=== PATIENT | female | born 1935 | race African-American/Black ===

== ENCOUNTER 2017-06-25 11:17 | Emergency (ER) | payer MEDICARE, MEDICAID ==
[2017-06-25 11:56] LABS: ABSOLUTE EOSINOPHILS # (AUTO) 0.1 10^3/uL (0.0-0.6); ABSOLUTE LYMPHOCYTES (AUTO) 2.1 10^3/uL (0.5-4.7); ABSOLUTE MONOCYTES (AUTO) 0.5 10^3/uL (0.1-1.4); ABSOLUTE NEUT (AUTO) 2.5 10^3/uL (1.7-8.2); BASOPHILS % (AUTO) 0.6 % (0-2); EOSINOPHILS % (AUTO) 2.4 % (0-6); HEMATOCRIT 39.8 % (36.0-47.0); HEMOGLOBIN 13.3 g/dL (12.0-15.5); HGB HCT DIFFERENCE 0.1; LYMPHOCYTES % (AUTO) 39.5 % (13-45); MEAN CORPUSCULAR HEMOGLOBIN 28.4 pg (27.0-33.4); MEAN CORPUSCULAR HGB CONC 33.4 g/dL (32.0-36.0); MEAN CORPUSCULAR VOLUME 85 fl (80-97); MONOCYTES % (AUTO) 10.3 % (3-13); RED BLOOD COUNT 4.68 10^6/uL (3.72-5.28); RED CELL DISTRIBUTION WIDTH 14.5 % (11.5-14.0); SEGMENTED NEUTROPHILS % (AUTO) 47.2 % (42-78); WHITE BLOOD COUNT 5.3 10^3/uL (4.0-10.5)
[2017-06-25 12:03] LABS: ADD ON TESTING BLD IN LAB ACKNOWLEDGE
[2017-06-25] MEDS ORDERED: ONDANSETRON HCL INJ/PF 4 MG/2 ML SDV IV ONE (12:12)
--- NOTE | 2017-06-25 12:17 | ER Document Report ---
ED GI/ - General Mode of Arrival: Ambulatory Information source: Patient TRAVEL OUTSIDE OF THE [place] IN LAST 30 DAYS: No <GANGA STACK - Last Filed: 06/25/17 12:57> <JENNY FITZPATRICK - Last Filed: 06/25/17 15:35> - General Chief Complaint: Nausea/Vomiting/Diarrhea Stated Complaint: WEAKNESS Time Seen by Provider: 06/25/17 11:52 Notes: Patient is an 82 year old female that presents to the emergency department today with complaints of vomiting. Patient has had associated diarrhea and diffuse abdominal pain as well. Patient states she has not seen her PCP in "quite a while" which she further explains as x4-5 months. Patient states she has been out of her insulin for quite some time. Patient mentions that she has been taking a family members insulin intermittently but she is unsure of type of insulin she has been taking. Patient is a poor historian so history is limited. (GANGA STACK) Patient is extremely poor historian. States she has had nausea vomiting for 3 days with a little bit of diarrhea. She states she has been out of her insulin for 3 days, does not know what kind of insulin she is taking. She has been taking "a little bit" of a family members insulin. When asked what insulin she takes she partially names off several different types which suggests she has been on different insulins over the years and has no idea what she supposed to be taking now. She was last admitted here in March 2016 and was discharged on Lantus at that time. (JENNY FITZPATRICK) - Related Data Allergies/Adverse Reactions: No Known Allergies Allergy (Verified 06/25/17 11:30) Past Medical History - General Information source: Patient - Social History Smoking Status: Unknown if Ever Smoked Cigarette use (# per day): No Frequency of alcohol use: None Drug Abuse: None Lives with: Family Family History: Reviewed & Not Pertinent Patient has suicidal ideation: No Patient has homicidal ideation: No - Past Medical History Cardiac Medical History: Reports: Hx Hypercholesterolemia, Hx Hypertension Endocrine Medical History: Reports: Hx Diabetes Mellitus Type 2 Surgical Hx: Negative <GANGA STACK - Last Filed: 06/25/17 12:57> Review of Systems - Review of Systems Constitutional: No symptoms reported EENT: No symptoms reported Cardiovascular: No symptoms reported Respiratory: No symptoms reported Gastrointestinal: See HPI, Abdominal pain, Diarrhea, Nausea, Vomiting Genitourinary: No symptoms reported Female Genitourinary: No symptoms reported Musculoskeletal: No symptoms reported Skin: No symptoms reported Hematologic/Lymphatic: No symptoms reported Neurological/Psychological: No symptoms reported -: Yes All other systems reviewed and negative <GANGA STACK - Last Filed: 06/25/17 12:57> Physical Exam <GANGA STACK - Last Filed: 06/25/17 12:57> <JENNY FITZPATRICK - Last Filed: 06/25/17 15:35> - Vital signs Vitals: Pulse Ox 95 06/25/17 11:22 - Notes Notes: Physical Exam: General: Alert, appears uncomfortable. HEENT: Normocephalic. Atraumatic. PERRL. Extraocular movements intact. Oropharynx clear. Neck: Supple. Non-tender. Respiratory: No respiratory distress. Clear and equal breath sounds bilaterally. Cardiovascular: Regular rate and rhythm. Abdominal: Obese. Diffuse abdominal tenderness with palpation. No distension. Normal Bowel Sounds. Back: Non-tender. No deformity or step off. Extremities: Moves all four extremities. Upper extremities: Normal inspection. Normal ROM. Lower extremities: Normal inspection. No edema. Normal ROM. Neurological: Normal cognition. AAOx4. Normal speech. Psychological: Normal affect. Normal Mood. Skin: Warm. Dry. Normal color. (GANGA STACK) Course - Laboratory Result Diagrams: 06/25/17 11:37 06/25/17 11:37 <GANGA STACK - Last Filed: 06/25/17 12:57> - Laboratory Result Diagrams: 06/25/17 11:37 06/25/17 11:37 <JENNY FITZPATRICK - Last Filed: 06/25/17 15:35> - Re-evaluation Re-evalutation: 06/25/17 15:29 The patient's hemoglobin A1c is greater than 14, her blood sugar today is 271 which suggested is lower than she normally runs based on that A1c. It is possibly lower because she had been throwing up some for the last few days. Her vomiting is very suspicious for diabetic gastroparesis which would not be unusual given her poorly controlled diabetes. She also does report numbness to the feet but does not complain of burning sensation. Her urine had only trace ketones. The serum CO2 was 25, this would suggest that the patient does not have type 1 diabetes and should be okay to take an oral sulfonylurea drug until she can follow-up with her doctor next week. (JENNY FITZPATRICK) - Vital Signs Vital signs: Temp Pulse Resp BP Pulse Ox 97.4 F 16 183/73 H 96 06/25/17 11:25 06/25/17 14:01 06/25/17 14:01 06/25/17 14:01 - Laboratory Laboratory results interpreted by me: 06/25/17 06/25/17 06/25/17 11:37 11:37 11:37 RDW 14.5 H Plt Count 149 L BUN 24 H Creatinine 1.49 H Est GFR ( Amer) 41 L Est GFR (Non-Af Amer) 34 L Glucose 271 H POC Glucose Hemoglobin A1c % > 14.0 H AST 13 L Urine Protein Urine Glucose (UA) Urine Ketones Ur Leukocyte Esterase 06/25/17 06/25/17 11:39 14:32 RDW Plt Count BUN Creatinine Est GFR ( Amer) Est GFR (Non-Af Amer) Glucose POC Glucose 253 H Hemoglobin A1c % AST Urine Protein 30 H Urine Glucose (UA) >=500 H Urine Ketones TRACE H Ur Leukocyte Esterase TRACE H Discharge <GANGA STACK - Last Filed: 06/25/17 12:57> <JENNY FITZPATRICK - Last Filed: 06/25/17 15:35> - Discharge Clinical Impression: Nausea, vomiting and diarrhea, Poorly controlled diabetes mellitus, Noncompliance w/medication treatment due to intermit use of medication High blood pressure Qualifiers: Hypertension type: essential hypertension Qualified Code(s): I10 - Essential ( primary) hypertension Condition: Stable Disposition: HOME, SELF-CARE Additional Instructions: Diabetes You have an abnormally high blood sugar. Uncontrolled high blood sugar leads to early heart disease, strokes, nerve damage, eye damage, and kidney damage. All diabetics should follow a diet designed to control the blood sugar. Overweight diabetics should exercise regularly and lose weight. If this is not sufficient to control the blood sugar, pills or insulin shots are necessary. Home testing of blood sugars or urine sugar is required. Diabetic teaching is available to help you figure insulin doses and monitor the blood sugar. Call the physician if there is faintness, excess sleepiness, or very rapid breathing. If hypoglycemia (LOW blood sugar) develops, symptoms are shakiness, weakness, sweating, and confusion. In this case, you should eat or drink something with sugar at once. //////////////////////////////////////////////////////////////////////////////// //////////////////////////////////////////////////////////////////////////////// ////////////// Take the medications as prescribed to help control your nausea and your blood sugar levels. Drink plenty of fluids over the next few days. Follow-up with your doctor next week to review your medications and get prescriptions for what ever diabetes medication he would like you to be taking. RETURN TO THE EMERGENCY ROOM IF ANY NEW OR WORSENING SYMPTOMS. Prescriptions: Glimepiride [Amaryl] 2 mg PO ASDIR #10 tablet Metoclopramide HCl [Reglan 10 mg Tablet] 10 mg PO Q4 PRN #15 tablet PRN Reason: For Nausea/Vomiting Referrals: LANA BARR MD [Primary Care Provider] - Follow up as needed Scribe Attestation: 06/25/17 15:34 I personally performed the services described in the documentation, reviewed and edited the documentation which was dictated to the scribe in my presence, and it accurately records my words and actions. (JENNY FITZPATRICK) Scribe Documentation - Scribe Written by Scribe:: Mallorie Mack, 06/25/2017 1310 acting as scribe for :: Loreta <GANGA STACK - Last Filed: 06/25/17 12:57>
[2017-06-25 12:27] LABS: ALANINE AMINOTRANSFERASE 25 U/L (9-52); ALBUMIN 3.7 g/dL (3.5-5.0); ALKALINE PHOSPHATASE 89 U/L (38-126); ANION GAP 14 (5-19); ASPARTATE AMINO TRANSFERASE 13 U/L (14-36); BILIRUBIN,DIRECT 0.3 mg/dL (0.0-0.4); BILIRUBIN,TOTAL 0.5 mg/dL (0.2-1.3); BLOOD UREA NITROGEN 24 mg/dL (7-20); CALCIUM 9.4 mg/dL (8.4-10.2); CARBON DIOXIDE 25 mmol/L (22-30); CHLORIDE 100 mmol/L (98-107); CREATININE RESULT 1.49 mg/dL (0.52-1.25); GLUCOSE 271 mg/dL (75-110); POTASSIUM 4.6 mmol/L (3.6-5.0); SODIUM 138.9 mmol/L (137-145); TOTAL PROTEIN 6.9 g/dL (6.3-8.2)
[2017-06-25 12:29] LABS: MAGNESIUM 2.1 mg/dL (1.6-2.3)
[2017-06-25] MEDS ORDERED: NORMAL SALINE 1000 ML 1,000 ML IV ONE (13:05)
[2017-06-25 13:35] LABS: ADD ON TESTING BLD IN LAB ACKNOWLEDGE
[2017-06-25 13:55] LABS: CREATINE KINASE 49 U/L (30-135)
--- NOTE | 2017-06-25 14:12 | RADIOLOGY REPORT (SQ) ---
EXAM DESCRIPTION: ACUTE ABDOMEN SERIES COMPLETED DATE/TIME: 06/25/2017 2:04 pm REASON FOR STUDY: N V w/ some diarrhea COMPARISON: None. NUMBER OF VIEWS: Three views. TECHNIQUE: Frontal chest, supine abdomen and upright abdomen radiographic images acquired. LIMITATIONS: None. FINDINGS: CHEST: Lungs clear of infiltrates. FREE AIR: None. No abnormal gas collections. BOWEL GAS PATTERN: Nonobstructive pattern. No dilated loops or air fluid levels. CALCIFICATIONS: No suspicious calcifications. HARDWARE: None in the abdomen. SOFT TISSUES: No gross mass or suggestion of organomegaly. BONES: No acute fracture. No worrisome bone lesions. OTHER: No other significant finding. IMPRESSION: NO RADIOGRAPHIC EVIDENCE FOR ACUTE ABDOMINAL DISEASE. TECHNICAL DOCUMENTATION: JOB ID: [id number] [employer]- All Rights Reserved
[2017-06-25 14:47] LABS: APPEARANCE,URINE SLIGHTLY-CLOUDY; BILIRUBIN,URINE NEGATIVE (NEGATIVE); GLUCOSE, URINE >=500 mg/dL (NEGATIVE); KETONES,URINE TRACE mg/dL (NEGATIVE); LEUKOCYTE ESTERASE,URINE TRACE (NEGATIVE); NITRITE,URINE NEGATIVE (NEGATIVE); PROTEIN,URINE 30 mg/dL (NEGATIVE); UROBILINOGEN,URINE NEGATIVE mg/dL (<2.0)
[2017-06-25] MEDS ORDERED: GLIMEPIRIDE 1 MG TABLET PO ONE (15:35)
[2017-06-25] MEDS ORDERED: AMLODIPINE BESYLATE 10 MG TABLET PO ONE (15:35)
[2017-06-25 15:55] VITALS: BP 171/64
--- NOTE | 2017-06-25 19:31 | EKG REPORT ---
SEVERITY:- ABNORMAL ECG - SINUS OR ECTOPIC ATRIAL RHYTHM FIRST DEGREE AV BLOCK NSI IVCD : Confirmed by: Mya Garibay MD 25-Jun-2017 19:30:35
== END 2017-06-25 16:12 | disposition home or self-care (01) ==
LOC: ER 11:17
DX: R11.2 Nausea with vomiting, unspecified (principal); R19.7 Diarrhea, unspecified; E11.9 Type 2 diabetes mellitus without complications; I10 Essential (primary) hypertension; E78.00 Pure hypercholesterolemia, unspecified; Z91.14 Patient's other noncompliance with medication regimen; Z79.4 Long term (current) use of insulin
CPT/HCPCS: 93005; 99284; 96361; 96374; 36415; 87086; 82962; 82550; 83735; 85025; 87088; 80053; 81001; 84484; 83036; 74022; 93010; J2405; A9270 ×2; J7030

== ENCOUNTER 2017-07-01 08:40 | Emergency (ER) | payer MEDICARE, MEDICAID ==
[2017-07-01 08:46] VITALS: BP 164/72
[2017-07-01] MEDS ORDERED: TRAMADOL HCL 50 MG TABLET PO ONE (09:47)
[2017-07-01] MEDS ORDERED: LOSARTAN POTASSIUM 50 MG TABLET PO ONE (09:47)
--- NOTE | 2017-07-01 09:52 | ER Document Report ---
HPI - HPI Patient complains to provider of: Left knee pain Onset: Other - 3 years Onset/Duration: Worse Quality of pain: Achy Pain Level: 5 Context: Patient complains of chronic left knee pain for the past 3 years that worsened over the past few days. Patient also reports that she is currently out of her insulin as well as her high blood pressure medication. Patient had an appointment with her primary doctor and whenever she arrived at the office, the nurse advised her that she was too sick and that she needed to come to the emergency department for further evaluation. Patient denies any injury to her knee. Associated Symptoms: Other - Left knee pain Exacerbated by: Standing, Movement, Walking Relieved by: Denies Similar symptoms previously: Yes Recently seen / treated by doctor: No - ROS ROS below otherwise negative: Yes Systems Reviewed and Negative: Yes All other systems reviewed and negative - EENT EENT: DENIES: Sore Throat, Ear Pain, Eye problems - NEURO Neurology: DENIES: Headache, Weakness, Vision blurred, Dizzinesss / Vertigo - CARDIOVASCULAR Cardiovascular: DENIES: Chest pain - RESPIRATORY Respiratory: DENIES: Trouble Breathing, Coughing - GASTROINTESTINAL Gastrointestinal: DENIES: Abdominal Pain, Black / Bloody Stools - URINARY Urinary: DENIES: Dysuria, Urgency, Frequency - REPRODUCTIVE Reproductive: DENIES: :, Postmenopausal, Abnormal bleeding / discharge - MUSCULOSKELETAL Musculoskeletal: REPORTS: Extremity pain - Left Knee pain chronic Past Medical History - General Information source: Patient, Relative - Social History Smoking Status: Never Smoker Chew tobacco use (# tins/day): No Frequency of alcohol use: None Drug Abuse: None Lives with: Family Family History: Reviewed & Not Pertinent Patient has suicidal ideation: No Patient has homicidal ideation: No - Past Medical History Cardiac Medical History: Reports: Hx Hypercholesterolemia, Hx Hypertension Endocrine Medical History: Reports: Hx Diabetes Mellitus Type 2 Renal/ Medical History: Denies: Hx Peritoneal Dialysis Musculoskeltal Medical History: Reports Hx Arthritis Psychiatric Medical History: Denies: Hx Depression Past Surgical History: Reports: Hx Cholecystectomy Vertical Provider Document - CONSTITUTIONAL Agree With Documented VS: Yes Exam Limitations: No Limitations General Appearance: WD/WN, No Apparent Distress - INFECTION CONTROL TRAVEL OUTSIDE OF THE [place] IN LAST 30 DAYS: No - HEENT HEENT: Atraumatic, Normocephalic - NECK Neck: Normal Inspection - RESPIRATORY Respiratory: Breath Sounds Normal, No Respiratory Distress O2 Sat by Pulse Oximetry: 99 - CARDIOVASCULAR Cardiovascular: Regular Rate, Regular Rhythm Pulses: Normal: Dorsalis pedis - BACK Back: Normal Inspection - MUSCULOSKELETAL/EXTREMETIES Musculoskeletal/Extremeties: MAEW, Tender - Generalized left knee joint tenderness, no joint effusion, no laxity with varus or valgus maneuvers. Normal skin color and temperature overlying joint, No Edema. negative: Eccymosis - NEURO Level of Consciousness: Awake, Alert, Appropriate Motor/Sensory: No Motor Deficit - DERM Integumentary: Warm, Dry, No Rash Course - Re-evaluation Re-evalutation: 07/01/17 09:47 Spoke with patient's reported primary doctor JALEN Shafer regarding patient being unable to keep her scheduled appointment this morning at their office. JALEN Shafer states that patient currently owes a bill at their office and that they are not able to see her, until she pays the bill. Patient was not able to be seen at their office today because she had a balance that was due. JALEN Shafer also states that patient has [facility] listed on her Medicaid card as her PCP and that is who she is assigned to see as a primary provider. JALEN Shafer reviewed patient's current medications and dosages including Lantus SoloSTAR 50 units daily as well as losartan 100 mg daily. 07/01/17 21:14 - Vital Signs Vital signs: Temp Pulse Resp BP Pulse Ox 97.9 F 74 16 164/72 H 99 07/01/17 08:44 07/01/17 08:44 07/01/17 08:44 07/01/17 08:44 07/01/17 08:44 Discharge - Discharge Clinical Impression: Arthritis of left knee, Hx of diabetes mellitus, Hx of essential hypertension Condition: Stable Disposition: HOME, SELF-CARE Instructions: Arthritis ([facility]), Ultram ([facility]) Additional Instructions: Return immediately for any new or worsening symptoms Followup with your primary care provider, call tomorrow to make a followup appointment You need to follow-up with the [facility] office as this is who is listed on her Medicaid card as her primary provider. JALEN Shafer states that he can see you if you pay the balance owed to the office first. Prescriptions: Insulin Glargine,Hum.rec.anlog [Lantus Solostar] 50 unit SQ DAILY #5 insuln.pen Losartan Potassium [Cozaar] 100 mg PO DAILY #30 tablet Tramadol HCl [Ultram 50 mg Tablet] 50 mg PO ASDIR PRN #15 tablet PRN Reason: Forms: Elevated Blood Pressure Referrals: LANA BARR MD [Primary Care Provider] - Follow up as needed
== END 2017-07-01 10:10 | disposition home or self-care (01) ==
LOC: ER 08:40
DX: M17.12 Unilateral primary osteoarthritis, left knee (principal); G89.29 Other chronic pain; M25.562 Pain in left knee; E11.9 Type 2 diabetes mellitus without complications; I10 Essential (primary) hypertension
CPT/HCPCS: 99283; A9270 ×2

== ENCOUNTER 2017-11-27 23:31 | Emergency (ER) | payer MEDICARE, MEDICAID ==
--- NOTE | 2017-11-28 00:01 | ER Document Report ---
ED General - General Chief Complaint: General Weakness Stated Complaint: WEAKNESS Time Seen by Provider: 11/27/17 23:44 Notes: Patient is an 82-year-old female that comes emergency department for chief complaint of a rash on her groin area and generalized weakness. She denies vomiting, dizziness, chest pain or abdominal pain, fever or chills. She lives at home, she comes by EMS tonight. She states that she ran out of her insulin, she ran out several days ago, she states that she still has insurance but she cannot afford to go see her provider and she didn't have a way to get there. Past medical history of insulin-dependent type 2 diabetes and hypertension. TRAVEL OUTSIDE OF THE [place] IN LAST 30 DAYS: No - Related Data Allergies/Adverse Reactions: No Known Allergies Allergy (Verified 06/25/17 11:30) Past Medical History - General Information source: Patient - Social History Smoking Status: Never Smoker Frequency of alcohol use: None Drug Abuse: None Lives with: Family Family History: Reviewed & Not Pertinent - Past Medical History Cardiac Medical History: Reports: Hx Hypercholesterolemia, Hx Hypertension Endocrine Medical History: Reports: Hx Diabetes Mellitus Type 2 Renal/ Medical History: Denies: Hx Peritoneal Dialysis Musculoskeltal Medical History: Reports Hx Arthritis Psychiatric Medical History: Denies: Hx Depression Past Surgical History: Reports: Hx Cholecystectomy Review of Systems - Review of Systems Constitutional: See HPI EENT: No symptoms reported Cardiovascular: No symptoms reported Respiratory: No symptoms reported Gastrointestinal: No symptoms reported Genitourinary: No symptoms reported Female Genitourinary: No symptoms reported Musculoskeletal: No symptoms reported Skin: See HPI Hematologic/Lymphatic: No symptoms reported Neurological/Psychological: No symptoms reported Physical Exam - Vital signs Vitals: Resp 16 11/27/17 23:39 Interpretation: Normal - General General appearance: Appears well - Patient alert, cooperative, well-appearing, does not appear to be in any distress, Alert In distress: None - HEENT Head: Normocephalic, Atraumatic Eyes: Normal Conjunctiva: Other - Right conjunctive are mildly irritated and erythematous, small amount of dried discharge near the medial canthus, unremarkable eyelids with no swelling, normal pupil, unremarkable eye exam otherwise Eyelashes: Normal Pupils: PERRL - Respiratory Respiratory status: No respiratory distress Chest status: Nontender Breath sounds: Normal Chest palpation: Normal - Cardiovascular Rhythm: Regular Heart sounds: Normal auscultation Murmur: No - Abdominal Inspection: Normal Distension: No distension Bowel sounds: Normal Tenderness: Nontender Organomegaly: No organomegaly - Back Back: Normal, Nontender - Extremities General upper extremity: Normal inspection, Nontender, Normal color, Normal ROM , Normal temperature General lower extremity: Normal inspection, Nontender, Normal color, Normal ROM , Normal temperature, Normal weight bearing. No: Gil's sign - Neurological Neuro grossly intact: Yes Cognition: Normal Orientation: AAOx4 Jbphh Coma Scale Eye Opening: Spontaneous [place] Coma Scale Verbal: Oriented [place] Coma Scale Motor: Obeys Commands Jbphh Coma Scale Total: 15 Speech: Normal Motor strength normal: LUE, RUE, LLE, RLE Sensory: Normal - Psychological Associated symptoms: Normal affect, Normal mood - Skin Skin Temperature: Warm Skin Moisture: Dry Skin Color: Normal Skin irregularity: other - Erythematous scattered inguinal rash, no vesicles, induration, fluctuance noted, otherwise unremarkable skin exam. Tiffanie NOYOLA present during exam Course - Re-evaluation Re-evalutation: Examination showing mild conjunctivitis, patient denies any visual changes or pain but does have some irritation and discharge, given Polytrim to go home with from this department. EKG shows old bundle branch block. No chest pain, shortness of breath, or dizziness. Patient with inguinal rash consistent with Nikkie, hyperglycemia, out of her blood pressure and diabetes medications. States she needs a new primary care provider as well. States that she can have her children help her in the meantime. Patient was given IV fluids, insulin, chemistry was rechecked and borderline abnormal anion gap resolved, venous blood gas was checked initially and showed no acidosis. Because of borderline labs and resolution after discussion with Dr. Dasilva decision was made along with patient that she will be discharged with prescriptions for her medications, close follow-up, gearcase assembler consult will be placed for additional assistant strength coach, and return precautions were discussed in detail. Patient states satisfaction and agreement with plan. - Vital Signs Vital signs: Temp Pulse Resp BP Pulse Ox 98.5 F 17 176/79 H 94 11/27/17 23:54 11/28/17 04:01 11/28/17 04:01 11/28/17 04:01 - Laboratory Result Diagrams: 11/27/17 23:00 11/28/17 03:05 Laboratory results interpreted by me: 11/27/17 11/27/17 11/28/17 23:00 23:00 01:24 RBC 5.47 H Hct 48.0 H MCHC 31.5 L RDW 14.8 H Sodium 132.4 L Potassium 5.3 H Chloride 90 L Carbon Dioxide 21 L Anion Gap 21 H BUN 22 H Creatinine 1.50 H Est GFR ( Amer) 40 L Est GFR (Non-Af Amer) 33 L Glucose 594 H* POC Glucose Direct Bilirubin 0.5 H Urine Glucose (UA) >=500 H Urine Ketones 20 H 11/28/17 11/28/17 11/28/17 03:05 04:05 05:00 RBC Hct MCHC RDW Sodium 136.3 L Potassium Chloride Carbon Dioxide 21 L Anion Gap BUN 22 H Creatinine 1.31 H Est GFR ( Amer) 47 L Est GFR (Non-Af Amer) 39 L Glucose 441 H* POC Glucose 369 H 386 H Direct Bilirubin Urine Glucose (UA) Urine Ketones 11/28/17 06:02 RBC Hct MCHC RDW Sodium Potassium Chloride Carbon Dioxide Anion Gap BUN Creatinine Est GFR ( Amer) Est GFR (Non-Af Amer) Glucose POC Glucose 373 H Direct Bilirubin Urine Glucose (UA) Urine Ketones Discharge - Discharge Clinical Impression: Hyperglycemia, Nikkie rash of groin HTN (hypertension) Qualifiers: Hypertension type: essential hypertension Qualified Code(s): I10 - Essential ( primary) hypertension Conjunctivitis Qualifiers: Conjunctivitis type: acute Acute conjunctivitis type: unspecified Laterality: right Qualified Code(s): H10.31 - Unspecified acute conjunctivitis, right eye Condition: Stable Disposition: HOME, SELF-CARE Additional Instructions: Your diabetes needs to be back under control. Please fill and take your insulin as prescribed, you have been referred to Dr. Collins for primary care follow-up, please call today to confirm and set up your appointment today, please be seen within the next several days. Also fill and take your Losartan. Use the cream prescribed in addition to the medication you were given by mouth tonight for the fungal rash on your groin. This should improve when your blood sugars get under control. Keep area clean and dry. Use the eye drops as prescribed (1 drop, 4 x daily, for 5 days). A gearcase assembler consult has been placed, they will be contacting you for additional assistance and evaluation. Return if you worsen - vomiting, fever, spreading rash, or any other concerning or worsening symptoms. Prescriptions: Clotrimazole 15 gm TP ASDIR PRN #2 cream.gm. PRN Reason: Insulin Detemir [Levemir Insulin 300 Units/3 ml Insuln.pen] 40 unit SUBCUT ASDIR PRN #20 ml PRN Reason: Losartan Potassium 100 mg PO DAILY #30 tablet Referrals: CLAUDIO COLLINS MD [ACTIVE STAFF] - 11/28/17
[2017-11-28 00:02] LABS: ABSOLUTE EOSINOPHILS # (AUTO) 0.1 10^3/uL (0.0-0.6); ABSOLUTE LYMPHOCYTES (AUTO) 2.4 10^3/uL (0.5-4.7); ABSOLUTE MONOCYTES (AUTO) 0.6 10^3/uL (0.1-1.4); ABSOLUTE NEUT (AUTO) 3.8 10^3/uL (1.7-8.2); BASOPHILS % (AUTO) 0.5 % (0-2); EOSINOPHILS % (AUTO) 1.7 % (0-6); HEMOGLOBIN 15.1 g/dL (12.0-15.5); LYMPHOCYTES % (AUTO) 34.6 % (13-45); MEAN CORPUSCULAR HEMOGLOBIN 27.7 pg (27.0-33.4); MEAN CORPUSCULAR HGB CONC 31.5 g/dL (32.0-36.0); MEAN CORPUSCULAR VOLUME 88 fl (80-97); MONOCYTES % (AUTO) 9.1 % (3-13); PLATELET COUNT 204 10^3/uL (150-450); RED BLOOD COUNT 5.47 10^6/uL (3.72-5.28); RED CELL DISTRIBUTION WIDTH 14.8 % (11.5-14.0); SEGMENTED NEUTROPHILS % (AUTO) 54.1 % (42-78); TOTAL CELLS COUNTED % (AUTO) 100 %
[2017-11-28 00:13] LABS: ALANINE AMINOTRANSFERASE 20 U/L (9-52); ALKALINE PHOSPHATASE 124 U/L (38-126); ASPARTATE AMINO TRANSFERASE 14 U/L (14-36); BILIRUBIN,DIRECT 0.5 mg/dL (0.0-0.4); BILIRUBIN,TOTAL 0.6 mg/dL (0.2-1.3); BLOOD UREA NITROGEN 22 mg/dL (7-20); CALCIUM 10.1 mg/dL (8.4-10.2); CHLORIDE 90 mmol/L (98-107); POTASSIUM 5.3 mmol/L (3.6-5.0); TOTAL PROTEIN 7.8 g/dL (6.3-8.2)
[2017-11-28 00:18] LABS: CARBON DIOXIDE 21 mmol/L (22-30); SODIUM 132.4 mmol/L (137-145)
[2017-11-28 00:21] LABS: ANION GAP 21 (5-19); GLUCOSE 594 mg/dL (75-110)
[2017-11-28] MEDS ORDERED: NORMAL SALINE 1000 ML 1,000 ML IV ONE ×2 (00:24→02:56)
[2017-11-28] MEDS ORDERED: INSULIN REG, HUMAN 100 UNIT/ML 3 ML VIAL (PYX) IV ONE (01:07)
[2017-11-28] MEDS ORDERED: INSULIN DETEMIR 100 UNIT/ML 3 ML PEN SUBCUT ONE ×2 (01:07→01:42)
[2017-11-28 01:56] LABS: VENOUS BLOOD BASE EXCESS -5.3 mmol/L; VENOUS BLOOD HCO3 20.5 mmol/L (20-32); VENOUS BLOOD PCO2 40.8 mmHg (35-63); VENOUS BLOOD PH 7.32 (7.30-7.42)
[2017-11-28] MEDS ORDERED: FLUCONAZOLE 100 MG TABLET PO ONE (02:01)
[2017-11-28 02:51] LABS: APPEARANCE,URINE CLEAR; BILIRUBIN,URINE NEGATIVE (NEGATIVE); COLOR,URINE YELLOW; GLUCOSE, URINE >=500 mg/dL (NEGATIVE); KETONES,URINE 20 mg/dL (NEGATIVE); LEUKOCYTE ESTERASE,URINE NEGATIVE (NEGATIVE); NITRITE,URINE NEGATIVE (NEGATIVE); PROTEIN,URINE NEGATIVE (NEGATIVE); URINE SPECIFIC GRAVITY 1.022; UROBILINOGEN,URINE NEGATIVE mg/dL (<2.0)
[2017-11-28 03:36] LABS: ANION GAP 16 (5-19); BLOOD UREA NITROGEN 22 mg/dL (7-20); CALCIUM 9.1 mg/dL (8.4-10.2); CARBON DIOXIDE 21 mmol/L (22-30); CHLORIDE 99 mmol/L (98-107); POTASSIUM 4.6 mmol/L (3.6-5.0); SODIUM 136.3 mmol/L (137-145)
[2017-11-28 03:45] LABS: GLUCOSE 441 mg/dL (75-110)
[2017-11-28] MEDS ORDERED: POLYMYXIN B SULFATE/TMP OPH SOLN 10 ML OD ONE (05:23)
[2017-11-28] MEDS ORDERED: LOSARTAN POTASSIUM 50 MG TABLET PO ONE (05:49)
[2017-11-28] MEDS ORDERED: POLYMYXIN B SULFATE/TMP OPH SOLN 10 ML ONE (06:04)
[2017-11-28 07:11] VITALS: BP 149/69
--- NOTE | 2017-11-28 18:20 | EKG REPORT ---
SEVERITY:- ABNORMAL ECG - SINUS RHYTHM FIRST DEGREE AV BLOCK PROBABLE LEFT ATRIAL ABNORMALITY LEFT VENTRICULAR HYPERTROPHY LAFB : Confirmed by: Dave Rivera MD 28-Nov-2017 18:20:19
== END 2017-11-28 07:11 | disposition home or self-care (01) ==
LOC: ER 23:31
DX: E11.65 Type 2 diabetes mellitus with hyperglycemia (principal); B37.49 Other urogenital candidiasis; H10.31 Unspecified acute conjunctivitis, right eye; I10 Essential (primary) hypertension; R53.1 Weakness; R21 Rash and other nonspecific skin eruption; Z79.4 Long term (current) use of insulin
CPT/HCPCS: 93005; 99285; 96360; 36415; 82962; 85025; 80048; 80053; 81001; 82803; 93010; A9270 ×4; J7030; J1815; J3490

== ENCOUNTER 2018-01-22 12:48 | Emergency (ER) | payer MEDICARE, MEDICAID ==
[2018-01-22] MEDS ORDERED: NORMAL SALINE 1000 ML 1,000 ML IV ONE (13:13)
--- NOTE | 2018-01-22 13:13 | ER Document Report ---
ED Medical Screen (RME) - General Stated Complaint: BLODD SUGAR PROBLEM Time Seen by Provider: 01/22/18 13:13 Mode of Arrival: Medic Notes: pt presents to the ED from [facility] for c/o high blood sugar, also c/o heart burn. denies f/n/v/d. reports she feels better since arrival. pt is a diabetic but has missed her insulin recently. TRAVEL OUTSIDE OF THE [place] IN LAST 30 DAYS: No - Related Data Allergies/Adverse Reactions: No Known Allergies Allergy (Verified 06/25/17 11:30) Past Medical History - Past Medical History Cardiac Medical History: Reports: Hx Hypercholesterolemia, Hx Hypertension Endocrine Medical History: Reports: Hx Diabetes Mellitus Type 2 Renal/ Medical History: Denies: Hx Peritoneal Dialysis Musculoskeltal Medical History: Reports Hx Arthritis Psychiatric Medical History: Denies: Hx Depression Past Surgical History: Reports: Hx Cholecystectomy Doctor's Discharge - Discharge Referrals: LANA BARR MD [Primary Care Provider] - Follow up as needed
[2018-01-22 13:56] LABS: VENOUS BLOOD BASE EXCESS 1.6 mmol/L; VENOUS BLOOD HCO3 28.2 mmol/L (20-32); VENOUS BLOOD PCO2 52.5 mmHg (35-63); VENOUS BLOOD PH 7.35 (7.30-7.42)
[2018-01-22 13:57] LABS: ABSOLUTE BASOPHILS # (AUTO) 0.1 10^3/uL (0.0-0.2); ABSOLUTE EOSINOPHILS # (AUTO) 0.1 10^3/uL (0.0-0.6); ABSOLUTE MONOCYTES (AUTO) 0.3 10^3/uL (0.1-1.4); ABSOLUTE NEUT (AUTO) 2.6 10^3/uL (1.7-8.2); BASOPHILS % (AUTO) 1.3 % (0-2); EOSINOPHILS % (AUTO) 2.6 % (0-6); HEMATOCRIT 38.7 % (36.0-47.0); HEMOGLOBIN 12.5 g/dL (12.0-15.5); LYMPHOCYTES % (AUTO) 39.1 % (13-45); MEAN CORPUSCULAR HEMOGLOBIN 27.7 pg (27.0-33.4); MEAN CORPUSCULAR HGB CONC 32.2 g/dL (32.0-36.0); MEAN CORPUSCULAR VOLUME 86 fl (80-97); MONOCYTES % (AUTO) 6.1 % (3-13); PLATELET COUNT 190 10^3/uL (150-450); RED CELL DISTRIBUTION WIDTH 15.4 % (11.5-14.0); SEGMENTED NEUTROPHILS % (AUTO) 50.9 % (42-78); TOTAL CELLS COUNTED % (AUTO) 100 %
--- NOTE | 2018-01-22 13:57 | ER Document Report ---
ED Blood Sugar Problem - General Chief Complaint: High Blood Sugar Stated Complaint: BLODD SUGAR PROBLEM Time Seen by Provider: 01/22/18 13:13 Mode of Arrival: Medic Information source: Patient, Emergency Med Personnel TRAVEL OUTSIDE OF THE [place] IN LAST 30 DAYS: No - HPI Patient complains to provider of: HIGH BLOOD SUGAR Onset: Other - SEVERAL DAYS Onset/Duration: Gradual Quality of pain: No pain Severity: Mild Insulin taken: Yes Associated symptoms: Increased thirst Similar symptoms previously: Yes - NOT RECENT Recently seen / treated by doctor: Yes - [facility], THIS A.M. - Related Data Allergies/Adverse Reactions: No Known Allergies Allergy (Verified 06/25/17 11:30) Past Medical History - General Information source: Patient - Social History Smoking Status: Unknown if Ever Smoked Cigarette use (# per day): No Chew tobacco use (# tins/day): No Frequency of alcohol use: None Drug Abuse: None Lives with: Family Family History: Reviewed & Not Pertinent - Past Medical History Cardiac Medical History: Reports: Hx Hypercholesterolemia, Hx Hypertension Pulmonary Medical History: Reports: None EENT Medical History: Reports: None Endocrine Medical History: Reports: Hx Diabetes Mellitus Type 2 Renal/ Medical History: Reports: None. Denies: Hx Peritoneal Dialysis Malignancy Medical History: Reports: None GI Medical History: Reports: None Musculoskeltal Medical History: Reports Hx Arthritis Psychiatric Medical History: Denies: Hx Depression Past Surgical History: Reports: Hx Cholecystectomy Review of Systems - Review of Systems Constitutional: See HPI EENT: No symptoms reported Cardiovascular: No symptoms reported Respiratory: No symptoms reported Gastrointestinal: No symptoms reported Genitourinary: No symptoms reported Female Genitourinary: Post menopausal Musculoskeletal: No symptoms reported Skin: No symptoms reported Neurological/Psychological: No symptoms reported Physical Exam - Vital signs Interpretation: Normal. No: Tachycardic, Tachypneic - General General appearance: Appears well, Alert In distress: None - HEENT Head: Normocephalic Eyes: Normal Conjunctiva: Normal Ears: Normal Nasal: Normal Mouth/Lips: Normal Mucous membranes: Dry - MILDLY Pharynx: Normal Neck: Normal - Respiratory Respiratory status: No respiratory distress Breath sounds: Normal - Cardiovascular Rhythm: Regular Heart sounds: Normal auscultation Murmur: No - Abdominal Inspection: Normal, Obese Bowel sounds: Normal - Back Back: Normal - Extremities General upper extremity: Normal inspection General lower extremity: Normal inspection - Neurological Neuro grossly intact: Yes Cognition: Normal Orientation: AAOx4 - Psychological Associated symptoms: Normal affect, Normal mood - Skin Skin Temperature: Warm Skin Moisture: Dry Skin Color: Normal Skin Turgor: Elastic Course - Laboratory Result Diagrams: 01/22/18 13:41 01/22/18 13:41 Laboratory results interpreted by me: 01/22/18 01/22/18 01/22/18 13:08 13:41 13:41 RDW 15.4 H BUN 21 H Est GFR ( Amer) 55 L Est GFR (Non-Af Amer) 45 L Glucose 267 H POC Glucose 341 H AST 13 L Urine Protein Urine Glucose (UA) Urine Blood Ur Leukocyte Esterase 01/22/18 01/22/18 15:32 15:45 RDW BUN Est GFR ( Amer) Est GFR (Non-Af Amer) Glucose POC Glucose 232 H AST Urine Protein 30 H Urine Glucose (UA) >=500 H Urine Blood SMALL H Ur Leukocyte Esterase MODERATE H - EKG Interpretation by Me EKG shows normal: Sinus rhythm, ST-T Waves. abnormal: Intervals, QRS Complexes Rate: Normal Rhythm: NSR [place]/QRS: Left axis deviation, LBBB Heart block present: 1st Degree Discharge - Discharge Clinical Impression: Hyperglycemia, Dehydration Diabetes mellitus type 1, uncontrolled Qualifiers: Diabetes mellitus complication status: with kidney complications Diabetes mellitus complication detail: with nephropathy Qualified Code(s): E10.29 - Type 1 diabetes mellitus with other diabetic kidney complication; E10.65 - Type 1 diabetes mellitus with hyperglycemia; E10.65 - Type 1 diabetes mellitus with hyperglycemia; E10.65 - Type 1 diabetes mellitus with hyperglycemia; E10.65 - Type 1 diabetes mellitus with hyperglycemia Condition: Stable Disposition: HOME, SELF-CARE Instructions: Diabetes ([facility]) Additional Instructions: CONTINUE YOUR USUAL MEDICATIONS. FOLLOW YOUR RECOMMENDED DIABETIC DIET CLOSELY. FOLLOW UP WITH YOUR PRIMARY CARE PROVIDER IN 3-5 DAYS, CALL OFFICE TOMORROW FOR APPT. RETURN TO E.R. IF PROBLEMS. Referrals: LANA BARR MD [PEDIATRICS] - Follow up in 3-5 days
[2018-01-22 14:08] LABS: ALANINE AMINOTRANSFERASE 18 U/L (9-52); ALBUMIN 3.6 g/dL (3.5-5.0); ALKALINE PHOSPHATASE 65 U/L (38-126); ANION GAP 10 (5-19); ASPARTATE AMINO TRANSFERASE 13 U/L (14-36); BILIRUBIN,DIRECT 0.3 mg/dL (0.0-0.4); BILIRUBIN,TOTAL 0.6 mg/dL (0.2-1.3); BLOOD UREA NITROGEN 21 mg/dL (7-20); CALCIUM 9.3 mg/dL (8.4-10.2); CARBON DIOXIDE 28 mmol/L (22-30); CHLORIDE 102 mmol/L (98-107); CREATINE KINASE 35 U/L (30-135); GLUCOSE 267 mg/dL (75-110); POTASSIUM 3.6 mmol/L (3.6-5.0); SODIUM 140.1 mmol/L (137-145); TOTAL PROTEIN 6.9 g/dL (6.3-8.2)
[2018-01-22 14:20] LABS: CREATINE KINASE MB 0.42 ng/mL (<4.55); TROPONIN I 0.028 ng/mL
[2018-01-22] MEDS ORDERED: NORMAL SALINE 1000 ML 1,000 ML IV PRN (15:13)
[2018-01-22 15:56] LABS: APPEARANCE,URINE CLOUDY; BILIRUBIN,URINE NEGATIVE (NEGATIVE); COLOR,URINE YELLOW; GLUCOSE, URINE >=500 mg/dL (NEGATIVE); KETONES,URINE NEGATIVE (NEGATIVE); LEUKOCYTE ESTERASE,URINE MODERATE (NEGATIVE); NITRITE,URINE NEGATIVE (NEGATIVE); PROTEIN,URINE 30 mg/dL (NEGATIVE); UROBILINOGEN,URINE NEGATIVE mg/dL (<2.0)
[2018-01-22 18:28] VITALS: BP 155/86
--- NOTE | 2018-01-22 22:48 | EKG REPORT ---
SEVERITY:- ABNORMAL ECG - SINUS RHYTHM FIRST DEGREE AV BLOCK LEFT BUNDLE BRANCH BLOCK : Confirmed by: Mayte Cuba 22-Jan-2018 22:48:23
== END 2018-01-22 18:50 | disposition home or self-care (01) ==
LOC: ER 12:48
DX: E10.29 Type 1 diabetes mellitus with other diabetic kidney complication (principal); E10.65 Type 1 diabetes mellitus with hyperglycemia; E86.0 Dehydration; R63.1 Polydipsia; I10 Essential (primary) hypertension
CPT/HCPCS: 93005; 99285; 96360; 96361; 36415; 82553; 82962; 82550; 85025; 80053; 81001; 84484; 82803; 93010; J7030

== ENCOUNTER 2018-02-24 10:08 | Inpatient (IN) | payer MEDICARE, MEDICAID ==
--- NOTE | 2018-02-24 10:25 | ER Document Report ---
ED General - General Stated Complaint: ABDOMINAL PAIN Time Seen by Provider: 02/24/18 10:24 Mode of Arrival: Medic Information source: Patient, Emergency Med Personnel, [facility] Records TRAVEL OUTSIDE OF THE [place] IN LAST 30 DAYS: No - HPI Notes: 10-year-old female with a medical history of diverticulitis, diabetes type 2 is insulin-dependent, CHF and hypertension who presents to the ED via EMS for complaints of a syncopal event with abdominal pain. Family witnessed patient sitting, states that it is her eyes rolled in the back of her head and she appeared to be unconscious for a minute. EMS statse that patient was awake alert and oriented, breathing without issues. Denies any falling, hitting head. Denies any new medications. Blood sugar was 132 per EMS. - Related Data Allergies/Adverse Reactions: No Known Allergies Allergy (Verified 06/25/17 11:30) Past Medical History - General Information source: Patient, Emergency Med Personnel - Social History Smoking Status: Unknown if Ever Smoked Family History: Reviewed & Not Pertinent - Past Medical History Cardiac Medical History: Reports: Hx Hypercholesterolemia, Hx Hypertension Endocrine Medical History: Reports: Hx Diabetes Mellitus Type 2 Renal/ Medical History: Denies: Hx Peritoneal Dialysis Musculoskeletal Medical History: Reports Hx Arthritis Psychiatric Medical History: Denies: Hx Depression Past Surgical History: Reports: Hx Cholecystectomy Review of Systems - Review of Systems Constitutional: See HPI EENT: No symptoms reported Cardiovascular: No symptoms reported Respiratory: No symptoms reported Gastrointestinal: See HPI Genitourinary: No symptoms reported Female Genitourinary: No symptoms reported Musculoskeletal: No symptoms reported Skin: No symptoms reported Hematologic/Lymphatic: No symptoms reported Neurological/Psychological: See HPI Physical Exam - Vital signs Vitals: Temp Pulse BP Pulse Ox 97.4 F 65 130/53 H 98 02/24/18 10:14 02/24/18 10:14 02/24/18 10:14 02/24/18 10:14 - Notes Notes: PHYSICAL EXAMINATION: GENERAL: chronically ill well-nourished and in mild distress HEAD: Atraumatic, normocephalic. EYES: Pupils equal round and reactive to light, extraocular movements intact, conjunctiva are normal. ENT: Nares patent, oropharynx clear without exudates. Moist mucous membranes. NECK: Normal range of motion, supple without lymphadenopathy LUNGS: Breath sounds clear to auscultation bilaterally and equal. No wheezes rales or rhonchi. HEART: Regular rate and rhythm without murmurs ABDOMEN: Soft, diabetes right lower quadrant tenderness on palpation, no rebound tenderness noted no CVA tenderness appreciated bilaterally, nondistended abdomen. No guarding, no rebound. No masses appreciated. Female : deferred Musculoskeletal: Normal range of motion, no pitting or edema. No cyanosis. NEUROLOGICAL: Normal speech, normal gait. Normal sensory, motor exams PSYCH: Normal mood, normal affect. SKIN: Warm, Dry, normal turgor, no rashes or lesions noted. Bilateral pedal edema Course - Re-evaluation Re-evalutation: 82-year-old female hydralazine who is in no distress, vitals stable and afebrile presents via EMS for evaluation of syncopal events. CBC negative for leukocytosis, CMP shows presents creatinine is 1.5 which is elevated from her previous creatinine that has not tried it for the last 2 years. Patient's potassium is 3.34, she is not on any diuretic, BNP slightly elevated. Low suspicion for acute coronary syndrome, dissecting aortic aneurysm, PE, chest x- ray negative for any acute findings per radiology. Set of cardiac enzyme resulted at 0.016, the next 1-[address] head unremarkable, no stroke. CT abdomen and pelvis was negative due to patient complaining of left lower and right lower quadrant tenderness with a history of diverticulitis. Patient's urinalysis does show a UTI. Patient's blood sugars have been fluctuating from high 500's-to 28 is concerned because patient has had 3 syncopal episodes in the last 3 weeks, and she has been discharged home. Consulted with Dr. Soto Morrison, hospitalist for admission for syncope for evaluation with echocardiogram and carotid ultrasounds as well as further evaluation of care. Patient and are agreeable with plan of care for evaluation of syncope. Patient agreeable with this plan of care. Patient will be admitted to hospitalist service for observation. - Vital Signs Vital signs: Temp Pulse Resp BP Pulse Ox 97.4 F 65 18 173/63 H 100 02/24/18 10:14 02/24/18 10:14 02/24/18 15:00 02/24/18 13:01 02/24/18 15:00 - Laboratory Result Diagrams: 02/24/18 09:37 02/24/18 09:37 Laboratory results interpreted by me: 02/24/18 02/24/18 02/24/18 09:37 09:37 09:37 RDW 15.2 H Seg Neuts % (Manual) 26 L Lymphocytes % (Manual) 67 H Potassium 3.4 L Chloride 109 H BUN 33 H Creatinine 1.55 H Est GFR ( Amer) 39 L Est GFR (Non-Af Amer) 32 L Glucose 123 H NT-Pro-B Natriuret Pep 493 H Urine Glucose (UA) Urine Blood Ur Leukocyte Esterase Salicylates Acetaminophen 02/24/18 02/24/18 09:37 14:40 RDW Seg Neuts % (Manual) Lymphocytes % (Manual) Potassium Chloride BUN Creatinine Est GFR ( Amer) Est GFR (Non-Af Amer) Glucose NT-Pro-B Natriuret Pep Urine Glucose (UA) 150 H Urine Blood SMALL H Ur Leukocyte Esterase LARGE H Salicylates < 1.0 L Acetaminophen < 10 L - EKG Interpretation by Me EKG shows normal: Sinus rhythm Rate: Normal Rhythm: NSR [place]/QRS: LBBB When compared to previous EKG there are: Previous EKG unavailable - non stemi. old left bundle branch on ekg Discharge - Discharge Clinical Impression: UTI (urinary tract infection), Hypokalemia, Type 2 diabetes mellitus Renal failure Qualifiers: Renal failure chronicity: acute on chronic Acute renal failure type: unspecified Chronic kidney disease stage: unspecified stage Qualified Code(s): N17.9 - Acute kidney failure, unspecified Syncope Qualifiers: Syncope type: unspecified Qualified Code(s): R55 - Syncope and collapse Condition: Stable Disposition: ADMITTED INPATIENT Admitting Provider: Hospitalist - Dr. Soto Zabala Unit Admitted: Telemetry
[2018-02-24 10:26] LABS: HEMATOCRIT 38.3 % (36.0-47.0); HEMOGLOBIN 12.3 g/dL (12.0-15.5); MEAN CORPUSCULAR HGB CONC 32.2 g/dL (32.0-36.0); MEAN CORPUSCULAR VOLUME 87 fl (80-97); PLATELET COUNT 232 10^3/uL (150-450); RED BLOOD COUNT 4.41 10^6/uL (3.72-5.28); RED CELL DISTRIBUTION WIDTH 15.2 % (11.5-14.0); WHITE BLOOD COUNT 6.8 10^3/uL (4.0-10.5)
[2018-02-24 10:57] LABS: ALANINE AMINOTRANSFERASE 14 U/L (9-52); ALBUMIN 3.9 g/dL (3.5-5.0); ALKALINE PHOSPHATASE 66 U/L (38-126); ANION GAP 11 (5-19); ASPARTATE AMINO TRANSFERASE 26 U/L (14-36); BILIRUBIN,DIRECT 0.3 mg/dL (0.0-0.4); BILIRUBIN,TOTAL 0.5 mg/dL (0.2-1.3); BLOOD UREA NITROGEN 33 mg/dL (7-20); CALCIUM 9.3 mg/dL (8.4-10.2); CARBON DIOXIDE 24 mmol/L (22-30); CHLORIDE 109 mmol/L (98-107); CREATINE KINASE 52 U/L (30-135); GLUCOSE 123 mg/dL (75-110); POTASSIUM 3.4 mmol/L (3.6-5.0); SODIUM 143.9 mmol/L (137-145); TOTAL PROTEIN 7.7 g/dL (6.3-8.2)
[2018-02-24 10:59] LABS: ACETAMINOPHEN < 10 ug/mL (10-30); C-REACTIVE PROTEIN < 5.0 mg/L (<10.0); SALICYLATE < 1.0 mg/dL (2.0-20.0)
[2018-02-24 11:00] LABS: ABSOLUTE LYMPHOCYTES# (MANUAL) 4.6 10^3/uL (0.5-4.7); ABSOLUTE MONOCYTES # (MANUAL) 0.2 10^3/uL (0.1-1.4); ABSOLUTE NEUTROPHILS# (MANUAL) 1.8 10^3/uL (1.7-8.2); BASOPHILS % (MANUAL) 0 % (0-2); EOSINOPHILS % (MANUAL) 4 % (0-6); LYMPHOCYTES % (MANUAL) 67 % (13-45); MONOCYTES % (MANUAL) 3 % (3-13); SEGMENTED NEUTROPHILS % (MAN) 26 % (42-78); TOTAL CELLS COUNTED 100
[2018-02-24 11:04] LABS: ANISOCYTOSIS SLIGHT; ROULEAUX SLIGHT
[2018-02-24 11:05] LABS: CREATINE KINASE MB 0.72 ng/mL (<4.55); PLATELET COMMENT ADEQUATE; TROPONIN I 0.016 ng/mL
--- NOTE | 2018-02-24 11:38 | RADIOLOGY REPORT (SQ) ---
EXAM DESCRIPTION: CHEST SINGLE VIEW COMPLETED DATE/TIME: 02/24/2018 11:12 am REASON FOR STUDY: ams COMPARISON: None. EXAM PARAMETERS: NUMBER OF VIEWS: One view. TECHNIQUE: Single frontal radiographic view of the chest acquired. RADIATION DOSE: NA LIMITATIONS: None. FINDINGS: LUNGS AND PLEURA: No opacities, masses or pneumothorax. No pleural effusion. MEDIASTINUM AND HILAR STRUCTURES: No masses. Contour normal. HEART AND VASCULAR STRUCTURES: Cardiac silhouette is mildly enlarged. BONES: No acute findings. HARDWARE: None in the chest. OTHER: No other significant finding. IMPRESSION: Mild cardiomegaly. No acute consolidations or pleural effusions are identified TECHNICAL DOCUMENTATION: JOB ID: [id number] [employer]- All Rights Reserved Reading location - IP/workstation name: [email or web address]
--- NOTE | 2018-02-24 14:28 | RADIOLOGY REPORT (SQ) ---
EXAM DESCRIPTION: CT HEAD WITHOUT COMPLETED DATE/TIME: 02/24/2018 2:16 pm REASON FOR STUDY: AMS COMPARISON: None. TECHNIQUE: Axial images acquired through the brain without intravenous contrast. Images reviewed wi th bone, brain and subdural windows. Additional sagittal and coronal reconstructions were generated. Images stored on PACS. All CT scanners at this facility use dose modulation, iterative reconstruction, and/or weight based d osing when appropriate to reduce radiation dose to as low as reasonably achievable (ALARA). [facility]: Dose Right [facility]: CareDose [facility]: Dose Right [facility]: Teradose 4D [facility]: Altruja RADIATION DOSE: CT Rad equipment meets quality standard of care and radiation dose reduction techniq ues were employed. CTDIvol: 53.2 mGy. DLP: 964 mGy-cm. mGy. LIMITATIONS: None. FINDINGS: VENTRICLES: Prominent. CEREBRUM: No masses. No hemorrhage. No midline shift. Areas of low density in the white matter mos t likely due to chronic micro-vascular ischemic change. No evidence for acute infarction. CEREBELLUM: No masses. No hemorrhage. No alteration of density. No evidence for acute infarction. EXTRAAXIAL SPACES: Mild age-related involutional change. No fluid collections. No masses. ORBITS AND GLOBE: No intra- or extraconal masses. Normal contour of globe without masses. CALVARIUM: No fracture. PARANASAL SINUSES: No fluid or mucosal thickening. SOFT TISSUES: No mass or hematoma. OTHER: No other significant finding. IMPRESSION: MILD CHRONIC CHANGES OF ATROPHY AND MICROVASCULAR ISCHEMIA. NO ACUTE PROCESS. EVIDENCE OF ACUTE STROKE: NO. TECHNICAL DOCUMENTATION: JOB ID: [id number] Quality ID # 436: Final reports with documentation of one or more dose reduction techniques (e.g., Au tomated exposure control, adjustment of the mA and/or kV according to patient size, use of iterative reconstruction technique) 2010 [employer]- All Rights Reserved Reading location - IP/workstation name: [email or web address]
--- NOTE | 2018-02-24 14:31 | RADIOLOGY REPORT (SQ) ---
EXAM DESCRIPTION: CT ABD/PELVIS WITH IV ORAL COMPLETED DATE/TIME: 02/24/2018 2:16 pm REASON FOR STUDY: RLQ and LLQ abd tenderness, hx of divert COMPARISON: None. TECHNIQUE: CT scan of the abdomen and pelvis performed with intravenous and oral contrast using jodi munira scanning technique with dynamic intravenous contrast injection. Images reviewed with lung, soft t issue, and bone windows. Reconstructed coronal and sagittal MPR images reviewed. Delayed images for e valuation of the urinary system also acquired. All images stored on PACS. All CT scanners at this facility use dose modulation, iterative reconstruction, and/or weight based d osing when appropriate to reduce radiation dose to as low as reasonably achievable (ALARA). [facility]: Dose Right [facility]: CareDose [facility]: Dose Right [facility]: Teradose 4D [facility]: BA Insight CONTRAST TYPE AND DOSE: contrast/concentration: Isovue 300.00 mg/ml; Total Contrast Delivered: 96.0 ml; Total Saline Delivered: 65.6 ml RENAL FUNCTION: BUN 33 creatinine 1.6 RADIATION DOSE: CT Rad equipment meets quality standard of care and radiation dose reduction techniq ues were employed. CTDIvol: 15.9 - 18.6 mGy. DLP: 2032 mGy-cm. . LIMITATIONS: Motion. FINDINGS: LOWER CHEST: No significant findings. No nodules or infiltrates. LIVER: Normal size. No masses. No dilated ducts. SPLEEN: Normal size. No focal lesions. PANCREAS: No masses. No significant calcifications. No adjacent inflammation or peripancreatic fluid collections. Pancreatic duct not dilated. GALLBLADDER: Surgically absent. ADRENAL GLANDS: No significant masses or asymmetry. RIGHT KIDNEY AND URETER: No solid masses. No significant calcifications. No hydronephrosis or hyd roureter. LEFT KIDNEY AND URETER: No solid masses. No significant calcifications. No hydronephrosis or hydr oureter. AORTA AND VESSELS: No aneurysm. RETROPERITONEUM: No retroperitoneal adenopathy, hemorrhage or masses. BOWEL AND PERITONEAL CAVITY: No obstruction. No visualized masses. No free fluid. No inflammatory ch anges or thickening of bowel wall. APPENDIX: Not visualized. PELVIS: No significant masses. Normal bladder. No free fluid. ABDOMINAL WALL: No masses. No hernias. BONES: No acute findings. OTHER: No other significant finding. IMPRESSION: No acute findings. TECHNICAL DOCUMENTATION: JOB ID: [id number] Quality ID # [id number]: Final reports with documentation of one or more dose reduction techniques (e.g., Au tomated exposure control, adjustment of the mA and/or kV according to patient size, use of iterative reconstruction technique) 2010 [employer]- All Rights Reserved Reading location - IP/workstation name: [email or web address]
[2018-02-24 14:52] LABS: CREATINE KINASE MB 0.65 ng/mL (<4.55); TROPONIN I 0.017 ng/mL
[2018-02-24] MEDS ORDERED: POTASSIUM CHLORIDE 10 MEQ CAPSULE.ER PO ONE (15:04)
[2018-02-24] MEDS ORDERED: FUROSEMIDE INJ/PF 40 MG/4 ML SDV IV ONE (15:04)
[2018-02-24 15:05] LABS: APPEARANCE,URINE CLOUDY; BILIRUBIN,URINE NEGATIVE (NEGATIVE); COLOR,URINE YELLOW; GLUCOSE, URINE 150 mg/dL (NEGATIVE); KETONES,URINE NEGATIVE (NEGATIVE); LEUKOCYTE ESTERASE,URINE LARGE (NEGATIVE); NITRITE,URINE NEGATIVE (NEGATIVE); PROTEIN,URINE NEGATIVE (NEGATIVE); URINE SPECIFIC GRAVITY 1.018; UROBILINOGEN,URINE NEGATIVE mg/dL (<2.0)
[2018-02-24] MEDS ORDERED: ONDANSETRON 4 MG TAB.RAPDIS PO PRN (15:49)
[2018-02-24] MEDS ORDERED: ACETAMINOPHEN 325 MG TABLET PO PRN (15:49)
[2018-02-24] MEDS ORDERED: DEXTROSE 40% GEL 15 GM TUBE PO PRN ×2 (15:55)
[2018-02-24] MEDS ORDERED: DEXTROSE 50%-WATER 25 GM/50 ML DISP.SYRIN IV PRN ×2 (15:55)
[2018-02-24] MEDS ORDERED: GLUCAGON,HUMAN RECOMB 1 MG INJ IM PRN (15:55)
--- NOTE | 2018-02-24 16:25 | PDOC H&P ---
History of Present Illness History of Present Illness: GLENIS CERVANTES is a 82 year old black female patient with past medical history of obesity, diabetes mellitus, hypertension, obesity and stage III CKD presents with chief complaint of unresponsiveness. Family witnessed patient sitting states that it is her eyes rolled in the back of her head and she appears to be unconscious for a minute. And they reported this is a 30 time happens in the matter of a month no history of falling or hitting her head. There is no problems of nausea, vomiting, palpitation, diaphoresis, chest pain or diarrhea. No history of dizziness, blurring of vision or any seizure activity. No tongue bite, bowel or bladder incontinence. Her CT scan is negative. ER attending also ordered CT scan of the abdomen and pelvis since patient complains of abdominal pain and also she has prior history of diverticulitis but this is negative. Her blood work shows creatinine of 1.55 baseline creatinine about 2 years ago was 1.39. She has mild hypokalemia with potassium of 3.4. Past Medical History Cardiac Medical History: Reports: Hyperlipidema, Hypertension Endocrine Medical History: Reports: Diabetes Mellitus Type 2 Musculoskeltal Medical History: Reports: Arthritis Psychiatric Medical History: Denies: Depression Past Surgical History Past Surgical History: Reports: Cholecystectomy Social History Smoking Status: Former Smoker Frequency of Alcohol Use: None Hx Recreational Drug Use: No Drugs: None Hx Prescription Drug Abuse: No - Advance Directive Resuscitation Status: Full Code Family History Family History: Reviewed & Not Pertinent, CVA Parental Family History Reviewed: Yes Children Family History Reviewed: Yes Sibling(s) Family History Reviewed.: Yes Medication/Allergy Home Medications: Furosemide [Lasix] 40 mg PO QAM 04/01/16 Acetaminophen [Tylenol 325 mg Tablet] 650 mg PO Q4HP PRN tablet 04/05/16 Amlodipine Besylate [Norvasc 10 mg Tablet] 10 mg PO DAILY #30 tablet 04/05/16 Doxycycline Hyclate [Vibramycin 100 mg Tablet] 100 mg PO Q12 #14 tablet Insulin Glargine,Hum.rec.anlog [Lantus Insulin 100 Unit/1 ml 10 ml] 60 unit SUBCUT QHS #10 ml 04/05/16 Insulin Glargine,Hum.rec.anlog [Lantus Insulin 100 Unit/1 ml 10 ml] 60 unit SUBCUT QHS #10 ml 04/05/16 Losartan Potassium [Cozaar 25 mg Tablet] 25 mg PO Q12 #60 tablet 04/05/16 Nystatin [Mycostatin Topical Powder 15 gm] 1 applic TP BID #1 bottle 04/05/16 Glimepiride [Amaryl] 2 mg PO ASDIR #10 tablet 06/25/17 Metoclopramide HCl [Reglan 10 mg Tablet] 10 mg PO Q4 PRN #15 tablet 06/25/17 Insulin Glargine,Hum.rec.anlog [Lantus Solostar] 50 unit SQ DAILY #5 insuln.pen 07/01/17 Losartan Potassium [Cozaar] 100 mg PO DAILY #30 tablet 07/01/17 Tramadol HCl [Ultram 50 mg Tablet] 50 mg PO ASDIR PRN #15 tablet 07/01/17 Clotrimazole 15 gm TP ASDIR PRN #2 cream.gm. 11/28/17 Insulin Detemir [Levemir Insulin 300 Units/3 ml Insuln.pen] 40 unit SUBCUT ASDIR PRN #20 ml 11/28/17 Losartan Potassium 100 mg PO DAILY #30 tablet 11/28/17 Allergies/Adverse Reactions: No Known Allergies Allergy (Verified 06/25/17 11:30) Review of Systems Constitutional: ABSENT: chills, fever(s), headache(s), weight gain, weight loss Cardiovascular: ABSENT: chest pain, dyspnea on exertion, edema, orthropnea, palpitations Respiratory: ABSENT: cough, hemoptysis Gastrointestinal: PRESENT: other - Abdominal pain Neurological: PRESENT: as per HPI Psychiatric: PRESENT: as per HPI Physical Exam Vital Signs: Temp Pulse Resp BP Pulse Ox 97.4 F 65 18 173/63 H 100 02/24/18 10:14 02/24/18 10:14 02/24/18 15:00 02/24/18 13:01 02/24/18 15:00 Intake & Output 02/23/18 02/24/18 02/25/18 06:59 06:59 06:59 Weight 102.3 kg General appearance: PRESENT: no acute distress Head exam: PRESENT: atraumatic, normocephalic Eye exam: PRESENT: conjunctiva pink Mouth exam: PRESENT: moist Teeth exam: PRESENT: dental caries Neck exam: ABSENT: carotid bruit, JVD, lymphadenopathy, thyromegaly Respiratory exam: PRESENT: clear to auscultation maribel. ABSENT: rales, rhonchi, wheezes Cardiovascular exam: PRESENT: RRR. ABSENT: diastolic murmur, rubs, systolic murmur GI/Abdominal exam: PRESENT: normal bowel sounds, soft. ABSENT: distended, guarding, mass, organolmegaly, rebound, tenderness Extremities exam: PRESENT: full ROM. ABSENT: calf tenderness, clubbing, pedal edema Psychiatric exam: PRESENT: normal mood Results Laboratory Results: 02/24/18 09:37 02/24/18 09:37 02/24/18 02/24/18 02/24/18 09:37 09:37 09:37 WBC 6.8 RBC 4.41 Hgb 12.3 Hct 38.3 MCV 87 MCH 28.0 MCHC 32.2 RDW 15.2 H Plt Count 232 Seg Neutrophils % Not Reportable Lymphocytes % Not Reportable Monocytes % Not Reportable Eosinophils % Not Reportable Basophils % Not Reportable Absolute Neutrophils Not Reportable Absolute Lymphocytes Not Reportable Absolute Monocytes Not Reportable Absolute Eosinophils Not Reportable Absolute Basophils Not Reportable Sodium 143.9 Potassium 3.4 L Chloride 109 H Carbon Dioxide 24 Anion Gap 11 BUN 33 H Creatinine 1.55 H Est GFR ( Amer) 39 L Est GFR (Non-Af Amer) 32 L Glucose 123 H Lactic Acid Calcium 9.3 Total Bilirubin 0.5 AST 26 ALT 14 Alkaline Phosphatase 66 C-Reactive Protein < 5.0 Total Protein 7.7 Albumin 3.9 Lipase 134.0 Urine Color Urine Appearance Urine pH Ur Specific [place] Urine Protein Urine Glucose (UA) Urine Ketones Urine Blood Urine Nitrite Ur Leukocyte Esterase Urine WBC (Auto) Urine RBC (Auto) 02/24/18 02/24/18 11:03 14:40 WBC RBC Hgb Hct MCV MCH MCHC RDW Plt Count Seg Neutrophils % Lymphocytes % Monocytes % Eosinophils % Basophils % Absolute Neutrophils Absolute Lymphocytes Absolute Monocytes Absolute Eosinophils Absolute Basophils Sodium Potassium Chloride Carbon Dioxide Anion Gap BUN Creatinine Est GFR ( Amer) Est GFR (Non-Af Amer) Glucose Lactic Acid 1.7 Calcium Total Bilirubin AST ALT Alkaline Phosphatase C-Reactive Protein Total Protein Albumin Lipase Urine Color YELLOW Urine Appearance CLOUDY Urine pH 5.0 Ur Specific [place] 1.018 Urine Protein NEGATIVE Urine Glucose (UA) 150 H Urine Ketones NEGATIVE Urine Blood SMALL H Urine Nitrite NEGATIVE Ur Leukocyte Esterase LARGE H Urine WBC (Auto) >182 Urine RBC (Auto) 27 02/24/18 02/24/18 02/24/18 09:37 09:37 09:37 Creatine Kinase 52 CK-MB (CK-2) 0.72 Troponin I 0.016 NT-Pro-B Natriuret Pep 493 H 02/24/18 02/24/18 11:03 11:03 Creatine Kinase 54 CK-MB (CK-2) 0.65 Troponin I 0.017 NT-Pro-B Natriuret Pep Impressions: Abdomen/Pelvis CT 02/24/18 00:00 IMPRESSION: No acute findings. Head CT 02/24/18 10:35 IMPRESSION: MILD CHRONIC CHANGES OF ATROPHY AND MICROVASCULAR ISCHEMIA. NO ACUTE PROCESS. EVIDENCE OF ACUTE STROKE: NO. Chest X-Ray 02/24/18 10:39 IMPRESSION: Mild cardiomegaly. No acute consolidations or pleural effusions are identified Assessment & Plan - Diagnosis (1) Syncope Qualifiers: Syncope type: unspecified Qualified Code(s): R55 - Syncope and collapse Is this a current diagnosis for this admission?: Yes Plan: Echo, carotid Doppler orthostatic blood pressure measurement (2) Hypokalemia Is this a current diagnosis for this admission?: Yes Plan: We will replete and check her potassium in the a.m. (3) UTI (urinary tract infection) Is this a current diagnosis for this admission?: Yes Plan: I will start her on IV ceftriaxone (4) Hypertension Qualifiers: Hypertension type: essential hypertension Qualified Code(s): I10 - Essential (primary) hypertension Is this a current diagnosis for this admission?: Yes Plan: Continue home medication (5) Type 2 diabetes mellitus Is this a current diagnosis for this admission?: Yes Plan: Patient has been started on sliding scale and will continue her home medications.
[2018-02-24] MEDS: NORMAL SALINE 1000 ML 1,000 ML IV PRN (16:53)
[2018-02-24 18:29] LABS: CREATINE KINASE MB 0.72 ng/mL (<4.55); TROPONIN I 0.017 ng/mL
--- NOTE | 2018-02-25 00:14 | EKG REPORT ---
SEVERITY:- ABNORMAL ECG - SINUS RHYTHM FIRST DEGREE AV BLOCK LEFT BUNDLE BRANCH BLOCK : Confirmed by: Mya Garibay MD 25-Feb-2018 00:13:01
--- NOTE | 2018-02-25 00:15 | EKG REPORT ---
SEVERITY:- ABNORMAL ECG - LEFT BUNDLE BRANCH BLOCK POSSIBLE SECOND DEGREE MOBITZ 1 (ROHAN) : Confirmed by: Mya Garibay MD 25-Feb-2018 00:14:41
[2018-02-25] MEDS: LANSOPRAZOLE 30 MG TAB.RAP.DR PO SCH (05:08)
[2018-02-25 05:57] LABS: HEMATOCRIT 37.2 % (36.0-47.0); HEMOGLOBIN 12.1 g/dL (12.0-15.5); MEAN CORPUSCULAR HEMOGLOBIN 28.1 pg (27.0-33.4); MEAN CORPUSCULAR HGB CONC 32.6 g/dL (32.0-36.0); MEAN CORPUSCULAR VOLUME 86 fl (80-97); PLATELET COUNT 199 10^3/uL (150-450); RED BLOOD COUNT 4.32 10^6/uL (3.72-5.28); RED CELL DISTRIBUTION WIDTH 15.5 % (11.5-14.0); WHITE BLOOD COUNT 6.4 10^3/uL (4.0-10.5)
[2018-02-25 06:16] LABS: ANION GAP 10 (5-19); BLOOD UREA NITROGEN 33 mg/dL (7-20); CALCIUM 8.8 mg/dL (8.4-10.2); CARBON DIOXIDE 23 mmol/L (22-30); CHLORIDE 106 mmol/L (98-107); CHOLESTEROL 157.38 mg/dL (0-200); GLUCOSE 285 mg/dL (75-110); SODIUM 138.6 mmol/L (137-145); TRIGLYCERIDES 147 mg/dL (<150)
[2018-02-25 06:27] LABS: DIRECT LDL 57 mg/dL (<100)
[2018-02-25 06:46] LABS: POTASSIUM 5.4 mmol/L (3.6-5.0)
[2018-02-25] MEDS: NORMAL SALINE 1000 ML 1,000 ML IV PRN (09:21)
[2018-02-25] MEDS: ENOXAPARIN SODIUM INJ 40 MG/0.4 ML DISP.SYRIN SUBCUT SCH (09:22)
[2018-02-25] MEDS: INSULIN LISPRO 100 UNIT/ML 3 ML VIAL SUBCUT PRN ×3 (11:48→22:20)
--- NOTE | 2018-02-25 16:32 | RADIOLOGY REPORT (SQ) ---
EXAM DESCRIPTION: CAROTID DOPPLER COMPLETED DATE/TIME: 02/25/2018 4:24 pm REASON FOR STUDY: Syncope COMPARISON: None. TECHNIQUE: Grayscale ultrasound, Doppler velocity and spectra, and color Doppler images acquired of the extra-cranial carotid and vertebral arteries. Images stored on PACS. LIMITATIONS: None. FINDINGS: RIGHT CAROTID CCA Velocities: Within normal limits. ICA Velocities Peak systolic 0.65 m/s. End diastolic 0.16 m/s. Proximal ICA/CCA peak systolic ratio 1.5. Spectra normal. No significant plaque. LEFT CAROTID CCA Velocities: Within normal limits. ICA Velocities Peak systolic 1.04 m/s. End diastolic 0.15 m/s. Proximal ICA/CCA peak systolic ratio 1.4. Spectra normal. No significant plaque. VERTEBRAL ARTERIES: Antegrade flow. Normal waveforms. SUBCLAVIAN ARTERIES: No finding. OTHER: No other significant finding. IMPRESSION: NO HEMODYNAMICALLY SIGNIFICANT STENOSIS. COMMENT: Quality ID #[id number]: Velocity criteria are extrapolated from the diameter data as defined by t he Society of Radiologists in Ultrasound Consensus Conference. Radiology 2003: 229; 340-346. TECHNICAL DOCUMENTATION: JOB ID: [id number] [employer]- All Rights Reserved Reading location - IP/workstation name: [email or web address] THE [facility]
[2018-02-25 16:44] LABS: PATH REVIEW PATHOLOGIST REVIEWED
--- NOTE | 2018-02-25 18:37 | XCELERA REPORT ---
[address] [address] Transthoracic Echocardiogram Report Name: GLENIS CERVANTES Age: 82 yrs Gender: Female : 1935 Patient Status: Inpatient Patient Location: [address] [place] [address] Study Date: 02/25/2018 02:20 PM Height: 67 in Weight: 225 lb BSA: 2.1 m2 Procedure: A complete two-dimensional transthoracic echocardiogram was performed (2D, M-mode, spectral and color flow Doppler). The study was technically adequate with some images being suboptimal in quality. Reason For Study: Syncope Ordering Physician: ANEUDY SANCHEZ Performed By: Deepti Barlow Interpretation Summary The left ventricular ejection fraction is normal. There is mild concentric left ventricular hypertrophy. The left ventricle is grossly normal size. Doppler measurements suggest pseudonormalized left ventricular relaxation, which is associated with grade II/IV or mild to moderate diastolic dysfunction Wall motion cannot be accurately commented on, but no definite regional wall motion abnormalities noted. The right ventricle is grossly normal size. The right ventricular systolic function is normal. The right atrium is normal. Borderline left atrial enlargement. There is a trace amount of mitral regurgitation There is no mitral valve stenosis. No aortic regurgitation is present. There is no aortic valve stenosis No tricuspid regurgitation. There is no tricuspid stenosis. The pulmonic valve is not well visualized. The aortic root is not well visualized but is probably normal size. The inferior vena cava appeared normal and decreased > 50% with respiration (RAP 5-10 mmHg) There is no pericardial effusion. May consider mobile cardiac telemetry monitoring (MCT) for ruling out transient arrhythmia.. MMode/2D Measurements & Calculations RVDd: 3.5 cm LVIDd: 4.2 cm FS: 31.5 % Ao root diam: 3.0 cm IVSd: 1.1 cm LVIDs: 2.9 cm EDV(Teich): 79.1 ml LVPWd: 1.1 cm ESV(Teich): 31.7 ml Ao root area: 7.2 cm2 EF(Teich): 59.8 % Doppler Measurements & Calculations MV E max sangeeta: MV dec slope: Ao V2 max: LV V1 max P.2 cm/sec 109.9 cm/sec 4.2 mmHg MV A max sangeeta: 184.0 cm/sec2 Ao max PG: LV V1 max: 95.3 cm/sec MV dec time: 4.8 mmHg 102.5 cm/sec MV E/A: 0.62 0.32 sec PA V2 max: 100.4 cm/sec PA max P.0 mmHg Left Ventricle The left ventricle is grossly normal size. There is mild concentric left ventricular hypertrophy. The left ventricular ejection fraction is normal. Doppler measurements suggest pseudonormalized left ventricular relaxation, which is associated with grade II/IV or mild to moderate diastolic dysfunction. Wall motion cannot be accurately commented on, but no definite regional wall motion abnormalities noted. Right Ventricle The right ventricle is grossly normal size. There is normal right ventricular wall thickness. The right ventricular systolic function is normal. Atria The right atrium is normal. Borderline left atrial enlargement. Interarterial septum not well visualized and not well dopplered. Cannot comment on ASD/PFO presence. Mitral Valve The mitral valve is grossly normal. There is no mitral valve stenosis. There is a trace amount of mitral regurgitation. Aortic Valve The aortic valve is grossly normal. There is no aortic valve stenosis. No aortic regurgitation is present. Tricuspid Valve The tricuspid valve is not well visualized, but is grossly normal. There is no tricuspid stenosis. No tricuspid regurgitation. Pulmonic Valve The pulmonic valve is not well visualized. Great Vessels The aortic root is not well visualized but is probably normal size. The inferior vena cava appeared normal and decreased > 50% with respiration (RAP 5-10 mmHg). Effusions There is no pericardial effusion. Incidental Findings May consider mobile cardiac telemetry monitoring (MCT) for ruling out transient AFIB. : ANEUDY SANCHEZ > Mayte [place]
--- NOTE | 2018-02-25 18:57 | PDOC PROGRESS REPORT ---
Subjective Progress Note for:: 02/25/18 Subjective:: She is 82 years old black female patient with family by family members for questionable unresponsiveness. Vital signs and blood works are stable. Her carotid Doppler is reported as no hemodynamically significant carotid stenosis and her echocardiogram is normal. Patient is being treated for UTI and acute on chronic kidney injury. Reason For Visit: SYNCOPE ACUTE ON CHRONIC KIDNEY INJURY Physical Exam Vital Signs: Temp Pulse Resp BP Pulse Ox 98.1 F 64 18 174/63 H 99 02/25/18 15:16 02/25/18 15:16 02/25/18 15:16 02/25/18 15:16 02/25/18 15:16 Intake & Output 02/24/18 02/25/18 02/26/18 06:59 06:59 06:59 Intake Total 3005 Balance 3005 Weight 94 kg General appearance: PRESENT: no acute distress Head exam: PRESENT: atraumatic Mouth exam: PRESENT: moist Neck exam: ABSENT: carotid bruit, JVD, lymphadenopathy, thyromegaly Respiratory exam: PRESENT: clear to auscultation maribel. ABSENT: rales, rhonchi, wheezes Cardiovascular exam: PRESENT: RRR. ABSENT: diastolic murmur, rubs, systolic murmur GI/Abdominal exam: PRESENT: normal bowel sounds, soft. ABSENT: distended, guarding, mass, organolmegaly, rebound, tenderness Extremities exam: PRESENT: full ROM. ABSENT: calf tenderness, clubbing, pedal edema Neurological exam: PRESENT: alert, awake, oriented to time, oriented to situation Results Laboratory Results: 02/25/18 05:10 02/25/18 05:10 02/25/18 02/25/18 02/25/18 05:10 05:10 05:10 WBC 6.4 RBC 4.32 Hgb 12.1 Hct 37.2 MCV 86 MCH 28.1 MCHC 32.6 RDW 15.5 H Plt Count 199 Sodium 138.6 Potassium 5.4 H D Chloride 106 Carbon Dioxide 23 Anion Gap 10 BUN 33 H Creatinine 1.24 Est GFR ( Amer) 50 L Est GFR (Non-Af Amer) 42 L Glucose 285 H Calcium 8.8 Triglycerides 147 Cholesterol 157.38 LDL Cholesterol Direct 57 VLDL Cholesterol 29.0 HDL Cholesterol 64 TSH 1.32 02/24/18 02/24/18 02/24/18 16:50 16:50 17:44 Creatine Kinase Cancelled 43 CK-MB (CK-2) Cancelled Troponin I Cancelled 02/24/18 17:44 Creatine Kinase CK-MB (CK-2) 0.72 Troponin I 0.017 Impressions: Abdomen/Pelvis CT 02/24/18 00:00 IMPRESSION: No acute findings. Head CT 02/24/18 10:35 IMPRESSION: MILD CHRONIC CHANGES OF ATROPHY AND MICROVASCULAR ISCHEMIA. NO ACUTE PROCESS. EVIDENCE OF ACUTE STROKE: NO. Chest X-Ray 02/24/18 10:39 IMPRESSION: Mild cardiomegaly. No acute consolidations or pleural effusions are identified Carotid Doppler Study 02/25/18 00:00 IMPRESSION: NO HEMODYNAMICALLY SIGNIFICANT STENOSIS. Assessment & Plan - Diagnosis (1) Syncope Qualifiers: Syncope type: unspecified Qualified Code(s): R55 - Syncope and collapse Is this a current diagnosis for this admission?: Yes Plan: Unclear etiology. Possible vasovagal. (2) Hypokalemia Is this a current diagnosis for this admission?: Yes Plan: Now she has mild hyperkalemia. (3) UTI (urinary tract infection) Is this a current diagnosis for this admission?: Yes Plan: Continue ceftriaxone (4) Hypertension Qualifiers: Hypertension type: essential hypertension Qualified Code(s): I10 - Essential (primary) hypertension Is this a current diagnosis for this admission?: Yes Plan: Continue home medication (5) Type 2 diabetes mellitus Is this a current diagnosis for this admission?: Yes Plan: Patient has been started on sliding scale and will continue her home medications.
[2018-02-25] MEDS ORDERED: CEFTRIAXONE 1 GM/D5W RTU 1 GM/50 ML RTUPB IV SCH (20:00)
[2018-02-25] MEDS: CEFTRIAXONE SODIUM 1,000 MG in DEXTROSE 5%-WATER 50 ML IV SCH (20:34)
[2018-02-26] MEDS: NORMAL SALINE 1000 ML 1,000 ML IV PRN ×2 (03:30→21:32)
[2018-02-26] MEDS: LANSOPRAZOLE 30 MG TAB.RAP.DR PO SCH (06:34)
[2018-02-26] MEDS: ENOXAPARIN SODIUM INJ 40 MG/0.4 ML DISP.SYRIN SUBCUT SCH (09:05)
[2018-02-26] MEDS: INSULIN LISPRO 100 UNIT/ML 3 ML VIAL SUBCUT PRN (09:09)
[2018-02-26 10:29] LABS: ANION GAP 10 (5-19); BLOOD UREA NITROGEN 22 mg/dL (7-20); CALCIUM 8.8 mg/dL (8.4-10.2); CARBON DIOXIDE 20 mmol/L (22-30); CHLORIDE 111 mmol/L (98-107); GLUCOSE 239 mg/dL (75-110); POTASSIUM 4.5 mmol/L (3.6-5.0)
--- NOTE | 2018-02-26 14:49 | PDOC PROGRESS REPORT ---
Subjective Subjective:: I seen patient resting in bed. She is awake alert and oriented. She complains of nausea and generalized body ache. Her clinic her kidney function has been improving. Patient is potential discharge for tomorrow Reason For Visit: SYNCOPE, LAWRENCE, UTI Physical Exam Vital Signs: Temp Pulse Resp BP Pulse Ox 98.4 F 67 15 152/58 H 95 02/26/18 11:42 02/26/18 11:42 02/26/18 11:42 02/26/18 11:42 02/26/18 11:42 General appearance: PRESENT: no acute distress Head exam: PRESENT: atraumatic Eye exam: PRESENT: conjunctiva pink Mouth exam: PRESENT: moist Neck exam: ABSENT: carotid bruit, JVD, lymphadenopathy, thyromegaly Respiratory exam: PRESENT: clear to auscultation maribel. ABSENT: rales, rhonchi, wheezes Cardiovascular exam: PRESENT: RRR. ABSENT: diastolic murmur, rubs, systolic murmur Neurological exam: PRESENT: alert, awake Results Impressions: Abdomen/Pelvis CT 02/24/18 00:00 IMPRESSION: No acute findings. Head CT 02/24/18 10:35 IMPRESSION: MILD CHRONIC CHANGES OF ATROPHY AND MICROVASCULAR ISCHEMIA. NO ACUTE PROCESS. EVIDENCE OF ACUTE STROKE: NO. Chest X-Ray 02/24/18 10:39 IMPRESSION: Mild cardiomegaly. No acute consolidations or pleural effusions are identified Carotid Doppler Study 02/25/18 00:00 IMPRESSION: NO HEMODYNAMICALLY SIGNIFICANT STENOSIS. Assessment & Plan - Diagnosis (1) Syncope Qualifiers: Syncope type: unspecified Qualified Code(s): R55 - Syncope and collapse Is this a current diagnosis for this admission?: Yes Plan: No hemodynamically significant carotid stenosis. Echocardiogram reported normal ejection fraction. (2) Hypokalemia Is this a current diagnosis for this admission?: Yes Plan: Corrected (3) UTI (urinary tract infection) Is this a current diagnosis for this admission?: Yes Plan: Continue ceftriaxone (4) Hypertension Qualifiers: Hypertension type: essential hypertension Qualified Code(s): I10 - Essential (primary) hypertension Is this a current diagnosis for this admission?: Yes Plan: Continue home medication (5) Type 2 diabetes mellitus Is this a current diagnosis for this admission?: Yes Plan: Patient is running hyperglycemia. I started her on home dose Lantus
[2018-02-26] MEDS: LOSARTAN POTASSIUM 50 MG TABLET PO SCH (18:29)
[2018-02-26] MEDS: INSULIN DETEMIR 100 UNIT/ML 3 ML PEN SUBCUT SCH (18:29)
[2018-02-26] MEDS: CEFTRIAXONE SODIUM 1,000 MG in DEXTROSE 5%-WATER 50 ML IV SCH (21:31)
[2018-02-27] MEDS: INSULIN LISPRO 100 UNIT/ML 3 ML VIAL SUBCUT PRN (01:41)
[2018-02-27] MEDS: NORMAL SALINE 1000 ML 1,000 ML IV PRN (05:51)
[2018-02-27] MEDS: LANSOPRAZOLE 30 MG TAB.RAP.DR PO SCH (05:57)
[2018-02-27] MEDS: INSULIN DETEMIR 100 UNIT/ML 3 ML PEN SUBCUT SCH (09:16)
[2018-02-27] MEDS: LOSARTAN POTASSIUM 50 MG TABLET PO SCH (09:17)
[2018-02-27] MEDS: ENOXAPARIN SODIUM INJ 40 MG/0.4 ML DISP.SYRIN SUBCUT SCH (09:18)
[2018-02-27] MEDS ORDERED: ASPIRIN 81 MG TABLET, ENT COATED PO SCH (10:00)
--- NOTE | 2018-02-27 11:07 | PDOC DISCHARGE SUMMARY ---
General - Admit/Disc Date/PCP Admission Date/Primary Care Provider: 02/26/18 12:11 Discharge Date: 02/27/18 - Discharge Diagnosis (1) Syncope Is this a current diagnosis for this admission?: Yes (2) Hypokalemia Is this a current diagnosis for this admission?: Yes (3) UTI (urinary tract infection) Is this a current diagnosis for this admission?: Yes (4) Hypertension Is this a current diagnosis for this admission?: Yes (5) Type 2 diabetes mellitus Is this a current diagnosis for this admission?: Yes - Additional Information Resuscitation Status: Full Code Home Medications: Aspirin [Aspirin EC] 81 mg PO DAILY 02/24/18 Insulin Aspart [Novolog Insulin 100 Unit/1 ml 10 ml] 30 unit SUBCUT AC 02/24/18 Insulin Detemir [Levemir Insulin 300 Units/3 ml Insuln.pen] 40 unit SUBCUT DAILY 02/24/18 Losartan Potassium [Cozaar 100 mg Tablet] 100 mg PO DAILY 02/24/18 History of Present Illness History of Present Illness: GLENIS CERVANTES is a 82 year old black female patient with past medical history of obesity, diabetes mellitus, hypertension, obesity and stage III CKD presents with chief complaint of unresponsiveness. Family witnessed patient sitting states that it is her eyes rolled in the back of her head and she appears to be unconscious for a minute. And they reported this is a 30 time happens in the matter of a month no history of falling or hitting her head. There is no problems of nausea, vomiting, palpitation, diaphoresis, chest pain or diarrhea. No history of dizziness, blurring of vision or any seizure activity. No tongue bite, bowel or bladder incontinence. Her CT scan is negative. ER attending also ordered CT scan of the abdomen and pelvis since patient complains of abdominal pain and also she has prior history of diverticulitis but this is negative. Her blood work shows creatinine of 1.55 baseline creatinine about 2 years ago was 1.39. She has mild hypokalemia with potassium of 3.4. Hospital Course Hospital Course: She is 82 years old black female patient with family by family members for questionable unresponsiveness. Vital signs and blood works are stable. Her carotid Doppler is reported as no hemodynamically significant carotid stenosis and her echocardiogram is normal. Patient is being treated for UTI and acute on chronic kidney injury. Her acute kidney injury has resolved. Her unresponsiveness might be related to hypoglycemia. Patient has been on ceftriaxone for UTI. This morning I seen patient resting in bed comfortably she is not in pain or any form of distress. She is awake alert and oriented. Patient is ready for discharge. I will continue all her home medications and I will send her with Cipro 500 mg twice daily for 5 days. Physical Exam Vital Signs: Temp Pulse Resp BP Pulse Ox 98.1 F 61 18 185/61 H 99 02/27/18 07:39 02/27/18 07:39 02/27/18 07:39 02/27/18 07:39 02/27/18 07:39 Intake & Output 02/26/18 02/27/18 02/28/18 06:59 06:59 06:59 Intake Total 2123 Balance 2123 Weight 95.1 kg General appearance: PRESENT: no acute distress Head exam: PRESENT: atraumatic Eye exam: PRESENT: conjunctiva pink Mouth exam: PRESENT: moist Neck exam: ABSENT: carotid bruit, JVD, lymphadenopathy, thyromegaly Respiratory exam: PRESENT: clear to auscultation maribel. ABSENT: rales, rhonchi, wheezes Cardiovascular exam: PRESENT: RRR. ABSENT: diastolic murmur, rubs, systolic murmur Neurological exam: PRESENT: alert, awake, oriented to time, oriented to situation Results Impressions: Abdomen/Pelvis CT 02/24/18 00:00 IMPRESSION: No acute findings. Head CT 02/24/18 10:35 IMPRESSION: MILD CHRONIC CHANGES OF ATROPHY AND MICROVASCULAR ISCHEMIA. NO ACUTE PROCESS. EVIDENCE OF ACUTE STROKE: NO. Chest X-Ray 02/24/18 10:39 IMPRESSION: Mild cardiomegaly. No acute consolidations or pleural effusions are identified Carotid Doppler Study 02/25/18 00:00 IMPRESSION: NO HEMODYNAMICALLY SIGNIFICANT STENOSIS. Qualifiers - * PATIENT BEING DISCHARGED WITH ANY OF THE FOLLOWING DIAGNOSIS: No
[2018-02-27 12:12] VITALS: BP 185/96
== END 2018-02-27 13:18 | disposition home health service (06) | DRG 683 ==
LOC: ER 10:08 → EH 15:49 → 4N 02-25 01:45 → OBSVTOIN 02-26 12:11
PROVIDERS: ADMIT Internal Medicine; ATTEND Internal Medicine
DX: N17.9 Acute kidney failure, unspecified (principal); N39.0 Urinary tract infection, site not specified; E87.6 Hypokalemia; I10 Essential (primary) hypertension; E11.9 Type 2 diabetes mellitus without complications; E11.22 Type 2 diabetes mellitus with diabetic chronic kidney disease; Z79.4 Long term (current) use of insulin; E66.9 Obesity, unspecified; Z68.32 Body mass index [BMI] 32.0-32.9, adult; I12.9 Hypertensive chronic kidney disease with stage 1 through stage 4 chronic kidney disease, or unspecified chronic kidney disease; N18.3 Chronic kidney disease, stage 3 (moderate); Z90.49 Acquired absence of other specified parts of digestive tract; M19.90 Unspecified osteoarthritis, unspecified site; Z87.891 Personal history of nicotine dependence; Z82.3 Family history of stroke; Z79.899 Other long term (current) drug therapy
CPT/HCPCS: 36415; 70450; 71045; 74177; 80048; 80053; 80061; 80307; 81001; 82550; 82553; 82962; 83036; 83605; 83690; 83880; 84443; 84484; 85025; 85027; 86140; 87086; 93005; 93010; 93306; 93880; 96374; 99285; G0378; J0696; J1650; J1815; J1940; J3490; J7030

== ENCOUNTER 2018-08-25 08:15 | Inpatient (IN) | payer MEDICARE, MEDICAID ==
[2018-08-25 08:30] LABS: ABSOLUTE EOSINOPHILS # (AUTO) 0.1 10^3/uL (0.0-0.6); ABSOLUTE MONOCYTES (AUTO) 0.8 10^3/uL (0.1-1.4); ABSOLUTE NEUT (AUTO) 5.1 10^3/uL (1.7-8.2); BASOPHILS % (AUTO) 0.5 % (0-2); EOSINOPHILS % (AUTO) 1.2 % (0-6); HEMATOCRIT 39.3 % (36.0-47.0); HEMOGLOBIN 12.8 g/dL (12.0-15.5); LYMPHOCYTES % (AUTO) 24.8 % (13-45); MEAN CORPUSCULAR HEMOGLOBIN 28.2 pg (27.0-33.4); MEAN CORPUSCULAR HGB CONC 32.6 g/dL (32.0-36.0); MEAN CORPUSCULAR VOLUME 87 fl (80-97); MONOCYTES % (AUTO) 9.5 % (3-13); PLATELET COUNT 346 10^3/uL (150-450); RED BLOOD COUNT 4.54 10^6/uL (3.72-5.28); RED CELL DISTRIBUTION WIDTH 14.1 % (11.5-14.0); TOTAL CELLS COUNTED % (AUTO) 100 %
--- NOTE | 2018-08-25 08:34 | ER Document Report ---
ED General - General Stated Complaint: ABDOMINAL PAIN Time Seen by Provider: 08/25/18 08:28 TRAVEL OUTSIDE OF THE [place] IN LAST 30 DAYS: No - HPI Notes: Patient is a 83-year-old female that presents to the emergency department for chief complaint of nausea vomiting and diarrhea. Patient reports not feeling well for the last 3 days. She states she generally has body aches. She reports nausea with a few episodes of emesis. She reports 1-2 episodes of diarrhea. She also reports dysuria and urinary frequency. Patient denies any fevers or chills, cough, chest pain and abdominal pain. She has not taken [id number] medication for symptomatic management. She does report poor appetite since onset of symptoms. Past Medical History: Diabetes, hypertension, hyperlipidemia Past Surgical History: Reviewed in chart Social History: Denies drugs alcohol and tobacco Family History: Reviewed and noncontributory for presenting illness Allergies: Reviewed, see documented allergy list. REVIEW OF SYSTEMS: CONSTITUTIONAL : No fever No chills No diaphoresis No recent illness EENT: No vision changes No congestion No sore throat CARDIOVASCULAR: No chest pain No palpitations RESPIRATORY: No shortness of breath No cough No difficulty breathing GASTROINTESTINAL: No abdominal pain nausea vomiting diarrhea GENITOURINARY: dysuria No hematuria No difficulty urinating MUSCULOSKELETAL: No back pain No leg pain No arm pain SKIN: No rashes No lesions LYMPHATIC: No swollen, enlarged glands. NEUROLOGICAL: No lightheadedness No headache No weakness No paresthesias PSYCHIATRIC: No anxiety No depression PHYSICAL EXAMINATION: Vital signs reviewed, nursing noted reviewed. GENERAL: Well-appearing, well-nourished and in no acute distress. HEAD: Atraumatic, normocephalic. EYES: Eyes appear normal, extraocular movements intact, sclera anicteric, conjunctiva are normal. ENT: nares patent, oropharynx clear without exudates. Mildly dry mucous membranes. NECK: Normal range of motion, supple without lymphadenopathy LUNGS: Breath sounds clear to auscultation bilaterally and equal. No wheezes rales or rhonchi. HEART: Regular rate and rhythm without murmurs ABDOMEN: Soft, nontender, normoactive bowel sounds. No rebound, guarding, or rigidity. No masses appreciated. EXTREMITIES: Nontender, good range of motion, trace pretibial edema NEUROLOGICAL: No focal neurological deficits. Moves all extremities spontaneously Motor and sensory grossly intact on exam. PSYCH: Normal mood, normal affect. SKIN: Warm, Dry, normal turgor, no rashes or lesions noted on exposed skin - Related Data Allergies/Adverse Reactions: No Known Allergies Allergy (Verified 02/24/18 18:35) Past Medical History - Social History Smoking Status: Never Smoker Family History: Reviewed & Not Pertinent - Past Medical History Cardiac Medical History: Reports: Hx Congestive Heart Failure, Hx Hypercholesterolemia, Hx Hypertension Endocrine Medical History: Reports: Hx Diabetes Mellitus Type 2 Renal/ Medical History: Denies: Hx Peritoneal Dialysis Musculoskeletal Medical History: Reports Hx Arthritis Psychiatric Medical History: Denies: Hx Depression Past Surgical History: Reports: Hx Cholecystectomy Physical Exam - Vital signs Vitals: Temp Pulse Resp BP Pulse Ox 98.7 F 76 18 108/57 L 96 08/25/18 08:48 08/25/18 08:48 08/25/18 08:48 08/25/18 08:48 08/25/18 08:48 Course - Re-evaluation Re-evalutation: 08/25/18 08:33 Vitals reviewed. Nursing notes reviewed. Patient is hemodynamically stable and nontoxic in appearance. She currently denies any nausea or needing medication for nausea. Her abdominal exam is soft with no peritoneal signs or tenderness. 08/25/18 09:43 Patient reevaluated and has become nauseated and is vomiting. She was given Zofran. Patient has a positive urinary tract infection and was given a dose of Rocephin. She is not septic. Lab work also shows acute kidney injury likely related to poor oral intake and dehydration patient will be admitted to the hospital for IV fluids and antibiotics.. She is in agreement with this plan. Laboratory 08/25/18 08/25/18 08/25/18 08:00 08:00 08:38 WBC 8.0 RBC 4.54 Hgb 12.8 Hct 39.3 MCV 87 MCH 28.2 MCHC 32.6 RDW 14.1 H Plt Count 346 Seg Neutrophils % 64.0 Lymphocytes % 24.8 Monocytes % 9.5 Eosinophils % 1.2 Basophils % 0.5 Absolute Neutrophils 5.1 Absolute Lymphocytes 2.0 Absolute Monocytes 0.8 Absolute Eosinophils 0.1 Absolute Basophils 0.0 Sodium 139.1 Potassium 4.6 Chloride 99 Carbon Dioxide 23 Anion Gap 17 BUN 30 H Creatinine 1.96 H Est GFR ( Amer) 30 L Est GFR (Non-Af Amer) 24 L Glucose 350 H Calcium 9.7 Total Bilirubin 0.6 Direct Bilirubin 0.4 Neonat Total Bilirubin Not Reportable Neonat Direct Bilirubin Not Reportable Neonat Indirect Bili Not Reportable AST 25 ALT 16 Alkaline Phosphatase 116 Total Protein 8.2 Albumin 4.1 Lipase 118.1 Urine Color YELLOW Urine Appearance TURBID Urine pH 5.0 Ur Specific Spring 1.012 Urine Protein 100 H Urine Glucose (UA) >=500 H Urine Ketones NEGATIVE Urine Blood MODERATE H Urine Nitrite NEGATIVE Urine Bilirubin NEGATIVE Urine Urobilinogen NEGATIVE Ur Leukocyte Esterase MODERATE H Urine WBC (Auto) 109 Urine RBC (Auto) 50 Urine Bacteria (Auto) 3+ Urine WBC Clumps MANY Urine Yeast (Budding) PRESENT Urine Ascorbic Acid NEGATIVE - Vital Signs Vital signs: Temp Pulse Resp BP Pulse Ox 98.7 F 76 18 108/57 L 96 08/25/18 08:48 08/25/18 08:48 08/25/18 08:48 08/25/18 08:48 08/25/18 08:48 - Laboratory Result Diagrams: 08/25/18 08:00 08/25/18 08:00 Laboratory results interpreted by me: 08/25/18 08/25/18 08/25/18 08:00 08:00 08:38 RDW 14.1 H BUN 30 H Creatinine 1.96 H Est GFR ( Amer) 30 L Est GFR (Non-Af Amer) 24 L Glucose 350 H Urine Protein 100 H Urine Glucose (UA) >=500 H Urine Blood MODERATE H Ur Leukocyte Esterase MODERATE H 08/25/18 10:[address] Shreya braswell who accepted admission. - EKG Interpretation by Me Additional EKG results interpreted by me: 08/25/18 10:01 Interpreted by myself [id number]: Normal sinus rhythm, rate 66, first-degree AV block, nonspecific idioventricular conduction delay, no significant change from 02/24/18 Discharge - Discharge Clinical Impression: LAWRENCE (acute kidney injury), Dehydration UTI (urinary tract infection) Qualifiers: Urinary tract infection type: site unspecified Hematuria presence: without hematuria Qualified Code(s): N39.0 - Urinary tract infection, site not specified Condition: Stable Disposition: ADMITTED OBSERVATION Admitting Provider: Hospitalist Unit Admitted: Medical Floor
[2018-08-25 08:46] LABS: ALANINE AMINOTRANSFERASE 16 U/L (9-52); ALBUMIN 4.1 g/dL (3.5-5.0); ALKALINE PHOSPHATASE 116 U/L (38-126); ANION GAP 17 (5-19); ASPARTATE AMINO TRANSFERASE 25 U/L (14-36); BILIRUBIN,DIRECT 0.4 mg/dL (0.0-0.4); BILIRUBIN,TOTAL 0.6 mg/dL (0.2-1.3); BLOOD UREA NITROGEN 30 mg/dL (7-20); CALCIUM 9.7 mg/dL (8.4-10.2); CARBON DIOXIDE 23 mmol/L (22-30); CHLORIDE 99 mmol/L (98-107); GLUCOSE 350 mg/dL (75-110); LIPASE 118.1 U/L (23-300); POTASSIUM 4.6 mmol/L (3.6-5.0); SODIUM 139.1 mmol/L (137-145); TOTAL PROTEIN 8.2 g/dL (6.3-8.2)
[2018-08-25 09:05] LABS: APPEARANCE,URINE TURBID; BILIRUBIN,URINE NEGATIVE (NEGATIVE); COLOR,URINE YELLOW; GLUCOSE, URINE >=500 mg/dL (NEGATIVE); KETONES,URINE NEGATIVE (NEGATIVE); LEUKOCYTE ESTERASE,URINE MODERATE (NEGATIVE); NITRITE,URINE NEGATIVE (NEGATIVE); PROTEIN,URINE 100 mg/dL (NEGATIVE); URINE SPECIFIC GRAVITY 1.012; UROBILINOGEN,URINE NEGATIVE mg/dL (<2.0)
[2018-08-25] MEDS ORDERED: CEFTRIAXONE INJ 1000 MG VIAL IV ONE (09:14)
[2018-08-25] MEDS ORDERED: NORMAL SALINE 1000 ML 1,000 ML IV ONE (09:14)
[2018-08-25] MEDS ORDERED: ONDANSETRON HCL INJ/PF 4 MG/2 ML SDV IV ONE (09:43)
[2018-08-25] MEDS ORDERED: PROMETHAZINE HCL 25 MG TABLET PO PRN (12:49)
[2018-08-25] MEDS ORDERED: ONDANSETRON 4 MG TAB.RAPDIS PO PRN (12:49)
[2018-08-25] MEDS ORDERED: GLUCAGON,HUMAN RECOMB 1 MG INJ IM PRN (12:55)
[2018-08-25] MEDS ORDERED: DEXTROSE 50%-WATER 25 GM/50 ML DISP.SYRIN IV PRN ×2 (12:55)
[2018-08-25] MEDS ORDERED: DEXTROSE 40% GEL 15 GM TUBE PO PRN ×2 (12:55)
[2018-08-25] MEDS ORDERED: ONDANSETRON 4 MG TAB.RAPDIS ONE (13:23)
--- NOTE | 2018-08-25 13:30 | PDOC H&P ---
History of Present Illness Admission Date/PCP: 08/25/18 10:47 Patient complains of: Nausea and vomiting, abdominal pain with malaise and weakness. History of Present Illness: GLENIS CERVANTES is a 83 year old female with a history of diabetes mellitus, hypertension and insomnia. Yesterday she began to feel poorly. She felt warm like she had a fever. She was very tired and weak. She exhibited nausea and vomiting and was unable to keep anything down. She also reported discomfort in the lower abdomen that radiated to both sides. It also sounds like she is e xperiencing urinary incontinence. Past Medical History Cardiac Medical History: Reports: Congestive Heart Failure, Hyperlipidema, Hypertension Pulmonary Medical History: Denies: Asthma, Chronic Obstructive Pulmonary Disease (COPD), Respiratory Failure EENT Medical History: Denies: Cataracts, Ears, Nose Neurological Medical History: Denies: Hemorrhagic CVA, Ischemic CVA, Migraine Endocrine Medical History: Reports: Diabetes Mellitus Type 2 Renal/ Medical History: Denies: End Stage Renal Disease, Nephrolithiasis Malignancy Medical History: Reports: None GI Medical History: Denies: Cirrhosis, Diverticulitis, Gastroesophageal Reflux Disease, Hepatitis Musculoskeltal Medical History: Reports: Arthritis Psychiatric Medical History: Denies: Bipolar Disorder, Depression Traumatic Medical History: Reports: None Hematology: Denies: Hemophilia, Sickle Cell Disease Infectious Medical History: Reports: None Past Surgical History Past Surgical History: Reports: Cholecystectomy, Hysterectomy Social History Information Source: Patient Lives with: Alone - Smoking Status: Former Smoker Frequency of Alcohol Use: Rare Hx Recreational Drug Use: No Drugs: None Hx Prescription Drug Abuse: No - Advance Directive Resuscitation Status: Full Code Surrogate healthcare decision maker:: No formal advance care proxy documentation. Family History Family History: Hypertension Parental Family History Reviewed: Yes Children Family History Reviewed: Yes Sibling(s) Family History Reviewed.: Yes Medication/Allergy Home Medications: Amlodipine Besylate [Norvasc 10 mg Tablet] 10 mg PO DAILY 08/25/18 Cyclobenzaprine HCl [Flexeril 10 mg Tablet] 10 mg PO QHS 08/25/18 Insulin Aspart [Novolog Insulin (Aspart) 100 unit/mL] 30 units SQ MEALS 08/25/18 Losartan Potassium [Cozaar 100 mg Tablet] 100 mg PO DAILY 08/25/18 Allergies/Adverse Reactions: No Known Allergies Allergy (Verified 02/24/18 18:35) Review of Systems Constitutional: PRESENT: as per HPI Eyes: ABSENT: visual disturbances Ears: ABSENT: hearing changes Nose, Mouth, and Throat: PRESENT: headache(s) - Occasional. ABSENT: mouth pain, sore throat Cardiovascular: PRESENT: edema. ABSENT: chest pain, palpitations Respiratory: ABSENT: cough, dyspnea, sputum Gastrointestinal: PRESENT: abdominal pain, nausea, vomiting. ABSENT: constipation, diarrhea, heartburn Genitourinary: PRESENT: dysuria. ABSENT: difficulty urinating Musculoskeletal: PRESENT: muscle weakness - Systemic nonfocal Integumentary: ABSENT: diaphoresis, rash Neurological: ABSENT: abnormal speech, memory loss, tremor(s) Psychiatric: ABSENT: anxiety, depression Endocrine: ABSENT: cold intolerance, heat intolerance Hematologic/Lymphatic: ABSENT: easy bleeding, easy bruising Allergic/Immunologic: ABSENT: seasonal rhinorrhea Physical Exam Vital Signs: Temp Pulse Resp BP Pulse Ox 98.7 F 76 13 117/97 H 96 08/25/18 08:48 08/25/18 08:48 08/25/18 10:03 08/25/18 11:01 08/25/18 11:01 Intake & Output 08/24/18 08/25/18 08/26/18 06:59 06:59 06:59 Intake Total 1000 Balance 1000 Weight 95.254 kg General appearance: PRESENT: mild distress, well-developed Head exam: PRESENT: normocephalic, other - Wears a wig Eye exam: PRESENT: conjunctiva pink - Dirty sclera, EOMI Ear exam: PRESENT: normal external ear exam Mouth exam: PRESENT: dry mucosa, tongue midline Neck exam: ABSENT: carotid bruit, JVD, lymphadenopathy, tracheostomy Respiratory exam: PRESENT: clear to auscultation maribel, symmetrical, unlabored. ABSENT: accessory muscle use, rales, rhonchi, wheezes Cardiovascular exam: PRESENT: RRR, +S1, +S2, systolic murmur - 2/6 Pulses: PRESENT: normal radial pulses GI/Abdominal exam: PRESENT: hypoactive bowel sounds, soft, tenderness. ABSENT: distended, rebound Rectal exam: PRESENT: deferred Gentrourinary exam: ABSENT: indwelling catheter Extremities exam: PRESENT: pedal edema. ABSENT: calf tenderness Musculoskeletal exam: PRESENT: normal inspection Neurological exam: PRESENT: awake, oriented to person, oriented to place, oriented to situation. ABSENT: alert - Fatigued Psychiatric exam: PRESENT: appropriate affect. ABSENT: agitated, anxious Focused psych exam: ABSENT: restlessness Skin exam: PRESENT: dry, warm. ABSENT: rash Results Laboratory Results: 08/25/18 08:00 08/25/18 08:00 08/25/18 08/25/18 08/25/18 08:00 08:00 08:38 WBC 8.0 RBC 4.54 Hgb 12.8 Hct 39.3 MCV 87 MCH 28.2 MCHC 32.6 RDW 14.1 H Plt Count 346 Seg Neutrophils % 64.0 Lymphocytes % 24.8 Monocytes % 9.5 Eosinophils % 1.2 Basophils % 0.5 Absolute Neutrophils 5.1 Absolute Lymphocytes 2.0 Absolute Monocytes 0.8 Absolute Eosinophils 0.1 Absolute Basophils 0.0 Sodium 139.1 Potassium 4.6 Chloride 99 Carbon Dioxide 23 Anion Gap 17 BUN 30 H Creatinine 1.96 H Est GFR ( Amer) 30 L Est GFR (Non-Af Amer) 24 L Glucose 350 H Calcium 9.7 Total Bilirubin 0.6 AST 25 ALT 16 Alkaline Phosphatase 116 Total Protein 8.2 Albumin 4.1 Lipase 118.1 Urine Color YELLOW Urine Appearance TURBID Urine pH 5.0 Ur Specific [place] 1.012 Urine Protein 100 H Urine Glucose (UA) >=500 H Urine Ketones NEGATIVE Urine Blood MODERATE H Urine Nitrite NEGATIVE Ur Leukocyte Esterase MODERATE H Urine WBC (Auto) 109 Urine RBC (Auto) 50 Assessment & Plan - Diagnosis (1) Acute cystitis Qualifiers: Hematuria presence: without hematuria Qualified Code(s): N30.00 - Acute cystitis without hematuria Is this a current diagnosis for this admission?: Yes Plan: Urinalysis revealed white blood cells with nitrite negative and leukocyte esterase positive. I will continue the Rocephin at this time. No urine culture was obtained prior to the patient receiving her first dose of antibiotic therapy. (2) LAWRENCE (acute kidney injury) Is this a current diagnosis for this admission?: Yes Plan: Continue IV fluids but monitor for any signs of respiratory failure. Follow serum creatinine/kidney function. (3) Dehydration Is this a current diagnosis for this admission?: Yes Plan: IV hydration as noted above. (4) Hyperglycemia Is this a current diagnosis for this admission?: Yes Plan: The patient normally takes 30 units of NovoLog with meals. Because her appetite is down I have decreased this dose. She is also on a sliding scale. I will need to follow-up and see if she is on long acting insulin. I believe she was on Levemir in the past. (5) Hypertension Qualifiers: Hypertension type: essential hypertension Qualified Code(s): I10 - Essential (primary) hypertension Is this a current diagnosis for this admission?: Yes Plan: She normally takes losartan 100 mg daily. She is also on amlodipine. I have split the losartan dose to 50 mg twice daily and put parameters on the losartan and amlodipine. (6) Type 2 diabetes mellitus Qualifiers: Diabetes mellitus detention insulin use: with terminal superintendent use Diabetes mellitus complication status: with hyperglycemia Qualified Code(s): E11.65 - Type 2 diabetes mellitus with hyperglycemia; Z79.4 - shelter (current) use of insulin Is this a current diagnosis for this admission?: Yes Plan: Reduced dose of NovoLog with meals and sliding scale. We will also research for long-acting insulin therapy. - Time Time Spent: 50 to 70 Minutes Medications reviewed and adjusted accordingly: Yes Anticipated discharge: Home Within: within 48 hours
[2018-08-25] MEDS: INSULIN LISPRO 100 UNIT/ML 3 ML VIAL SUBCUT SCH (17:42)
[2018-08-25] MEDS: INSULIN LISPRO 100 UNIT/ML 3 ML VIAL SUBCUT PRN ×2 (17:42→23:05)
--- NOTE | 2018-08-25 19:34 | EKG REPORT ---
SEVERITY:- ABNORMAL ECG - SINUS RHYTHM FIRST DEGREE AV BLOCK NONSPECIFIC INTRAVENTRICULAR CONDUCTION DELAY LEFT VENTRICULAR HYPERTROPHY : Confirmed by: Mya Garibay MD 25-Aug-2018 19:34:21
[2018-08-25] MEDS: CYCLOBENZAPRINE HCL 10 MG TABLET PO SCH (21:49)
[2018-08-25] MEDS: LOSARTAN POTASSIUM 50 MG TABLET PO SCH (21:49)
[2018-08-25] MEDS: FAMOTIDINE 20 MG TABLET PO SCH (21:49)
[2018-08-26] MEDS: NORMAL SALINE 1000 ML 1,000 ML IV PRN ×2 (05:52→16:00)
[2018-08-26 07:25] LABS: BLOOD UREA NITROGEN 34 mg/dL (7-20); CALCIUM 8.2 mg/dL (8.4-10.2); CARBON DIOXIDE 22 mmol/L (22-30); GLUCOSE 194 mg/dL (75-110)
[2018-08-26 07:27] LABS: ANION GAP 9 (5-19); CHLORIDE 107 mmol/L (98-107)
[2018-08-26 07:28] LABS: POTASSIUM 5.6 mmol/L (3.6-5.0)
[2018-08-26] MEDS: INSULIN LISPRO 100 UNIT/ML 3 ML VIAL SUBCUT SCH ×3 (09:50→18:29)
[2018-08-26] MEDS: ENOXAPARIN SODIUM INJ 30 MG/0.3 ML DISP.SYRIN SUBCUT SCH (09:51)
[2018-08-26] MEDS: INSULIN LISPRO 100 UNIT/ML 3 ML VIAL SUBCUT PRN ×4 (09:51→21:47)
[2018-08-26] MEDS: FAMOTIDINE 20 MG TABLET PO SCH ×2 (09:52→21:39)
[2018-08-26] MEDS: AMLODIPINE BESYLATE 10 MG TABLET PO SCH (09:52)
[2018-08-26] MEDS: LOSARTAN POTASSIUM 50 MG TABLET PO SCH ×2 (09:52→21:39)
[2018-08-26] MEDS ORDERED: CEFTRIAXONE 1 GM/D5W RTU 1 GM/50 ML RTUPB IV SCH (10:00)
[2018-08-26] MEDS ORDERED: SODIUM POLYSTYRENE SULFONATE 15 GM/60 ML PO ONE (13:30)
[2018-08-26 18:34] LABS: ANION GAP 7 (5-19); BLOOD UREA NITROGEN 34 mg/dL (7-20); CALCIUM 8.3 mg/dL (8.4-10.2); CARBON DIOXIDE 23 mmol/L (22-30); CHLORIDE 107 mmol/L (98-107); GLUCOSE 192 mg/dL (75-110); SODIUM 136.8 mmol/L (137-145)
--- NOTE | 2018-08-26 19:28 | PDOC PROGRESS REPORT ---
Subjective Progress Note for:: 08/26/18 Subjective:: 08/26/2018. No acute events overnight. Reason For Visit: ACUTE CYSTITIS Physical Exam Vital Signs: Temp Pulse Resp BP Pulse Ox 98.1 F 75 18 130/45 H 96 08/26/18 11:35 08/26/18 11:35 08/26/18 11:35 08/26/18 11:35 08/26/18 11:35 Intake & Output 08/25/18 08/26/18 08/27/18 06:59 06:59 06:59 Intake Total 1000 1700 Balance 1000 1700 Weight 94.4 kg 94.4 kg General appearance: PRESENT: no acute distress, well-developed, well-nourished Head exam: PRESENT: atraumatic, normocephalic Respiratory exam: PRESENT: clear to auscultation maribel. ABSENT: rales, rhonchi, wheezes Cardiovascular exam: PRESENT: RRR. ABSENT: diastolic murmur, rubs, systolic murmur GI/Abdominal exam: PRESENT: normal bowel sounds, soft. ABSENT: distended, guarding, mass, organolmegaly, rebound, tenderness Extremities exam: PRESENT: full ROM. ABSENT: calf tenderness, clubbing, pedal edema Neurological exam: PRESENT: alert, awake, oriented to person, oriented to place, oriented to time, oriented to situation, CN II-XII grossly intact. ABSENT: motor sensory deficit Results Laboratory Results: 08/25/18 08:00 08/26/18 18:00 08/26/18 08/26/18 08/26/18 06:51 16:15 18:00 Sodium 138.0 136.8 L Potassium 5.6 H D 4.8 5.0 Chloride 107 107 Carbon Dioxide 22 23 Anion Gap 9 7 BUN 34 H 34 H Creatinine 2.04 H 1.73 H Est GFR ( Amer) 28 L 34 L Est GFR (Non-Af Amer) 23 L 28 L Glucose 194 H 192 H Calcium 8.2 L 8.3 L Assessment & Plan - Diagnosis (1) Acute cystitis Qualifiers: Hematuria presence: without hematuria Qualified Code(s): N30.00 - Acute cystitis without hematuria Is this a current diagnosis for this admission?: Yes Plan: Urinalysis revealed white blood cells with nitrite negative and leukocyte esterase positive. Continue IV antibiotics. Will switch to p.o. antibiotic tomorrow. (2) LAWRENCE (acute kidney injury) Is this a current diagnosis for this admission?: Yes Plan: Improving. Electrolytes within normal limits. Continue IV fluids. Monitor volume status and electrolytes. (3) Dehydration Is this a current diagnosis for this admission?: Yes Plan: Continue IV fluids. Monitor volume status. (4) Hypertension Qualifiers: Hypertension type: essential hypertension Qualified Code(s): I10 - Es sential (primary) hypertension Is this a current diagnosis for this admission?: Yes Plan: Continue losartan and amlodipine. Monitor electrolytes vitals. Adjust dosage as needed. (5) Type 2 diabetes mellitus Qualifiers: Diabetes mellitus usp insulin use: with intermediate school teacher use Diabetes mellitus complication status: with hyperglycemia Qualified Code(s): E11.65 - Type 2 diabetes mellitus with hyperglycemia; Z79.4 - rat exterminator (current) use of insulin Is this a current diagnosis for this admission?: Yes Plan: Reduced dose of NovoLog with meals and sliding scale. Diabetic diet. Adjust meds as needed.
[2018-08-26] MEDS: CYCLOBENZAPRINE HCL 10 MG TABLET PO SCH (21:39)
[2018-08-26] MEDS: ACETAMINOPHEN 325 MG TABLET PO PRN (21:49)
[2018-08-27] MEDS ORDERED: GLUCAGON,HUMAN RECOMB 1 MG INJ IM PRN (06:13)
[2018-08-27] MEDS ORDERED: DEXTROSE 40% GEL 15 GM TUBE PO PRN ×2 (06:13)
[2018-08-27] MEDS ORDERED: DEXTROSE 50%-WATER 25 GM/50 ML DISP.SYRIN IV PRN ×2 (06:13)
[2018-08-27 06:44] LABS: ABSOLUTE EOSINOPHILS # (AUTO) 0.2 10^3/uL (0.0-0.6); ABSOLUTE MONOCYTES (AUTO) 0.7 10^3/uL (0.1-1.4); BASOPHILS % (AUTO) 0.7 % (0-2); EOSINOPHILS % (AUTO) 3.7 % (0-6); HEMATOCRIT 30.9 % (36.0-47.0); LYMPHOCYTES % (AUTO) 50.5 % (13-45); MEAN CORPUSCULAR HEMOGLOBIN 27.9 pg (27.0-33.4); MEAN CORPUSCULAR HGB CONC 32.5 g/dL (32.0-36.0); MEAN CORPUSCULAR VOLUME 86 fl (80-97); MONOCYTES % (AUTO) 11.6 % (3-13); PLATELET COUNT 236 10^3/uL (150-450); RED CELL DISTRIBUTION WIDTH 14.1 % (11.5-14.0); SEGMENTED NEUTROPHILS % (AUTO) 33.5 % (42-78); TOTAL CELLS COUNTED % (AUTO) 100 %; WHITE BLOOD COUNT 5.9 10^3/uL (4.0-10.5)
[2018-08-27 07:02] LABS: ALANINE AMINOTRANSFERASE 18 U/L (9-52); ALBUMIN 2.6 g/dL (3.5-5.0); ALKALINE PHOSPHATASE 77 U/L (38-126); ANION GAP 8 (5-19); ASPARTATE AMINO TRANSFERASE 15 U/L (14-36); BILIRUBIN,DIRECT 0.3 mg/dL (0.0-0.4); BILIRUBIN,TOTAL 0.3 mg/dL (0.2-1.3); BLOOD UREA NITROGEN 30 mg/dL (7-20); CALCIUM 8.1 mg/dL (8.4-10.2); CARBON DIOXIDE 21 mmol/L (22-30); CHLORIDE 109 mmol/L (98-107); GLUCOSE 138 mg/dL (75-110); POTASSIUM 5.2 mmol/L (3.6-5.0); SODIUM 137.7 mmol/L (137-145); TOTAL PROTEIN 5.9 g/dL (6.3-8.2)
--- NOTE | 2018-08-27 09:02 | PDOC PROGRESS REPORT ---
Subjective Progress Note for:: 08/27/18 Subjective:: GLENIS CERVANTES is a 83 year old female past medical history of diabetes on insulin as part 30 units q. every meal, hypertension on amlodipine and losartan, CKD stage III baseline creatinine 1.5, last admission 02/24/2018 for syncope, 02/25/2018 carotid Doppler negative for any hemodynamically significant stenosis, head CT negative for stroke. 02/25/2018 2D echo normal ejection fraction with mild to moderate diastolic dysfunction. 08/25/2017 patient presented to ED complaining of generalized body aches, nausea vomiting diarrhea, dysuria and urinary frequency. Workup on admission: CBC within normal limits, CMP within normal limits except for creatinine of 1.95, urinalysis positive for leukocyte esterase. Patient was admitted for management of UTI, diabetes, hypertension. Patient was on ceftriaxone switch to levofloxacin today. Urine culture blood culture has been negative. 08/27/2018. Patient is resting comfortably in bed, stating that she is feeling much better today, she is p.o. tolerant and had physical therapy yesterday which recommended inpatient rehab however patient does not want to go to rehab on this admission because she needs to take care of her bills. She stating that she is living with her sons and daughters and they are taking good care of herself. She denies any fever, chest pain, nausea, vomiting, diarrhea, constipation or any urinary symptoms. Reason For Visit: ACUTE CYSTITIS Physical Exam Vital Signs: Temp Pulse Resp BP Pulse Ox 97.9 F 69 15 120/51 L 97 08/27/18 07:51 08/27/18 07:51 08/27/18 07:51 08/27/18 07:51 08/27/18 07:51 Intake & Output 08/26/18 08/27/18 08/28/18 06:59 06:59 06:59 Intake Total 1000 1700 Balance 1000 1700 Weight 94.4 kg 97.9 kg Results Laboratory Results: 08/27/18 05:49 08/27/18 05:49 08/26/18 08/26/18 08/27/18 16:15 18:00 05:49 WBC 5.9 RBC 3.60 L Hgb 10.0 L D Hct 30.9 L MCV 86 MCH 27.9 MCHC 32.5 RDW 14.1 H Plt Count 236 Seg Neutrophils % 33.5 L Lymphocytes % 50.5 H Monocytes % 11.6 Eosinophils % 3.7 Basophils % 0.7 Absolute Neutrophils 2.0 Absolute Lymphocytes 3.0 Absolute Monocytes 0.7 Absolute Eosinophils 0.2 Absolute Basophils 0.0 Sodium 136.8 L Potassium 4.8 5.0 Chloride 107 Carbon Dioxide 23 Anion Gap 7 BUN 34 H Creatinine 1.73 H Est GFR ( Amer) 34 L Est GFR (Non-Af Amer) 28 L Glucose 192 H Calcium 8.3 L Magnesium Total Bilirubin AST ALT Alkaline Phosphatase Total Protein Albumin 08/27/18 05:49 WBC RBC Hgb Hct MCV MCH MCHC RDW Plt Count Seg Neutrophils % Lymphocytes % Monocytes % Eosinophils % Basophils % Absolute Neutrophils Absolute Lymphocytes Absolute Monocytes Absolute Eosinophils Absolute Basophils Sodium 137.7 Potassium 5.2 H Chloride 109 H Carbon Dioxide 21 L Anion Gap 8 BUN 30 H Creatinine 1.50 H Est GFR ( Amer) 40 L Est GFR (Non-Af Amer) 33 L Glucose 138 H Calcium 8.1 L Magnesium 2.3 Total Bilirubin 0.3 AST 15 ALT 18 Alkaline Phosphatase 77 Total Protein 5.9 L Albumin 2.6 L Assessment & Plan - Diagnosis (1) UTI (urinary tract infection) Qualifiers: Urinary tract infection type: acute cystitis Hematuria presence: without hematuria Qualified Code(s): N30.00 - Acute cystitis without hematuria Is this a current diagnosis for this admission?: Yes Plan: Last UTI 06/23/2017 urine culture positive for group B strep and mixed urogenital juvenal. UA positive for leukocyte esterase unfortunately urine culture was not done prior to antibiotic therapy. Day 3 of antibiotics. Day 1 of levofloxacin p.o. (2) LAWRENCE (acute kidney injury) Is this a current diagnosis for this admission?: Yes Plan: History of CKD. Possibly due to diabetes and hypertension complication. Does not have outpatient nephrology follow-up. Baseline creatinine 1.5. Creatinine on admission 1.95 Today creatinine is 1.5. Continue IV fluids. Monitor electrolytes. Will DC losartan and switch to carvedilol. (3) Dehydration Is this a current diagnosis for this admission?: Yes Plan: Continue IV fluids. Monitor volume status. (4) Hypertension Qualifiers: Hypertension type: essential hypertension Qualified Code(s): I10 - Essential (primary) hypertension Is this a current diagnosis for this admission?: Yes Plan: Normotensive. Continue amlodipine. Switch losartan to carvedilol due to persistent hyperkalemia and history of CKD. Follow-up with PCP for resumption of losartan in the future. (5) Type 2 diabetes mellitus Qualifiers: Diabetes mellitus senior care insulin use: with intermediate school teacher use Diabetes mellitus complication status: with hyperglycemia Qualified Code(s): E11.65 - Type 2 diabetes mellitus with hyperglycemia; Z79.4 - senior living (current) use of insulin Is this a current diagnosis for this admission?: Yes Plan: 02/25/2018 hemoglobin A1c 10.9% does not take oral hypoglycemics. Home insulin regimen as NovoLog 30 units q. every meal. Fasting blood glucose 138, POC glucose 153 09/05/1981. Lantus 10 units daily, lispro 15 units q. before meals, continue sliding scale and Accu-Chek. Continue diabetic diet. Outpatient PCP follow-up for adjustment of insulin dosage. (6) Hyperkalemia Is this a current diagnosis for this admission?: Yes Plan: Likely due to LAWRENCE and ARB. Started on hyperkalemia protocol. Unfortunately low supplies of Kayexalate will use lactulose instead. Switch ARB with carvedilol. Potassium within normal limits tomorrow will DC home. EKG negative for peaked T waves.
[2018-08-27] MEDS ORDERED: CALCIUM GLUCONATE 1000 MG/10 ML INJ IV ONE (09:30)
[2018-08-27] MEDS ORDERED: LACTULOSE SYRUP 20 GM/30 ML UDCUP PO ONE (09:30)
[2018-08-27] MEDS ORDERED: LEVOFLOXACIN 500 MG TABLET PO ONE (10:00)
[2018-08-27] MEDS ORDERED: ASPIRIN 81 MG TABLET, CHEWABLE PO SCH ×2 (10:30→11:30)
[2018-08-27] MEDS: INSULIN LISPRO 100 UNIT/ML 3 ML VIAL SUBCUT SCH ×3 (10:56→18:18)
[2018-08-27] MEDS: INSULIN LISPRO 100 UNIT/ML 3 ML VIAL SUBCUT PRN ×2 (10:57→12:12)
[2018-08-27] MEDS: FAMOTIDINE 20 MG TABLET PO SCH ×2 (10:58→21:44)
[2018-08-27] MEDS: AMLODIPINE BESYLATE 10 MG TABLET PO SCH (10:59)
[2018-08-27] MEDS: INSULIN GLARGINE,HUM.REC.ANLOG 300 UNIT/3 ML INSULN.PEN SUBCUT SCH (10:59)
[2018-08-27] MEDS: ENOXAPARIN SODIUM INJ 30 MG/0.3 ML DISP.SYRIN SUBCUT SCH (11:00)
[2018-08-27] MEDS: CARVEDILOL 12.5 MG TABLET PO SCH (11:05)
[2018-08-27] MEDS: ACETAMINOPHEN 325 MG TABLET PO PRN (11:28)
[2018-08-27] MEDS ORDERED: ASPIRIN 81 MG TABLET, CHEWABLE PO ONE (11:40)
[2018-08-27 17:12] LABS: ANION GAP 6 (5-19); BLOOD UREA NITROGEN 28 mg/dL (7-20); CALCIUM 8.6 mg/dL (8.4-10.2); CARBON DIOXIDE 23 mmol/L (22-30); CHLORIDE 109 mmol/L (98-107); GLUCOSE 119 mg/dL (75-110); POTASSIUM 4.8 mmol/L (3.6-5.0); SODIUM 137.8 mmol/L (137-145)
--- NOTE | 2018-08-27 21:05 | EKG REPORT ---
SEVERITY:- ABNORMAL ECG - SINUS RHYTHM LEFT BUNDLE BRANCH BLOCK TYPE OF IVCD : Confirmed by: Mya Garibay MD 27-Aug-2018 21:05:01
[2018-08-27] MEDS: CYCLOBENZAPRINE HCL 10 MG TABLET PO SCH (21:44)
[2018-08-28 07:30] LABS: ABSOLUTE BASOPHILS # (AUTO) 0.1 10^3/uL (0.0-0.2); ABSOLUTE EOSINOPHILS # (AUTO) 0.2 10^3/uL (0.0-0.6); ABSOLUTE LYMPHOCYTES (AUTO) 2.5 10^3/uL (0.5-4.7); ABSOLUTE MONOCYTES (AUTO) 0.5 10^3/uL (0.1-1.4); ABSOLUTE NEUT (AUTO) 2.4 10^3/uL (1.7-8.2); BASOPHILS % (AUTO) 1.1 % (0-2); EOSINOPHILS % (AUTO) 3.5 % (0-6); HEMATOCRIT 32.3 % (36.0-47.0); HEMOGLOBIN 10.6 g/dL (12.0-15.5); LYMPHOCYTES % (AUTO) 43.6 % (13-45); MEAN CORPUSCULAR HGB CONC 32.7 g/dL (32.0-36.0); MEAN CORPUSCULAR VOLUME 86 fl (80-97); MONOCYTES % (AUTO) 9.4 % (3-13); PLATELET COUNT 254 10^3/uL (150-450); RED BLOOD COUNT 3.78 10^6/uL (3.72-5.28); RED CELL DISTRIBUTION WIDTH 14.3 % (11.5-14.0); SEGMENTED NEUTROPHILS % (AUTO) 42.4 % (42-78); TOTAL CELLS COUNTED % (AUTO) 100 %; WHITE BLOOD COUNT 5.7 10^3/uL (4.0-10.5)
[2018-08-28 07:31] LABS: ALANINE AMINOTRANSFERASE 16 U/L (9-52); ALKALINE PHOSPHATASE 73 U/L (38-126); ANION GAP 6 (5-19); ASPARTATE AMINO TRANSFERASE 19 U/L (14-36); BILIRUBIN,DIRECT 0.3 mg/dL (0.0-0.4); BILIRUBIN,TOTAL 0.3 mg/dL (0.2-1.3); BLOOD UREA NITROGEN 22 mg/dL (7-20); CALCIUM 8.8 mg/dL (8.4-10.2); CARBON DIOXIDE 21 mmol/L (22-30); CHLORIDE 111 mmol/L (98-107); GLUCOSE 136 mg/dL (75-110); POTASSIUM 5.3 mmol/L (3.6-5.0); SODIUM 137.8 mmol/L (137-145); TOTAL PROTEIN 6.5 g/dL (6.3-8.2)
[2018-08-28] MEDS: INSULIN LISPRO 100 UNIT/ML 3 ML VIAL SUBCUT SCH ×3 (09:29→18:42)
[2018-08-28] MEDS: CARVEDILOL 12.5 MG TABLET PO SCH (09:36)
[2018-08-28] MEDS: INSULIN GLARGINE,HUM.REC.ANLOG 300 UNIT/3 ML INSULN.PEN SUBCUT SCH (09:38)
[2018-08-28] MEDS: ENOXAPARIN SODIUM INJ 30 MG/0.3 ML DISP.SYRIN SUBCUT SCH (09:40)
[2018-08-28] MEDS: LEVOFLOXACIN 250 MG TABLET PO SCH (09:42)
[2018-08-28] MEDS: AMLODIPINE BESYLATE 10 MG TABLET PO SCH (09:43)
[2018-08-28] MEDS: FAMOTIDINE 20 MG TABLET PO SCH ×2 (09:43→22:52)
[2018-08-28] MEDS ORDERED: PATIROMER 8.4 GM SUSP PACKET PO ONE (10:30)
--- NOTE | 2018-08-28 12:21 | PDOC PROGRESS REPORT ---
Subjective Progress Note for:: 08/28/18 Subjective:: GLENIS CERVANTES is a 83 year old female past medical history of diabetes on insulin as part 30 units q. every meal, hypertension on amlodipine and losartan, CKD stage III baseline creatinine 1.5, last admission 02/24/2018 for syncope, 02/25/2018 carotid Doppler negative for any hemodynamically significant stenosis, head CT negative for stroke. 02/25/2018 2D echo normal ejection fraction with mild to moderate diastolic dysfunction. 08/25/2017 patient presented to ED complaining of generalized body aches, nausea vomiting diarrhea, dysuria and urinary frequency. Workup on admission: CBC within normal limits, CMP within normal limits except for creatinine of 1.95, urinalysis positive for leukocyte esterase. Patient was admitted for management of UTI, diabetes, hypertension. Patient was on ceftriaxone switch to levofloxacin today. Urine culture blood culture has been negative. 08/27/2018. Patient is resting comfortably in bed, stating that she is feeling much better today, she is p.o. tolerant and had physical therapy yesterday which recommended inpatient rehab however patient does not want to go to rehab on this admission because she needs to take care of her bills. She stating that she is living with her sons and daughters and they are taking good care of herself. She denies any fever, chest pain, nausea, vomiting, diarrhea, constipation or any urinary symptoms. 08/28/2018. No acute events overnight. Patient stating that she had a good night sleep and she is feeling much better since admission. She is p.o. tolerant and having normal bowel and bladder function. Denies any fever, chills, nausea, vomiting, diarrhea, constipation or any urinary symptoms. She has been normotensive in the last 24 hours and her vitals have been stable, labs are unchanged except for her potassium is 5.3 today. Plan was to discharge her home today as she is refusing to be sent to rehab however because of her high potassium we will keep her today if her potassium normalized in the evening we will send her home otherwise will check potassium tomorrow and possibly send her home tomorrow. Reason For Visit: ACUTE CYSTITIS Physical Exam Vital Signs: Temp Pulse Resp BP Pulse Ox 98.0 F 63 16 129/50 H 97 08/28/18 11:27 08/28/18 11:27 08/28/18 11:27 08/28/18 11:27 08/28/18 11:27 Intake & Output 08/27/18 08/28/18 08/29/18 06:59 06:59 06:59 Intake Total 1700 600 Balance 1700 600 Weight 97.9 kg General appearance: PRESENT: no acute distress, well-developed, well-nourished Head exam: PRESENT: atraumatic, normocephalic Neck exam: ABSENT: carotid bruit, JVD, lymphadenopathy, thyromegaly Respiratory exam: PRESENT: clear to auscultation maribel. ABSENT: rales, rhonchi, wheezes Cardiovascular exam: PRESENT: RRR. ABSENT: diastolic murmur, rubs, systolic murmur GI/Abdominal exam: PRESENT: normal bowel sounds, soft. ABSENT: distended, guarding, mass, organolmegaly, rebound, tenderness Extremities exam: PRESENT: full ROM. ABSENT: calf tenderness, clubbing, pedal edema Musculoskeletal exam: PRESENT: full ROM Neurological exam: PRESENT: alert, awake, oriented to person, oriented to place, oriented to time, oriented to situation, CN II-XII grossly intact. ABSENT: motor sensory deficit Skin exam: PRESENT: dry, intact, warm. ABSENT: cyanosis, rash Results Laboratory Results: 08/28/18 06:47 08/28/18 06:25 08/27/18 08/28/18 08/28/18 16:40 06:25 06:47 WBC 5.7 RBC 3.78 Hgb 10.6 L Hct 32.3 L MCV 86 MCH 28.0 MCHC 32.7 RDW 14.3 H Plt Count 254 Seg Neutrophils % 42.4 Lymphocytes % 43.6 Monocytes % 9.4 Eosinophils % 3.5 Basophils % 1.1 Absolute Neutrophils 2.4 Absolute Lymphocytes 2.5 Absolute Monocytes 0.5 Absolute Eosinophils 0.2 Absolute Basophils 0.1 Sodium 137.8 137.8 Potassium 4.8 5.3 H Chloride 109 H 111 H Carbon Dioxide 23 21 L Anion Gap 6 6 BUN 28 H 22 H Creatinine 1.33 H 1.16 Est GFR ( Amer) 46 L 54 L Est GFR (Non-Af Amer) 38 L 45 L Glucose 119 H 136 H Calcium 8.6 8.8 Magnesium 2.3 Total Bilirubin 0.3 AST 19 ALT 16 Alkaline Phosphatase 73 Total Protein 6.5 Albumin 3.0 L 08/27/18 13:58 Troponin I 0.039 Assessment & Plan - Diagnosis (1) UTI (urinary tract infection) Qualifiers: Urinary tract infection type: acute cystitis Hematuria presence: without hematuria Qualified Code(s): N30.00 - Acute cystitis without hematuria Is this a current diagnosis for this admission?: Yes Plan: Last UTI 06/23/2017 urine culture positive for group B strep and mixed urogenital juvenal. UA positive for leukocyte esterase unfortunately urine culture was not done prior to antibiotic therapy. Day 4/5 of antibiotics. Day 2 of levofloxacin p.o. (2) LAWRENCE (acute kidney injury) Is this a current diagnosis for this admission?: Yes Plan: Resolved. History of CKD. Possibly due to diabetes and hypertension complication. Does not have outpatient nephrology follow-up. Baseline creatinine 1.5. Creatinine on admission 1.95 Today creatinine is 1.16 DC IV fluids monitor electrolytes. DC losartan and switch to carvedilol. Follow-up with PCP for possible resumption of ARB in the future. (3) Dehydration Is this a current diagnosis for this admission?: Yes Plan: Euvolemic, normotensive. DC IV fluids. (4) Hypertension Qualifiers: Hypertension type: essential hypertension Qualified Code(s): I10 - Essential (primary) hypertension Is this a current diagnosis for this admission?: Yes Plan: Normotensive. Continue amlodipine. Switch losartan to carvedilol due to persistent hyperkalemia and history of CKD. Follow-up with PCP for resumption of losartan in the future. (5) Type 2 diabetes mellitus Qualifiers: Diabetes mellitus termite exterminator insulin use: with prison use Diabetes mellitus complication status: with hyperglycemia Qualified Code(s): E11.65 - Type 2 diabetes mellitus with hyperglycemia; Z79.4 - long term care phlebotomist (current) use of insulin Is this a current diagnosis for this admission?: Yes Plan: 02/25/2018 hemoglobin A1c 10.9% does not take oral hypoglycemics. Home insulin regimen as NovoLog 30 units q. every meal. Fasting blood glucose 138, POC glucose 153 09/05/1981. Lantus 10 units daily, lispro 15 units q. before meals, continue sliding scale and Accu-Chek. Continue diabetic diet. Outpatient PCP follow-up for adjustment of insulin dosage. (6) Hyperkalemia Is this a current diagnosis for this admission?: Yes Plan: Likely due to LAWRENCE and ARB. Hyperkalemia protocol. Switch ARB with carvedilol. Started on [place] p.o. daily. BMP tomorrow. If potassium within normal limits will DC home.
[2018-08-28] MEDS: INSULIN LISPRO 100 UNIT/ML 3 ML VIAL SUBCUT PRN ×2 (12:26→22:53)
[2018-08-28] MEDS ORDERED: CALCIUM GLUCONATE 1000 MG/10 ML INJ IV ONE (12:30)
[2018-08-28 16:41] LABS: BLOOD UREA NITROGEN 22 mg/dL (7-20); CALCIUM 9.3 mg/dL (8.4-10.2); GLUCOSE 81 mg/dL (75-110); POTASSIUM 4.8 mmol/L (3.6-5.0)
[2018-08-28 16:47] LABS: CARBON DIOXIDE 25 mmol/L (22-30); CHLORIDE 109 mmol/L (98-107); SODIUM 137.8 mmol/L (137-145)
[2018-08-28 16:51] LABS: ANION GAP 4 (5-19)
[2018-08-28] MEDS: PATIROMER 8.4 GM SUSP PACKET PO SCH (18:50)
[2018-08-28] MEDS: CYCLOBENZAPRINE HCL 10 MG TABLET PO SCH (22:53)
[2018-08-29] MEDS: ACETAMINOPHEN 325 MG TABLET PO PRN (05:02)
[2018-08-29 08:04] LABS: ALANINE AMINOTRANSFERASE 26 U/L (9-52); ALKALINE PHOSPHATASE 89 U/L (38-126); ANION GAP 8 (5-19); ASPARTATE AMINO TRANSFERASE 14 U/L (14-36); BILIRUBIN,DIRECT 0.2 mg/dL (0.0-0.4); BILIRUBIN,TOTAL 0.2 mg/dL (0.2-1.3); BLOOD UREA NITROGEN 18 mg/dL (7-20); CALCIUM 9.7 mg/dL (8.4-10.2); CARBON DIOXIDE 22 mmol/L (22-30); CHLORIDE 106 mmol/L (98-107); GLUCOSE 247 mg/dL (75-110); POTASSIUM 5.5 mmol/L (3.6-5.0); SODIUM 135.5 mmol/L (137-145); TOTAL PROTEIN 6.4 g/dL (6.3-8.2)
[2018-08-29] MEDS: INSULIN LISPRO 100 UNIT/ML 3 ML VIAL SUBCUT SCH ×2 (09:38→13:03)
[2018-08-29] MEDS: INSULIN LISPRO 100 UNIT/ML 3 ML VIAL SUBCUT PRN ×3 (09:41→21:53)
[2018-08-29] MEDS: INSULIN GLARGINE,HUM.REC.ANLOG 300 UNIT/3 ML INSULN.PEN SUBCUT SCH (09:47)
[2018-08-29] MEDS: LEVOFLOXACIN 250 MG TABLET PO SCH (09:50)
[2018-08-29] MEDS: AMLODIPINE BESYLATE 10 MG TABLET PO SCH (09:51)
[2018-08-29] MEDS: FAMOTIDINE 20 MG TABLET PO SCH ×2 (09:51→21:32)
[2018-08-29] MEDS: ENOXAPARIN SODIUM INJ 30 MG/0.3 ML DISP.SYRIN SUBCUT SCH (09:52)
[2018-08-29] MEDS: CARVEDILOL 12.5 MG TABLET PO SCH (09:54)
[2018-08-29] MEDS ORDERED: CALCIUM GLUCONATE 1000 MG/10 ML INJ IV ONE (11:30)
[2018-08-29 14:14] LABS: ANION GAP 5 (5-19); BLOOD UREA NITROGEN 18 mg/dL (7-20); CALCIUM 9.3 mg/dL (8.4-10.2); CARBON DIOXIDE 25 mmol/L (22-30); CHLORIDE 106 mmol/L (98-107); GLUCOSE 247 mg/dL (75-110); POTASSIUM 4.7 mmol/L (3.6-5.0); SODIUM 135.9 mmol/L (137-145)
--- NOTE | 2018-08-29 18:20 | PDOC PROGRESS REPORT ---
Subjective Progress Note for:: 08/29/18 Subjective:: GLENIS CERVANTES is a 83 year old female past medical history of diabetes on insulin as part 30 units q. every meal, hypertension on amlodipine and losartan, CKD stage III baseline creatinine 1.5, last admission 02/24/2018 for syncope, 02/25/2018 carotid Doppler negative for any hemodynamically significant stenosis, head CT negative for stroke. 02/25/2018 2D echo normal ejection fraction with mild to moderate diastolic dysfunction. 08/25/2017 patient presented to ED complaining of generalized body aches, nausea vomiting diarrhea, dysuria and urinary frequency. Workup on admission: CBC within normal limits, CMP within normal limits except for creatinine of 1.95, urinalysis positive for leukocyte esterase. Patient was admitted for management of UTI, diabetes, hypertension. Patient was on ceftriaxone switch to levofloxacin today. Urine culture blood culture has been negative. 08/27/2018. Patient is resting comfortably in bed, stating that she is feeling much better today, she is p.o. tolerant and had physical therapy yesterday which recommended inpatient rehab however patient does not want to go to rehab on this admission because she needs to take care of her bills. She stating that she is living with her sons and daughters and they are taking good care of herself. She denies any fever, chest pain, nausea, vomiting, diarrhea, constipation or any urinary symptoms. 08/28/2018. No acute events overnight. Patient stating that she had a good night sleep and she is feeling much better since admission. She is p.o. tolerant and having normal bowel and bladder function. Denies any fever, chills, nausea, vomiting, diarrhea, constipation or any urinary symptoms. She has been normotensive in the last 24 hours and her vitals have been stable, labs are unchanged except for her potassium is 5.3 today. Plan was to discharge her home today as she is refusing to be sent to rehab however because of her high potassium we will keep her today if her potassium normalized in the evening we will send her home otherwise will check potassium tomorrow and possibly send her home tomorrow. 08/29/2018. No acute events overnight. Unfortunately patient has high potassium and blood sugar is not optimized. We will keep another day hopefully by tomorrow if blood sugar is optimized and potassium within normal limits will discharge home. Patient refusing to be placed in rehab. Reason For Visit: ACUTE CYSTITIS Physical Exam Vital Signs: Temp Pulse Resp BP Pulse Ox 98.3 F 61 20 115/55 L 100 08/29/18 15:14 08/29/18 15:14 08/29/18 15:14 08/29/18 15:14 08/29/18 15:14 Intake & Output 08/28/18 08/29/18 08/30/18 06:59 06:59 06:59 Intake Total 600 300 720 Balance 600 300 720 General appearance: PRESENT: no acute distress, well-developed, well-nourished Head exam: PRESENT: atraumatic, normocephalic Respiratory exam: PRESENT: clear to auscultation maribel. ABSENT: rales, rhonchi, wheezes Cardiovascular exam: PRESENT: RRR. ABSENT: diastolic murmur, rubs, systolic murmur GI/Abdominal exam: PRESENT: normal bowel sounds, soft. ABSENT: distended, guarding, mass, organolmegaly, rebound, tenderness Neurological exam: PRESENT: alert, awake, oriented to person, oriented to place, oriented to time, oriented to situation, CN II-XII grossly intact. ABSENT: motor sensory deficit Results Laboratory Results: 08/28/18 06:47 08/29/18 12:31 08/29/18 08/29/18 06:56 12:31 Sodium 135.5 L 135.9 L Potassium 5.5 H 4.7 Chloride 106 106 Carbon Dioxide 22 25 Anion Gap 8 5 BUN 18 18 Creatinine 1.09 1.02 Est GFR ( Amer) 58 L > 60 Est GFR (Non-Af Amer) 48 L 52 L Glucose 247 H 247 H Calcium 9.7 9.3 Magnesium 2.0 Total Bilirubin 0.2 AST 14 ALT 26 Alkaline Phosphatase 89 Total Protein 6.4 Albumin 3.0 L 08/27/18 08/28/18 13:58 16:15 Troponin I 0.039 0.019 Assessment & Plan - Diagnosis (1) UTI (urinary tract infection) Qualifiers: Urinary tract infection type: acute cystitis Hematuria presence: without hematuria Qualified Code(s): N30.00 - Acute cystitis without hematuria Is this a current diagnosis for this admission?: Yes Plan: Last UTI 06/23/2017 urine culture positive for group B strep and mixed urogenital juveanl. UA positive for leukocyte esterase unfortunately urine culture was not done prior to antibiotic therapy. Day 5/5 of antibiotics. Day 3 of levofloxacin p.o. (2) LAWRENCE (acute kidney injury) Is this a current diagnosis for this admission?: Yes Plan: Resolved. History of CKD. Possibly due to diabetes and hypertension complication. Does not have outpatient nephrology follow-up. Baseline creatinine 1.5. Creatinine on admission 1.95 Today creatinine is 1.16 DC IV fluids monitor electrolytes. DC losartan and switch to carvedilol. Follow-up with PCP for possible resumption of ARB in the future. (3) Dehydration Is this a current diagnosis for this admission?: Yes Plan: Euvolemic, normotensive. DC IV fluids. (4) Hypertension Qualifiers: Hypertension type: essential hypertension Qualified Code(s): I10 - Essential (primary) hypertension Is this a current diagnosis for this admission?: Yes Plan: Normotensive. Continue amlodipine. Switch losartan to carvedilol due to persistent hyperkalemia and history of CKD. Follow-up with PCP for resumption of losartan in the future. (5) Type 2 diabetes mellitus Qualifiers: Diabetes mellitus long-term insulin use: with long-term use Diabetes mellitus complication status: with hyperglycemia Qualified Code(s): E11.65 - Type 2 diabetes mellitus with hyperglycemia; Z79.4 - exterminator helper (current) use of insulin Is this a current diagnosis for this admission?: Yes Plan: 02/25/2018 hemoglobin A1c 10.9% does not take oral hypoglycemics. Home insulin regimen as NovoLog 30 units q. every meal. Fasting blood glucose 138, POC glucose 153 09/05/1981. Lantus 10 units daily, lispro 15 units q. before meals, continue sliding scale and Accu-Chek. Continue diabetic diet. Outpatient PCP follow-up for adjustment of insulin dosage. (6) Hyperkalemia Is this a current diagnosis for this admission?: Yes Plan: Likely due to LAWRENCE and ARB. Hyperkalemia protocol. Switch ARB with carvedilol. Started on [place] p.o. daily. [facility] tomorrow. If potassium within normal limits will DC home.
[2018-08-29] MEDS ORDERED: INSULIN LISPRO 100 UNIT/ML 3 ML VIAL ONE ×2 (18:52→19:09)
[2018-08-29] MEDS ORDERED: PATIROMER 8.4 GM SUSP PACKET PO ONE (19:08)
[2018-08-29] MEDS: CYCLOBENZAPRINE HCL 10 MG TABLET PO SCH (21:32)
[2018-08-30] MEDS: PATIROMER 8.4 GM SUSP PACKET PO SCH (05:24)
[2018-08-30] MEDS: INSULIN LISPRO 100 UNIT/ML 3 ML VIAL SUBCUT SCH ×3 (05:24→12:05)
[2018-08-30 06:55] LABS: ABSOLUTE BASOPHILS # (AUTO) 0.1 10^3/uL (0.0-0.2); ABSOLUTE EOSINOPHILS # (AUTO) 0.2 10^3/uL (0.0-0.6); ABSOLUTE LYMPHOCYTES (AUTO) 2.7 10^3/uL (0.5-4.7); ABSOLUTE MONOCYTES (AUTO) 0.4 10^3/uL (0.1-1.4); ABSOLUTE NEUT (AUTO) 1.7 10^3/uL (1.7-8.2); BASOPHILS % (AUTO) 1.2 % (0-2); EOSINOPHILS % (AUTO) 3.5 % (0-6); HEMATOCRIT 32.1 % (36.0-47.0); HEMOGLOBIN 10.5 g/dL (12.0-15.5); LYMPHOCYTES % (AUTO) 53.5 % (13-45); MEAN CORPUSCULAR HEMOGLOBIN 27.7 pg (27.0-33.4); MEAN CORPUSCULAR HGB CONC 32.6 g/dL (32.0-36.0); MEAN CORPUSCULAR VOLUME 85 fl (80-97); MONOCYTES % (AUTO) 8.8 % (3-13); PLATELET COUNT 289 10^3/uL (150-450); RED BLOOD COUNT 3.78 10^6/uL (3.72-5.28); RED CELL DISTRIBUTION WIDTH 14.1 % (11.5-14.0); TOTAL CELLS COUNTED % (AUTO) 100 %
[2018-08-30] MEDS: INSULIN LISPRO 100 UNIT/ML 3 ML VIAL SUBCUT PRN ×2 (07:21→12:05)
[2018-08-30 07:27] LABS: ALANINE AMINOTRANSFERASE 22 U/L (9-52); ALBUMIN 2.8 g/dL (3.5-5.0); ALKALINE PHOSPHATASE 78 U/L (38-126); ANION GAP 7 (5-19); ASPARTATE AMINO TRANSFERASE 13 U/L (14-36); BILIRUBIN,DIRECT 0.2 mg/dL (0.0-0.4); BILIRUBIN,TOTAL 0.2 mg/dL (0.2-1.3); BLOOD UREA NITROGEN 19 mg/dL (7-20); CALCIUM 9.5 mg/dL (8.4-10.2); CARBON DIOXIDE 23 mmol/L (22-30); CHLORIDE 106 mmol/L (98-107); GLUCOSE 194 mg/dL (75-110); POTASSIUM 5.2 mmol/L (3.6-5.0); TOTAL PROTEIN 6.1 g/dL (6.3-8.2)
[2018-08-30] MEDS: AMLODIPINE BESYLATE 10 MG TABLET PO SCH (09:29)
[2018-08-30] MEDS: INSULIN GLARGINE,HUM.REC.ANLOG 300 UNIT/3 ML INSULN.PEN SUBCUT SCH (09:29)
[2018-08-30] MEDS: FAMOTIDINE 20 MG TABLET PO SCH (09:29)
[2018-08-30] MEDS: ENOXAPARIN SODIUM INJ 30 MG/0.3 ML DISP.SYRIN SUBCUT SCH (09:31)
[2018-08-30] MEDS ORDERED: CALCIUM GLUCONATE 1000 MG/10 ML INJ IV ONE (09:36)
[2018-08-30] MEDS ORDERED: CARVEDILOL 12.5 MG TABLET PO SCH (10:00)
[2018-08-30] MEDS ORDERED: ALBUTEROL SULFATE 0.083% NEB 2.5 MG/3 ML AMPUL NEB ONE ×2 (10:15→14:19)
[2018-08-30 14:04] LABS: ANION GAP 6 (5-19); BLOOD UREA NITROGEN 21 mg/dL (7-20); CALCIUM 9.8 mg/dL (8.4-10.2); CARBON DIOXIDE 25 mmol/L (22-30); CHLORIDE 104 mmol/L (98-107); GLUCOSE 203 mg/dL (75-110); POTASSIUM 4.6 mmol/L (3.6-5.0); SODIUM 134.8 mmol/L (137-145)
[2018-08-30 14:27] VITALS: BP 121/58
[2018-08-31] MEDS ORDERED: INSULIN GLARGINE,HUM.REC.ANLOG 300 UNIT/3 ML INSULN.PEN SUBCUT SCH (10:00)
--- NOTE | 2018-08-31 14:55 | PDOC DISCHARGE SUMMARY ---
General - Admit/Disc Date/PCP Admission Date/Primary Care Provider: 08/26/18 13:42 Discharge Date: 08/30/17 - Discharge Diagnosis (1) UTI (urinary tract infection) Is this a current diagnosis for this admission?: Yes (2) LAWRENCE (acute kidney injury) Is this a current diagnosis for this admission?: Yes (3) Dehydration Is this a current diagnosis for this admission?: Yes (4) Hypertension Is this a current diagnosis for this admission?: Yes (5) Type 2 diabetes mellitus Is this a current diagnosis for this admission?: Yes (6) Hyperkalemia Is this a current diagnosis for this admission?: Yes (7) Physical deconditioning Is this a current diagnosis for this admission?: Yes - Additional Information Resuscitation Status: Full Code Discharge Diet: Diabetic Discharge Activity: Activity As Tolerated Prescriptions: Carvedilol [Coreg 12.5 mg Tablet] 25 mg PO DAILY 30 Days #60 tablet Insulin Glargine,Hum.rec.anlog [Lantus Insulin 100 Unit/1 ml 10 ml] 12 unit SUBCUT QHS 30 Days #3 unit Insulin Lispro [Humalog Insulin (Lispro) 100 unit/mL] 15 unit SUBCUT AC 30 Days #3 unit Home Medications: Amlodipine Besylate [Norvasc 10 mg Tablet] 10 mg PO DAILY 08/25/18 Cyclobenzaprine HCl [Flexeril 10 mg Tablet] 10 mg PO QHS 08/25/18 Carvedilol [Coreg 12.5 mg Tablet] 25 mg PO DAILY 30 Days #60 tablet 08/30/18 Insulin Glargine,Hum.rec.anlog [Lantus Insulin 100 Unit/1 ml 10 ml] 12 unit SUBCUT QHS 30 Days #3 unit 08/30/18 Insulin Lispro [Humalog Insulin (Lispro) 100 unit/mL] 15 unit SUBCUT AC 30 Days #3 unit 08/30/18 History of Present Illness History of Present Illness: LUZ ELENA CERVANTES is a 83 year old female past medical history of diabetes on insulin as part 30 units q. every meal, hypertension on amlodipine and losartan, CKD stage III baseline creatinine 1.5, last admission 02/24/2018 for syncope, 02/25/2018 carotid Doppler negative for any hemodynamically significant stenosis, head CT negative for stroke. 02/25/2018 2D echo normal ejection fraction with mild to moderate diastolic dysfunction. 08/25/2017 patient presented to ED complaining of generalized body aches, nausea vomiting diarrhea, dysuria and urinary frequency. Workup on admission: CBC within normal limits, CMP within normal limits except for creatinine of 1.95, urinalysis positive for leukocyte esterase. Patient was admitted for management of UTI, diabetes, hypertension. Patient was on ceftriaxone switch to levofloxacin today. Urine culture blood culture has been negative. 08/27/2018. Patient is resting comfortably in bed, stating that she is feeling much better today, she is p.o. tolerant and had physical therapy yesterday which recommended inpatient rehab however patient does not want to go to rehab on this admission because she needs to take care of her bills. She stating that she is living with her sons and daughters and they are taking good care of herself. She denies any fever, chest pain, nausea, vomiting, diarrhea, constipation or any urinary symptoms. 08/28/2018. No acute events overnight. Patient stating that she had a good night sleep and she is feeling much better since admission. She is p.o. tolerant and having normal bowel and bladder function. Denies any fever, chills, nausea, vomiting, diarrhea, constipation or any urinary symptoms. She has been normotensive in the last 24 hours and her vitals have been stable, labs are unchanged except for her potassium is 5.3 today. Plan was to discharge her home today as she is refusing to be sent to rehab however because of her high potassium we will keep her today if her potassium normalized in the evening we will send her home otherwise will check potassium tomorrow and possibly send her home tomorrow. 08/29/2018. No acute events overnight. Unfortunately patient has high potassium and blood sugar is not optimized. We will keep another day hopefully by tomorrow if blood sugar is optimized and potassium within normal limits will discharge home. Patient refusing to be placed in rehab. Hospital Course Hospital Course: (1) UTI (urinary tract infection) Resolved. Denies any dysuria, frequency, urgency. UA positive for leukocyte esterase unfortunately urine culture was not done prior to antibiotic therapy. Day 5/5 of antibiotics. Day 3 of levofloxacin p.o. Last UTI 06/23/2017 urine culture positive for group B strep and mixed urogenital juvenal. (2) LAWRENCE (acute kidney injury) Resolved. History of CKD. Possibly due to diabetes and hypertension complication. Does not have outpatient nephrology follow-up. Baseline creatinine 1.5. Creatinine on admission 1.95 Today creatinine is 1.01 Losartan was switched to carvedilol could be resumed at a later date by PCP if kidney function remains stable. (3) Dehydration Euvolemic on the day of discharge. Patient received IV resuscitation during admission. (4) Hypertension Normotensive. Continued on amlodipine, losartan was switched to carvedilol due to persistent hyperkalemia has history of CKD. Patient was asked to follow-up with PCP for possible resumption of losartan if kidney function remains stable and hyperkalemia is another concern anymore. (5) Type 2 diabetes mellitus 02/25/2018 hemoglobin A1c 10.9% does not take oral hypoglycemics. Home insulin regimen as NovoLog 30 units q. every meal. Start on Lantus, pre-meal lispro, sliding scale, Accu-Chek, diabetic diet. Insulin dosage was adjusted. Patient was asked to follow-up with PCP for adjustment of insulin dosage. Patient can be started on appropriate hypoglycemic agent by PCP as outpatient. (6) Hyperkalemia Resolved. Likely due to LAWRENCE and ARB. Hyperkalemia protocol initiated. Losartan was switched to carvedilol could be resumed at a later date by PCP if kidney function remains stable. (7) Physical deconditioning Physical therapy was consulted and outpatient rehab was recommended. Unfortunately patient consistently refused to be placed in rehab. She stated that she does not want to be placed at a rehab at this time and she lives with her good care of her she has lots of bills to take care of. Physical Exam Vital Signs: Temp Pulse Resp BP Pulse Ox 98.8 F 62 18 121/58 L 98 08/30/18 14:23 08/30/18 14:23 08/30/18 14:23 08/30/18 14:23 08/30/18 14:23 Intake & Output 08/30/18 08/31/18 09/01/18 06:59 06:59 06:59 Intake Total 720 240 Balance 720 240 Weight 94.6 kg General appearance: PRESENT: no acute distress, well-developed, well-nourished Head exam: PRESENT: atraumatic, normocephalic Respiratory exam: PRESENT: clear to auscultation maribel. ABSENT: rales, rhonchi, wheezes Cardiovascular exam: PRESENT: RRR. ABSENT: diastolic murmur, rubs, systolic murmur GI/Abdominal exam: PRESENT: normal bowel sounds, soft. ABSENT: distended, guarding, mass, organolmegaly, rebound, tenderness Neurological exam: PRESENT: alert, awake, oriented to person, oriented to place, oriented to time, oriented to situation, CN II-XII grossly intact. ABSENT: motor sensory deficit Results Laboratory Results: 08/30/18 06:40 08/30/18 13:13 08/25/18 15:20 Blood Blood Culture - Final NO GROWTH IN 5 DAYS 08/25/18 15:15 Blood Blood Culture - Final NO GROWTH IN 5 DAYS 08/27/18 08/28/18 13:58 16:15 Troponin I 0.039 0.019 Qualifiers - * PATIENT BEING DISCHARGED WITH ANY OF THE FOLLOWING DIAGNOSIS: No VTE patient discharged on overlapping Therapy?: Yes
== END 2018-08-30 14:54 | disposition home or self-care (01) | DRG 690 ==
LOC: ER 08:15 → EH 10:47 → 2S 14:11 → OBSVTOIN 08-26 13:42
PROVIDERS: ADMIT Hospitalist; ATTEND Hospitalist
DX: N30.00 Acute cystitis without hematuria (principal); N17.9 Acute kidney failure, unspecified; E11.65 Type 2 diabetes mellitus with hyperglycemia; E86.0 Dehydration; E87.5 Hyperkalemia; E11.22 Type 2 diabetes mellitus with diabetic chronic kidney disease; I12.9 Hypertensive chronic kidney disease with stage 1 through stage 4 chronic kidney disease, or unspecified chronic kidney disease; N18.3 Chronic kidney disease, stage 3 (moderate); E78.5 Hyperlipidemia, unspecified; R19.7 Diarrhea, unspecified; R10.9 Unspecified abdominal pain; Z60.2 Problems related to living alone; Z79.4 Long term (current) use of insulin; Z79.899 Other long term (current) drug therapy
CPT/HCPCS: 36415; 51701; 80048; 80053; 81001; 82962; 83690; 83735; 84132; 84484; 85025; 87040; 93005; 93010; 96361; 96374; 96375; 99285; G0378; J0610; J0696; J1650; J1815; J2405; J3490; J7030; S0119

== ENCOUNTER 2018-09-02 10:31 | Inpatient (IN) | payer MEDICARE, MEDICAID ==
[2018-09-02] MEDS ORDERED: NORMAL SALINE 1000 ML 1,000 ML IV ONE ×3 (10:39→14:07)
[2018-09-02] MEDS ORDERED: PIPERACILLIN/TAZOBACTAM 3.375 GM VIAL IV ONE (10:39)
--- NOTE | 2018-09-02 10:42 | ER Document Report ---
ED General - General Stated Complaint: URINARY ISSUES Time Seen by Provider: 09/02/18 10:37 Notes: 83-year-old female who was brought to the emergency department for altered mental status. The patient was admitted last week with a UTI. She has been home and has not been really eating or drinking at all not taking her antibiotic. Upon arrival the paramedics have encountered bedbugs and strong smell of urine. Patient was weak unable to get up and ambulate or walk. Patient denies any chest pain or shortness of breath denies abdominal pain to states she feels so weak she cannot walk. She feels very thirsty her mouth is dry. He denies any falls or trauma denies head or neck injury. Denies fever or chills. TRAVEL OUTSIDE OF THE [place] IN LAST 30 DAYS: No - Related Data Allergies/Adverse Reactions: No Known Allergies Allergy (Verified 09/02/18 12:26) Past Medical History - Social History Smoking Status: Unknown if Ever Smoked Family History: Hypertension - Past Medical History Cardiac Medical History: Reports: Hx Congestive Heart Failure, Hx Hyperchole sterolemia, Hx Hypertension Pulmonary Medical History: Denies: Hx Asthma, Hx COPD, Hx Respiratory Failure Neurological Medical History: Denies: Hx Migraine Endocrine Medical History: Reports: Hx Diabetes Mellitus Type 2 Renal/ Medical History: Denies: Hx End Stage Renal Disease, Hx Peritoneal Di alysis GI Medical History: Denies: Hx Cirrhosis, Hx Diverticulitis, Hx Gastroesophageal Reflux Disease, Hx Hepatitis Musculoskeletal Medical History: Reports Hx Arthritis Psychiatric Medical History: Denies: Hx Bipolar Disorder, Hx Depression Infectious Medical History: Denies: Hx Hepatitis Past Surgical History: Reports: Hx Cholecystectomy, Hx Hysterectomy Review of Systems - Review of Systems Constitutional: Chills, Fever, Malaise, Weakness, Recent illness EENT: denies: Nose congestion Cardiovascular: denies: Chest pain, Dyspnea Gastrointestinal: denies: Abdominal pain, Nausea, Vomiting Skin: Dryness Neurological/Psychological: See HPI, Confusion. denies: Lost consciousness, Headaches -: Yes All other systems reviewed and negative Physical Exam - Vital signs Vitals: BP 123/60 09/02/18 10:36 - Notes Notes: GENERAL_APPEARANCE: well_nourished, alert, cooperative, no strongly of urine VITALS: reviewed, see vital signs table. HEAD: no_swelling\tenderness on the head. EYES: PERRL, EOMI, conjunctiva_clear. NOSE: no_nasal_discharge. MOUTH: Strongly dry lips and tongue and mucous membranes THROAT: no_throat_inflammation, no_airway_obstruction. no_lymphadenopathy NECK: supple, no_neck_tenderness, (-)thyromegaly. BACK: no_back_tenderness. CHEST_WALL: no_chest_tenderness. LUNGS: no_wheezing, no_rales, no_rhonchi, (-)accessory muscle use, good air exchange bilateral. HEART: normal_rate, normal_rhythm, normal_S1, normal_S2, (-)S3, (-)S4, no_murmur, no_rub. ABDOMEN: soft, no_abd_tenderness, (-)guarding, (-)rebound, no_organomegaly, no_abd_masses. EXTREMITIES: good pulses in all_extremities, no_swelling\tenderness in the extremities, no_edema. SKIN: warm, dry, good_color, no_rash. MENTAL_STATUS: speech_clear, oriented_person and place not time, normal_affect, responds_appropriately to questions. NEURO: Neg Motor or Sensory Deficits on exam, CN 2-12 intact, DTR 2+ symmetric x 4, No cerbellar signs Course - Re-evaluation Re-evalutation: 09/02/18 10:42 Elderly female presents with generalized weakness clinical dehydration and likely UTI. She was diagnosed with UTI but has not been taking her antibiotics. She is been too weak to get out of bed she is been having some urinary incontinence. Patient arrives with questionable bedbugs and stench of urine. Will workup for sepsis. 09/02/18 14:07 Lactic acid is elevated at 3 patient was given IV fluids and a dose of IV Zosyn. Patient will be admitted to the hospital for UTI with sepsis. Her blood pressure and vitals have been stable at this time. Patient has required IV fluid boluses she clinically does look dehydrated. - Vital Signs Vital signs: Temp Pulse Resp BP Pulse Ox 20 126/61 H 99 09/02/18 12:02 09/02/18 12:02 09/02/18 12:02 - Laboratory Result Diagrams: 09/02/18 11:29 09/02/18 11:29 Laboratory results interpreted by me: 09/02/18 09/02/18 09/02/18 11:29 11:29 11:29 RBC 3.69 L Hgb 10.2 L Hct 31.9 L RDW 14.7 H Chloride 108 H BUN 47 H Creatinine 2.23 H Est GFR ( Amer) 26 L Est GFR (Non-Af Amer) 21 L Glucose 148 H Lactic Acid 3.0 H Albumin 3.1 L Urine Protein Urine Blood Ur Leukocyte Esterase 09/02/18 11:29 RBC Hgb Hct RDW Chloride BUN Creatinine Est GFR ( Amer) Est GFR (Non-Af Amer) Glucose Lactic Acid Albumin Urine Protein 100 H Urine Blood MODERATE H Ur Leukocyte Esterase MODERATE H - Diagnostic Test Radiology reviewed: Reports reviewed Radiology results interpreted by me: 09/02/18 14:08 Chest X-Ray 09/02/18 10:39 IMPRESSION: NO ACUTE RADIOGRAPHIC FINDING IN THE CHEST. Critical Care Note - Critical Care Note Total time excluding time spent on procedures (mins): 31 Discharge - Discharge Clinical Impression: UTI (urinary tract infection) Qualifiers: Urinary tract infection type: acute cystitis Hematuria presence: with hematuria Qualified Code(s): N30.01 - Acute cystitis with hematuria Sepsis Qualifiers: Sepsis type: Streptococcus, other Qualified Code(s): A40.8 - Other streptococcal sepsis Condition: Fair Disposition: ADMITTED INPATIENT Admitting Provider: Hospitalist Unit Admitted: Telemetry
[2018-09-02 11:47] LABS: ABSOLUTE EOSINOPHILS # (AUTO) 0.2 10^3/uL (0.0-0.6); ABSOLUTE MONOCYTES (AUTO) 0.5 10^3/uL (0.1-1.4); ABSOLUTE NEUT (AUTO) 3.4 10^3/uL (1.7-8.2); BASOPHILS % (AUTO) 0.6 % (0-2); EOSINOPHILS % (AUTO) 2.6 % (0-6); HEMATOCRIT 31.9 % (36.0-47.0); HEMOGLOBIN 10.2 g/dL (12.0-15.5); LYMPHOCYTES % (AUTO) 33.1 % (13-45); MEAN CORPUSCULAR HEMOGLOBIN 27.6 pg (27.0-33.4); MEAN CORPUSCULAR VOLUME 86 fl (80-97); MONOCYTES % (AUTO) 7.7 % (3-13); PLATELET COUNT 346 10^3/uL (150-450); RED BLOOD COUNT 3.69 10^6/uL (3.72-5.28); RED CELL DISTRIBUTION WIDTH 14.7 % (11.5-14.0); TOTAL CELLS COUNTED % (AUTO) 100 %
[2018-09-02 11:52] LABS: INTERNATIONAL RATION (INR) 0.99; PROTHROMBIN TIME 13.6 SEC (11.4-15.4)
[2018-09-02 12:08] LABS: ALANINE AMINOTRANSFERASE 16 U/L (9-52); ALBUMIN 3.1 g/dL (3.5-5.0); ALKALINE PHOSPHATASE 70 U/L (38-126); ANION GAP 8 (5-19); ASPARTATE AMINO TRANSFERASE 19 U/L (14-36); BILIRUBIN,DIRECT 0.2 mg/dL (0.0-0.4); BILIRUBIN,TOTAL 0.2 mg/dL (0.2-1.3); BLOOD UREA NITROGEN 47 mg/dL (7-20); CARBON DIOXIDE 25 mmol/L (22-30); CHLORIDE 108 mmol/L (98-107); GLUCOSE 148 mg/dL (75-110); POTASSIUM 4.8 mmol/L (3.6-5.0); SODIUM 141.1 mmol/L (137-145); TOTAL PROTEIN 6.5 g/dL (6.3-8.2)
[2018-09-02] MEDS ORDERED: MORPHINE SULFATE 10 MG/ML INJ IV ONE (12:14)
[2018-09-02] MEDS ORDERED: ONDANSETRON HCL INJ/PF 4 MG/2 ML SDV IV ONE (12:14)
--- NOTE | 2018-09-02 12:22 | RADIOLOGY REPORT (SQ) ---
EXAM DESCRIPTION: CHEST SINGLE VIEW COMPLETED DATE/TIME: 09/02/2018 11:55 am REASON FOR STUDY: septic COMPARISON: None. EXAM PARAMETERS: NUMBER OF VIEWS: One view. TECHNIQUE: Single frontal radiographic view of the chest acquired. RADIATION DOSE: NA LIMITATIONS: None. FINDINGS: LUNGS AND PLEURA: No opacities, masses or pneumothorax. No pleural effusion. MEDIASTINUM AND HILAR STRUCTURES: No masses. Contour normal. HEART AND VASCULAR STRUCTURES: Heart normal in size. Normal vasculature. BONES: No acute findings. HARDWARE: None in the chest. OTHER: No other significant finding. IMPRESSION: NO ACUTE RADIOGRAPHIC FINDING IN THE CHEST. TECHNICAL DOCUMENTATION: JOB ID: [id number] [email or web address] All Rights Reserved Reading location - IP/workstation name: [email or web address]
[2018-09-02 12:25] LABS: APPEARANCE,URINE TURBID; BILIRUBIN,URINE NEGATIVE (NEGATIVE); COLOR,URINE YELLOW; GLUCOSE, URINE NEGATIVE (NEGATIVE); KETONES,URINE NEGATIVE (NEGATIVE); LEUKOCYTE ESTERASE,URINE MODERATE (NEGATIVE); NITRITE,URINE NEGATIVE (NEGATIVE); PROTEIN,URINE 100 mg/dL (NEGATIVE); URINE SPECIFIC GRAVITY 1.014; UROBILINOGEN,URINE NEGATIVE mg/dL (<2.0)
[2018-09-02 13:05] LABS: VENOUS BLOOD BASE EXCESS -4.4 mmol/L; VENOUS BLOOD HCO3 21.3 mmol/L (20-32); VENOUS BLOOD PCO2 41.7 mmHg (35-63); VENOUS BLOOD PH 7.33 (7.30-7.42)
--- NOTE | 2018-09-02 13:54 | EKG REPORT ---
SEVERITY:- ABNORMAL ECG - SINUS RHYTHM FIRST DEGREE AV BLOCK IVCD,LAFB. OLD ANTERIOR MD : Confirmed by: Dave Rivera MD 02-Sep-2018 13:54:03
[2018-09-02] MEDS ORDERED: NORMAL SALINE 1000 ML 1,000 ML IV PRN (14:42)
[2018-09-02] MEDS ORDERED: ACETAMINOPHEN 325 MG TABLET PO PRN (14:42)
[2018-09-02] MEDS ORDERED: ONDANSETRON 4 MG TAB.RAPDIS PO PRN (14:42)
[2018-09-02] MEDS ORDERED: DEXTROSE 50%-WATER 25 GM/50 ML DISP.SYRIN IV PRN ×2 (14:48)
[2018-09-02] MEDS ORDERED: DEXTROSE 40% GEL 15 GM TUBE PO PRN ×2 (14:48)
[2018-09-02] MEDS ORDERED: GLUCAGON,HUMAN RECOMB 1 MG INJ IM PRN (14:48)
--- NOTE | 2018-09-02 14:50 | PDOC H&P ---
History of Present Illness Admission Date/PCP: 09/02/18 14:14 History of Present Illness: LUZ ELENA CERVANTES is a 83 year old female past medical history of diabetes on insulin as part 30 units q. every meal, hypertension on amlodipine and losartan, CKD stage III baseline creatinine 1.5, last admission 02/24/2018 for syncope, 02/25/2018 carotid Doppler negative for any hemodynamically significant stenosis, head CT negative for stroke. 02/25/2018 2D echo normal ejection fraction with mild to moderate diastolic dysfunction. On 08/25/2018 patient had presented to ED with generalized body aches, nausea vomiting, dysuria, she was admitted for dehydration and management of UTI. On 08/30/2018 patient was sent home after refusing to be sent to rehab. Today patient was brought to ED by EMS for altered mental status. As per family she has been has not been really eating or drinking at all not taking her antibiotic. Upon arrival the paramedics have encountered bedbugs and strong smell of urine. Patient was weak unable to get up and ambulate or walk. Patient denies any chest pain or shortness of breath denies abdominal pain to states she feels so weak she cannot walk. She feels very thirsty her mouth is dry. He denies any falls or trauma denies head or neck injury. Denies fever or chills. In ED she was found to have a systolic blood pressure of 98/50 with lactic acid of 3.0 she received 1 L of IV fluids and her blood pressure recovered. UA positive for leukocyte esterase. CXR and EKG negative for any acute abnormalities. She was started on empiric IV antibiotics. Past Medical History Cardiac Medical History: Reports: Congestive Heart Failure, Hyperlipidema, Hypertension Pulmonary Medical History: Denies: Asthma, Chronic Obstructive Pulmonary Disease (COPD), Respiratory Failure Neurological Medical History: Denies: Migraine Endocrine Medical History: Reports: Diabetes Mellitus Type 2 Renal/ Medical History: Denies: End Stage Renal Disease GI Medical History: Denies: Cirrhosis, Diverticulitis, Gastroesophageal Reflux Disease, Hepatitis Musculoskeltal Medical History: Reports: Arthritis Psychiatric Medical History: Denies: Bipolar Disorder, Depression Hematology: Denies: Hemophilia, Sickle Cell Disease Past Surgical History Past Surgical History: Reports: Cholecystectomy, Hysterectomy Social History Smoking Status: Unknown if Ever Smoked Frequency of Alcohol Use: Rare Hx Recreational Drug Use: No Drugs: None Hx Prescription Drug Abuse: No Family History Family History: Hypertension Parental Family History Reviewed: Yes Children Family History Reviewed: Yes Sibling(s) Family History Reviewed.: Yes Medication/Allergy Home Medications: Amlodipine Besylate [Norvasc 10 mg Tablet] 10 mg PO DAILY 09/02/18 Aspirin [Ecotrin 81 mg EC Tablet] 81 mg PO DAILY 09/02/18 Carvedilol [Coreg 12.5 mg Tablet] 12.5 mg PO Q12 09/02/18 Insulin Aspart [Novolog Flexpen] 30 unit SUBCUT AC 09/02/18 Insulin Detemir [Levemir Insulin 300 Units/3 ml Insuln.pen] 40 unit SUBCUT DAILY 09/02/18 Losartan Potassium [Cozaar 100 mg Tablet] 100 mg PO DAILY 09/02/18 Allergies/Adverse Reactions: No Known Allergies Allergy (Verified 09/02/18 12:26) Review of Systems Review of Systems: Per HPI. Physical Exam Vital Signs: Temp Pulse Resp BP Pulse Ox 20 126/61 H 99 09/02/18 12:02 09/02/18 12:02 09/02/18 12:02 Intake & Output 09/01/18 09/02/18 09/03/18 06:59 06:59 06:59 Intake Total 1000 Balance 1000 Weight 94.2 kg General appearance: PRESENT: no acute distress, cooperative, disheveled, obese, well-developed Head exam: PRESENT: atraumatic, normocephalic Respiratory exam: PRESENT: clear to auscultation maribel. ABSENT: rales, rhonchi, wheezes Cardiovascular exam: PRESENT: RRR. ABSENT: diastolic murmur, rubs, systolic murmur Pulses: PRESENT: normal dorsalis pedis pul GI/Abdominal exam: PRESENT: normal bowel sounds, soft, tenderness - Mild suprapubic tenderness. ABSENT: distended, guarding, mass, organolmegaly, rebound Extremities exam: PRESENT: full ROM. ABSENT: calf tenderness, clubbing, pedal edema Neurological exam: PRESENT: alert, awake, oriented to person, oriented to place, oriented to time, oriented to situation, CN II-XII grossly intact. ABSENT: motor sensory deficit Skin exam: PRESENT: dry, intact, warm. ABSENT: cyanosis, rash Results Laboratory Results: 09/02/18 11:29 09/02/18 11:29 09/02/18 09/02/18 09/02/18 11:29 11:29 11:29 WBC 6.0 RBC 3.69 L Hgb 10.2 L Hct 31.9 L MCV 86 MCH 27.6 MCHC 32.0 RDW 14.7 H Plt Count 346 Seg Neutrophils % 56.0 Lymphocytes % 33.1 Monocytes % 7.7 Eosinophils % 2.6 Basophils % 0.6 Absolute Neutrophils 3.4 Absolute Lymphocytes 2.0 Absolute Monocytes 0.5 Absolute Eosinophils 0.2 Absolute Basophils 0.0 VBG pH VBG pCO2 VBG HCO3 VBG Base Excess Sodium 141.1 Potassium 4.8 Chloride 108 H Carbon Dioxide 25 Anion Gap 8 BUN 47 H Creatinine 2.23 H Est GFR ( Amer) 26 L Est GFR (Non-Af Amer) 21 L Glucose 148 H Lactic Acid 3.0 H Calcium 9.0 Total Bilirubin 0.2 AST 19 ALT 16 Alkaline Phosphatase 70 Total Protein 6.5 Albumin 3.1 L Urine Color Urine Appearance Urine pH Ur Specific [place] Urine Protein Urine Glucose (UA) Urine Ketones Urine Blood Urine Nitrite Ur Leukocyte Esterase Urine WBC (Auto) Urine RBC (Auto) 09/02/18 09/02/18 09/02/18 11:29 11:29 12:50 WBC RBC Hgb Hct MCV MCH MCHC RDW Plt Count Seg Neutrophils % Lymphocytes % Monocytes % Eosinophils % Basophils % Absolute Neutrophils Absolute Lymphocytes Absolute Monocytes Absolute Eosinophils Absolute Basophils VBG pH Cancelled 7.33 VBG pCO2 Cancelled 41.7 VBG HCO3 Cancelled 21.3 VBG Base Excess Cancelled -4.4 Sodium Potassium Chloride Carbon Dioxide Anion Gap BUN Creatinine Est GFR ( Amer) Est GFR (Non-Af Amer) Glucose Lactic Acid Calcium Total Bilirubin AST ALT Alkaline Phosphatase Total Protein Albumin Urine Color YELLOW Urine Appearance TURBID Urine pH 5.0 Ur Specific [place] 1.014 Urine Protein 100 H Urine Glucose (UA) NEGATIVE Urine Ketones NEGATIVE Urine Blood MODERATE H Urine Nitrite NEGATIVE Ur Leukocyte Esterase MODERATE H Urine WBC (Auto) >182 Urine RBC (Auto) >182 Impressions: Chest X-Ray 09/02/18 10:39 IMPRESSION: NO ACUTE RADIOGRAPHIC FINDING IN THE CHEST. Assessment & Plan - Diagnosis (1) SIRS (systemic inflammatory response syndrome) Is this a current diagnosis for this admission?: Yes Plan: Likely due to underlying UTI. Empiric IV antibiotics. Blood culture. Volume resuscitation. Admit to telemetry, continue monitoring vitals. Trend lactic acid. (2) UTI (urinary tract infection) Is this a current diagnosis for this admission?: Yes Plan: Empiric IV antibiotics. Urine culture. Follow-up cultures. (3) Acute kidney injury superimposed on chronic kidney disease Is this a current diagnosis for this admission?: Yes Plan: Baseline creatinine 1.5. Likely worsened due to been caused by SIRS coupled with dehydration. Volume resuscitation. Monitor volume status, avoid nephrotoxic agents, renal ultrasound. Check electrolytes. (4) Dehydration Is this a current diagnosis for this admission?: Yes Plan: Volume resuscitation. Monitor vitals. IV fluids body guided by vitals and volume status. (5) Type 2 diabetes mellitus Qualifiers: Diabetes mellitus manager professional development insulin use: with manager professional development use Diabetes mellitus complication status: with hyperglycemia Qualified Code(s): E11.65 - Type 2 diabetes mellitus with hyperglycemia; Z79.4 - senior care (current) use of insulin Is this a current diagnosis for this admission?: Yes Plan: Diabetic diet, Accu-Chek, sliding scale insulin, Lantus. Will adjust meds as needed. (6) Physical deconditioning Is this a current diagnosis for this admission?: Yes Plan: Physical therapy. Will be sent to rehab when ready to be discharged.
[2018-09-02] MEDS: INSULIN LISPRO 100 UNIT/ML 3 ML VIAL SUBCUT SCH ×2 (17:31→23:15)
[2018-09-02] MEDS: DOCUSATE SODIUM 100 MG CAPSULE PO SCH (17:32)
[2018-09-02] MEDS: NORMAL SALINE 1000 ML 1,000 ML IV PRN (17:32)
[2018-09-02] MEDS ORDERED: PIPERACILLIN SODIUM/TAZOBACTAM 3.375 GM in NORMAL SALINE 100 ML IV SCH (18:00)
[2018-09-02] MEDS: PIPERACILLIN SODIUM/TAZOBACTAM 2.25 GM in NORMAL SALINE 50 ML IV SCH (18:16)
[2018-09-02] MEDS: IPRATROPIUM/ALBUTEROL 0.5-2.5 MG/3 ML AMPUL NEB SCH (20:38)
[2018-09-02] MEDS: INSULIN GLARGINE,HUM.REC.ANLOG 300 UNIT/3 ML INSULN.PEN SUBCUT SCH (23:15)
[2018-09-02] MEDS: FAMOTIDINE 20 MG TABLET PO SCH (23:15)
[2018-09-02] MEDS: HEPARIN SOD (PORCINE) 5,000 UNIT/ML 1 ML SYRINGE SUBCUT SCH (23:16)
[2018-09-03] MEDS: PIPERACILLIN SODIUM/TAZOBACTAM 2.25 GM in NORMAL SALINE 50 ML IV SCH ×4 (01:12→18:28)
[2018-09-03 05:00] LABS: ABSOLUTE BASOPHILS # (AUTO) 0.1 10^3/uL (0.0-0.2); ABSOLUTE EOSINOPHILS # (AUTO) 0.2 10^3/uL (0.0-0.6); ABSOLUTE LYMPHOCYTES (AUTO) 3.3 10^3/uL (0.5-4.7); ABSOLUTE MONOCYTES (AUTO) 0.6 10^3/uL (0.1-1.4); BASOPHILS % (AUTO) 0.8 % (0-2); EOSINOPHILS % (AUTO) 3.3 % (0-6); HEMATOCRIT 30.4 % (36.0-47.0); HEMOGLOBIN 9.8 g/dL (12.0-15.5); LYMPHOCYTES % (AUTO) 53.4 % (13-45); MEAN CORPUSCULAR HEMOGLOBIN 27.8 pg (27.0-33.4); MEAN CORPUSCULAR HGB CONC 32.3 g/dL (32.0-36.0); MEAN CORPUSCULAR VOLUME 86 fl (80-97); MONOCYTES % (AUTO) 10.3 % (3-13); PLATELET COUNT 298 10^3/uL (150-450); RED BLOOD COUNT 3.53 10^6/uL (3.72-5.28); RED CELL DISTRIBUTION WIDTH 14.8 % (11.5-14.0); SEGMENTED NEUTROPHILS % (AUTO) 32.2 % (42-78); TOTAL CELLS COUNTED % (AUTO) 100 %; WHITE BLOOD COUNT 6.1 10^3/uL (4.0-10.5)
[2018-09-03] MEDS: HEPARIN SOD (PORCINE) 5,000 UNIT/ML 1 ML SYRINGE SUBCUT SCH ×3 (05:19→21:11)
[2018-09-03 06:03] LABS: ALANINE AMINOTRANSFERASE 26 U/L (9-52); ALBUMIN 2.8 g/dL (3.5-5.0); ALKALINE PHOSPHATASE 70 U/L (38-126); ANION GAP 6 (5-19); ASPARTATE AMINO TRANSFERASE 16 U/L (14-36); BILIRUBIN,DIRECT 0.2 mg/dL (0.0-0.4); BILIRUBIN,TOTAL 0.2 mg/dL (0.2-1.3); BLOOD UREA NITROGEN 38 mg/dL (7-20); CALCIUM 8.2 mg/dL (8.4-10.2); CARBON DIOXIDE 22 mmol/L (22-30); CHLORIDE 113 mmol/L (98-107); GLUCOSE 143 mg/dL (75-110); POTASSIUM 5.3 mmol/L (3.6-5.0); SODIUM 140.5 mmol/L (137-145)
[2018-09-03] MEDS: IPRATROPIUM/ALBUTEROL 0.5-2.5 MG/3 ML AMPUL NEB SCH ×3 (07:31→19:43)
[2018-09-03] MEDS: INSULIN LISPRO 100 UNIT/ML 3 ML VIAL SUBCUT SCH ×4 (08:09→21:11)
[2018-09-03] MEDS: FAMOTIDINE 20 MG TABLET PO SCH (10:09)
[2018-09-03] MEDS: DOCUSATE SODIUM 100 MG CAPSULE PO SCH ×2 (10:09→18:07)
[2018-09-03] MEDS: NORMAL SALINE 1000 ML 1,000 ML IV PRN (10:11)
[2018-09-03] MEDS ORDERED: CALCIUM GLUCONATE 1000 MG/10 ML INJ IV ONE (11:00)
[2018-09-03] MEDS: ACETAMINOPHEN 325 MG TABLET PO PRN (11:51)
[2018-09-03] MEDS ORDERED: PATIROMER 8.4 GM SUSP PACKET PO SCH (17:00)
--- NOTE | 2018-09-03 19:00 | PDOC PROGRESS REPORT ---
Subjective Progress Note for:: 09/03/18 Subjective:: LUZ ELENA CERVANTES is a 83 year old female past medical history of diabetes on insulin as part 30 units q. every meal, hypertension on amlodipine and losartan, CKD stage III baseline creatinine 1.5, last admission 02/24/2018 for syncope, 02/25/2018 carotid Doppler negative for any hemodynamically significant stenosis, head CT negative for stroke. 02/25/2018 2D echo normal ejection fraction with mild to moderate diastolic dysfunction. On 08/25/2018 patient had presented to ED with generalized body aches, nausea vomiting, dysuria, she was admitted for dehydration and management of UTI. On 08/30/2018 patient was sent home after refusing to be sent to rehab. Today patient was brought to ED by EMS for altered mental status. As per family she has been has not been really eating or drinking at all not taking her antibiotic. Upon arrival the paramedics have encountered bedbugs and strong smell of urine. Patient was weak unable to get up and ambulate or walk. Patient denies any chest pain or shortness of breath denies abdominal pain to states she feels so weak she cannot walk. She feels very thirsty her mouth is dry. He denies any falls or trauma denies head or neck injury. Denies fever or chills. In ED she was found to have a systolic blood pressure of 98/50 with lactic acid of 3.0 she received 1 L of IV fluids and her blood pressure recovered. UA p ositive for leukocyte esterase. CXR and EKG negative for any acute abnormalities. She was started on empiric IV antibiotics. No acute events overnight. Patient is stating she is feeling much better. Denies any fever, chills, nausea, vomiting, diarrhea, constipation or any urinary symptoms. SBP 123-151. Afebrile. Saturating 100% on room air. P.o. tolerant. Blood cultures /2 came back positive for gram-positive cocci pending sensitivity. Reason For Visit: SIRS,UTI,LAWRENCE Physical Exam Vital Signs: Temp Pulse Resp BP Pulse Ox 98.6 F 60 14 151/52 H 100 09/03/18 16:00 09/03/18 16:00 09/03/18 16:00 09/03/18 16:00 09/03/18 16:00 Intake & Output 09/02/18 09/03/18 09/04/18 06:59 06:59 06:59 Intake Total 4656 827 Balance 4656 827 Weight 98.6 kg General appearance: PRESENT: obese Head exam: PRESENT: atraumatic, normocephalic Respiratory exam: PRESENT: clear to auscultation maribel. ABSENT: rales, rhonchi, wheezes Cardiovascular exam: PRESENT: RRR. ABSENT: diastolic murmur, rubs, systolic murmur GI/Abdominal exam: PRESENT: normal bowel sounds, soft. ABSENT: distended, guarding, mass, organolmegaly, rebound, tenderness Neurological exam: PRESENT: alert, awake, oriented to person, oriented to place, oriented to time, oriented to situation, CN II-XII grossly intact. ABSENT: motor sensory deficit Results Laboratory Results: 09/03/18 04:15 09/03/18 04:15 09/03/18 09/03/18 09/03/18 00:13 04:15 04:15 WBC 6.1 RBC 3.53 L Hgb 9.8 L Hct 30.4 L MCV 86 MCH 27.8 MCHC 32.3 RDW 14.8 H Plt Count 298 Seg Neutrophils % 32.2 L Lymphocytes % 53.4 H Monocytes % 10.3 Eosinophils % 3.3 Basophils % 0.8 Absolute Neutrophils 2.0 Absolute Lymphocytes 3.3 Absolute Monocytes 0.6 Absolute Eosinophils 0.2 Absolute Basophils 0.1 Sodium 140.5 Potassium 5.3 H Chloride 113 H Carbon Dioxide 22 Anion Gap 6 BUN 38 H Creatinine 1.74 H Est GFR ( Amer) 34 L Est GFR (Non-Af Amer) 28 L Glucose 143 H Lactic Acid 1.3 Calcium 8.2 L Total Bilirubin 0.2 AST 16 ALT 26 Alkaline Phosphatase 70 Total Protein 6.0 L Albumin 2.8 L Impressions: Chest X-Ray 09/02/18 10:39 IMPRESSION: NO ACUTE RADIOGRAPHIC FINDING IN THE CHEST. Assessment & Plan - Diagnosis (1) SIRS (systemic inflammatory response syndrome) Is this a current diagnosis for this admission?: Yes Plan: Improving. SBP 123-151. Afebrile. Saturating 100% on room air. Blood cultures 1/2 came back positive for gram-positive cocci pending sensitivity Likely due to underlying UTI. Empiric IV antibiotics. Continue telemetry, monitoring volume status. (2) UTI (urinary tract infection) Is this a current diagnosis for this admission?: Yes Plan: Likely due to E. coli Urine culture no growth. Continue empiric IV antibiotics. Follow-up cultures. (3) Acute kidney injury superimposed on chronic kidney disease Is this a current diagnosis for this admission?: Yes Plan: Improving. Baseline creatinine 1.5. Likely worsened due to been caused by SIRS coupled with dehydration. Monitor volume status, avoid nephrotoxic agents, renal ultrasound. Monitor electrolytes. (4) Dehydration Is this a current diagnosis for this admission?: Yes Plan: Volume resuscitation. Monitor vitals. IV fluids body guided by vitals and volume status. (5) Type 2 diabetes mellitus Qualifiers: Diabetes mellitus retirement insulin use: with ferry terminal agent use Diabetes mellitus complication status: with hyperglycemia Qualified Code(s): E11.65 - Type 2 diabetes mellitus with hyperglycemia; Z79.4 - ferry terminal agent (current) use of insulin Is this a current diagnosis for this admission?: Yes Plan: Diabetic diet, Accu-Chek, sliding scale insulin, Lantus. Will adjust meds as needed. (6) Physical deconditioning Is this a current diagnosis for this admission?: Yes Plan: Physical therapy. Will be sent to rehab when ready to be discharged. (7) Gram-positive bacteremia Is this a current diagnosis for this admission?: Yes Plan: Blood culture positive for gram-positive cocci 1/2. Pending sensitivity. Likely contamination. Continue current antibiotics. Repeat blood cultures. Follow-up cultures.
[2018-09-03] MEDS: INSULIN GLARGINE,HUM.REC.ANLOG 300 UNIT/3 ML INSULN.PEN SUBCUT SCH (21:11)
[2018-09-03] MEDS: CARVEDILOL 12.5 MG TABLET PO SCH (21:12)
[2018-09-03] MEDS ORDERED: PATIROMER 8.4 GM SUSP PACKET PO ONE (23:07)
[2018-09-04] MEDS: PATIROMER 8.4 GM SUSP PACKET PO SCH (00:47)
[2018-09-04] MEDS: PIPERACILLIN SODIUM/TAZOBACTAM 2.25 GM in NORMAL SALINE 50 ML IV SCH ×4 (00:51→18:51)
[2018-09-04] MEDS: HEPARIN SOD (PORCINE) 5,000 UNIT/ML 1 ML SYRINGE SUBCUT SCH ×3 (06:01→22:33)
[2018-09-04] MEDS: FAMOTIDINE 20 MG TABLET PO SCH (09:09)
[2018-09-04] MEDS: CARVEDILOL 12.5 MG TABLET PO SCH (09:09)
[2018-09-04] MEDS: INSULIN LISPRO 100 UNIT/ML 3 ML VIAL SUBCUT SCH ×4 (09:10→22:32)
[2018-09-04] MEDS: DOCUSATE SODIUM 100 MG CAPSULE PO SCH ×2 (09:10→18:50)
[2018-09-04] MEDS: IPRATROPIUM/ALBUTEROL 0.5-2.5 MG/3 ML AMPUL NEB SCH ×3 (09:52→19:32)
[2018-09-04] MEDS ORDERED: HYDRALAZINE HCL 10 MG TABLET PO PRN (14:53)
[2018-09-04] MEDS ORDERED: ASPIRIN 325 MG TABLET, ENT COATED PO SCH (15:00)
[2018-09-04] MEDS: HYDRALAZINE HCL 25 MG TABLET PO SCH ×2 (15:45→22:32)
[2018-09-04] MEDS: AMLODIPINE BESYLATE 10 MG TABLET PO SCH (15:46)
[2018-09-04] MEDS: ASPIRIN 81 MG TABLET, ENT COATED PO SCH (15:46)
[2018-09-04 15:53] LABS: ANION GAP 5 (5-19); BLOOD UREA NITROGEN 22 mg/dL (7-20); CALCIUM 8.9 mg/dL (8.4-10.2); CARBON DIOXIDE 25 mmol/L (22-30); CHLORIDE 110 mmol/L (98-107); GLUCOSE 221 mg/dL (75-110); POTASSIUM 4.9 mmol/L (3.6-5.0); SODIUM 139.5 mmol/L (137-145)
--- NOTE | 2018-09-04 16:51 | PDOC PROGRESS REPORT ---
Subjective Progress Note for:: 09/04/18 Subjective:: admitted for SIRS and suspected UTI and bacteremia- she's doing well. tells me "i feel better than when i came in". denies chest pain, sob, abdominal, n/v or dizziness. Reason For Visit: SIRS,UTI,LAWRENCE Physical Exam Vital Signs: Temp Pulse Resp BP Pulse Ox 97.4 F 59 L 16 166/62 H 99 09/04/18 10:52 09/04/18 13:27 09/04/18 13:27 09/04/18 10:52 09/04/18 13:27 Intake & Output 09/03/18 09/04/18 09/05/18 06:59 06:59 06:59 Intake Total 4656 2397 Balance 4656 2397 Weight 217 lb 6.012 oz 205 lb 11.06 oz General appearance: PRESENT: no acute distress Head exam: PRESENT: atraumatic, normocephalic Eye exam: PRESENT: EOMI. ABSENT: conjunctival injection, scleral icterus Ear exam: PRESENT: normal external ear exam Mouth exam: PRESENT: tongue midline. ABSENT: moist Neck exam: ABSENT: tracheal deviation Respiratory exam: PRESENT: decreased breath sounds - bilaterally at the bases, symmetrical Cardiovascular exam: PRESENT: +S1, +S2 Pulses: PRESENT: +1 pedal pulses bilateral GI/Abdominal exam: PRESENT: normal bowel sounds, soft. ABSENT: tenderness Extremities exam: PRESENT: pedal edema - 1+ at the ankles Neurological exam: PRESENT: alert, awake, oriented to person, oriented to place, CN II-XII grossly intact Skin exam: PRESENT: dry, warm Results Laboratory Results: 09/03/18 04:15 09/04/18 15:28 09/04/18 15:28 Sodium 139.5 Potassium 4.9 Chloride 110 H Carbon Dioxide 25 Anion Gap 5 BUN 22 H Creatinine 1.30 H Est GFR ( Amer) 48 L Est GFR (Non-Af Amer) 39 L Glucose 221 H Calcium 8.9 09/02/18 11:29 Catheterized Urine Urine Culture - Final Yeast, Not Nikkie Albicans Impressions: Chest X-Ray 09/02/18 10:39 IMPRESSION: NO ACUTE RADIOGRAPHIC FINDING IN THE CHEST. Assessment & Plan - Diagnosis (1) Acute kidney injury superimposed on chronic kidney disease Is this a current diagnosis for this admission?: Yes (2) Gram-positive bacteremia Is this a current diagnosis for this admission?: Yes (3) SIRS (systemic inflammatory response syndrome) Is this a current diagnosis for this admission?: Yes (4) Dehydration Is this a current diagnosis for this admission?: Yes - Plan Summary Plan Summary: bacteremia- growing GPCs- pending finally results- she's on zosyn- will add va nco to cover Gram positive. not sure what her source is at this time. await final cx. LAWRENCE - Cr is improving- c/w with gentle hydration- repeat BMP in AM
[2018-09-04] MEDS ORDERED: VANCOMYCIN HCL 0 MG in DEXTROSE 5%-WATER 250 ML IV NR (17:00)
[2018-09-04] MEDS ORDERED: OSELTAMIVIR PHOSPHATE 75 MG CAPSULE PO SCH (18:00)
[2018-09-04] MEDS ORDERED: OSELTAMIVIR PHOSPHATE 30 MG CAPSULE PO SCH (18:00)
[2018-09-04] MEDS ORDERED: HYDRALAZINE HCL INJ/PF 20 MG/1 ML SDV IV PRN (18:13)
[2018-09-04] MEDS ORDERED: VANCOMYCIN HCL 1,250 MG in DEXTROSE 5%-WATER 250 ML IV SCH (19:00)
[2018-09-04] MEDS ORDERED: INSULIN GLARGINE,HUM.REC.ANLOG 300 UNIT/3 ML INSULN.PEN SUBCUT SCH (22:00)
[2018-09-04] MEDS: ACETAMINOPHEN 325 MG TABLET PO PRN (22:32)
[2018-09-05] MEDS ORDERED: PATIROMER 8.4 GM SUSP PACKET PO ONE ×2 (01:01→22:46)
[2018-09-05] MEDS: PATIROMER 8.4 GM SUSP PACKET PO SCH (01:38)
[2018-09-05] MEDS: PIPERACILLIN SODIUM/TAZOBACTAM 2.25 GM in NORMAL SALINE 50 ML IV SCH ×2 (01:38→06:30)
[2018-09-05] MEDS: HYDRALAZINE HCL 25 MG TABLET PO SCH ×3 (06:30→21:30)
[2018-09-05] MEDS: HEPARIN SOD (PORCINE) 5,000 UNIT/ML 1 ML SYRINGE SUBCUT SCH ×3 (06:33→21:31)
[2018-09-05] MEDS: IPRATROPIUM/ALBUTEROL 0.5-2.5 MG/3 ML AMPUL NEB SCH ×3 (09:23→19:24)
[2018-09-05] MEDS: ASPIRIN 81 MG TABLET, ENT COATED PO SCH (09:51)
[2018-09-05] MEDS: INSULIN LISPRO 100 UNIT/ML 3 ML VIAL SUBCUT SCH ×4 (09:51→21:31)
[2018-09-05] MEDS: AMLODIPINE BESYLATE 10 MG TABLET PO SCH (09:51)
[2018-09-05] MEDS: FAMOTIDINE 20 MG TABLET PO SCH (09:51)
[2018-09-05] MEDS: DOCUSATE SODIUM 100 MG CAPSULE PO SCH ×2 (09:51→18:04)
[2018-09-05] MEDS ORDERED: FLUCONAZOLE 100 MG TABLET PO ONE (11:30)
[2018-09-05 11:46] LABS: ABSOLUTE BASOPHILS # (AUTO) 0.1 10^3/uL (0.0-0.2); ABSOLUTE EOSINOPHILS # (AUTO) 0.2 10^3/uL (0.0-0.6); ABSOLUTE LYMPHOCYTES (AUTO) 2.1 10^3/uL (0.5-4.7); ABSOLUTE MONOCYTES (AUTO) 0.5 10^3/uL (0.1-1.4); ABSOLUTE NEUT (AUTO) 2.8 10^3/uL (1.7-8.2); BASOPHILS % (AUTO) 1.3 % (0-2); EOSINOPHILS % (AUTO) 4.2 % (0-6); HEMATOCRIT 32.8 % (36.0-47.0); HEMOGLOBIN 10.7 g/dL (12.0-15.5); LYMPHOCYTES % (AUTO) 36.8 % (13-45); MEAN CORPUSCULAR HGB CONC 32.6 g/dL (32.0-36.0); MEAN CORPUSCULAR VOLUME 86 fl (80-97); MONOCYTES % (AUTO) 8.2 % (3-13); PLATELET COUNT 300 10^3/uL (150-450); RED BLOOD COUNT 3.82 10^6/uL (3.72-5.28); RED CELL DISTRIBUTION WIDTH 14.7 % (11.5-14.0); SEGMENTED NEUTROPHILS % (AUTO) 49.5 % (42-78); TOTAL CELLS COUNTED % (AUTO) 100 %; WHITE BLOOD COUNT 5.7 10^3/uL (4.0-10.5)
[2018-09-05 12:00] LABS: ANION GAP 7 (5-19); BLOOD UREA NITROGEN 17 mg/dL (7-20); CALCIUM 9.2 mg/dL (8.4-10.2); CARBON DIOXIDE 24 mmol/L (22-30); CHLORIDE 108 mmol/L (98-107); GLUCOSE 216 mg/dL (75-110); POTASSIUM 5.3 mmol/L (3.6-5.0); SODIUM 138.7 mmol/L (137-145)
[2018-09-05] MEDS ORDERED: NORMAL SALINE 1000 ML 250 ML IV ONE (13:15)
--- NOTE | 2018-09-05 13:24 | PDOC PROGRESS REPORT ---
Subjective Progress Note for:: 09/05/18 Subjective:: states she feels fine- has no complaints- denies chest pain, sob, abdominal pain, n/v ro dizziness. Reason For Visit: SIRS,UTI,LAWRENCE Physical Exam Vital Signs: Temp Pulse Resp BP Pulse Ox 97.7 F 64 14 142/55 H 98 09/05/18 12:00 09/05/18 12:00 09/05/18 12:00 09/05/18 12:00 09/05/18 12:00 Intake & Output 09/04/18 09/05/18 09/06/18 06:59 06:59 06:59 Intake Total 2397 1449 50 Output Total 300 Balance 2397 1149 50 Weight 205 lb 11.06 oz 212 lb 11.937 oz General appearance: PRESENT: no acute distress Head exam: PRESENT: atraumatic, normocephalic Eye exam: PRESENT: EOMI. ABSENT: conjunctival injection, scleral icterus Ear exam: PRESENT: normal external ear exam Mouth exam: PRESENT: moist, tongue midline Neck exam: ABSENT: tracheal deviation Respiratory exam: PRESENT: clear to auscultation maribel, symmetrical Cardiovascular exam: PRESENT: +S1, +S2 Pulses: PRESENT: +2 pedal pulses bilateral GI/Abdominal exam: PRESENT: normal bowel sounds, soft. ABSENT: tenderness Extremities exam: PRESENT: pedal edema Neurological exam: PRESENT: alert, awake, oriented to person, oriented to place, oriented to time, CN II-XII grossly intact Skin exam: PRESENT: dry, warm Results Laboratory Results: 09/05/18 11:38 09/05/18 11:38 09/04/18 09/05/18 09/05/18 15:28 11:38 11:38 WBC 5.7 RBC 3.82 Hgb 10.7 L Hct 32.8 L MCV 86 MCH 28.0 MCHC 32.6 RDW 14.7 H Plt Count 300 Seg Neutrophils % 49.5 Lymphocytes % 36.8 Monocytes % 8.2 Eosinophils % 4.2 Basophils % 1.3 Absolute Neutrophils 2.8 Absolute Lymphocytes 2.1 Absolute Monocytes 0.5 Absolute Eosinophils 0.2 Absolute Basophils 0.1 Sodium 139.5 138.7 Potassium 4.9 5.3 H Chloride 110 H 108 H Carbon Dioxide 25 24 Anion Gap 5 7 BUN 22 H 17 Creatinine 1.30 H 1.12 Est GFR ( Amer) 48 L 56 L Est GFR (Non-Af Amer) 39 L 47 L Glucose 221 H 216 H Calcium 8.9 9.2 Magnesium 1.7 09/02/18 12:50 Blood Blood Culture - Final Staphylococcus Epidermidis 09/02/18 11:29 Catheterized Urine Urine Culture - Final Yeast, Not Nikkie Albicans Impressions: Chest X-Ray 09/02/18 10:39 IMPRESSION: NO ACUTE RADIOGRAPHIC FINDING IN THE CHEST. Assessment & Plan - Diagnosis (1) Acute kidney injury superimposed on chronic kidney disease Is this a current diagnosis for this admission?: Yes (2) Gram-positive bacteremia Is this a current diagnosis for this admission?: Yes (3) SIRS (systemic inflammatory response syndrome) Is this a current diagnosis for this admission?: Yes (4) Dehydration Is this a current diagnosis for this admission?: Yes (5) Hyperkalemia Is this a current diagnosis for this admission?: Yes (6) Type 2 diabetes mellitus Qualifiers: Diabetes mellitus custodial insulin use: with middle or intermediate school principal use Diabetes mellitus complication status: with hyperglycemia Qualified Code(s): E11.65 - Type 2 diabetes mellitus with hyperglycemia; Z79.4 - parts counterman (current) use of insulin Is this a current diagnosis for this admission?: Yes - Plan Summary Plan Summary: bacteremia- Bcx came back as staph epididymis - per lab it is likely contamination. will stop IV abx at this time LAWRENCE - resolved- - stop IV fluids hyperkalemia- noted- will give 250cc IV fluid bolus. check BMP in AM Urine- grew yeast- will give x1 diflucan 150mg. DM type 2- at home she's on levemir 40u - i will increase her lantus tonight - c/w SSI would have liked to d/c her today but given her elevated K+ i will hold her tonight and repeat labs in AM for likely d/c.
--- NOTE | 2018-09-05 13:26 | Progress Note ---
Provider Note Provider Note: HTN- currently on norvasc and hydralazine 25mg TID- she tells us that she's NOT on beta blockers- stopped yesterday. BP is better but still slightly elevated. she can f/u with pcp and adjust as needed
[2018-09-05] MEDS ORDERED: NORMAL SALINE 250 ML IV ONE (14:30)
[2018-09-05] MEDS: ACETAMINOPHEN 325 MG TABLET PO PRN (18:04)
[2018-09-05] MEDS ORDERED: INSULIN GLARGINE,HUM.REC.ANLOG 1,000 UNIT/10 ML UNIT SUBCUT ONE (21:26)
[2018-09-05] MEDS: INSULIN GLARGINE,HUM.REC.ANLOG 300 UNIT/3 ML INSULN.PEN SUBCUT SCH (21:32)
[2018-09-06] MEDS: PATIROMER 8.4 GM SUSP PACKET PO SCH (00:35)
[2018-09-06] MEDS: HYDRALAZINE HCL 25 MG TABLET PO SCH ×3 (05:11→21:45)
[2018-09-06] MEDS: ACETAMINOPHEN 325 MG TABLET PO PRN ×2 (05:11→22:01)
[2018-09-06] MEDS: HEPARIN SOD (PORCINE) 5,000 UNIT/ML 1 ML SYRINGE SUBCUT SCH ×3 (05:12→21:44)
[2018-09-06 06:01] LABS: ANION GAP 7 (5-19); BLOOD UREA NITROGEN 17 mg/dL (7-20); CALCIUM 9.4 mg/dL (8.4-10.2); CARBON DIOXIDE 23 mmol/L (22-30); CHLORIDE 109 mmol/L (98-107); GLUCOSE 179 mg/dL (75-110); POTASSIUM 4.9 mmol/L (3.6-5.0); SODIUM 138.5 mmol/L (137-145)
[2018-09-06] MEDS: IPRATROPIUM/ALBUTEROL 0.5-2.5 MG/3 ML AMPUL NEB SCH ×3 (08:11→19:35)
[2018-09-06] MEDS: INSULIN LISPRO 100 UNIT/ML 3 ML VIAL SUBCUT SCH ×4 (08:21→21:45)
[2018-09-06] MEDS: DOCUSATE SODIUM 100 MG CAPSULE PO SCH ×2 (09:06→17:28)
[2018-09-06] MEDS: FAMOTIDINE 20 MG TABLET PO SCH (09:06)
[2018-09-06] MEDS: ASPIRIN 81 MG TABLET, ENT COATED PO SCH (09:06)
[2018-09-06] MEDS: AMLODIPINE BESYLATE 10 MG TABLET PO SCH (09:06)
--- NOTE | 2018-09-06 18:26 | PDOC PROGRESS REPORT ---
Subjective Progress Note for:: 09/06/18 Subjective:: Saw patient on rounds this afternoon. She states she is doing well. States she has chronic pain of her joints due to arthritis. States she also has pain on the right lower quadrant of the abdomen but tells me this has been going on for years now. She denies any other acute symptoms. She does admit that they try to walk her yesterday and she got very weak and had to sit down. We discussed about short-term rehab and she understands that this will most likely be beneficial to her. Reason For Visit: SIRS,UTI,LAWRENCE Physical Exam Vital Signs: Temp Pulse Resp BP Pulse Ox 97.9 F 68 16 137/57 H 98 09/06/18 11:39 09/06/18 14:01 09/06/18 14:01 09/06/18 11:39 09/06/18 14:01 Intake & Output 09/05/18 09/06/18 09/07/18 06:59 06:59 06:59 Intake Total 1449 1030 Output Total 300 1500 Balance 1149 -470 Weight 212 lb 11.937 oz 214 lb 1.102 oz General appearance: PRESENT: no acute distress Head exam: PRESENT: atraumatic, normocephalic Eye exam: PRESENT: EOMI. ABSENT: conjunctival injection, scleral icterus Ear exam: PRESENT: normal external ear exam Mouth exam: PRESENT: moist, tongue midline Neck exam: ABSENT: tracheal deviation Respiratory exam: PRESENT: clear to auscultation maribel, symmetrical Cardiovascular exam: PRESENT: +S1, +S2 Pulses: PRESENT: +1 pedal pulses bilateral GI/Abdominal exam: PRESENT: normal bowel sounds, soft, other - Unable to elicit any tenderness from right lower quadrant Extremities exam: PRESENT: pedal edema - Mild edema of the lower extremity and mostly of the ankles Neurological exam: PRESENT: alert, awake, oriented to person, oriented to place, oriented to time, CN II-XII grossly intact Skin exam: PRESENT: dry, warm Results Laboratory Results: 09/05/18 11:38 09/06/18 04:20 09/06/18 04:20 Sodium 138.5 Potassium 4.9 Chloride 109 H Carbon Dioxide 23 Anion Gap 7 BUN 17 Creatinine 1.13 Est GFR ( Amer) 56 L Est GFR (Non-Af Amer) 46 L Glucose 179 H Calcium 9.4 09/02/18 12:50 Blood Blood Culture - Final Staphylococcus Epidermidis Impressions: Chest X-Ray 09/02/18 10:39 IMPRESSION: NO ACUTE RADIOGRAPHIC FINDING IN THE CHEST. Assessment & Plan - Diagnosis (1) Acute kidney injury superimposed on chronic kidney disease Is this a current diagnosis for this admission?: Yes (2) Gram-positive bacteremia Is this a current diagnosis for this admission?: Yes (3) SIRS (systemic inflammatory response syndrome) Is this a current diagnosis for this admission?: Yes (4) Dehydration Is this a current diagnosis for this admission?: Yes (5) Hyperkalemia Is this a current diagnosis for this admission?: Yes (6) Type 2 diabetes mellitus Qualifiers: Diabetes mellitus intermodal dispatcher insulin use: with detention use Diabetes mellitus complication status: with hyperglycemia Qualified Code(s): E11.65 - Type 2 diabetes mellitus with hyperglycemia; Z79.4 - terminal makeup operator (current) use of insulin Is this a current diagnosis for this admission?: Yes - Plan Summary Plan Summary: bacteremia- Bcx came back as staph epididymis - per lab it is likely contamination. will stop IV abx at this time LAWRENCE - resolved- - stop IV fluids [id number] received 250cc IV fluid bolus yesterday Urine- grew yeast-gave x1 diflucan 150mg. DM type 2-stable-at home she's on levemir 40u - i will increase her lantus tonight - c/w SSI Disposition-due to her physical deconditioning she most likely will benefit from short-term rehab. She has been offered but unfortunately the place that she c emi from supposedly had bedbugs and hence the short-term rehab facility will not take patient until patient is no longer having any issues with bedbugs. Yesterday patient's room where changed to a different room and now she is no longer interested. Most likely she will be able to go to short-term rehab on Friday. [facility] is aware and is working on this placement
[2018-09-06] MEDS: INSULIN GLARGINE,HUM.REC.ANLOG 300 UNIT/3 ML INSULN.PEN SUBCUT SCH (21:44)
[2018-09-06] MEDS ORDERED: PATIROMER 8.4 GM SUSP PACKET PO ONE (22:13)
[2018-09-07] MEDS: PATIROMER 8.4 GM SUSP PACKET PO SCH (01:03)
[2018-09-07] MEDS: HYDRALAZINE HCL 25 MG TABLET PO SCH (05:14)
[2018-09-07] MEDS: HEPARIN SOD (PORCINE) 5,000 UNIT/ML 1 ML SYRINGE SUBCUT SCH (05:14)
[2018-09-07] MEDS: INSULIN LISPRO 100 UNIT/ML 3 ML VIAL SUBCUT SCH ×2 (08:15→11:43)
[2018-09-07] MEDS: IPRATROPIUM/ALBUTEROL 0.5-2.5 MG/3 ML AMPUL NEB SCH (08:16)
[2018-09-07] MEDS: FAMOTIDINE 20 MG TABLET PO SCH (10:14)
[2018-09-07] MEDS: ASPIRIN 81 MG TABLET, ENT COATED PO SCH (10:14)
[2018-09-07] MEDS: AMLODIPINE BESYLATE 10 MG TABLET PO SCH (10:14)
[2018-09-07] MEDS: DOCUSATE SODIUM 100 MG CAPSULE PO SCH (10:14)
--- NOTE | 2018-09-07 11:02 | PDOC DISCHARGE SUMMARY ---
General - Admit/Disc Date/PCP Admission Date/Primary Care Provider: 09/03/18 12:02 Discharge Date: 09/07/18 - Discharge Diagnosis (1) Acute kidney injury superimposed on chronic kidney disease Is this a current diagnosis for this admission?: Yes (2) Gram-positive bacteremia Is this a current diagnosis for this admission?: Yes (3) SIRS (systemic inflammatory response syndrome) Is this a current diagnosis for this admission?: Yes (4) Dehydration Is this a current diagnosis for this admission?: Yes (5) Hyperkalemia Is this a current diagnosis for this admission?: Yes (6) Type 2 diabetes mellitus Is this a current diagnosis for this admission?: Yes - Additional Information Resuscitation Status: Full Code Prescriptions: Hydralazine HCl [Apresoline 25 mg Tablet] 25 mg PO Q8 #90 tablet Home Medications: Amlodipine Besylate [Norvasc 10 mg Tablet] 10 mg PO DAILY 09/02/18 Aspirin [Ecotrin 81 mg EC Tablet] 81 mg PO DAILY 09/02/18 Insulin Detemir [Levemir Insulin 100 units/mL] 40 unit SUBCUT DAILY 09/02/18 Aspirin [Ecotrin 81 mg EC Tablet] 81 mg PO DAILY tabec 09/07/18 Docusate Sodium [Colace 100 mg Capsule] 100 mg PO BID capsule 09/07/18 Hydralazine HCl [Apresoline 25 mg Tablet] 25 mg PO Q8 #90 tablet 09/07/18 History of Present Illness History of Present Illness: GLENIS CERVANTES is a 83 year old female was admitted for LAWRENCE and suspected bacter emia H&P per admitting physician: "LUZ ELENA CERVANTES is a 83 year old female past medical history of diabetes on insulin as part 30 units q. every meal, hypertension on amlodipine and losartan, CKD stage III baseline creatinine 1.5, last admission 02/24/2018 for syncope, 02/25/2018 carotid Doppler negative for any hemodynamically significant stenosis, head CT negative for stroke. 02/25/2018 2D echo normal ejection fraction with mild to moderate diastolic dysfunction. On 08/25/2018 patient had presented to ED with generalized body aches, nausea vomiting, dysuria, she was admitted for dehydration and management of UTI. On 08/30/2018 patient was sent home after refusing to be sent to rehab. Today patient was brought to ED by EMS for altered mental status. As per family she has been has not been really eating or drinking at all not taking her antibiotic. Upon arrival the paramedics have encountered bedbugs and strong smell of urine. Patient was weak unable to get up and ambulate or walk. Patient denies any chest pain or shortness of breath denies abdominal pain to states she feels so weak she cannot walk. She feels very thirsty her mouth is dry. He denies any falls or trauma denies head or neck injury. Denies fever or chills. In ED she was found to have a systolic blood pressure of 98/50 with lactic acid of 3.0 she received 1 L of IV fluids and her blood pressure recovered. UA positive for leukocyte esterase. CXR and EKG negative for any acute abnormalities. She was started on empiric IV antibiotics." Hospital Course Hospital Course: after admission she was started on IV fluids and IV antibiotics. later her blood culture grew staph epididymis and it was thought to be contaminant- antibiotics was stopped. her LAWRENCE resolved i saw her this morning and she was doing better. states she worked with PT and was doing better than yesterday. she has no acute symptoms this morning- denies chest pain, SOB, abdominal pain, n/v or dizziness. per nursing there was bed bugs at home- but i have not noticed anything since admission. i did not notice any [place] on her skin either. HTN- due to her Lawrence her Losartan 100mg was held. she also said she's NOT on beta blockers. i restarted her norvasc and started her on hydralazine while in hospital- BP running slightly higher at times- recommend adjusting medications at [facility] and with PCP for her Diabetes- she was getting lantus 20u QHS and mealtime sliding scale- i have restarted her home Levemir- she may need sliding scale also- titrate insulin as appropriate PT was consulted due to physical deconditioning and felt that she would benefit from [facility]. she was ready for d/c 2 days ago but awaited till friday to go to [facility]. follow up with PCP 1 week after d/c from [facility] Physical Exam Vital Signs: Temp Pulse Resp BP Pulse Ox 98.2 F 69 16 162/56 H 95 09/07/18 08:00 09/07/18 08:16 09/07/18 08:16 09/07/18 08:00 09/07/18 08:16 Intake & Output 09/06/18 09/07/18 09/08/18 06:59 06:59 06:59 Intake Total 1030 720 Output Total 1500 1200 Balance -470 -480 Weight 214 lb 1.102 oz 211 lb 10.3 oz General appearance: PRESENT: no acute distress Head exam: PRESENT: atraumatic, normocephalic Eye exam: PRESENT: EOMI. ABSENT: conjunctival injection, scleral icterus Ear exam: PRESENT: normal external ear exam Mouth exam: PRESENT: moist, tongue midline Neck exam: ABSENT: tracheal deviation Respiratory exam: PRESENT: clear to auscultation maribel, symmetrical Cardiovascular exam: PRESENT: +S1, +S2 Pulses: PRESENT: +2 pedal pulses bilateral GI/Abdominal exam: PRESENT: normal bowel sounds, soft. ABSENT: tenderness Extremities exam: PRESENT: +1 edema - mininmal ankle edema Neurological exam: PRESENT: alert, awake, oriented to person, oriented to place, oriented to time, CN II-XII grossly intact Skin exam: PRESENT: dry, warm Results Laboratory Results: 09/05/18 11:38 09/06/18 04:20 Impressions: Chest X-Ray 09/02/18 10:39 IMPRESSION: NO ACUTE RADIOGRAPHIC FINDING IN THE CHEST. Qualifiers - * PATIENT BEING DISCHARGED WITH ANY OF THE FOLLOWING DIAGNOSIS: No Plan Time Spent: Less than 30 Minutes
[2018-09-07 12:49] VITALS: BP 162/56
== END 2018-09-07 13:00 | DRG 690 ==
LOC: ER 10:31 → INTOOBSV 14:14 → EH 14:14 → 5 17:15 → OBSVTOIN 09-03 12:02 → 5 09-05 16:11
PROVIDERS: ADMIT Internal Medicine; ATTEND Internal Medicine
PROC: 3E0F73Z Introduction of Anti-inflammatory into Respiratory Tract, Via Natural or Artificial Opening (ICD-10-PCS; principal; 2018-09-02)
DX: N30.01 Acute cystitis with hematuria (principal); N17.9 Acute kidney failure, unspecified; R78.81 Bacteremia; E86.0 Dehydration; E87.5 Hyperkalemia; E11.22 Type 2 diabetes mellitus with diabetic chronic kidney disease; I12.9 Hypertensive chronic kidney disease with stage 1 through stage 4 chronic kidney disease, or unspecified chronic kidney disease; N18.3 Chronic kidney disease, stage 3 (moderate); E78.00 Pure hypercholesterolemia, unspecified; E11.65 Type 2 diabetes mellitus with hyperglycemia; M19.90 Unspecified osteoarthritis, unspecified site; B96.20 Unspecified Escherichia coli [E. coli] as the cause of diseases classified elsewhere; E66.9 Obesity, unspecified; Z79.82 Long term (current) use of aspirin; Z79.4 Long term (current) use of insulin; Z79.899 Other long term (current) drug therapy; Z90.49 Acquired absence of other specified parts of digestive tract; Z91.14 Patient's other noncompliance with medication regimen; Z90.710 Acquired absence of both cervix and uterus; Z82.49 Family history of ischemic heart disease and other diseases of the circulatory system
CPT/HCPCS: 36415; 71045; 80048; 80053; 81001; 82803; 82962; 83605; 83735; 85025; 85610; 87040; 87077; 87086; 87186; 93005; 93010; 94640; 96365; 96366; 96375; 99291; G0378; J0610; J1644; J1815; J2270; J2405; J2543; J3370; J3490; J7030; J7060; J7620

== ENCOUNTER 2018-10-28 13:10 | Inpatient (IN) | payer MEDICARE, MEDICAID ==
[2018-10-28] MEDS ORDERED: NITROGLYCERIN 2% OINTMENT 1 GM PACKET TP ONE (13:35)
--- NOTE | 2018-10-28 13:42 | ER Document Report ---
ED General - General Chief Complaint: Chest Pain Stated Complaint: CHEST PAIN Time Seen by Provider: 10/28/18 13:29 TRAVEL OUTSIDE OF THE [place] IN LAST 30 DAYS: No - HPI Notes: Patient is a 83-year-old female that presents to the emergency department for chief complaint of chest pain. Patient reported left-sided chest pain that began this morning while at rest at nursing facility. She had complete resolution of the pain after 4 baby aspirin and 1 sublingual nitro. She described it as a sharp sensation that went down into her left arm and up into her left neck. She had associated nausea with no vomiting and did feel short of breath. Currently she states her symptoms have completely resolved. She denied any aggravating factors. Past Medical History: Diabetes, CKD Past Surgical History: Reviewed in chart Social History: No tobacco or alcohol use Family History: Reviewed and noncontributory for presenting illness Allergies: Reviewed, see documented allergy list. REVIEW OF SYSTEMS: CONSTITUTIONAL : No fever No chills No diaphoresis No recent illness EENT: No vision changes No congestion No sore throat CARDIOVASCULAR: chest pain No palpitations RESPIRATORY: shortness of breath No cough No difficulty breathing GASTROINTESTINAL: No abdominal pain nausea No vomiting No diarrhea GENITOURINARY: No dysuria No hematuria No difficulty urinating MUSCULOSKELETAL: No back pain No leg pain arm pain SKIN: No rashes No lesions LYMPHATIC: No swollen, enlarged glands. NEUROLOGICAL: No lightheadedness No headache No weakness No paresthesias PSYCHIATRIC: No anxiety No depression PHYSICAL EXAMINATION: Vital signs reviewed, nursing noted reviewed. GENERAL: Well-appearing, obese and in no acute distress. HEAD: Atraumatic, normocephalic. EYES: Eyes appear normal, extraocular movements intact, sclera anicteric, conjunctiva are normal. ENT: nares patent, oropharynx clear without exudates. Moist mucous membranes. NECK: Normal range of motion, supple without lymphadenopathy LUNGS: Breath sounds diminished to auscultation bilaterally and equal. No wheezes rales or rhonchi. HEART: Regular rate and rhythm without murmurs ABDOMEN: Soft, nontender, normoactive bowel sounds. No rebound, guarding, or rigidity. No masses appreciated. EXTREMITIES: Nontender, good range of motion, +2 pitting edema bilateral lower extremity, symmetric NEUROLOGICAL: No focal neurological deficits. Moves all extremities spontaneously Motor and sensory grossly intact on exam. PSYCH: Normal mood, normal affect. SKIN: Warm, Dry, normal turgor, no rashes or lesions noted on exposed skin - Related Data Allergies/Adverse Reactions: No Known Allergies Allergy (Verified 10/28/18 16:31) Past Medical History - Social History Smoking Status: Never Smoker Family History: Hypertension Patient has suicidal ideation: No Patient has homicidal ideation: No - Past Medical History Cardiac Medical History: Reports: Hx Congestive Heart Failure, Hx Hypercholesterolemia, Hx Hypertension Pulmonary Medical History: Denies: Hx Asthma, Hx COPD, Hx Respiratory Failure Neurological Medical History: Denies: Hx Migraine Endocrine Medical History: Reports: Hx Diabetes Mellitus Type 2 Renal/ Medical History: Denies: Hx End Stage Renal Disease, Hx Peritoneal Dialysis GI Medical History: Denies: Hx Cirrhosis, Hx Diverticulitis, Hx Gastroesophageal Reflux Disease, Hx Hepatitis Musculoskeletal Medical History: Reports Hx Arthritis Psychiatric Medical History: Denies: Hx Bipolar Disorder, Hx Depression Infectious Medical History: Denies: Hx Hepatitis Past Surgical History: Reports: Hx Cholecystectomy, Hx Hysterectomy Physical Exam - Vital signs Vitals: Pulse Resp BP Pulse Ox 68 12 155/59 H 98 10/28/18 13:17 10/28/18 13:17 10/28/18 13:17 10/28/18 13:17 Course - Re-evaluation Re-evalutation: 10/28/18 16:39 Vitals reviewed. Nursing notes reviewed. Patient was found to be hypothermic on rectal temperature. She was placed on a bear hugger. She does have acute urinary tract infection however she does not have a leukocytosis or elevated lactate. Patient has a normal cardiac evaluation including a negative troponin and unremarkable chest x-ray and EKG. Her chest pain has been resolved since being in the emergency room. Patient was given a dose of Rocephin for her acute urinary tract infection. She will be admitted to the hospital for further cardiac monitoring as well as antibiotics and warming. Patient's care was discu ssed with Desirae RAO who accepted admission. Laboratory 10/28/18 10/28/18 10/28/18 13:55 13:55 13:55 WBC 4.5 RBC 3.64 L Hgb 10.0 L Hct 29.9 L MCV 82 MCH 27.4 MCHC 33.3 RDW 15.5 H Plt Count 391 Seg Neutrophils % 56.7 Lymphocytes % 27.8 Monocytes % 9.2 Eosinophils % 5.2 Basophils % 1.1 Absolute Neutrophils 2.5 Absolute Lymphocytes 1.2 Absolute Monocytes 0.4 Absolute Eosinophils 0.2 Absolute Basophils 0.0 Sodium 140.9 Potassium 5.0 Chloride 109 H Carbon Dioxide 24 Anion Gap 8 BUN 29 H Creatinine 1.40 H Est GFR ( Amer) 44 L Est GFR (Non-Af Amer) 36 L Glucose 188 H Lactic Acid Calcium 9.2 Total Bilirubin 0.4 Direct Bilirubin 0.3 Neonat Total Bilirubin Not Reportable Neonat Direct Bilirubin Not Reportable Neonat Indirect Bili Not Reportable AST 20 ALT 24 Alkaline Phosphatase 99 Troponin I < 0.012 Total Protein 7.8 Albumin 3.7 Urine Color Urine Appearance Urine pH Ur Specific [place] Urine Protein Urine Glucose (UA) Urine Ketones Urine Blood Urine Nitrite Urine Bilirubin Urine Urobilinogen Ur Leukocyte Esterase Urine WBC (Auto) Urine RBC (Auto) U Hyaline Cast (Auto) Urine WBC Clumps Urine Ascorbic Acid 10/28/18 10/28/18 13:55 15:20 WBC RBC Hgb Hct MCV MCH MCHC RDW Plt Count Seg Neutrophils % Lymphocytes % Monocytes % Eosinophils % Basophils % Absolute Neutrophils Absolute Lymphocytes Absolute Monocytes Absolute Eosinophils Absolute Basophils Sodium Potassium Chloride Carbon Dioxide Anion Gap BUN Creatinine Est GFR ( Amer) Est GFR (Non-Af Amer) Glucose Lactic Acid 0.8 Calcium Total Bilirubin Direct Bilirubin Neonat Total Bilirubin Neonat Direct Bilirubin Neonat Indirect Bili AST ALT Alkaline Phosphatase Troponin I Total Protein Albumin Urine Color YELLOW Urine Appearance CLOUDY Urine pH 5.0 Ur Specific [place] 1.014 Urine Protein 100 H Urine Glucose (UA) 150 H Urine Ketones NEGATIVE Urine Blood SMALL H Urine Nitrite NEGATIVE Urine Bilirubin NEGATIVE Urine Urobilinogen NEGATIVE Ur Leukocyte Esterase LARGE H Urine WBC (Auto) >182 Urine RBC (Auto) 8 U Hyaline Cast (Auto) 5 Urine WBC Clumps MANY Urine Ascorbic Acid NEGATIVE Chest X-Ray 10/28/18 13:23 IMPRESSION: Stable mild cardiomegaly. No acute infiltrates - Vital Signs Vital signs: Temp Pulse Resp BP Pulse Ox 68 15 155/59 H 96 10/28/18 13:17 10/28/18 14:00 10/28/18 13:25 10/28/18 14:00 - Laboratory Result Diagrams: 10/28/18 13:55 10/28/18 13:55 Laboratory results interpreted by me: 10/28/18 10/28/18 10/28/18 13:55 13:55 15:20 RBC 3.64 L Hgb 10.0 L Hct 29.9 L RDW 15.5 H Chloride 109 H BUN 29 H Creatinine 1.40 H Est GFR ( Amer) 44 L Est GFR (Non-Af Amer) 36 L Glucose 188 H Urine Protein 100 H Urine Glucose (UA) 150 H Urine Blood SMALL H Ur Leukocyte Esterase LARGE H - EKG Interpretation by Me Additional EKG results interpreted by me: 10/28/18 14:04 Interpreted by myself 1345: Normal sinus rhythm with first-degree AV block, [place] 276, rate 66, left axis, left bundle branch block, prolonged QT with QTC of 533 Discharge - Discharge Clinical Impression: Acute UTI Hypothermia Qualifiers: Encounter type: initial encounter Qualified Code(s): T68.XXXA - Hypothermia, in itial encounter Chest pain Qualifiers: Chest pain type: unspecified Qualified Code(s): R07.9 - Chest pain, unspecified Condition: Stable Disposition: ADMITTED INPATIENT Admitting Provider: Hospitalist Unit Admitted: Telemetry
[2018-10-28 14:16] LABS: ABSOLUTE EOSINOPHILS # (AUTO) 0.2 10^3/uL (0.0-0.6); ABSOLUTE LYMPHOCYTES (AUTO) 1.2 10^3/uL (0.5-4.7); ABSOLUTE MONOCYTES (AUTO) 0.4 10^3/uL (0.1-1.4); ABSOLUTE NEUT (AUTO) 2.5 10^3/uL (1.7-8.2); BASOPHILS % (AUTO) 1.1 % (0-2); EOSINOPHILS % (AUTO) 5.2 % (0-6); HEMATOCRIT 29.9 % (36.0-47.0); LYMPHOCYTES % (AUTO) 27.8 % (13-45); MEAN CORPUSCULAR HEMOGLOBIN 27.4 pg (27.0-33.4); MEAN CORPUSCULAR HGB CONC 33.3 g/dL (32.0-36.0); MEAN CORPUSCULAR VOLUME 82 fl (80-97); MONOCYTES % (AUTO) 9.2 % (3-13); PLATELET COUNT 391 10^3/uL (150-450); RED BLOOD COUNT 3.64 10^6/uL (3.72-5.28); RED CELL DISTRIBUTION WIDTH 15.5 % (11.5-14.0); SEGMENTED NEUTROPHILS % (AUTO) 56.7 % (42-78); TOTAL CELLS COUNTED % (AUTO) 100 %; WHITE BLOOD COUNT 4.5 10^3/uL (4.0-10.5)
[2018-10-28 14:39] LABS: ALANINE AMINOTRANSFERASE 24 U/L (9-52); ALBUMIN 3.7 g/dL (3.5-5.0); ALKALINE PHOSPHATASE 99 U/L (38-126); ANION GAP 8 (5-19); ASPARTATE AMINO TRANSFERASE 20 U/L (14-36); BILIRUBIN,DIRECT 0.3 mg/dL (0.0-0.4); BILIRUBIN,TOTAL 0.4 mg/dL (0.2-1.3); BLOOD UREA NITROGEN 29 mg/dL (7-20); CALCIUM 9.2 mg/dL (8.4-10.2); CARBON DIOXIDE 24 mmol/L (22-30); CHLORIDE 109 mmol/L (98-107); GLUCOSE 188 mg/dL (75-110); SODIUM 140.9 mmol/L (137-145); TOTAL PROTEIN 7.8 g/dL (6.3-8.2)
--- NOTE | 2018-10-28 14:43 | RADIOLOGY REPORT (SQ) ---
EXAM DESCRIPTION: CHEST SINGLE VIEW COMPLETED DATE/TIME: 10/28/2018 2:27 pm REASON FOR STUDY: chest pain COMPARISON: Three-way abdomen series 06/25/2017 AP chest 09/02/2018 EXAM PARAMETERS: NUMBER OF VIEWS: One view. TECHNIQUE: Single frontal radiographic view of the chest acquired. RADIATION DOSE: NA LIMITATIONS: None. FINDINGS: LUNGS AND PLEURA: No opacities, masses or pneumothorax. No pleural effusion. MEDIASTINUM AND HILAR STRUCTURES: No masses. Contour normal. HEART AND VASCULAR STRUCTURES: Stable mild cardiomegaly BONES: Advanced arthritis right shoulder HARDWARE: None in the chest. OTHER: No other significant finding. IMPRESSION: Stable mild cardiomegaly. No acute infiltrates TECHNICAL DOCUMENTATION: JOB ID: [id number] [employer]- All Rights Reserved Reading location - IP/workstation name: [email or web address]
[2018-10-28] MEDS ORDERED: NORMAL SALINE 1000 ML 1,000 ML IV ONE (15:05)
[2018-10-28 15:49] LABS: APPEARANCE,URINE CLOUDY; BILIRUBIN,URINE NEGATIVE (NEGATIVE); COLOR,URINE YELLOW; GLUCOSE, URINE 150 mg/dL (NEGATIVE); KETONES,URINE NEGATIVE (NEGATIVE); LEUKOCYTE ESTERASE,URINE LARGE (NEGATIVE); NITRITE,URINE NEGATIVE (NEGATIVE); PROTEIN,URINE 100 mg/dL (NEGATIVE); URINE SPECIFIC GRAVITY 1.014; UROBILINOGEN,URINE NEGATIVE mg/dL (<2.0)
[2018-10-28] MEDS ORDERED: CEFTRIAXONE 1 GM/D5W RTU 1 GM/50 ML RTUPB IV ONE (16:13)
[2018-10-28] MEDS ORDERED: ACETAMINOPHEN 325 MG TABLET PO PRN (18:47)
[2018-10-28] MEDS ORDERED: DEXTROSE 40% GEL 15 GM TUBE PO PRN ×2 (18:58)
[2018-10-28] MEDS ORDERED: DEXTROSE 50%-WATER 25 GM/50 ML DISP.SYRIN IV PRN ×2 (18:58)
[2018-10-28] MEDS ORDERED: GLUCAGON,HUMAN RECOMB 1 MG INJ IM PRN (18:58)
--- NOTE | 2018-10-28 19:28 | PDOC H&P ---
History of Present Illness Admission Date/PCP: 10/28/18 16:48 Patient complains of: Chest pain and dysuria History of Present Illness: GLENIS CERVANTES is a 83 year old female with a past medical history significant for uncontrolled diabetes mellitus, chronic kidney disease stage III and hypertension. She was recently admitted to this facility in September where she was treated for urinary tract infection and acute on chronic renal failure. The patient has been at a senior care facility and she was brought to the hospital today due to chest pain and hypothermia. The patient's chest pain resolved after taking nitroglycerin and aspirin. She is chest pain-free at the time of my visit. She is not a very good historian but is able to tell me that she thinks she was recently treated for pneumonia at the senior care facility. She also states that she is been having some burning when she urinates for a few days. Otherwise she tends to ramble in a good review of systems could not be obtained Past Medical History Cardiac Medical History: Reports: Congestive Heart Failure, Hyperlipidema, Hypertension Pulmonary Medical History: Denies: Asthma, Chronic Obstructive Pulmonary Disease (COPD), Respiratory Failure Neurological Medical History: Denies: Migraine Endocrine Medical History: Reports: Diabetes Mellitus Type 2 Renal/ Medical History: Denies: End Stage Renal Disease GI Medical History: Denies: Cirrhosis, Diverticulitis, Gastroesophageal Reflux Disease, Hepatitis Musculoskeltal Medical History: Reports: Arthritis Skin Medical History: Reports: None Psychiatric Medical History: Denies: Bipolar Disorder, Depression Hematology: Denies: Hemophilia, Sickle Cell Disease Infectious Medical History: Reports: None Past Surgical History Past Surgical History: Reports: Cholecystectomy, Hysterectomy Social History Information Source: Patient Lives with: [facility] Smoking Status: Never Smoker Frequency of Alcohol Use: Rare Hx Recreational Drug Use: No Drugs: None Hx Prescription Drug Abuse: No - Advance Directive Resuscitation Status: Full Code Surrogate healthcare decision maker:: Her son John Bhakta is her surrogate decision-maker Family History Family History: None, Reviewed & Not Pertinent, Hypertension Parental Family History Reviewed: Yes Children Family History Reviewed: Yes Sibling(s) Family History Reviewed.: Yes Medication/Allergy Home Medications: Amlodipine Besylate [Norvasc 10 mg Tablet] 10 mg PO DAILY 09/02/18 Aspirin [Ecotrin 81 mg EC Tablet] 81 mg PO DAILY 09/02/18 Insulin Detemir [Levemir Insulin 100 units/mL] 40 unit SUBCUT DAILY 09/02/18 Aspirin [Ecotrin 81 mg EC Tablet] 81 mg PO DAILY tabec 09/07/18 Docusate Sodium [Colace 100 mg Capsule] 100 mg PO BID capsule 09/07/18 Hydralazine HCl [Apresoline 25 mg Tablet] 25 mg PO Q8 #90 tablet 09/07/18 Allergies/Adverse Reactions: No Known Allergies Allergy (Verified 10/28/18 16:31) Review of Systems ROS unobtainable: Due to mental status Cardiovascular: PRESENT: chest pain Genitourinary: PRESENT: dysuria Physical Exam Vital Signs: Temp Pulse Resp BP Pulse Ox 97.4 F 68 15 139/55 H 97 10/28/18 13:17 10/28/18 13:17 10/28/18 19:01 10/28/18 19:01 10/28/18 19:01 Intake & Output 10/27/18 10/28/18 10/29/18 06:59 06:59 06:59 Intake Total 1999 Balance 1999 Weight 98.7 kg General appearance: PRESENT: no acute distress, obese, well-developed, well- nourished Head exam: PRESENT: atraumatic, normocephalic Eye exam: PRESENT: conjunctiva pink, EOMI, PERRLA. ABSENT: scleral icterus Ear exam: PRESENT: normal external ear exam Mouth exam: PRESENT: moist, tongue midline Respiratory exam: PRESENT: clear to auscultation maribel. ABSENT: rales, rhonchi, wheezes Cardiovascular exam: PRESENT: RRR. ABSENT: diastolic murmur, rubs, systolic murmur GI/Abdominal exam: PRESENT: normal bowel sounds, soft. ABSENT: distended, guarding, mass, organolmegaly, rebound, tenderness Rectal exam: PRESENT: deferred Extremities exam: PRESENT: full ROM. ABSENT: calf tenderness, clubbing, pedal edema Neurological exam: PRESENT: alert, awake, oriented to person, oriented to place, oriented to time, oriented to situation, CN II-XII grossly intact. ABSENT: motor sensory deficit Psychiatric exam: ABSENT: homicidal ideation, suicidal ideation Skin exam: PRESENT: dry, intact, warm. ABSENT: cyanosis, rash Results Laboratory Results: 10/28/18 13:55 10/28/18 13:55 10/28/18 10/28/18 10/28/18 13:55 13:55 13:55 WBC 4.5 RBC 3.64 L Hgb 10.0 L Hct 29.9 L MCV 82 MCH 27.4 MCHC 33.3 RDW 15.5 H Plt Count 391 Seg Neutrophils % 56.7 Lymphocytes % 27.8 Monocytes % 9.2 Eosinophils % 5.2 Basophils % 1.1 Absolute Neutrophils 2.5 Absolute Lymphocytes 1.2 Absolute Monocytes 0.4 Absolute Eosinophils 0.2 Absolute Basophils 0.0 Sodium 140.9 Potassium 5.0 Chloride 109 H Carbon Dioxide 24 Anion Gap 8 BUN 29 H Creatinine 1.40 H Est GFR ( Amer) 44 L Est GFR (Non-Af Amer) 36 L Glucose 188 H Lactic Acid 0.8 Calcium 9.2 Total Bilirubin 0.4 AST 20 ALT 24 Alkaline Phosphatase 99 Total Protein 7.8 Albumin 3.7 Urine Color Urine Appearance Urine pH Ur Specific [place] Urine Protein Urine Glucose (UA) Urine Ketones Urine Blood Urine Nitrite Ur Leukocyte Esterase Urine WBC (Auto) Urine RBC (Auto) 10/28/18 15:20 WBC RBC Hgb Hct MCV MCH MCHC RDW Plt Count Seg Neutrophils % Lymphocytes % Monocytes % Eosinophils % Basophils % Absolute Neutrophils Absolute Lymphocytes Absolute Monocytes Absolute Eosinophils Absolute Basophils Sodium Potassium Chloride Carbon Dioxide Anion Gap BUN Creatinine Est GFR ( Amer) Est GFR (Non-Af Amer) Glucose Lactic Acid Calcium Total Bilirubin AST ALT Alkaline Phosphatase Total Protein Albumin Urine Color YELLOW Urine Appearance CLOUDY Urine pH 5.0 Ur Specific [place] 1.014 Urine Protein 100 H Urine Glucose (UA) 150 H Urine Ketones NEGATIVE Urine Blood SMALL H Urine Nitrite NEGATIVE Ur Leukocyte Esterase LARGE H Urine WBC (Auto) >182 Urine RBC (Auto) 8 10/28/18 13:55 Troponin I < 0.012 Impressions: Chest X-Ray 10/28/18 13:23 IMPRESSION: Stable mild cardiomegaly. No acute infiltrates Assessment and Plan - Diagnosis (1) Chest pain Qualifiers: Chest pain type: unspecified Qualified Code(s): R07.9 - Chest pain, unspecified Is this a current diagnosis for this admission?: Yes Plan: This was likely due to underlying stress she states that she was having an argument with the people caring for her at the nursing facility because she kept telling them she needed to come to the hospital. She states she got so upset that she developed chest pain. Her EKG is unremarkable. Initial troponin was negative. Her pain did relieve with nitroglycerin however. We will trend her serial troponins overnight and keep her on a remote monitor. I will get a repeat EKG in the morning to make sure there have been no changes (2) Acute UTI Is this a current diagnosis for this admission?: Yes Plan: She has been started on Rocephin. This is the first day of treatment. Urine culture is pending (3) Hypothermia Qualifiers: Encounter type: initial encounter Qualified Code(s): T68.XXXA - Hypothermia, initial encounter Is this a current diagnosis for this admission?: Yes Plan: Certainly concerning for a severe infection however the patient clinically looks quite well. All of her vital signs are normal as well as her labs. Currently under a warming blanket. (4) Diabetes Is this a current diagnosis for this admission?: Yes Plan: Continue home dose of Lantus. I have added sliding scale Humalog as well. I am going to add a hemoglobin A1c onto her morning blood work. (5) Chronic renal failure Is this a current diagnosis for this admission?: Yes Plan: Her creatinine is at its baseline. (6) Anemia Qualifiers: Other causes of anemia: chronic disease, other Is this a current diagnosis for this admission?: Yes Plan: She has a normocytic anemia consistent with chronic disease. (7) Obesity (BMI 30.0-34.9) Is this a current diagnosis for this admission?: Yes Plan: We will place her on a diabetic diet. (8) Full code status Is this a current diagnosis for this admission?: Yes - Time Time Spent with patient: 35 or more minutes - Inpatient Certification Medical Necessity: Need for IV Antibiotics - The patient will be fully admitted to the hospital. I expect her hospitalization will span less than 2 midnights. She has a urinary tract infection and is hypothermic requiring parenteral antibiotics. She also has chest pain that may need further workup., Other
[2018-10-28] MEDS: ENOXAPARIN SODIUM INJ 40 MG/0.4 ML DISP.SYRIN SUBCUT SCH (20:33)
[2018-10-28 20:56] LABS: CREATINE KINASE MB 2.23 ng/mL (<4.55)
[2018-10-28 20:59] LABS: TROPONIN I < 0.012 ng/mL
[2018-10-28] MEDS: HYDRALAZINE HCL 25 MG TABLET PO SCH (21:20)
[2018-10-28] MEDS: INSULIN LISPRO 100 UNIT/ML 3 ML VIAL SUBCUT SCH (21:20)
--- NOTE | 2018-10-28 21:20 | EKG REPORT ---
SEVERITY:- ABNORMAL ECG - SINUS RHYTHM FIRST DEGREE AV BLOCK LEFT BUNDLE BRANCH BLOCK : Confirmed by: Mya Garibay MD 28-Oct-2018 21:20:06
--- NOTE | 2018-10-28 21:22 | EKG REPORT ---
SEVERITY:- ABNORMAL ECG - LEFT AXIS DEVIATION LEFT VENTRICULAR HYPERTROPHY ANTERIOR Q WAVES, POSSIBLY DUE TO LVH PROLONGED QT INTERVAL SINUS RHYTHM WITH FIRST DEGREE AV BLOCK : Confirmed by: Mya Garibay MD 28-Oct-2018 21:21:31
[2018-10-29 01:47] LABS: CREATINE KINASE MB 1.95 ng/mL (<4.55)
[2018-10-29 01:49] LABS: TROPONIN I < 0.012 ng/mL
[2018-10-29] MEDS: HYDRALAZINE HCL 25 MG TABLET PO SCH ×3 (05:12→21:53)
[2018-10-29] MEDS: PANTOPRAZOLE SODIUM 40 MG TABLET.DR PO SCH (05:12)
[2018-10-29 07:36] LABS: ABSOLUTE BASOPHILS # (AUTO) 0.1 10^3/uL (0.0-0.2); ABSOLUTE EOSINOPHILS # (AUTO) 0.3 10^3/uL (0.0-0.6); ABSOLUTE LYMPHOCYTES (AUTO) 2.5 10^3/uL (0.5-4.7); ABSOLUTE MONOCYTES (AUTO) 0.5 10^3/uL (0.1-1.4); ABSOLUTE NEUT (AUTO) 1.6 10^3/uL (1.7-8.2); BASOPHILS % (AUTO) 1.3 % (0-2); EOSINOPHILS % (AUTO) 6.6 % (0-6); HEMATOCRIT 29.2 % (36.0-47.0); HEMOGLOBIN 9.5 g/dL (12.0-15.5); LYMPHOCYTES % (AUTO) 49.8 % (13-45); MEAN CORPUSCULAR HEMOGLOBIN 26.8 pg (27.0-33.4); MEAN CORPUSCULAR HGB CONC 32.4 g/dL (32.0-36.0); MEAN CORPUSCULAR VOLUME 83 fl (80-97); MONOCYTES % (AUTO) 9.3 % (3-13); PLATELET COUNT 390 10^3/uL (150-450); RED BLOOD COUNT 3.53 10^6/uL (3.72-5.28); RED CELL DISTRIBUTION WIDTH 15.6 % (11.5-14.0); TOTAL CELLS COUNTED % (AUTO) 100 %; WHITE BLOOD COUNT 4.9 10^3/uL (4.0-10.5)
[2018-10-29] MEDS: INSULIN LISPRO 100 UNIT/ML 3 ML VIAL SUBCUT SCH ×4 (07:42→21:51)
[2018-10-29 07:57] LABS: ALANINE AMINOTRANSFERASE 22 U/L (9-52); ALBUMIN 3.1 g/dL (3.5-5.0); ALKALINE PHOSPHATASE 83 U/L (38-126); ANION GAP 8 (5-19); ASPARTATE AMINO TRANSFERASE 16 U/L (14-36); BILIRUBIN,DIRECT 0.2 mg/dL (0.0-0.4); BILIRUBIN,TOTAL 0.2 mg/dL (0.2-1.3); BLOOD UREA NITROGEN 20 mg/dL (7-20); CALCIUM 9.1 mg/dL (8.4-10.2); CARBON DIOXIDE 22 mmol/L (22-30); CHLORIDE 111 mmol/L (98-107); CREATINE KINASE 60 U/L (30-135); GLUCOSE 87 mg/dL (75-110); PHOSPHORUS 4.4 mg/dL (2.5-4.5); POTASSIUM 5.1 mmol/L (3.6-5.0); SODIUM 140.7 mmol/L (137-145); TOTAL PROTEIN 6.9 g/dL (6.3-8.2)
[2018-10-29 08:19] LABS: NT PRO BNP 326 pg/mL (<450)
[2018-10-29 08:24] LABS: TROPONIN I < 0.012 ng/mL
--- NOTE | 2018-10-29 08:38 | PDOC PROGRESS REPORT ---
Subjective Progress Note for:: 10/29/18 Subjective:: Patient seen resting in bed. She is awake, alert, mostly oriented. She knows October and that she is in the hospital. She tells me she has had no chest pain overnight. She denies any shortness of breath or dyspnea at rest. She denies any nausea, vomiting or abdominal pain. She denies dysuria or diarrhea. She denies any fevers or chills overnight. She denies any significant arthralgias or myalgias. Remaining review of systems are negative. Reason For Visit: CHEST PAIN AND UTI Physical Exam Vital Signs: Temp Pulse Resp BP Pulse Ox 97.7 F 66 18 139/56 H 98 10/29/18 04:00 10/29/18 04:00 10/29/18 04:00 10/29/18 04:00 10/29/18 04:00 Intake & Output 10/28/18 10/29/18 10/30/18 06:59 06:59 06:59 Intake Total 2049 Balance 2049 Weight 93.9 kg General appearance: PRESENT: no acute distress, obese, well-developed, well- nourished Head exam: PRESENT: atraumatic, normocephalic Eye exam: PRESENT: conjunctiva pink, EOMI, PERRLA. ABSENT: scleral icterus Ear exam: PRESENT: normal external ear exam Mouth exam: PRESENT: moist, tongue midline Teeth exam: PRESENT: poor dentation Neck exam: ABSENT: carotid bruit, JVD, lymphadenopathy, thyromegaly Respiratory exam: PRESENT: clear to auscultation maribel. ABSENT: rales, rhonchi, wheezes Cardiovascular exam: PRESENT: RRR. ABSENT: diastolic murmur, rubs, systolic murmur Pulses: PRESENT: normal dorsalis pedis pul Vascular exam: PRESENT: normal capillary refill GI/Abdominal exam: PRESENT: normal bowel sounds, soft. ABSENT: distended, guarding, mass, organolmegaly, rebound, tenderness Rectal exam: PRESENT: deferred Extremities exam: PRESENT: full ROM. ABSENT: calf tenderness, clubbing, pedal edema Musculoskeletal exam: PRESENT: full ROM, normal inspection Neurological exam: PRESENT: alert, awake, oriented to person, oriented to place, oriented to time, oriented to situation Psychiatric exam: PRESENT: appropriate affect, normal mood. ABSENT: homicidal ideation, suicidal ideation Skin exam: PRESENT: dry, intact, warm. ABSENT: cyanosis, rash Results Laboratory Results: 10/29/18 06:55 10/29/18 06:55 10/28/18 10/28/18 10/28/18 13:55 13:55 13:55 WBC 4.5 RBC 3.64 L Hgb 10.0 L Hct 29.9 L MCV 82 MCH 27.4 MCHC 33.3 RDW 15.5 H Plt Count 391 Seg Neutrophils % 56.7 Lymphocytes % 27.8 Monocytes % 9.2 Eosinophils % 5.2 Basophils % 1.1 Absolute Neutrophils 2.5 Absolute Lymphocytes 1.2 Absolute Monocytes 0.4 Absolute Eosinophils 0.2 Absolute Basophils 0.0 Sodium 140.9 Potassium 5.0 Chloride 109 H Carbon Dioxide 24 Anion Gap 8 BUN 29 H Creatinine 1.40 H Est GFR ( Amer) 44 L Est GFR (Non-Af Amer) 36 L Glucose 188 H Lactic Acid 0.8 Calcium 9.2 Phosphorus Magnesium Total Bilirubin 0.4 AST 20 ALT 24 Alkaline Phosphatase 99 Total Protein 7.8 Albumin 3.7 Urine Color Urine Appearance Urine pH Ur Specific Elida Urine Protein Urine Glucose (UA) Urine Ketones Urine Blood Urine Nitrite Ur Leukocyte Esterase Urine WBC (Auto) Urine RBC (Auto) 10/28/18 10/29/18 10/29/18 15:20 06:55 06:55 WBC 4.9 RBC 3.53 L Hgb 9.5 L Hct 29.2 L MCV 83 MCH 26.8 L MCHC 32.4 RDW 15.6 H Plt Count 390 Seg Neutrophils % 33.0 L Lymphocytes % 49.8 H Monocytes % 9.3 Eosinophils % 6.6 H Basophils % 1.3 Absolute Neutrophils 1.6 L Absolute Lymphocytes 2.5 Absolute Monocytes 0.5 Absolute Eosinophils 0.3 Absolute Basophils 0.1 Sodium 140.7 Potassium 5.1 H Chloride 111 H Carbon Dioxide 22 Anion Gap 8 BUN 20 Creatinine 1.26 H Est GFR ( Amer) 49 L Est GFR (Non-Af Amer) 41 L Glucose 87 Lactic Acid Calcium 9.1 Phosphorus 4.4 Magnesium 2.6 H Total Bilirubin 0.2 AST 16 ALT 22 Alkaline Phosphatase 83 Total Protein 6.9 Albumin 3.1 L Urine Color YELLOW Urine Appearance CLOUDY Urine pH 5.0 Ur Specific Elida 1.014 Urine Protein 100 H Urine Glucose (UA) 150 H Urine Ketones NEGATIVE Urine Blood SMALL H Urine Nitrite NEGATIVE Ur Leukocyte Esterase LARGE H Urine WBC (Auto) >182 Urine RBC (Auto) 8 10/28/18 10/28/18 10/28/18 13:55 20:10 20:10 Creatine Kinase 67 CK-MB (CK-2) 2.23 Troponin I < 0.012 < 0.012 NT-Pro-B Natriuret Pep 10/29/18 10/29/18 10/29/18 01:00 01:00 06:55 Creatine Kinase 58 60 CK-MB (CK-2) 1.95 Troponin I < 0.012 NT-Pro-B Natriuret Pep 10/29/18 06:55 Creatine Kinase CK-MB (CK-2) 1.80 Troponin I < 0.012 NT-Pro-B Natriuret Pep 326 Impressions: Chest X-Ray 10/28/18 13:23 IMPRESSION: Stable mild cardiomegaly. No acute infiltrates Assessment and Plan - Diagnosis (1) Chest pain Qualifiers: Chest pain type: unspecified Qualified Code(s): R07.9 - Chest pain, unspecified Is this a current diagnosis for this admission?: Yes Plan: Troponins have been negative. ECG unchanged. Not likely cardiac in nature. More likely GI in origin. She states she got upset with some of her care providers at the facility she has been at. She told them she was ill but they ignored her complaints. She is verbalizing that she does not want to go back there. Will co nsult discharge planning to develop discharge plan (2) Acute UTI Is this a current diagnosis for this admission?: Yes Plan: She has been started on Rocephin. Urine culture is pending (3) Anemia Qualifiers: Other causes of anemia: chronic disease, other Is this a current diagnosis for this admission?: Yes Plan: She has a normocytic anemia consistent with chronic disease. (4) Chronic renal failure Qualifiers: Chronic kidney disease stage: stage 3 (moderate) Qualified Code(s): N18.3 - Chronic kidney disease, stage 3 (moderate) Is this a current diagnosis for this admission?: Yes Plan: Her creatinine is at its baseline. (5) Diabetes Is this a current diagnosis for this admission?: Yes Plan: She had blood sugar of 54 this morning. She is 9.6. We will cut back her Lantus to 35 units. Tells me her appetite has not been normal at the present time. (6) Obesity (BMI 30.0-34.9) Is this a current diagnosis for this admission?: Yes (7) HTN (hypertension) Qualifiers: Hypertension type: essential hypertension Qualified Code(s): I10 - Essential (primary) hypertension Is this a current diagnosis for this admission?: Yes Plan: She is presently normotensive on current medications. - Time Time Spent with patient: 25-34 minutes Total Critical Time (Minutes): 20 Medications reviewed and adjusted accordingly: Yes Anticipated discharge: SNF - Inpatient Certification Based on my medical assessment, after consideration of the patient's comorbidities, presenting symptoms, or acuity I expect that the services needed warrant INPATIENT care.: Yes I certify that my determination is in accordance with my understanding of Medicare's requirements for reasonable and necessary INPATIENT services [42 CFR 412.3e].: Yes Medical Necessity: Need Close Monitoring Due to Risk of Patient Decompensation, Need For Continuous Telemetry Monitoring - Plan Summary Plan Summary: Discharge planning to facilitate discharge in the next 24 hrs
[2018-10-29] MEDS ORDERED: INSULIN DETEMIR 40 UNIT SUBCUT SCH (10:00)
[2018-10-29] MEDS ORDERED: INSULIN GLARGINE,HUM.REC.ANLOG 1,000 UNIT/10 ML VIAL SUBCUT SCH (10:00)
[2018-10-29] MEDS: AMLODIPINE BESYLATE 10 MG TABLET PO SCH (10:23)
[2018-10-29] MEDS: ASPIRIN 81 MG TABLET, ENT COATED PO SCH (10:23)
[2018-10-29] MEDS: DOCUSATE SODIUM 100 MG CAPSULE PO SCH ×2 (10:23→17:12)
[2018-10-29] MEDS: ENOXAPARIN SODIUM INJ 40 MG/0.4 ML DISP.SYRIN SUBCUT SCH (10:23)
[2018-10-29] MEDS: INSULIN GLARGINE,HUM.REC.ANLOG 1,000 UNIT/10 ML VIAL SUBCUT SCH (10:24)
--- NOTE | 2018-10-29 14:45 | EKG REPORT ---
SEVERITY:- ABNORMAL ECG - ATRIAL FIBRILLATION LEFT BUNDLE BRANCH BLOCK : Confirmed by: Mya Garibay MD 29-Oct-2018 14:44:37
[2018-10-29] MEDS ORDERED: CEFTRIAXONE 1 GM/D5W RTU 1 GM/50 ML RTUPB IV SCH (18:00)
[2018-10-30] MEDS: PANTOPRAZOLE SODIUM 40 MG TABLET.DR PO SCH (05:55)
[2018-10-30] MEDS: HYDRALAZINE HCL 25 MG TABLET PO SCH ×2 (05:55→13:23)
[2018-10-30 05:56] LABS: ANION GAP 8 (5-19); BLOOD UREA NITROGEN 22 mg/dL (7-20); CALCIUM 8.8 mg/dL (8.4-10.2); CARBON DIOXIDE 22 mmol/L (22-30); CHLORIDE 110 mmol/L (98-107); SODIUM 139.7 mmol/L (137-145)
[2018-10-30 06:10] LABS: POTASSIUM 5.1 mmol/L (3.6-5.0)
[2018-10-30 06:11] LABS: GLUCOSE 60 mg/dL (75-110)
[2018-10-30] MEDS: INSULIN LISPRO 100 UNIT/ML 3 ML VIAL SUBCUT SCH ×2 (07:45→11:36)
[2018-10-30] MEDS: ENOXAPARIN SODIUM INJ 40 MG/0.4 ML DISP.SYRIN SUBCUT SCH (09:40)
[2018-10-30] MEDS: ASPIRIN 81 MG TABLET, ENT COATED PO SCH (09:41)
[2018-10-30] MEDS: INSULIN GLARGINE,HUM.REC.ANLOG 1,000 UNIT/10 ML VIAL SUBCUT SCH (09:41)
[2018-10-30] MEDS: AMLODIPINE BESYLATE 10 MG TABLET PO SCH (09:42)
[2018-10-30] MEDS: DOCUSATE SODIUM 100 MG CAPSULE PO SCH (09:42)
--- NOTE | 2018-10-30 11:22 | PDOC DISCHARGE SUMMARY ---
General - Admit/Disc Date/PCP Admission Date/Primary Care Provider: 10/28/18 16:48 Discharge Date: 10/30/18 - Discharge Diagnosis (1) Chest pain Is this a current diagnosis for this admission?: Yes (2) Acute UTI Is this a current diagnosis for this admission?: Yes (3) Anemia Is this a current diagnosis for this admission?: Yes (4) Chronic renal failure Is this a current diagnosis for this admission?: Yes (5) Diabetes Is this a current diagnosis for this admission?: Yes (6) Obesity (BMI 30.0-34.9) Is this a current diagnosis for this admission?: Yes (7) HTN (hypertension) Is this a current diagnosis for this admission?: Yes - Additional Information Resuscitation Status: Full Code Home Medications: Amlodipine Besylate [Norvasc 10 mg Tablet] 10 mg PO DAILY 09/02/18 Insulin Detemir [Levemir Insulin 100 units/mL] 20 unit SUBCUT Q12 09/02/18 Aspirin [Ecotrin 81 mg EC Tablet] 81 mg PO DAILY tabec 09/07/18 Docusate Sodium [Colace 100 mg Capsule] 100 mg PO BID capsule 09/07/18 Hydralazine HCl [Apresoline 25 mg Tablet] 25 mg PO Q8 #90 tablet 09/07/18 History of Present Illness Patient complains of: Chest pain History of Present Illness: GLENIS CERVANTES is a 83 year old female with a past medical history significant for uncontrolled diabetes mellitus, chronic kidney disease stage III and hypertension. She was recently admitted to this facility in September where she was treated for urinary tract infection and acute on chronic renal failure. The patient has been at a detention facility and she was brought to the hospital today due to chest pain and hypothermia. The patient's chest pain resolved after taking nitroglycerin and aspirin. She is chest pain-free at the time of my visit. She is not a very good historian but is able to tell me that she thinks she was recently treated for pneumonia at the detention facility. She also states that she is been having some burning when she urinates for a few days. Otherwise she tends to ramble in a good review of systems could not be obtained Hospital Course Hospital Course: GLENIS CERVANTES is a 83 year old female with a past medical history significant for uncontrolled diabetes mellitus, chronic kidney disease stage III and hypertension. She was recently admitted to this facility in September where she was treated for urinary tract infection and acute on chronic renal failure. The patient has been at a detention facility and she was brought to the hospital today due to chest pain and hypothermia. The patient's chest pain resolved after taking nitroglycerin and aspirin. Serial troponins were all negative. She had no further chest pain. She complained of dysuria. Urinalysis was obtained which showed leukocytes and blood. She was started on IV trazodone with urine culture pending. Urine culture was negative for any organisms. The IV antibiotics were stopped. She feels well today vitals are stable labs are normal she feels ready for discharge back to [facility]. Physical Exam Vital Signs: Temp Pulse Resp BP Pulse Ox 97.8 F 68 19 149/47 H 98 10/30/18 07:24 10/30/18 07:24 10/30/18 07:24 10/30/18 07:24 10/30/18 07:24 Intake & Output 10/29/18 10/30/18 10/31/18 06:59 06:59 06:59 Intake Total 0 767 Output Total 950 Balance 0 -183 Weight 93.9 kg 94.6 kg General appearance: PRESENT: obese Head exam: PRESENT: atraumatic, normocephalic Eye exam: PRESENT: conjunctiva pink, EOMI, PERRLA. ABSENT: scleral icterus Ear exam: PRESENT: bleeding Mouth exam: PRESENT: moist, tongue midline Neck exam: ABSENT: carotid bruit, JVD, lymphadenopathy, thyromegaly Respiratory exam: PRESENT: clear to auscultation maribel. ABSENT: rales, rhonchi, wheezes Cardiovascular exam: PRESENT: RRR. ABSENT: diastolic murmur, rubs, systolic murmur Pulses: PRESENT: normal dorsalis pedis pul Vascular exam: PRESENT: normal capillary refill GI/Abdominal exam: PRESENT: normal bowel sounds, soft. ABSENT: distended, guarding, mass, organolmegaly, rebound, tenderness Rectal exam: PRESENT: deferred Extremities exam: PRESENT: full ROM. ABSENT: calf tenderness, clubbing, pedal edema Musculoskeletal exam: PRESENT: ambulatory Neurological exam: PRESENT: alert, awake, oriented to person, oriented to place, oriented to time, oriented to situation, CN II-XII grossly intact. ABSENT: motor sensory deficit Psychiatric exam: PRESENT: appropriate affect, normal mood. ABSENT: homicidal ideation, suicidal ideation Skin exam: PRESENT: dry, intact, warm. ABSENT: cyanosis, rash Results Laboratory Results: 10/29/18 06:55 10/30/18 05:00 10/30/18 05:00 Sodium 139.7 Potassium 5.1 H Chloride 110 H Carbon Dioxide 22 Anion Gap 8 BUN 22 H Creatinine 1.33 H Est GFR ( Amer) 46 L Est GFR (Non-Af Amer) 38 L Glucose 60 L Calcium 8.8 10/28/18 10/28/18 10/28/18 13:55 20:10 20:10 Creatine Kinase 67 CK-MB (CK-2) 2.23 Troponin I < 0.012 < 0.012 NT-Pro-B Natriuret Pep 10/29/18 10/29/18 10/29/18 01:00 01:00 06:55 Creatine Kinase 58 60 CK-MB (CK-2) 1.95 Troponin I < 0.012 NT-Pro-B Natriuret Pep 10/29/18 06:55 Creatine Kinase CK-MB (CK-2) 1.80 Troponin I < 0.012 NT-Pro-B Natriuret Pep 326 Impressions: Chest X-Ray 10/28/18 13:23 IMPRESSION: Stable mild cardiomegaly. No acute infiltrates Qualifiers - * PATIENT BEING DISCHARGED WITH ANY OF THE FOLLOWING DIAGNOSIS: No Plan Discharge Plan: Return to [facility]
[2018-10-30 12:27] VITALS: BP 149/51
== END 2018-10-30 14:49 | DRG 690 ==
LOC: ER 13:10 → EH 16:48 → 4W 20:50
PROVIDERS: ADMIT Internal Medicine; ATTEND Internal Medicine
DX: N39.0 Urinary tract infection, site not specified (principal); E11.22 Type 2 diabetes mellitus with diabetic chronic kidney disease; T68.XXXA Hypothermia, initial encounter; E11.65 Type 2 diabetes mellitus with hyperglycemia; Z68.30 Body mass index [BMI] 30.0-30.9, adult; E66.9 Obesity, unspecified; I12.9 Hypertensive chronic kidney disease with stage 1 through stage 4 chronic kidney disease, or unspecified chronic kidney disease; D63.1 Anemia in chronic kidney disease; E78.5 Hyperlipidemia, unspecified; N18.3 Chronic kidney disease, stage 3 (moderate); Z79.82 Long term (current) use of aspirin; Z79.899 Other long term (current) drug therapy; Z90.49 Acquired absence of other specified parts of digestive tract; Z90.710 Acquired absence of both cervix and uterus; Z79.4 Long term (current) use of insulin; Z82.49 Family history of ischemic heart disease and other diseases of the circulatory system
CPT/HCPCS: 36415; 51701; 71045; 80048; 80053; 81001; 82550; 82553; 82962; 83036; 83605; 83735; 83880; 84100; 84484; 85025; 87040; 87086; 93005; 93010; 96361; 96365; 99285; J0696; J1650; J1815; J3490; J7030

== ENCOUNTER → 2019-03-09 | Outpatient (CLI) | payer MEDICARE ==
--- NOTE | 2019-03-09 11:55 | RADIOLOGY REPORT (SQ) ---
EXAM DESCRIPTION: U/S RETROPERITON (RENAL/AORTA) COMPLETED DATE/TIME: 03/09/2019 11:43 am REASON FOR STUDY: N18.2 CHRONIC KIDNEY DISEASE, STAGE 2 (MILD) N18.2 CHRONIC KIDNEY DISEASE, STAGE 2 (MILD) COMPARISON: CT abdomen pelvis 02/24/2018 TECHNIQUE: Dynamic and static grayscale images acquired of the kidneys and bladder and recorded on P ACS. Additional selected color Doppler and spectral images recorded. LIMITATIONS: None. FINDINGS: RIGHT KIDNEY: Normal size, 9.2 cm in length. Normal echogenicity. No solid or suspicious m asses. No hydronephrosis. No calcifications. LEFT KIDNEY: Normal size, 10.1 cm in length. Normal echogenicity. No solid or suspicious masses. No hydronephrosis. No calcifications. BLADDER: No masses. Debris layers dependently in the bladder. Prevoid bladder volume 457 mL. No po stvoid bladder volume was obtained. OTHER FINDINGS: No other significant finding. IMPRESSION: NORMAL RENAL AND BLADDER ULTRASOUND. TECHNICAL DOCUMENTATION: JOB ID: [id number] [employer]- All Rights Reserved Reading location - IP/workstation name: [email or web address]
== END ==
LOC: RAD 10:22
PROVIDERS: ATTEND Internal Medicine Nephrology
DX: I12.9 Hypertensive chronic kidney disease with stage 1 through stage 4 chronic kidney disease, or unspecified chronic kidney disease (principal); N18.2 Chronic kidney disease, stage 2 (mild)
CPT/HCPCS: 76770

== ENCOUNTER 2019-08-05 23:21 | Inpatient (IN) | payer MEDICARE, MEDICAID ==
[2019-08-06 03:58] LABS: ABSOLUTE EOSINOPHILS # (AUTO) 0.3 10^3/uL (0.0-0.6); ABSOLUTE LYMPHOCYTES (AUTO) 2.1 10^3/uL (0.5-4.7); ABSOLUTE MONOCYTES (AUTO) 0.4 10^3/uL (0.1-1.4); ABSOLUTE NEUT (AUTO) 2.7 10^3/uL (1.7-8.2); BASOPHILS % (AUTO) 0.8 % (0-2); EOSINOPHILS % (AUTO) 5.7 % (0-6); HEMATOCRIT 28.6 % (36.0-47.0); HEMOGLOBIN 9.3 g/dL (12.0-15.5); LYMPHOCYTES % (AUTO) 37.3 % (13-45); MEAN CORPUSCULAR HEMOGLOBIN 27.7 pg (27.0-33.4); MEAN CORPUSCULAR HGB CONC 32.5 g/dL (32.0-36.0); MEAN CORPUSCULAR VOLUME 85 fl (80-97); MONOCYTES % (AUTO) 7.2 % (3-13); PLATELET COUNT 263 10^3/uL (150-450); RED BLOOD COUNT 3.36 10^6/uL (3.72-5.28); RED CELL DISTRIBUTION WIDTH 18.1 % (11.5-14.0); TOTAL CELLS COUNTED % (AUTO) 100 %; WHITE BLOOD COUNT 5.6 10^3/uL (4.0-10.5)
[2019-08-06 05:53] LABS: ALBUMIN 3.2 g/dL (3.5-5.0); ALKALINE PHOSPHATASE 73 U/L (38-126); ANION GAP 6 (5-19); ASPARTATE AMINO TRANSFERASE 21 U/L (14-36); BILIRUBIN,DIRECT 0.2 mg/dL (0.0-0.4); BILIRUBIN,TOTAL 0.2 mg/dL (0.2-1.3); BLOOD UREA NITROGEN 37 mg/dL (7-20); CALCIUM 8.8 mg/dL (8.4-10.2); CARBON DIOXIDE 25 mmol/L (22-30); CHLORIDE 109 mmol/L (98-107); GLUCOSE 91 mg/dL (75-110); POTASSIUM 5.6 mmol/L (3.6-5.0); TOTAL PROTEIN 6.9 g/dL (6.3-8.2)
--- NOTE | 2019-08-06 06:28 | ER Document Report ---
ED GI/ - General Mode of Arrival: Medic Information source: Patient TRAVEL OUTSIDE OF THE [place] IN LAST 30 DAYS: No - HPI Patient complains to provider of: Vaginal bleeding Onset: This evening Timing/Duration: Sudden Quality of pain: No pain Pain Level: Denies Vaginal bleeding (Compared to normal period): Bright red, Passing clots Menstrual period history: Post-menopausal Associated symptoms: Other Exacerbated by: Denies Relieved by: Denies Similar symptoms previously: No Recently seen / treated by doctor: No - Related Data Home Medications: milk of mag. multi vitamin. norvasc. trazadone. victoza <MARY VILLANUEVA - Last Filed: 08/06/19 10:29> <JACQUELIN WASHBURN - Last Filed: 08/06/19 14:29> - General Chief Complaint: Vaginal Bleeding Stated Complaint: ABDOMINAL PAIN/VAGINAL BLEEDING Time Seen by Provider: 08/06/19 05:35 Notes: 84-year-old female presented to ED for complaint of vaginal bleeding. She states that at the longterm they went to change her diaper and found blood in the diaper asked her why she was having blood then she states she did not know she had had a hysterectomy long time ago. Patient denies any pain or discomfort (MARY VILLANUEVA) - Related Data Allergies/Adverse Reactions: No Known Allergies Allergy (Verified 10/28/18 16:31) Past Medical History - General Information source: Patient - Social History Smoking Status: Former Smoker Chew tobacco use (# tins/day): No Frequency of alcohol use: None Drug Abuse: None Lives with: Snf Family History: None, Reviewed & Not Pertinent, Hypertension Patient has suicidal ideation: No Patient has homicidal ideation: No - Past Medical History Cardiac Medical History: Reports: Hx Congestive Heart Failure, Hx Hypercholesterolemia, Hx Hypertension Pulmonary Medical History: Reports: None EENT Medical History: Reports: None Neurological Medical History: Reports: None Endocrine Medical History: Reports: Hx Diabetes Mellitus Type 2 Renal/ Medical History: Reports: Other - Kidney disease stage III Malignancy Medical History: Reports: None GI Medical History: Reports: Hx Diverticulitis, Hx Colonoscopy, Hx Endoscopy Musculoskeletal Medical History: Reports Hx Arthritis, Reports Hx Musculoskeletal Deformity Skin Medical History: Reports None Psychiatric Medical History: Reports: None Traumatic Medical History: Reports: None Infectious Medical History: Reports: None Past Surgical History: Reports: Hx Cholecystectomy, Hx Hysterectomy <MARY VILLANUEVA - Last Filed: 08/06/19 10:29> Review of Systems - Review of Systems Constitutional: No symptoms reported EENT: No symptoms reported Cardiovascular: No symptoms reported Respiratory: No symptoms reported Gastrointestinal: No symptoms reported Genitourinary: No symptoms reported Female Genitourinary: Post menopausal, Vaginal bleeding Musculoskeletal: No symptoms reported Skin: No symptoms reported Hematologic/Lymphatic: No symptoms reported Neurological/Psychological: No symptoms reported -: Yes All other systems reviewed and negative <MARY VILLANUEVA - Last Filed: 08/06/19 10:29> Physical Exam - Vital signs Interpretation: Normal - General General appearance: Appears well, Alert - HEENT Head: Normocephalic, Atraumatic Eyes: Normal Pupils: PERRL - Respiratory Respiratory status: No respiratory distress Chest status: Nontender Breath sounds: Normal Chest palpation: Normal - Cardiovascular Rhythm: Regular Heart sounds: Normal auscultation Murmur: No - Abdominal Inspection: Normal Distension: No distension Bowel sounds: Normal Tenderness: Nontender. No: Tender Organomegaly: No organomegaly - Genitourinary External exam: Normal Speculum exam: Other - Post hysterectomy Vaginal bleeding: None Bimanuel exam: Other - Post hysterectomy - Back Back: Normal, Nontender - Extremities General upper extremity: Normal inspection, Nontender, Normal color, Normal ROM, Normal temperature General lower extremity: Normal inspection, Nontender, Normal color, Normal ROM, Normal temperature, Normal weight bearing. No: Gil's sign - Neurological Neuro grossly intact: Yes Cognition: Normal Orientation: AAOx4 [place]lin Coma Scale Eye Opening: Spontaneous [place] Coma Scale Verbal: Oriented [place] Coma Scale Motor: Obeys Commands [place]lin Coma Scale Total: 15 Speech: Normal Motor strength normal: LUE, RUE, LLE, RLE Sensory: Normal - Psychological Associated symptoms: Normal affect, Normal mood - Skin Skin Temperature: Warm Skin Moisture: Dry Skin Color: Normal <MARY VILLANUEVA - Last Filed: 08/06/19 10:29> - Vital signs Vitals: Temp Pulse Resp BP Pulse Ox 98.0 F 71 18 147/51 H 97 08/05/19 23:30 08/05/19 23:30 08/05/19 23:30 08/05/19 23:30 08/05/19 23:30 - Genitourinary Notes: Pelvic was treated due to blood in the diaper. There is no blood in the vaginal vault but when catheter was attempted it was pure blood. (MARY VILLANUEVA) Course - Laboratory Result Diagrams: 08/06/19 03:43 08/06/19 03:43 - Diagnostic Test Radiology reviewed: Image reviewed, Reports reviewed <MARY VILLANUEVA - Last Filed: 08/06/19 10:29> - Laboratory Result Diagrams: 08/06/19 03:43 08/06/19 11:10 <JACQUELIN WASHBURN - Last Filed: 08/06/19 14:29> - Re-evaluation Re-evalutation: 08/06/19 10:30 Pelvic exam was negative. Staff attempted a in and out cath earlier and were not able to get any urine blood came around the catheter. CT did not show any acute changes except for air in and out of the Dugan. Discussed all findings with Dr. Warren. Three-way Dugan was inserted and irrigation started. At first urine would not flow even with the irrigation and rest it was forcefully irrigated and suction with the syringe. After about 600 cc of irrigation with saline the three-way irrigation did start the flow. Patient stated that she did start to have abdominal pain after the irrigation was running. I have turned the patient over to Jacquelin Washburn [facility] (MARY VILLANUEVA) 08/06/19 10:35 I assumed care of the patient at this time. Patient is resting comfortably on stretcher without any tachycardia, hypotension. Patient is currently receiving three-way continuous bladder irrigation. The nurse reports that the patient has received 1500 mL's of sterile saline via the Dugan catheter and has had 16 mL's of output. There does appear to be intermittent clots. I did irrigate the Dugan catheter as the flow was starting to slow down and the patient was complaining of bladder discomfort. I did remove multiple small clots. Bladder irrigation was resumed and a large amount of drainage was noted. We will continue to monitor. Coags and a repeat BMP was added at this time. Will reevaluate the potassium level. Patient does have a history of a kidney disease without history of dialysis. Once lab work is back will consider transferring to another facility as we do not have urology here. 08/06/19 11:40 Upon reevaluation patient is resting comfortably on stretcher. Patient does not have a tachycardia, hypotension. Patient has received continuous bladder irrigation. All clots removed at this time. Dugan is patent. Patient urine is pink in color without noticeable blood clots. Will obtain a urinalysis when appropriate. Will call [facility] for possible transfer as we do not have urology here. Patient normally incontinent. 08/06/19 12:20 I did speak with Esperanza Allen [facility], with the [place] [facility] who does recommend obtaining a UA and consulting with Urology. [facility] did call me back and stated the Urologist is in surgery and will call me back. Patient stable at this time. Will attempt to obtain urinalysis from dugan catheter. Potassium 5.9, this has increased, will order appropriate medications to correct hyperkalemia. 08/06/19 12:39 I did speak with Dr. Da Lake, urology information technology technician for [facility] to discuss patient case including lab work and CT. He does recommend keeping the catheter in place and having strict follow-up with urology. He reports that it sounds like the patient has hemorrhagic cystitis. He does recommend obtaining a urine culture and to potentially keep patient overnight for evaluation and to monitor for continued bleeding but at this time does not believe the patient needs to be transferred for urology services. Urinalysis is pending at this time. Will consult hospitalist Esper[facility] Allen once these results are received. 08/06/19 14:12 Patient's urine sample did show moderate amount of leuks. Urine culture has been added. I did speak with [facility] Allen who will admit to the hospital for hemorrhagic cystitis and urinary tract infection. Will initiate IV antibiotics. Patient continues to have the three-way Dugan catheter in place. This is patent. The urine in the Dugan tube is appearing more red indicative of the hematuria with scant clotting. We will continue to monitor. Patient may req uire more continuous bladder irrigation. Patient is not tachycardic and has a heart rate of 67, blood pressure 164/78 and O2 is 99% on room air. Patient is alert but remains a poor historian. Patient aware of admission. (JACQUELIN WASHBURN) - Vital Signs Vital signs: Temp Pulse Resp BP Pulse Ox 98.7 F 71 14 187/58 H 99 08/06/19 07:00 08/05/19 23:30 08/06/19 12:01 08/06/19 12:01 08/06/19 12:01 - Laboratory Laboratory results interpreted by me: 08/06/19 08/06/19 08/06/19 03:43 03:43 11:10 RBC 3.36 L Hgb 9.3 L Hct 28.6 L RDW 18.1 H Potassium 5.6 H 5.9 H Chloride 109 H 109 H BUN 37 H 36 H Creatinine 1.28 H Est GFR ( Amer) 48 L 50 L Est GFR (MDRD) Non-Af 40 L 41 L Glucose 71 L POC Glucose Albumin 3.2 L Urine Protein Urine Blood Ur Leukocyte Esterase Urine Ascorbic Acid 08/06/19 08/06/19 12:42 13:38 RBC Hgb Hct RDW Potassium Chloride BUN Creatinine Est GFR ( Amer) Est GFR (MDRD) Non-Af Glucose POC Glucose 111 H Albumin Urine Protein 100 H Urine Blood LARGE H Ur Leukocyte Esterase MODERATE H Urine Ascorbic Acid 40 H - EKG Interpretation by Me Additional EKG results interpreted by me: 08/06/19 14:27 Patient's EKG shows a sinus rhythm with a heart rate of 70, MD interval is 214, QT 444. Patient does have a left axis deviation without ST segment changes in consecutive leads. There is no peaking of T waves. (JACQUELIN WASHBURN) Discharge <MARY VILLANUEVA - Last Filed: 08/06/19 10:29> - Discharge Admitting Provider: Litzy (Hospitalist) Unit Admitted: Telemetry <JACQUELIN WASHBURN - Last Filed: 08/06/19 14:29> - Discharge Clinical Impression: Urinary (tract) obstruction Hematuria Qualifiers: Hematuria type: gross Qualified Code(s): R31.0 - Gross hematuria Type 2 diabetes mellitus Qualifiers: Diabetes mellitus senior living insulin use: with termite exterminator use Diabetes mellitus complication status: with other specified complication Qualified Code(s): E11.69 - Type 2 diabetes mellitus with other specified complication Chronic renal failure Qualifiers: Chronic kidney disease stage: stage 3 (moderate) Qualified Code(s): N18.3 - Chronic kidney disease, stage 3 (moderate) Condition: Stable Disposition: ADMITTED OBSERVATION
--- NOTE | 2019-08-06 08:57 | RADIOLOGY REPORT (SQ) ---
EXAM DESCRIPTION: CT ABD/PELVIS NO ORAL OR IV COMPLETED DATE/TIME: 08/06/2019 8:14 am REASON FOR STUDY: Gross hematuria COMPARISON: 02/24/2018 TECHNIQUE: CT scan of the abdomen and pelvis performed without intravenous or oral contrast. Images reviewed with lung, soft tissue, and bone windows. Reconstructed coronal and sagittal MPR images revi ewed. All images stored on PACS. All CT scanners at this facility use dose modulation, iterative reconstruction, and/or weight based d osing when appropriate to reduce radiation dose to as low as reasonably achievable (ALARA). [facility]: Dose Right [facility]: CareDose [facility]: Dose Right [facility]: Teradose 4D [facility]: Smart BioSET RADIATION DOSE: CT Rad equipment meets quality standard of care and radiation dose reduction techniq ues were employed. CTDIvol: 17.5 mGy. DLP: 953 mGy-cm.mGy. LIMITATIONS: Positioning. FINDINGS: LOWER CHEST: No significant findings. No nodules or infiltrates. NON-CONTRASTED LIVER, SPLEEN, ADRENALS: Evaluation limited by lack of IV contrast. No identified sign ificant masses. PANCREAS: No masses. No peripancreatic inflammatory changes. GALLBLADDER: Surgically absent. RIGHT KIDNEY AND URETER: No suspicious masses. Assessment limited by lack of IV contrast. No signif icant calcifications. No hydronephrosis or hydroureter. LEFT KIDNEY AND URETER: No suspicious masses. Assessment limited by lack of IV contrast. No signifi cant calcifications. No hydronephrosis or hydroureter. AORTA AND RETROPERITONEUM: No aneurysm. No retroperitoneal masses or adenopathy. BOWEL AND PERITONEAL CAVITY: Abundant fecal material throughout nondilated colon. Sigmoid diverticul osis. No obvious masses or inflammatory changes. No free fluid. APPENDIX: Not visualized. PELVIS, BLADDER, AND ABDOMINAL WALL:Dependent and nondependent gas in the urinary bladder. BONES: No significant findings. OTHER: No other significant finding. IMPRESSION: Nondependent gas in the urinary bladder, not typically due to catheterization. Possible emphysematous cystitis or fistula. Correlation with urinalysis is needed. COMMENT: Quality ID # [id number]: Final reports with documentation of one or more dose reduction techniques (e.g., Automated exposure control, adjustment of the mA and/or kV according to patient size, use of iterative reconstruction technique) TECHNICAL DOCUMENTATION: JOB ID: [id number]- All Rights Reserved Reading location - IP/workstation name: [email or web address]
[2019-08-06 11:15] LABS: INTERNATIONAL RATION (INR) 1.05; PARTIAL THROMBOPLASTIN TIME 27.7 SEC (23.5-35.8); PROTHROMBIN TIME 13.8 SEC (11.4-15.4)
[2019-08-06 11:53] LABS: BLOOD UREA NITROGEN 36 mg/dL (7-20); CALCIUM 8.7 mg/dL (8.4-10.2); GLUCOSE 71 mg/dL (75-110); POTASSIUM 5.9 mmol/L (3.6-5.0)
[2019-08-06 11:59] LABS: ANION GAP 5 (5-19); CARBON DIOXIDE 24 mmol/L (22-30); CHLORIDE 109 mmol/L (98-107)
[2019-08-06] MEDS ORDERED: SODIUM POLYSTYRENE SULFONATE 15 GM/60 ML PO ONE (12:07)
[2019-08-06] MEDS ORDERED: INSULIN REG, HUMAN 100 UNIT/ML 3 ML VIAL (PYX) IV ONE (12:07)
[2019-08-06] MEDS ORDERED: DEXTROSE 50%-WATER 25 GM/50 ML DISP.SYRIN IV ONE (12:07)
[2019-08-06] MEDS ORDERED: CALCIUM GLUCONATE 1000 MG/10 ML INJ IV ONE (12:07)
[2019-08-06 13:51] LABS: APPEARANCE,URINE TURBID; BILIRUBIN,URINE NEGATIVE (NEGATIVE); COLOR,URINE RED; GLUCOSE, URINE NEGATIVE (NEGATIVE); KETONES,URINE NEGATIVE (NEGATIVE); LEUKOCYTE ESTERASE,URINE MODERATE (NEGATIVE); NITRITE,URINE NEGATIVE (NEGATIVE); PROTEIN,URINE 100 mg/dL (NEGATIVE); URINE SPECIFIC GRAVITY 1.016; UROBILINOGEN,URINE NEGATIVE mg/dL (<2.0)
[2019-08-06] MEDS ORDERED: CEFTRIAXONE 1 GM/D5W RTU 1 GM/50 ML RTUPB IV ONE (14:12)
[2019-08-06] MEDS ORDERED: MAG HYDROX/AL HYDROX/SIMETH SUSP 30 ML UDCUP PO PRN (16:14)
[2019-08-06] MEDS ORDERED: ONDANSETRON HCL INJ/PF 4 MG/2 ML SDV IV PRN (16:14)
[2019-08-06] MEDS ORDERED: ACETAMINOPHEN 325 MG TABLET PO PRN (16:14)
[2019-08-06] MEDS ORDERED: ALBUTEROL SULFATE 0.083% NEB 2.5 MG/3 ML AMPUL NEB PRN (16:14)
[2019-08-06] MEDS ORDERED: GLUCAGON,HUMAN RECOMB 1 MG INJ IM PRN (16:20)
[2019-08-06] MEDS ORDERED: DEXTROSE 50%-WATER 25 GM/50 ML DISP.SYRIN IV PRN ×2 (16:20)
[2019-08-06] MEDS ORDERED: HYDRALAZINE HCL INJ/PF 20 MG/1 ML SDV IV PRN (16:20)
[2019-08-06] MEDS ORDERED: DEXTROSE 40% GEL 15 GM TUBE PO PRN ×2 (16:20)
--- NOTE | 2019-08-06 16:38 | PDOC H&P ---
History of Present Illness Admission Date/PCP: 08/06/19 14:24 Patient complains of: Hematuria, suprapubic abdominal discomfort History of Present Illness: GLENIS CERVANTES is a 84 year old female with a past medical history significant for CKD 3, hypertension, insulin-dependent diabetes mellitus, anemia, obesity, depression, and dementia who is a long-term care resident at [facility] and in the custody of [facility] who presented to the emergency department today with a complaint of gross hematuria and suprapubic abdominal discomfort. Evaluation in the emergency department revealed hypertension but otherwise stable vital signs, hemoglobin of 9.3 (at baseline), normal coagulation study, baseline CKD 3, hyperkalemia (potassium 5.9), and urinalysis positive for protein, blood, and leukoesterase. CT abdomen pelvis demonstrated nondependent gas in the urinary bladder, possible emphysematous cystitis or fistula. Emergency department provider spoke with urology at [facility] who recommended empiric antibiotics and CBI with overnight observation. Appropriate for outpatient follow-up. Therefore she is referred to the hospitalist service for admission and management of the above-stated complaints and findings. Past Medical History Cardiac Medical History: Reports: Congestive Heart Failure, Hyperlipidema, Hype rtension Denies: Myocardial Infarction Pulmonary Medical History: Reports: None EENT Medical History: Reports: None Neurological Medical History: Reports: None Endocrine Medical History: Reports: Diabetes Mellitus Type 2, Obesity Renal/ Medical History: Reports: Chronic Kidney Disease Malignancy Medical History: Reports: None GI Medical History: Reports: Diverticulitis Denies: Hepatitis Musculoskeltal Medical History: Reports: Arthritis Skin Medical History: Reports: None Psychiatric Medical History: Reports: Dementia, Depression Traumatic Medical History: Reports: None Hematology: Denies: Hemophilia, Sickle Cell Disease Infectious Medical History: Reports: None Past Surgical History Past Surgical History: Reports: Cholecystectomy, Hysterectomy Social History Information Source: Patient, [facility] Records, Outside Facility Records Lives with: Skilled Nursing Smoking Status: Former Smoker Electronic Cigarette use?: No Frequency of Alcohol Use: None Hx Recreational Drug Use: No Drugs: None Hx Prescription Drug Abuse: No - Advance Directive Resuscitation Status: Full Code Family History Family History: None, Reviewed & Not Pertinent, Hypertension Parental Family History Reviewed: No - Patient unable to report Children Family History Reviewed: NA Sibling(s) Family History Reviewed.: NA Medication/Allergy Home Medications: Amlodipine Besylate [Norvasc 10 mg Tablet] 10 mg PO DAILY 09/02/18 Insulin Detemir [Levemir Insulin 100 units/mL Insulin Pen] 20 unit SUBCUT Q12 09/02/18 Aspirin [Ecotrin 81 mg EC Tablet] 81 mg PO DAILY tabec 09/07/18 Docusate Sodium [Colace 100 mg Capsule] 100 mg PO BID capsule 09/07/18 Hydralazine HCl [Apresoline 25 mg Tablet] 25 mg PO Q8 #90 tablet 09/07/18 Allergies/Adverse Reactions: No Known Allergies Allergy (Verified 10/28/18 16:31) Review of Systems Constitutional: ABSENT: chills, fever(s), headache(s), weight gain, weight loss Eyes: ABSENT: visual disturbances Ears: ABSENT: hearing changes Cardiovascular: ABSENT: chest pain, dyspnea on exertion, edema, orthropnea, palpitations Respiratory: ABSENT: cough, hemoptysis Gastrointestinal: PRESENT: abdominal pain, nausea. ABSENT: constipation, diarrhea, hematemesis, hematochezia, vomiting Genitourinary: PRESENT: hematuria. ABSENT: dysuria Musculoskeletal: ABSENT: joint swelling Integumentary: ABSENT: rash, wounds Neurological: ABSENT: abnormal gait, abnormal speech, confusion, dizziness, focal weakness, syncope Psychiatric: ABSENT: anxiety, depression, homidical ideation, suicidal ideation Endocrine: ABSENT: cold intolerance, heat intolerance, polydipsia, polyuria Hematologic/Lymphatic: ABSENT: easy bleeding, easy bruising Physical Exam Vital Signs: Temp Pulse Resp BP Pulse Ox 98.7 F 71 14 164/68 H 98 08/06/19 07:00 08/05/19 23:30 08/06/19 15:00 08/06/19 14:01 08/06/19 15:00 Intake & Output 08/05/19 08/06/19 08/07/19 06:59 06:59 06:59 Intake Total 50 Output Total 400 Balance -350 Weight 95.254 kg General appearance: PRESENT: no acute distress, cooperative, obese - I, well-developed, well-nourished Head exam: PRESENT: atraumatic, normocephalic Eye exam: PRESENT: conjunctiva pink, EOMI, PERRLA. ABSENT: scleral icterus Ear exam: PRESENT: normal external ear exam Mouth exam: PRESENT: moist, tongue midline Respiratory exam: PRESENT: clear to auscultation maribel, symmetrical, unlabored. ABSENT: rales, rhonchi, wheezes Cardiovascular exam: PRESENT: RRR, +S1, +S2. ABSENT: diastolic murmur, rubs, systolic murmur Pulses: PRESENT: normal dorsalis pedis pul Vascular exam: PRESENT: normal capillary refill GI/Abdominal exam: PRESENT: normal bowel sounds, soft, tenderness - Suprapubic abdominal discomfort. ABSENT: distended, guarding, mass, organolmegaly, rebound Rectal exam: PRESENT: deferred Gentrourinary exam: PRESENT: indwelling catheter - CBI Extremities exam: PRESENT: full ROM. ABSENT: calf tenderness, clubbing, pedal edema Neurological exam: PRESENT: alert, awake, oriented to person, oriented to place, oriented to situation, CN II-XII grossly intact. ABSENT: oriented to time, motor sensory deficit Psychiatric exam: PRESENT: appropriate affect, normal mood. ABSENT: homicidal ideation, suicidal ideation Skin exam: PRESENT: dry, intact, warm. ABSENT: cyanosis, rash Results Laboratory Results: 08/06/19 03:43 08/06/19 11:10 08/06/19 08/06/19 08/06/19 03:43 03:43 11:10 WBC 5.6 RBC 3.36 L Hgb 9.3 L Hct 28.6 L MCV 85 MCH 27.7 MCHC 32.5 RDW 18.1 H Plt Count 263 Seg Neutrophils % 49.0 Sodium 140.1 137.6 Potassium 5.6 H 5.9 H Chloride 109 H 109 H Carbon Dioxide 25 24 Anion Gap 6 5 BUN 37 H 36 H Creatinine 1.28 H 1.24 Est GFR ( Amer) 48 L 50 L Glucose 91 71 L Calcium 8.8 8.7 Total Bilirubin 0.2 AST 21 Alkaline Phosphatase 73 Total Protein 6.9 Albumin 3.2 L Urine Color Urine Appearance Urine pH Ur Specific Paden Urine Protein Urine Glucose (UA) Urine Ketones Urine Blood Urine Nitrite Ur Leukocyte Esterase Urine WBC (Auto) Urine RBC (Auto) 08/06/19 12:42 WBC RBC Hgb Hct MCV MCH MCHC RDW Plt Count Seg Neutrophils % Sodium Potassium Chloride Carbon Dioxide Anion Gap BUN Creatinine Est GFR ( Amer) Glucose Calcium Total Bilirubin AST Alkaline Phosphatase Total Protein Albumin Urine Color RED Urine Appearance TURBID Urine pH 5.0 Ur Specific Paden 1.016 Urine Protein 100 H Urine Glucose (UA) NEGATIVE Urine Ketones NEGATIVE Urine Blood LARGE H Urine Nitrite NEGATIVE Ur Leukocyte Esterase MODERATE H Urine WBC (Auto) 0 Urine RBC (Auto) 4 Impressions: Abdomen/Pelvis CT 08/06/19 07:41 IMPRESSION: Nondependent gas in the urinary bladder, not typically due to ca theterization. Possible emphysematous cystitis or fistula. Correlation with urinalysis is needed. Assessment and Plan - Diagnosis (1) Hematuria Qualifiers: Hematuria type: gross Qualified Code(s): R31.0 - Gross hematuria Is this a current diagnosis for this admission?: Yes Plan: Emergency department provider spoke with urology at [facility]; recommended CBI, empiric treatment for UTI, and outpatient follow-up. Urinalysis shows protein, blood, and leuk esterase. Urine culture pending. Patient is admitted to the medical floor. She is empirically placed on IV Rocephin. We will continue CBI; titrate flow to clear. Outpatient follow-up with urology. (2) Chronic renal failure Qualifiers: Chronic kidney disease stage: stage 3 (moderate) Qualified Code(s): N18.3 - Chronic kidney disease, stage 3 (moderate) Is this a current diagnosis for this admission?: Yes Plan: Currently at baseline renal function (creatinine 1.24, BUN 36, EGFR 50). Avoid nephrotoxic medications as able. Daily chemistries. (3) Type 2 diabetes mellitus Qualifiers: Diabetes mellitus long chain dyeing machine operator insulin use: with long chain dyeing machine operator use Diabetes mellitus complication status: with other specified complication Qualified Code(s): E11.69 - Type 2 diabetes mellitus with other specified complication; Z79.4 - terminal press operator (current) use of insulin Is this a current diagnosis for this admission?: Yes Plan: Patient is placed on a consistent carb/cardiac diet. Accu-Cheks AC at bedtime with Humalog sliding scale coverage. Hypoglycemia protocol in place. (4) Hyperkalemia Is this a current diagnosis for this admission?: Yes Plan: Potassium 5.9. EKG stable; no peaked T waves. Received IV fluid bolus, calcium gluconate, dextrose, and insulin per ED provider. Received Kayexalate x1 per ED provider. Continue IV fluids. Serial chemistries. - Time Time Spent with patient: 35 or more minutes Medications reviewed and adjusted accordingly: Yes Anticipated discharge: Home Within: within 48 hours
[2019-08-06 17:07] LABS: ANION GAP 5 (5-19); BLOOD UREA NITROGEN 34 mg/dL (7-20); CARBON DIOXIDE 25 mmol/L (22-30); CHLORIDE 107 mmol/L (98-107); GLUCOSE 84 mg/dL (75-110); POTASSIUM 5.5 mmol/L (3.6-5.0)
[2019-08-06] MEDS ORDERED: FUROSEMIDE INJ/PF 20 MG/2 ML SDV IV ONE (19:00)
[2019-08-06] MEDS ORDERED: LACTULOSE SYRUP 20 GM/30 ML UDCUP PO ONE (19:00)
[2019-08-06] MEDS: NORMAL SALINE 1000 ML 1,000 ML IV PRN (19:00)
--- NOTE | 2019-08-06 19:30 | EKG REPORT ---
SEVERITY:- ABNORMAL ECG - SINUS RHYTHM LEFT BUNDLE BRANCH BLOCK FIRST DEGREE AVB : Confirmed by: Dave Rivera MD 06-Aug-2019 19:29:17
[2019-08-06] MEDS: FAMOTIDINE 20 MG TABLET PO SCH (21:14)
[2019-08-06] MEDS: INSULIN LISPRO 100 UNIT/ML 3 ML VIAL SUBCUT SCH (21:14)
[2019-08-06] MEDS ORDERED: FAMOTIDINE 20 MG TABLET PO SCH (22:00)
[2019-08-07 01:19] LABS: ANION GAP 5 (5-19); BLOOD UREA NITROGEN 36 mg/dL (7-20); CALCIUM 8.2 mg/dL (8.4-10.2); CARBON DIOXIDE 24 mmol/L (22-30); CHLORIDE 109 mmol/L (98-107); GLUCOSE 87 mg/dL (75-110); POTASSIUM 4.7 mmol/L (3.6-5.0)
[2019-08-07] MEDS: INSULIN LISPRO 100 UNIT/ML 3 ML VIAL SUBCUT SCH ×4 (07:17→21:20)
[2019-08-07] MEDS: NORMAL SALINE 1000 ML 1,000 ML IV PRN (08:08)
[2019-08-07 08:52] LABS: HEMATOCRIT 25.6 % (36.0-47.0); HEMOGLOBIN 8.5 g/dL (12.0-15.5); MEAN CORPUSCULAR HGB CONC 33.1 g/dL (32.0-36.0); MEAN CORPUSCULAR VOLUME 85 fl (80-97); PLATELET COUNT 206 10^3/uL (150-450); RED BLOOD COUNT 3.03 10^6/uL (3.72-5.28); RED CELL DISTRIBUTION WIDTH 17.3 % (11.5-14.0); WHITE BLOOD COUNT 5.2 10^3/uL (4.0-10.5)
[2019-08-07 09:12] LABS: ANION GAP 8 (5-19); BLOOD UREA NITROGEN 34 mg/dL (7-20); CALCIUM 8.2 mg/dL (8.4-10.2); CARBON DIOXIDE 23 mmol/L (22-30); CHLORIDE 108 mmol/L (98-107); GLUCOSE 86 mg/dL (75-110); POTASSIUM 4.3 mmol/L (3.6-5.0)
[2019-08-07] MEDS: HYDRALAZINE HCL 25 MG TABLET PO SCH ×4 (09:57→21:03)
[2019-08-07] MEDS: AMLODIPINE BESYLATE 10 MG TABLET PO SCH (09:57)
[2019-08-07] MEDS: DOCUSATE SODIUM 100 MG CAPSULE PO SCH (09:57)
[2019-08-07] MEDS: CITALOPRAM HYDROBROMIDE 20 MG TABLET PO SCH (09:58)
[2019-08-07] MEDS: CEFTRIAXONE 1 GM/D5W RTU 1 GM/50 ML RTUPB IV SCH (11:19)
--- NOTE | 2019-08-07 18:32 | PDOC PROGRESS REPORT ---
Subjective Progress Note for:: 08/07/19 Subjective:: GLENIS CERVANTES is a 84 year old female with a past medical history significant for CKD 3, hypertension, insulin-dependent diabetes mellitus, anemia, obesity, depression, and dementia who is a long-term care resident at [facility] and in the custody of [facility] who was admitted with urinary tract infection, acute urinary retention, and hematuria. Patient was seen on morning rounds. She was found resting in bed, comfortably, on room air. She reports continued abdominal discomfort, however, improved from yesterday. She reports good appetite today. She denies fever, chills, chest pain, palpitations, dyspnea, nausea and vomiting. She has no questions or concerns at this time. No concerns per nursing. Reason For Visit: HEMATURIA, HYPERKALEMIA Physical Exam Vital Signs: Temp Pulse Resp BP Pulse Ox 97.7 F 66 16 146/61 H 97 08/07/19 12:00 08/07/19 17:36 08/07/19 17:36 08/07/19 12:00 08/07/19 17:36 Intake & Output 08/06/19 08/07/19 08/08/19 06:59 06:59 06:59 Intake Total 390 1748 Output Total 850 Balance -460 1748 Weight 95.254 kg 95.9 kg General appearance: PRESENT: no acute distress, cooperative, obese, well- developed, well-nourished Head exam: PRESENT: atraumatic, normocephalic Eye exam: PRESENT: conjunctiva pink, EOMI, PERRLA. ABSENT: scleral icterus Ear exam: PRESENT: normal external ear exam Mouth exam: PRESENT: moist, tongue midline Teeth exam: PRESENT: poor dentation Respiratory exam: PRESENT: clear to auscultation maribel, symmetrical, unlabored. ABSENT: rales, rhonchi, wheezes Cardiovascular exam: PRESENT: RRR, +S1, +S2. ABSENT: diastolic murmur, rubs, systolic murmur Pulses: PRESENT: normal dorsalis pedis pul Vascular exam: PRESENT: normal capillary refill GI/Abdominal exam: PRESENT: normal bowel sounds, soft, tenderness - Suprapubic. ABSENT: distended, guarding, mass, organolmegaly, rebound Rectal exam: PRESENT: deferred Gentrourinary exam: PRESENT: indwelling catheter Extremities exam: PRESENT: full ROM. ABSENT: calf tenderness, clubbing, pedal edema Neurological exam: PRESENT: alert, awake, oriented to person, oriented to situation, CN II-XII grossly intact, other - Pleasantly confused, forgetful. ABSENT: motor sensory deficit Psychiatric exam: PRESENT: appropriate affect, normal mood. ABSENT: homicidal ideation, suicidal ideation Skin exam: PRESENT: dry, intact, warm. ABSENT: cyanosis, rash Results Laboratory Results: 08/07/19 07:57 08/07/19 07:57 08/07/19 08/07/19 08/07/19 00:32 07:57 07:57 WBC 5.2 RBC 3.03 L Hgb 8.5 L Hct 25.6 L MCV 85 MCH 28.0 MCHC 33.1 RDW 17.3 H Plt Count 206 Sodium 138.4 138.9 Potassium 4.7 4.3 Chloride 109 H 108 H Carbon Dioxide 24 23 Anion Gap 5 8 BUN 36 H 34 H Creatinine 1.30 H 1.32 H Est GFR ( Amer) 47 L 47 L Glucose 87 86 Calcium 8.2 L 8.2 L Impressions: Abdomen/Pelvis CT 08/06/19 07:41 IMPRESSION: Nondependent gas in the urinary bladder, not typically due to catheterization. Possible emphysematous cystitis or fistula. Correlation with urinalysis is needed. Assessment and Plan - Diagnosis (1) Hematuria Qualifiers: Hematuria type: gross Qualified Code(s): R31.0 - Gross hematuria Is this a current diagnosis for this admission?: Yes Plan: Improved; secondary to UTI. Urinalysis shows protein, blood, and leuk esterase. Urine culture shows gram-negative rods Patient is admitted to the medical floor. She is empirically placed on IV Rocephin. We will continue CBI; titrate flow to clear. Outpatient follow-up with urology. (2) Chronic renal failure Qualifiers: Chronic kidney disease stage: stage 3 (moderate) Qualified Code(s): N18.3 - Chronic kidney disease, stage 3 (moderate) Is this a current diagnosis for this admission?: Yes Plan: Currently at baseline renal function (creatinine 1.24, BUN 36, EGFR 50). Avoid nephrotoxic medications as able. Daily chemistries. (3) Type 2 diabetes mellitus Qualifiers: Diabetes mellitus terminal supervisor insulin use: with terminal supervisor use Diabetes mellitus complication status: with other specified complication Qualified Code(s): E11.69 - Type 2 diabetes mellitus with other specified complication; Z79.4 - penitentiary (current) use of insulin Is this a current diagnosis for this admission?: Yes Plan: Patient is placed on a consistent carb/cardiac diet. Accu-Cheks AC at bedtime with Humalog sliding scale coverage. Hypoglycemia protocol in place. (4) Hyperkalemia Is this a current diagnosis for this admission?: Yes Plan: Potassium 5.9. EKG stable; no peaked T waves. Received IV fluid bolus, calcium gluconate, dextrose, and insulin per ED pro vider. Received Kayexalate x1 per ED provider. Continue IV fluids. Serial chemistries. (5) UTI (urinary tract infection) Qualifiers: Urinary tract infection type: acute cystitis Hematuria presence: with hematuria Qualified Code(s): N30.01 - Acute cystitis with hematuria Is this a current diagnosis for this admission?: Yes Plan: Urinalysis suggest UTI. Urine culture shows gram-negative rods. Continue empiric Rocephin. (6) Acute urinary retention Is this a current diagnosis for this admission?: Yes Plan: Secondary to #1. Evaluation management as above. - Time Time Spent with patient: 25-34 minutes Medications reviewed and adjusted accordingly: Yes Anticipated discharge: Home Within: within 48 hours
[2019-08-07] MEDS: FAMOTIDINE 20 MG TABLET PO SCH (21:03)
[2019-08-08] MEDS: NORMAL SALINE 1000 ML 1,000 ML IV PRN (01:10)
[2019-08-08 06:06] LABS: HEMATOCRIT 24.7 % (36.0-47.0); HEMOGLOBIN 8.3 g/dL (12.0-15.5); MEAN CORPUSCULAR HEMOGLOBIN 28.1 pg (27.0-33.4); MEAN CORPUSCULAR HGB CONC 33.6 g/dL (32.0-36.0); MEAN CORPUSCULAR VOLUME 84 fl (80-97); PLATELET COUNT 199 10^3/uL (150-450); RED BLOOD COUNT 2.95 10^6/uL (3.72-5.28); RED CELL DISTRIBUTION WIDTH 16.9 % (11.5-14.0); WHITE BLOOD COUNT 5.3 10^3/uL (4.0-10.5)
[2019-08-08 06:31] LABS: ANION GAP 5 (5-19); BLOOD UREA NITROGEN 27 mg/dL (7-20); CARBON DIOXIDE 23 mmol/L (22-30); CHLORIDE 109 mmol/L (98-107); GLUCOSE 137 mg/dL (75-110); POTASSIUM 4.2 mmol/L (3.6-5.0)
[2019-08-08] MEDS: INSULIN LISPRO 100 UNIT/ML 3 ML VIAL SUBCUT SCH ×3 (07:40→16:44)
[2019-08-08] MEDS: CITALOPRAM HYDROBROMIDE 20 MG TABLET PO SCH (09:32)
[2019-08-08] MEDS: DOCUSATE SODIUM 100 MG CAPSULE PO SCH (09:32)
[2019-08-08] MEDS: AMLODIPINE BESYLATE 10 MG TABLET PO SCH (09:32)
[2019-08-08] MEDS: HYDRALAZINE HCL 25 MG TABLET PO SCH ×3 (09:32→17:41)
[2019-08-08] MEDS: CEFTRIAXONE 1 GM/D5W RTU 1 GM/50 ML RTUPB IV SCH (11:32)
--- NOTE | 2019-08-08 15:07 | PDOC DISCHARGE SUMMARY ---
Impression - Admit/DC Date/PCP Admission Date/Primary Care Provider: 08/06/19 18:34 Discharge Date: 08/08/19 - Discharge Diagnosis (1) Hematuria Is this a current diagnosis for this admission?: Yes (2) Chronic renal failure Is this a current diagnosis for this admission?: Yes (3) Type 2 diabetes mellitus Is this a current diagnosis for this admission?: Yes (4) Hyperkalemia Is this a current diagnosis for this admission?: Yes (5) UTI (urinary tract infection) Is this a current diagnosis for this admission?: Yes (6) Acute urinary retention Is this a current diagnosis for this admission?: Yes - Additional Information Resuscitation Status: Full Code Discharge Diet: Cardiac, Diabetic Discharge Activity: Activity As Tolerated, Balance Activity w/Rest, Supervised Activity Referrals: Paty Addison [Outside] (Follow up with [facility] within 2-4 weeks for hematuria resulting in acute urinary retention. [phone] [address] [place] [address]) Prescriptions: Ciprofloxacin HCl [Cipro 500 mg Tablet] 500 mg PO BID #10 tablet Phenazopyridine HCl [Pyridium 100 Mg Tablet] 100 mg PO Q8HP PRN #9 tablet PRN Reason: Home Medications: Amlodipine Besylate [Norvasc 10 mg Tablet] 10 mg PO DAILY 09/02/18 Aspirin [Ecotrin 81 mg EC Tablet] 81 mg PO DAILY tabec 09/07/18 Citalopram Hydrobromide [Celexa 20 mg Tablet] 20 mg PO DAILY 08/06/19 Hydralazine HCl [Apresoline 25 mg Tablet] 25 mg PO QID 08/06/19 Acetaminophen [Tylenol 325 mg Tablet] 325 mg PO Q4HP PRN tablet 08/08/19 Ciprofloxacin HCl [Cipro 500 mg Tablet] 500 mg PO BID #10 tablet 08/08/19 Phenazopyridine HCl [Pyridium 100 Mg Tablet] 100 mg PO Q8HP PRN #9 tablet 08/08/19 History of Present Illiness History of Present Illness: GLENIS CERVANTES is a 84 year old female with a past medical history significant for CKD 3, hypertension, insulin-dependent diabetes mellitus, anemia, obesity, depression, and dementia who is a long-term care resident at [facility] and in the custody of [facility] who presented to the emergency department today with a complaint of gross hematuria and suprapubic abdominal discomfort. Evaluation in the emergency department revealed hypertension but otherwise stable vital signs, hemoglobin of 9.3 (at baseline), normal coagulation study, baseline CKD 3, hyperkalemia (potassium 5.9), and urinalysis positive for protein, blood, and leukoesterase. CT abdomen pelvis demonstrated nondependent gas in the urinary bladder, possible emphysematous cystitis or fistula. Emergency department provider spoke with urology at [facility] who recommended empiric antibiotics and CBI with overnight observation. Appropriate for outpatient follow-up. Therefore she is referred to the hospitalist service for admission and management of the above-stated complaints and findings. Hospital Course Hospital Course: The patient was admitted to the medical floor on continuous cardiac telemetry. Urinalysis revealed UTI; urine culture Confirms E. coli. Patient had empirically been placed on IV Rocephin; received 3 doses. She is transition to p.o. Cipro for an additional 5 days initially required continuous bladder is resulting in acute urinary retention bladder irrigation was gradually titrated off and she has not required irrigation or flushing for 24 hours; she does continue to have small clots and sediment. Therefore, she is discharged with Ugarte catheter in place. Follow-up with urologist in 2 to 4 weeks after completion of course of antibiotic therapy. Patient's other chronic medical conditions otherwise remained stable. Patient is discharged in stable condition to [facility] where she is an established resident. Complete course of ciprofloxacin. P.o. Pyridium as needed for suprapubic discomfort. Follow-up with primary care provider within 1 week. Follow-up with urologist in 2 to 4 weeks. Return the emergency department as needed for concerning symptoms. Physical Exam Vital Signs: Temp Pulse Resp BP Pulse Ox 97.6 F 64 16 142/50 H 100 08/08/19 11:20 08/08/19 11:20 08/08/19 11:20 08/08/19 11:20 08/08/19 11:20 Intake & Output 08/07/19 08/08/19 08/09/19 06:59 06:59 06:59 Intake Total 390 3515 290 Output Total 850 1550 400 Balance -460 1965 -110 Weight 95.9 kg 97.6 kg General appearance: PRESENT: no acute distress, cooperative, obese, well- developed, well-nourished Head exam: PRESENT: atraumatic, normocephalic Eye exam: PRESENT: conjunctiva pink, EOMI, PERRLA. ABSENT: scleral icterus Ear exam: PRESENT: normal external ear exam Mouth exam: PRESENT: moist, tongue midline Respiratory exam: PRESENT: clear to auscultation maribel, symmetrical, unlabored. ABSENT: rales, rhonchi, wheezes Cardiovascular exam: PRESENT: RRR, +S1, +S2. ABSENT: diastolic murmur, rubs, systolic murmur Pulses: PRESENT: normal dorsalis pedis pul Vascular exam: PRESENT: normal capillary refill GI/Abdominal exam: PRESENT: normal bowel sounds, soft. ABSENT: distended, guarding, mass, organolmegaly, rebound, tenderness Rectal exam: PRESENT: deferred Gentrourinary exam: PRESENT: indwelling catheter Extremities exam: PRESENT: full ROM. ABSENT: calf tenderness, clubbing, pedal edema Neurological exam: PRESENT: alert, awake, oriented to person, oriented to place, oriented to situation, CN II-XII grossly intact, other - Intermittently pleasantly confused. ABSENT: motor sensory deficit Psychiatric exam: PRESENT: appropriate affect, normal mood. ABSENT: homicidal ideation, suicidal ideation Skin exam: PRESENT: dry, intact, warm. ABSENT: cyanosis, rash Results Laboratory Results: WBC 5.3 10^3/uL (4.0-10.5) 08/08/19 05:51 RBC 2.95 10^6/uL (3.72-5.28) L 08/08/19 05:51 Hgb 8.3 g/dL (12.0-15.5) L 08/08/19 05:51 Hct 24.7 % (36.0-47.0) L 08/08/19 05:51 MCV 84 fl (80-97) 08/08/19 05:51 MCH 28.1 pg (27.0-33.4) 08/08/19 05:51 MCHC 33.6 g/dL (32.0-36.0) 08/08/19 05:51 RDW 16.9 % (11.5-14.0) H 08/08/19 05:51 Plt Count 199 10^3/uL (150-450) 08/08/19 05:51 Lymph % (Auto) 37.3 % (13-45) 08/06/19 03:43 Lea % (Auto) 7.2 % (3-13) 08/06/19 03:43 Eos % (Auto) 5.7 % (0-6) 08/06/19 03:43 Baso % (Auto) 0.8 % (0-2) 08/06/19 03:43 Absolute Neuts (auto) 2.7 10^3/uL (1.7-8.2) 08/06/19 03:43 Absolute Lymphs (auto) 2.1 10^3/uL (0.5-4.7) 08/06/19 03:43 Absolute Monos (auto) 0.4 10^3/uL (0.1-1.4) 08/06/19 03:43 Absolute Eos (auto) 0.3 10^3/uL (0.0-0.6) 08/06/19 03:43 Absolute Basos (auto) 0.0 10^3/uL (0.0-0.2) 08/06/19 03:43 Seg Neutrophils % 49.0 % (42-78) 08/06/19 03:43 PT 13.8 SEC (11.4-15.4) 08/06/19 10:47 INR 1.05 08/06/19 10:47 APTT 27.7 SEC (23.5-35.8) 08/06/19 10:47 Sodium 137.4 mmol/L (137-145) 08/08/19 05:51 Potassium 4.2 mmol/L (3.6-5.0) 08/08/19 05:51 Chloride 109 mmol/L (98-107) H 08/08/19 05:51 Carbon Dioxide 23 mmol/L (22-30) 08/08/19 05:51 Anion Gap 5 (5-19) 08/08/19 05:51 BUN 27 mg/dL (7-20) H 08/08/19 05:51 Creatinine 1.08 mg/dL (0.52-1.25) 08/08/19 05:51 Est GFR ( Amer) 59 (>60) L 08/08/19 05:51 Est GFR (MDRD) Non-Af 49 (>60) L 08/08/19 05:51 Glucose 137 mg/dL (75-110) H 08/08/19 05:51 POC Glucose 200 mg/dL (70-110) H 08/08/19 11:21 Calcium 8.0 mg/dL (8.4-10.2) L 08/08/19 05:51 Total Bilirubin 0.2 mg/dL (0.2-1.3) 08/06/19 03:43 Direct Bilirubin 0.2 mg/dL (0.0-0.4) 08/06/19 03:43 Neonat Total Bilirubin Not Reportable 08/06/19 03:43 Neonat Direct Bilirubin Not Reportable 08/06/19 03:43 Neonat Indirect Bili Not Reportable 08/06/19 03:43 AST 21 U/L (14-36) 08/06/19 03:43 ALT 13 U/L (<35) 08/06/19 03:43 Alkaline Phosphatase 73 U/L (38-126) 08/06/19 03:43 Total Protein 6.9 g/dL (6.3-8.2) 08/06/19 03:43 Albumin 3.2 g/dL (3.5-5.0) L 08/06/19 03:43 Urine Color RED 08/06/19 12:42 Urine Appearance TURBID 08/06/19 12:42 Urine pH 5.0 (5.0-9.0) 08/06/19 12:42 Ur Specific Howells 1.016 08/06/19 12:42 Urine Protein 100 mg/dL (NEGATIVE) H 08/06/19 12:42 Urine Glucose (UA) NEGATIVE mg/dL (NEGATIVE) 08/06/19 12:42 Urine Ketones NEGATIVE mg/dL (NEGATIVE) 08/06/19 12:42 Urine Blood LARGE (NEGATIVE) H 08/06/19 12:42 Urine Nitrite NEGATIVE (NEGATIVE) 08/06/19 12:42 Urine Bilirubin NEGATIVE (NEGATIVE) 08/06/19 12:42 Urine Urobilinogen NEGATIVE mg/dL (<2.0) 08/06/19 12:42 Ur Leukocyte Esterase MODERATE (NEGATIVE) H 08/06/19 12:42 Urine WBC (Auto) 0 /HPF 08/06/19 12:42 Urine RBC (Auto) 4 /HPF 08/06/19 12:42 Urine Mucus (Auto) RARE /LPF 08/06/19 12:42 Urine Ascorbic Acid 40 (NEGATIVE) H 08/06/19 12:42 Impressions: Abdomen/Pelvis CT 08/06/19 07:41 IMPRESSION: Nondependent gas in the urinary bladder, not typically due to catheterization. Possible emphysematous cystitis or fistula. Correlation with urinalysis is needed. Plan Plan of Treatment: The patient is discharged in stable condition. She is to return to [facility] where she is an established resident. Discharged with Ugarte in place; flush as needed. Follow-up with urology in 2 to 4 weeks. Complete course of antibiotic therapy. Return to the emergency department as needed for concerning symptoms. Time Spent: Greater than 30 Minutes Stroke Is this a Stroke Patient?: No Acute Heart Failure - Is this a Heart Failure Patient?: No
[2019-08-08 18:10] VITALS: BP 152/48
== END 2019-08-08 18:25 | DRG 690 ==
LOC: ER 23:21 → EH 08-06 14:24 → 4S 08-06 15:46 → OBSVTOIN 08-06 18:34
PROVIDERS: ADMIT Internal Medicine; ATTEND Internal Medicine
DX: N30.01 Acute cystitis with hematuria (principal); D63.1 Anemia in chronic kidney disease; F03.90 Unspecified dementia, unspecified severity, without behavioral disturbance, psychotic disturbance, mood disturbance, and anxiety; N18.3 Chronic kidney disease, stage 3 (moderate); E11.22 Type 2 diabetes mellitus with diabetic chronic kidney disease; E66.9 Obesity, unspecified; B96.20 Unspecified Escherichia coli [E. coli] as the cause of diseases classified elsewhere; E87.5 Hyperkalemia; I12.9 Hypertensive chronic kidney disease with stage 1 through stage 4 chronic kidney disease, or unspecified chronic kidney disease; F32.9 Major depressive disorder, single episode, unspecified; M19.90 Unspecified osteoarthritis, unspecified site; Z79.82 Long term (current) use of aspirin; Z87.891 Personal history of nicotine dependence; Z82.49 Family history of ischemic heart disease and other diseases of the circulatory system
CPT/HCPCS: 36415; 51701; 51702; 74176; 80048; 80053; 81001; 82962; 85025; 85027; 85610; 85730; 87086; 87088; 87186; 93005; 93010; 96365; 96375; 99285; C1758; J0610; J0696; J1815; J1940; J3490; J7030

== ENCOUNTER → 2019-08-11 | Outpatient (CLI) | payer MEDICARE, MEDICAID ==
--- NOTE | 2019-08-11 12:41 | RADIOLOGY REPORT (SQ) ---
EXAM DESCRIPTION: U/S RETROPERITON (RENAL/AORTA) COMPLETED DATE/TIME: 08/11/2019 12:12 pm REASON FOR STUDY: HEMATURIA (R31.0) R31.9 HEMATURIA, UNSPECIFIED R31.0 GROSS HEMATURIA COMPARISON: CT of the abdomen and pelvis without contrast from 08/06/2019. TECHNIQUE: Dynamic and static grayscale images acquired of the kidneys and bladder and recorded on P ACS. Additional selected color Doppler and spectral images recorded. LIMITATIONS: None. FINDINGS: RIGHT KIDNEY: The right kidney measures 8.9 cm in length. The renal cortex is thinned. T here is no hydronephrosis or calcification. LEFT KIDNEY: The left kidney measures 10.2 cm in length. The renal cortex is thinned. There is no hydronephrosis or calcification. BLADDER: There is a Ugarte catheter within the urinary bladder. The echogenic debris within the bladd er lumen could in part represent clot. OTHER FINDINGS: No other finding. IMPRESSION: 1. Bilateral cortical thinning without hydronephrosis. 2. Echogenic debris within the urinary bladder that could in part represent clot. TECHNICAL DOCUMENTATION: JOB ID: [id number] [employer]- All Rights Reserved Reading location - IP/workstation name: [email or web address]
--- NOTE | 2019-08-11 12:45 | RADIOLOGY REPORT (SQ) ---
EXAM DESCRIPTION: U/S NON-OB PELVIS TV W/O DOP COMPLETED DATE/TIME: 08/11/2019 12:12 pm REASON FOR STUDY: POST MENOPAUSAL BLEEDING (N95.0) R31.9 HEMATURIA, UNSPECIFIED R31.0 GROSS HEMATU RAMSES COMPARISON: CT of the abdomen and pelvis without contrast from 08/06/2019. TECHNIQUE: Dynamic and static grayscale images acquired of the pelvis via transvaginal approach and recorded on PACS. Additional selected color Doppler and spectral images recorded. LIMITATIONS: None. FINDINGS: UTERUS: The uterus is surgically absent. CERVIX: The cervix measures 2.1 cm in length. RIGHT OVARY AND DOPPLER: Unable to visualize the right ovary. There is no adnexal mass. LEFT OVARY AND DOPPLER: Unable to visualize the left ovary. There is no adnexal mass. FREE FLUID: None noted. OTHER: The rectum is distended. There is a Ugarte catheter and echogenic debris within the urinary yanely dder. IMPRESSION: Limited pelvic ultrasound. The uterus is surgically absent. The ovaries were not visua lized. There is no adnexal mass. TECHNICAL DOCUMENTATION: JOB ID: [id number] [employer]- All Rights Reserved Rev-12/19 Reading location - IP/workstation name: [email or web address]
== END ==
LOC: RAD 10:12
PROVIDERS: ATTEND Family Medicine
DX: N95.0 Postmenopausal bleeding (principal); R31.0 Gross hematuria
CPT/HCPCS: 76770; 76830

== ENCOUNTER 2019-08-14 23:15 | Emergency (ER) | payer MEDICARE, MEDICAID ==
--- NOTE | 2019-08-14 23:36 | ER Document Report ---
ED Medical Screen (RME) - General Chief Complaint: Abnormal Lab Results Stated Complaint: ABNORMAL LABS Time Seen by Provider: 08/14/19 23:17 Primary Care Provider: KRYSTAL CALHOUN MD [Primary Care Provider] - Follow up as needed TRAVEL OUTSIDE OF THE [place] IN LAST 30 DAYS: No - HPI Notes: 08/14/19 23:35 84-year-old female to the emergency department by EMS from rehab facility for low H&H. Patient states that she has been feeling weak and has been noticing blood in her urine for the past several days. She states that it is very dark in color. She denies any chest pain or shortness of breath. EMS did not provide the values of her hemoglobin or hematocrit. Patient denies any nausea, vomiting, bloody emesis. I performed a brief medical screening exam on the patient determined that she will need further evaluation and management by me inside provider. I have ordered initial labs to help to aid in expediting her care. - Related Data Allergies/Adverse Reactions: No Known Allergies Allergy (Verified 10/28/18 16:31) Past Medical History - Past Medical History Cardiac Medical History: Reports: Hx Congestive Heart Failure, Hx Hypercholesterolemia, Hx Hypertension Denies: Hx Heart Attack Endocrine Medical History: Reports: Hx Diabetes Mellitus Type 2 Renal/ Medical History: Reports: Hx End Stage Renal Disease - STAGE 3 GI Medical History: Reports: Hx Diverticulitis, Hx Colonoscopy, Hx Endoscopy. Denies: Hx Hepatitis Musculoskeltal Medical History: Reports Hx Arthritis, Reports Hx Musculoskeletal Deformity Psychiatric Medical History: Reports: Hx Dementia, Hx Depression Infectious Medical History: Denies: Hx Hepatitis Past Surgical History: Reports: Hx Cholecystectomy, Hx Hysterectomy Physical Exam - Vital signs Vitals: Temp Pulse Resp BP Pulse Ox 98.1 F 71 20 159/56 H 100 08/14/19 23:32 08/14/19 23:32 08/14/19 23:32 08/14/19 23:32 08/14/19 23:32 Course - Vital Signs Vital signs: Temp Pulse Resp BP Pulse Ox 98.1 F 71 20 159/56 H 100 08/14/19 23:32 08/14/19 23:32 08/14/19 23:32 08/14/19 23:32 08/14/19 23:32 Doctor's Discharge - Discharge Referrals: KRYSTAL CALHOUN MD [Primary Care Provider] - Follow up as needed
[2019-08-15 00:04] LABS: ABSOLUTE BASOPHILS # (AUTO) 0.1 10^3/uL (0.0-0.2); ABSOLUTE EOSINOPHILS # (AUTO) 0.4 10^3/uL (0.0-0.6); ABSOLUTE LYMPHOCYTES (AUTO) 2.3 10^3/uL (0.5-4.7); ABSOLUTE MONOCYTES (AUTO) 0.5 10^3/uL (0.1-1.4); ABSOLUTE NEUT (AUTO) 4.4 10^3/uL (1.7-8.2); BASOPHILS % (AUTO) 0.8 % (0-2); EOSINOPHILS % (AUTO) 4.9 % (0-6); HEMATOCRIT 22.9 % (36.0-47.0); LYMPHOCYTES % (AUTO) 29.9 % (13-45); MEAN CORPUSCULAR HEMOGLOBIN 28.3 pg (27.0-33.4); MEAN CORPUSCULAR HGB CONC 32.9 g/dL (32.0-36.0); MEAN CORPUSCULAR VOLUME 86 fl (80-97); MONOCYTES % (AUTO) 7.2 % (3-13); PLATELET COUNT 276 10^3/uL (150-450); RED BLOOD COUNT 2.66 10^6/uL (3.72-5.28); RED CELL DISTRIBUTION WIDTH 17.5 % (11.5-14.0); SEGMENTED NEUTROPHILS % (AUTO) 57.2 % (42-78); TOTAL CELLS COUNTED % (AUTO) 100 %; WHITE BLOOD COUNT 7.6 10^3/uL (4.0-10.5)
[2019-08-15 00:05] LABS: HEMOGLOBIN 7.5 g/dL (12.0-15.5)
[2019-08-15 00:23] LABS: ALBUMIN 3.2 g/dL (3.5-5.0); ALKALINE PHOSPHATASE 68 U/L (38-126); ANION GAP 6 (5-19); ASPARTATE AMINO TRANSFERASE 20 U/L (14-36); BILIRUBIN,DIRECT 0.1 mg/dL (0.0-0.4); BILIRUBIN,TOTAL 0.1 mg/dL (0.2-1.3); BLOOD UREA NITROGEN 26 mg/dL (7-20); CALCIUM 8.4 mg/dL (8.4-10.2); CARBON DIOXIDE 25 mmol/L (22-30); CHLORIDE 104 mmol/L (98-107); CREATINE KINASE 45 U/L (30-135); GLUCOSE 180 mg/dL (75-110); POTASSIUM 4.8 mmol/L (3.6-5.0); TOTAL PROTEIN 6.7 g/dL (6.3-8.2)
[2019-08-15 00:34] LABS: CREATINE KINASE MB 0.47 ng/mL (<4.55); TROPONIN I 0.014 ng/mL
--- NOTE | 2019-08-15 00:46 | RADIOLOGY REPORT (SQ) ---
EXAM DESCRIPTION: XR CHEST 1 VIEW COMPLETED DATE/TME: 08/14/2019 00:00 CLINICAL HISTORY: 84 years, Female, LOW HGB COMPARISON: 10/28/2018 chest NUMBER OF VIEWS: 1 TECHNIQUE: Portable chest LIMITATIONS: None. FINDINGS: Cardiomegaly. This is stable. Osteopenia. Lungs are clear. No pneumothorax IMPRESSION: Stable cardiomegaly. Lungs are clear copyright 2011 [employer]- All Rights Reserved
--- NOTE | 2019-08-15 01:14 | ER Document Report ---
ED General - General Chief Complaint: Abnormal Lab Results Stated Complaint: ABNORMAL LABS Time Seen by Provider: 08/14/19 23:17 Primary Care Provider: KRYSTAL CALHOUN MD [Primary Care Provider] - Follow up as needed Mode of Arrival: Medic Information source: Patient Cannot obtain history due to: Dementia TRAVEL OUTSIDE OF THE [place] IN LAST 30 DAYS: No - HPI Onset: Other - last week patient was admitted to [facility] with hemorrhagic cystitis and anemia. She receive PRBC ataransfusion and left hospitial with hgb of 8.3. She was instructed to follow up with urology in 2 to 4 weeks. and a dugan catheter was left in place. Last PM nursing staff at [facility] noted she had blood in diapper and urine was again red color with blood. Currently hgb is 7.3. Microbiology disclosed that EColi bacteria in urine and is sensitive to cephalosporin. Onset/Duration: Gradual Severity: Mild Similar symptoms previously: Yes Recently seen / treated by doctor: No - Related Data Allergies/Adverse Reactions: No Known Allergies Allergy (Verified 10/28/18 16:31) Past Medical History - Social History Smoking Status: Never Smoker Lives with: Family Family History: None, Reviewed & Not Pertinent, Hypertension Patient has suicidal ideation: No Patient has homicidal ideation: No - Past Medical History Cardiac Medical History: Reports: Hx Congestive Heart Failure, Hx Hypercho lesterolemia, Hx Hypertension Denies: Hx Heart Attack Endocrine Medical History: Reports: Hx Diabetes Mellitus Type 2 Renal/ Medical History: Reports: Hx End Stage Renal Disease - STAGE 3 GI Medical History: Reports: Hx Diverticulitis, Hx Colonoscopy, Hx Endoscopy. Denies: Hx Hepatitis Musculoskeletal Medical History: Reports Hx Arthritis, Reports Hx Musculoskeletal Deformity Psychiatric Medical History: Reports: Hx Dementia, Hx Depression Infectious Medical History: Denies: Hx Hepatitis Past Surgical History: Reports: Hx Cholecystectomy, Hx Hysterectomy Physical Exam - Vital signs Vitals: Resp 14 08/14/19 23:13 Interpretation: Normal - General General appearance: Appears well, Alert, Other - obese - HEENT Head: Normocephalic, Atraumatic Eyes: Normal Pupils: PERRL - Respiratory Respiratory status: No respiratory distress Chest status: Nontender Breath sounds: Normal Chest palpation: Normal - Cardiovascular Rhythm: Regular Heart sounds: Normal auscultation Murmur: No - Abdominal Inspection: Normal Distension: No distension Bowel sounds: Normal Tenderness: Nontender Organomegaly: No organomegaly - Back Back: Normal, Nontender - Extremities General upper extremity: Normal inspection, Nontender, Normal color, Normal ROM, Normal temperature General lower extremity: Normal inspection, Nontender, Normal color, Normal ROM, Normal temperature, Normal weight bearing. No: Gil's sign - Neurological Neuro grossly intact: Yes Cognition: Normal Orientation: AAOx4 [place] Coma Scale Eye Opening: Spontaneous [place] Coma Scale Verbal: Oriented [place] Coma Scale Motor: Obeys Commands [place] Coma Scale Total: 15 Speech: Normal Motor strength normal: LUE, RUE, LLE, RLE Sensory: Normal - Psychological Associated symptoms: Normal affect, Normal mood - Skin Skin Temperature: Warm Skin Moisture: Dry Skin Color: Normal Course - Re-evaluation Re-evalutation: 08/15/19 05:33 receiving PRBC and once completed , [facility] will return to [facility]. Will include antibiotic and encourge Skilled Nursing staff to refer patient to urology services. 08/15/19 05:41 currently there has been no urine output in past 5 hours. - Vital Signs Vital signs: Temp Pulse Resp BP Pulse Ox 98.2 F 64 16 201/84 H 100 08/15/19 05:30 08/15/19 05:30 08/15/19 06:47 08/15/19 06:47 08/15/19 06:47 - Laboratory Result Diagrams: 08/14/19 23:37 08/14/19 23:37 Laboratory results interpreted by me: 08/14/19 08/14/19 08/14/19 23:37 23:37 23:37 RBC 2.66 L Hgb 7.5 L Hct 22.9 L RDW 17.5 H Sodium 134.5 L BUN 26 H Est GFR ( Amer) 56 L Est GFR (MDRD) Non-Af 47 L Glucose 180 H Total Bilirubin 0.1 L Albumin 3.2 L Crossmatch See Detail - Diagnostic Test Radiology reviewed: Image reviewed, Reports reviewed Discharge - Discharge Clinical Impression: Acute kidney injury superimposed on chronic kidney disease, Acute UTI, Chronic renal failure, Hematuria, UTI (urinary tract infection), Anemia Condition: Fair Disposition: REHAB FACILITY Additional Instructions: Begin Keflex for UTI, and encourage the fact that patient needs to have urology referral due to hemorrhagic cystitis. Our exam today required irrigation of bladder with a change in dugan catherter. However, we did not find hemorrhage in urine as was reported to us and reasons for her ED visit. Prescriptions: Cephalexin Monohydrate [Keflex 500 mg Capsule] 500 mg PO Q6H 5 Days capsule Referrals: KRYSTAL CALHOUN MD [Primary Care Provider] - Follow up as needed
[2019-08-15] MEDS ORDERED: CEFTRIAXONE INJ 1000 MG VIAL IV ONE (01:17)
[2019-08-15] MEDS ORDERED: NORMAL SALINE 500 ML IV ONE (01:19)
[2019-08-15] MEDS ORDERED: NORMAL SALINE 250 ML IV PRN ×3 (01:23→05:51)
--- NOTE | 2019-08-15 01:25 | ER Document Report ---
ED General - General Chief Complaint: Abnormal Lab Results Stated Complaint: ABNORMAL LABS Time Seen by Provider: 08/14/19 23:17 Primary Care Provider: KRYSTAL CALHOUN MD [Primary Care Provider] - Follow up as needed Mode of Arrival: Medic TRAVEL OUTSIDE OF THE [place] IN LAST 30 DAYS: No - Related Data Allergies/Adverse Reactions: No Known Allergies Allergy (Verified 10/28/18 16:31) Past Medical History - Social History Smoking Status: Never Smoker Family History: None, Reviewed & Not Pertinent, Hypertension Patient has suicidal ideation: No Patient has homicidal ideation: No - Past Medical History Cardiac Medical History: Reports: Hx Congestive Heart Failure, Hx Hypercholesterolemia, Hx Hypertension Denies: Hx Heart Attack Endocrine Medical History: Reports: Hx Diabetes Mellitus Type 2 Renal/ Medical History: Reports: Hx End Stage Renal Disease - STAGE 3 GI Medical History: Reports: Hx Diverticulitis, Hx Colonoscopy, Hx Endoscopy. Denies: Hx Hepatitis Musculoskeletal Medical History: Reports Hx Arthritis, Reports Hx Musculoskeletal Deformity Psychiatric Medical History: Reports: Hx Dementia, Hx Depression Infectious Medical History: Denies: Hx Hepatitis Past Surgical History: Reports: Hx Cholecystectomy, Hx Hysterectomy Physical Exam - Vital signs Vitals: Temp Pulse Resp BP Pulse Ox 98.1 F 71 20 159/56 H 100 08/14/19 23:32 08/14/19 23:32 08/14/19 23:32 08/14/19 23:32 08/14/19 23:32 Course - Vital Signs Vital signs: Temp Pulse Resp BP Pulse Ox 98.1 F 71 20 159/56 H 100 08/14/19 23:32 08/14/19 23:32 08/14/19 23:32 08/14/19 23:32 08/14/19 23:32 - Laboratory Result Diagrams: 08/14/19 23:37 08/14/19 23:37 Laboratory results interpreted by me: 08/14/19 08/14/19 08/14/19 23:37 23:37 23:37 RBC 2.66 L Hgb 7.5 L Hct 22.9 L RDW 17.5 H Sodium 134.5 L BUN 26 H Est GFR ( Amer) 56 L Est GFR (MDRD) Non-Af 47 L Glucose 180 H Total Bilirubin 0.1 L Albumin 3.2 L Crossmatch See Detail Discharge - Discharge Referrals: KRYSTAL CALHOUN MD [Primary Care Provider] - Follow up as needed
[2019-08-15 07:01] VITALS: BP 201/84
--- NOTE | 2019-08-15 17:35 | EKG REPORT ---
SEVERITY:- ABNORMAL ECG - SINUS RHYTHM FIRST DEGREE AV BLOCK LEFT BUNDLE BRANCH BLOCK : Confirmed by: Mayte Cuba 15-Aug-2019 17:34:41
== END 2019-08-15 07:39 ==
LOC: ER 23:15
DX: N17.9 Acute kidney failure, unspecified (principal); N39.0 Urinary tract infection, site not specified; D64.9 Anemia, unspecified; I13.0 Hypertensive heart and chronic kidney disease with heart failure and stage 1 through stage 4 chronic kidney disease, or unspecified chronic kidney disease; E11.22 Type 2 diabetes mellitus with diabetic chronic kidney disease; N18.3 Chronic kidney disease, stage 3 (moderate); I50.9 Heart failure, unspecified
CPT/HCPCS: 93005; 99285; 96361; 51702; 96365; 86900; 86901; 36415; 87040; 87086; 82553; 36430; 86850; 82550; 85025; 80053; 84484; 86920; 71045; 93010; P9016; J0696; J7040

== ENCOUNTER 2019-10-11 12:45 | Inpatient (IN) | payer MEDICARE, MEDICAID ==
[2019-10-11 13:23] LABS: ABSOLUTE BASOPHILS # (AUTO) 0.1 10^3/uL (0.0-0.2); ABSOLUTE EOSINOPHILS # (AUTO) 0.2 10^3/uL (0.0-0.6); ABSOLUTE LYMPHOCYTES (AUTO) 1.5 10^3/uL (0.5-4.7); ABSOLUTE MONOCYTES (AUTO) 0.7 10^3/uL (0.1-1.4); ABSOLUTE NEUT (AUTO) 3.7 10^3/uL (1.7-8.2); BASOPHILS % (AUTO) 1.1 % (0-2); EOSINOPHILS % (AUTO) 3.5 % (0-6); HEMATOCRIT 23.8 % (36.0-47.0); LYMPHOCYTES % (AUTO) 23.8 % (13-45); MEAN CORPUSCULAR HGB CONC 33.6 g/dL (32.0-36.0); MEAN CORPUSCULAR VOLUME 81 fl (80-97); MONOCYTES % (AUTO) 11.1 % (3-13); PLATELET COUNT 274 10^3/uL (150-450); RED BLOOD COUNT 2.96 10^6/uL (3.72-5.28); SEGMENTED NEUTROPHILS % (AUTO) 60.5 % (42-78); TOTAL CELLS COUNTED % (AUTO) 100 %; WHITE BLOOD COUNT 6.1 10^3/uL (4.0-10.5)
[2019-10-11 13:59] LABS: PROTHROMBIN TIME 14.2 SEC (11.4-15.4)
[2019-10-11 14:21] LABS: TROPONIN I 0.023 ng/mL
[2019-10-11 14:22] LABS: ALKALINE PHOSPHATASE 78 U/L (38-126); ANION GAP 5 (5-19); ASPARTATE AMINO TRANSFERASE 22 U/L (14-36); BILIRUBIN,DIRECT 0.3 mg/dL (0.0-0.4); BILIRUBIN,TOTAL 0.3 mg/dL (0.2-1.3); BLOOD UREA NITROGEN 19 mg/dL (7-20); CALCIUM 8.1 mg/dL (8.4-10.2); CARBON DIOXIDE 29 mmol/L (22-30); CHLORIDE 106 mmol/L (98-107); GLUCOSE 74 mg/dL (75-110); POTASSIUM 4.9 mmol/L (3.6-5.0); TOTAL PROTEIN 7.3 g/dL (6.3-8.2)
[2019-10-11 14:28] LABS: APPEARANCE,URINE CLEAR; BILIRUBIN,URINE NEGATIVE (NEGATIVE); COLOR,URINE YELLOW; GLUCOSE, URINE NEGATIVE (NEGATIVE); KETONES,URINE NEGATIVE (NEGATIVE); LEUKOCYTE ESTERASE,URINE NEGATIVE (NEGATIVE); NITRITE,URINE NEGATIVE (NEGATIVE); PROTEIN,URINE >=500 mg/dL (NEGATIVE); URINE SPECIFIC GRAVITY 1.015; UROBILINOGEN,URINE NEGATIVE mg/dL (<2.0)
--- NOTE | 2019-10-11 14:38 | RADIOLOGY REPORT (SQ) ---
EXAM DESCRIPTION: ACUTE ABDOMEN SERIES COMPLETED DATE/TIME: 10/11/2019 2:14 pm REASON FOR STUDY: sobr/abd pain COMPARISON: 08/06/2019 NUMBER OF VIEWS: Three views. TECHNIQUE: Frontal chest, supine abdomen and upright/decubitus abdomen radiographic images acquired. LIMITATIONS: None. FINDINGS: CHEST: Enlarged cardiac silhouette with bibasilar opacities. FREE AIR: None. No abnormal gas collections. BOWEL GAS PATTERN: Nonobstructive pattern. No dilated loops or air fluid levels. CALCIFICATIONS: No suspicious calcifications. Vascular calcifications. HARDWARE: Cholecystectomy clips. SOFT TISSUES: No gross mass or suggestion of organomegaly. BONES: No acute fracture. No worrisome bone lesions. Lower lumbar spondylosis and facet arthropathy . OTHER: No other significant finding. IMPRESSION: 1. Enlarged cardiac silhouette with ill-defined bibasilar opacities, possibly atelectas is or infection. 2. No evidence of intestinal obstruction or other acute intra-abdominal/pelvic process. TECHNICAL DOCUMENTATION: JOB ID: [id number] 2010 [employer]- All Rights Reserved Reading location - IP/workstation name: [email or web address]
--- NOTE | 2019-10-11 17:00 | ER Document Report ---
Entered by HARPREET ABBASI SCRIBE 10/11/19 1314 Acting as scribe for:LETICIA BYERS MD ED General - General Chief Complaint: Shortness Of Breath Stated Complaint: SHORTNESS OF BREATH Time Seen by Provider: 10/11/19 12:59 Primary Care Provider: KRYSTAL CALHOUN MD [Primary Care Provider] - Follow up as needed Information source: Patient Notes: 84-year-old female presents to the emergency department complaining of shortness of breath that began 2 days ago. Patient states that she feels she cannot "catch her breath". Patient reports leg swelling, dysuria, fatigue, cough, chills, weakness, LUQ abdomen pain and poor appetite. Patient reports that she has only had little water and juice since the start of her symptoms. Patient denies chest pain and fever. TRAVEL OUTSIDE OF THE [place] IN LAST 30 DAYS: No - Related Data Allergies/Adverse Reactions: No Known Allergies Allergy (Verified 10/28/18 16:31) Past Medical History - General Information source: Patient - Social History Smoking Status: Never Smoker Cigarette use (# per day): No Chew tobacco use (# tins/day): No Lives with: [facility] Family History: None, Hypertension - Past Medical History Cardiac Medical History: Reports: Hx Congestive Heart Failure, Hx Hypercholesterolemia, Hx Hypertension Endocrine Medical History: Reports: Hx Diabetes Mellitus Type 2 Renal/ Medical History: Reports: Hx End Stage Renal Disease - STAGE 3 GI Medical History: Reports: Hx Diverticulitis, Hx Colonoscopy, Hx Endoscopy Musculoskeletal Medical History: Reports Hx Arthritis, Reports Hx Muscul oskeletal Deformity Psychiatric Medical History: Reports: Hx Dementia, Hx Depression Past Surgical History: Reports: Hx Cholecystectomy, Hx Hysterectomy Review of Systems - Review of Systems Constitutional: See HPI, Chills, Weakness. denies: Fever EENT: No symptoms reported Cardiovascular: See HPI. denies: Chest pain Respiratory: See HPI, Cough, Short of breath Gastrointestinal: See HPI, Abdominal pain, Poor appetite Genitourinary: See HPI. denies: Dysuria Female Genitourinary: No symptoms reported Musculoskeletal: See HPI, Leg swelling Skin: No symptoms reported Hematologic/Lymphatic: No symptoms reported Neurological/Psychological: No symptoms reported -: Yes All other systems reviewed and negative Physical Exam - Vital signs Vitals: Resp Pulse Ox 18 100 10/11/19 12:49 10/11/19 12:49 - Notes Notes: Physical Exam: General: Alert, appears tearful. HEENT: Normocephalic. Atraumatic. PERRL. Extraocular movements intact. Oropharynx clear. Neck: Supple. Non-tender. Respiratory: No respiratory distress. Breath sounds diminished in basis. Cardiovascular: Regular rate and rhythm. Abdominal: LUQ tenderness to palpation. No distension. Normal Bowel Sounds. Back: No gross abnormalities. Extremities: Moves all four extremities. Upper extremities: Edema Normal ROM. Lower extremities: Non-pitting edema. Normal ROM. Neurological: Normal cognition. AAOx4. Normal speech. Psychological: Normal affect. Normal Mood. Skin: Warm. Dry. Normal color. Course - Re-evaluation Re-evalutation: 10/11/19 16:55 Patient lying in bed arousable but mostly sleeping. Patient voiced complaints of shortness of breath and a white productive cough. Patient was placed on 2 L nasal O2 because of a cough and fever x2days and sent in from [facility]. 10/11/19 16:59 Case discussed with hospitalist and PA done today is going to do the admission for Dr. Ramirez. - Vital Signs Vital signs: Temp Pulse Resp BP Pulse Ox 98.6 F 19 147/75 H 99 10/11/19 15:03 10/11/19 16:01 10/11/19 16:01 10/11/19 16:01 - Laboratory Result Diagrams: 10/11/19 13:00 10/11/19 13:00 Laboratory results interpreted by me: 10/11/19 10/11/19 10/11/19 13:00 13:00 13:00 RBC 2.96 L Hgb 8.0 L Hct 23.8 L RDW 17.0 H APTT 40.0 H Est GFR ( Amer) 53 L Est GFR (MDRD) Non-Af 44 L Glucose 74 L Calcium 8.1 L NT-Pro-B Natriuret Pep Albumin 3.0 L Urine Protein Urine Ascorbic Acid 10/11/19 10/11/19 13:00 13:40 RBC Hgb Hct RDW APTT Est GFR ( Amer) Est GFR (MDRD) Non-Af Glucose Calcium NT-Pro-B Natriuret Pep 1230 H Albumin Urine Protein >=500 H Urine Ascorbic Acid 20 H Mild elevation in invasion and troponin of 0.02. No acute ST elevations in EKG. Chest x-ray shows cardiomegaly and some vascular congestive markings but no acute infiltrate atelectasis noted in the bases. Patient saturations are 95 to 96% on room air therefore the oxygenation by nasal cannula was discontinued.This 20 year old female patient presents to the emergency department today with complaints of flu like symptoms including a cough, body aches, fevers, and vomiting. Urinalysis does not show any acute infection. - Diagnostic Test Radiology reviewed: Image reviewed, Reports reviewed Radiology results interpreted by me: 10/11/19 16:57 Acute abdominal series shows chest with cardiomegaly and congestive markings with some opacities in the bases consistent with atelectasis. Abdomen shows no obstructive or inflammatory process no acute process of the abdominal series. - EKG Interpretation by Me Additional EKG results interpreted by me: 10/11/19 16:58 The patient has chosen to leave the facility against medical advice. The releva nt issues have been reviewed and discussed with the patient and family at the bedside. At the time of this assessment there is no indication for involuntary commitment. The patient is alert, oriented, and able to express clearly their reasoning for not wanting to remain in the emergency department for further treatment. The patient is not clinically psychotic, intoxicated, and denies and suicidal ideation. Differential or suspected diagnoses based on medical screening exam: . The patient is aware of the concerning diagnoses and acknowledges understanding of the reasons for the following recommendations: The following recommendations/services were offered and refused: The following risks were explained: , permanent disability, loss of function Clinical impression: Patient is competent to make decisions regarding the medical that is being offered. Twelve-lead EKG done today at 1257 shows sinus rhythm 83 is the rate left axis deviation consider anterior septal infarct. Borderline T wave abnormalities and borderline prolonged QT interval. Discharge - Discharge Clinical Impression: Shortness of breath, Cough, Chronic congestive heart failure, Chronic anemia, Elevated troponin, Physical deconditioning, Type 2 diabetes mellitus Condition: Good Disposition: ADMITTED INPATIENT Admitting Provider: James (Hospitalist) Unit Admitted: IMCU Referrals: KRYSTAL CALHOUN MD [Primary Care Provider] - Follow up as needed I personally performed the services described in the documentation, reviewed and edited the documentation which was dictated to the scribe in my presence, and it accurately records my words and actions.
[2019-10-11] MEDS ORDERED: MAGNESIUM HYDROXIDE SUSP 30 ML UDCUP PO PRN (17:47)
[2019-10-11] MEDS ORDERED: PROMETHAZINE HCL INJ 25 MG/1 ML VIAL IV PRN (17:47)
[2019-10-11] MEDS ORDERED: GLUCAGON,HUMAN RECOMB 1 MG INJ IM PRN (17:58)
[2019-10-11] MEDS ORDERED: DEXTROSE 50%-WATER 25 GM/50 ML DISP.SYRIN IV PRN ×2 (17:58)
[2019-10-11] MEDS ORDERED: DEXTROSE 40% GEL 15 GM TUBE PO PRN ×2 (17:58)
--- NOTE | 2019-10-11 18:23 | PDOC H&P ---
History of Present Illness Admission Date/PCP: 10/11/19 17:09 KRYSTAL CALHOUN MD History of Present Illness: GLENIS CERVANTES is a 84 year old female [facility] for a 2-day history of decreased appetite, and" I just feel tired and weak". There is also a history of her vomiting. ER physician said that she had been complained of some shortness of breath the last 2 days but patient does not mention that very much. Patient actually is a very good historian tells me where she is from knows where she is answers all of her questions appropriately. I have looked at her chest x-ray I think she has a right lower lobe infiltrate actually even though the radiologist said bibasilar opacities. Go ahead and put her on some IV fluids and IV antibiotics. I do not think she is in failure. Hopefully in 2 to 3 days with gentle hydration and IV antibiotics we can convert her over to p.o. antibiotics and [facility] her back to the [facility]. She does not appear to be septic or toxic. Does have a slight elevation of her troponins but I do not get any history of coronary disease and I do not think these are significant, from a cardiac standpoint. Past Medical History Cardiac Medical History: Reports: Congestive Heart Failure, Hyperlipidema, Hypertension Denies: Myocardial Infarction Endocrine Medical History: Reports: Diabetes Mellitus Type 2 Renal/ Medical History: Reports: End Stage Renal Disease - STAGE 3 GI Medical History: Reports: Diverticulitis Denies: Hepatitis Musculoskeltal Medical History: Reports: Arthritis Psychiatric Medical History: Reports: Dementia, Depression Hematology: Denies: Hemophilia, Sickle Cell Disease Past Surgical History Past Surgical History: Reports: Cholecystectomy, Hysterectomy Social History Lives with: [facility] Smoking Status: Never Smoker Frequency of Alcohol Use: None Hx Recreational Drug Use: No Drugs: None Hx Prescription Drug Abuse: No - Advance Directive Resuscitation Status: Full Code Family History Family History: None, Hypertension Parental Family History Reviewed: No Children Family History Reviewed: No Sibling(s) Family History Reviewed.: No Medication/Allergy Home Medications: Amlodipine Besylate [Norvasc 10 mg Tablet] 10 mg PO DAILY 09/02/18 Citalopram Hydrobromide [Celexa 20 mg Tablet] 20 mg PO DAILY 08/06/19 Hydralazine HCl [Apresoline 25 mg Tablet] 25 mg PO QID 08/06/19 Acetaminophen [Tylenol 325 mg Tablet] 325 mg PO Q4HP PRN 10/11/19 Aspirin [Ecotrin 81 mg EC Tablet] 81 mg PO DAILY 10/11/19 Ertapenem Sodium [Ertapenem] 1 gm IV DAILY 10/11/19 Ferrous Sulfate [Feosol 325 mg Tablet] 325 mg PO DAILY 10/11/19 Insulin Detemir [Levemir] units SUBCUT 10/11/19 Liraglutide [Victoza 2-Edwin] 18 mg SQ 10/11/19 Lisinopril 20 mg PO DAILY 10/11/19 Allergies/Adverse Reactions: No Known Allergies Allergy (Verified 10/28/18 16:31) Review of Systems Constitutional: PRESENT: anorexia, fatigue, weakness Cardiovascular: ABSENT: chest pain, dyspnea on exertion, edema, orthropnea, palpitations Respiratory: PRESENT: cough, dyspnea Gastrointestinal: PRESENT: vomiting Neurological: ABSENT: abnormal gait, abnormal speech, confusion, dizziness, focal weakness, syncope Psychiatric: ABSENT: anxiety, depression, homidical ideation, suicidal ideation Physical Exam Vital Signs: Temp Pulse Resp BP Pulse Ox 98.6 F 19 147/75 H 99 10/11/19 15:03 10/11/19 16:01 10/11/19 16:01 10/11/19 16:01 Intake & Output 10/10/19 10/11/19 10/12/19 06:59 06:59 06:59 Weight 102.2 kg General appearance: PRESENT: no acute distress, well-developed, well-nourished, other - Patient is in the bed eating haydee crackers answering all questions Respiratory exam: PRESENT: decreased breath sounds Cardiovascular exam: PRESENT: RRR. ABSENT: diastolic murmur, rubs, systolic murmur Neurological exam: PRESENT: alert, awake, oriented to person, oriented to place, oriented to time, oriented to situation, CN II-XII grossly intact. ABSENT: motor sensory deficit Psychiatric exam: PRESENT: appropriate affect, normal mood, other - Psych reveals her to be pleasant. ABSENT: homicidal ideation, suicidal ideation Results Laboratory Results: 10/11/19 13:00 10/11/19 13:00 10/11/19 10/11/19 10/11/19 13:00 13:00 13:00 WBC 6.1 RBC 2.96 L Hgb 8.0 L Hct 23.8 L MCV 81 MCH 27.0 MCHC 33.6 RDW 17.0 H Plt Count 274 Seg Neutrophils % 60.5 Sodium 139.7 Potassium 4.9 Chloride 106 Carbon Dioxide 29 Anion Gap 5 BUN 19 Creatinine 1.18 Est GFR ( Amer) 53 L Glucose 74 L Lactic Acid 0.7 Calcium 8.1 L Total Bilirubin 0.3 AST 22 Alkaline Phosphatase 78 Total Protein 7.3 Albumin 3.0 L Lipase Urine Color Urine Appearance Urine pH Ur Specific [place] Urine Protein Urine Glucose (UA) Urine Ketones Urine Blood Urine Nitrite Ur Leukocyte Esterase Urine WBC (Auto) Urine RBC (Auto) 10/11/19 10/11/19 13:00 13:40 WBC RBC Hgb Hct MCV MCH MCHC RDW Plt Count Seg Neutrophils % Sodium Potassium Chloride Carbon Dioxide Anion Gap BUN Creatinine Est GFR ( Amer) Glucose Lactic Acid Calcium Total Bilirubin AST Alkaline Phosphatase Total Protein Albumin Lipase 114.2 Urine Color YELLOW Urine Appearance CLEAR Urine pH 6.0 Ur Specific [place] 1.015 Urine Protein >=500 H Urine Glucose (UA) NEGATIVE Urine Ketones NEGATIVE Urine Blood NEGATIVE Urine Nitrite NEGATIVE Ur Leukocyte Esterase NEGATIVE Urine WBC (Auto) 7 Urine RBC (Auto) 13 10/11/19 10/11/19 13:00 16:46 Troponin I 0.023 0.029 NT-Pro-B Natriuret Pep 1230 H Impressions: Acute Abdomen Series 10/11/19 13:19 IMPRESSION: 1. Enlarged cardiac silhouette with ill-defined bibasilar opacities, possibly atelectasis or infection. 2. No evidence of intestinal obstruction or other acute intra-abdominal/pelvic process. Assessment and Plan - Diagnosis (1) Pneumonia Is this a current diagnosis for this admission?: Yes (2) Weakness Is this a current diagnosis for this admission?: Yes (3) Cough Is this a current diagnosis for this admission?: Yes (4) Elevated troponin Is this a current diagnosis for this admission?: Yes (5) Physical deconditioning Is this a current diagnosis for this admission?: Yes (6) Shortness of breath Is this a current diagnosis for this admission?: Yes (7) Type 2 diabetes mellitus Qualifiers: Is this a current diagnosis for this admission?: Yes - Plan Summary Summary: Patient does not appear to be did. She tells me that she has not had an appetite for the last couple days she has been a little short of breath she has been tired and she has had a cough. Chest x-ray suspicious for right lower lobe pneumonia I started her on gentle IV hydration and IV antibiotics. Need to watch her to make sure she does not get fluid overloaded. She came from [facility]. She does have a slight elevation in her troponins but no EKG changes. This is due to her pneumonia and respiratory drive. Is medically stable to move to the floor - Time Time Spent with patient: 35 or more minutes
[2019-10-11] MEDS ORDERED: CEFTRIAXONE 1 GM/D5W RTU 1 GM/50 ML RTUPB IV SCH (19:00)
[2019-10-11] MEDS: NORMAL SALINE 1000 ML 1,000 ML IV PRN (19:44)
[2019-10-11] MEDS ORDERED: AZITHROMYCIN 500 MG in DEXTROSE 5%-WATER 250 ML IV SCH (20:00)
[2019-10-11] MEDS ORDERED: CITALOPRAM HYDROBROMIDE 20 MG TABLET PO SCH (22:00)
[2019-10-11] MEDS: INSULIN LISPRO 100 UNIT/ML 3 ML VIAL SUBCUT SCH (22:38)
[2019-10-12] MEDS: ACETAMINOPHEN 325 MG TABLET PO PRN ×2 (03:46→20:20)
[2019-10-12 04:39] LABS: ABSOLUTE EOSINOPHILS # (AUTO) 0.2 10^3/uL (0.0-0.6); ABSOLUTE LYMPHOCYTES (AUTO) 1.5 10^3/uL (0.5-4.7); ABSOLUTE MONOCYTES (AUTO) 0.7 10^3/uL (0.1-1.4); ABSOLUTE NEUT (AUTO) 3.8 10^3/uL (1.7-8.2); BASOPHILS % (AUTO) 0.6 % (0-2); EOSINOPHILS % (AUTO) 3.7 % (0-6); HEMATOCRIT 25.5 % (36.0-47.0); HEMOGLOBIN 8.3 g/dL (12.0-15.5); LYMPHOCYTES % (AUTO) 24.2 % (13-45); MEAN CORPUSCULAR HEMOGLOBIN 26.5 pg (27.0-33.4); MEAN CORPUSCULAR HGB CONC 32.7 g/dL (32.0-36.0); MEAN CORPUSCULAR VOLUME 81 fl (80-97); MONOCYTES % (AUTO) 11.3 % (3-13); PLATELET COUNT 262 10^3/uL (150-450); RED BLOOD COUNT 3.15 10^6/uL (3.72-5.28); RED CELL DISTRIBUTION WIDTH 16.4 % (11.5-14.0); SEGMENTED NEUTROPHILS % (AUTO) 60.2 % (42-78); TOTAL CELLS COUNTED % (AUTO) 100 %; WHITE BLOOD COUNT 6.4 10^3/uL (4.0-10.5)
[2019-10-12 05:02] LABS: ANION GAP 8 (5-19); BLOOD UREA NITROGEN 23 mg/dL (7-20); CALCIUM 7.8 mg/dL (8.4-10.2); CARBON DIOXIDE 25 mmol/L (22-30); CHLORIDE 107 mmol/L (98-107); GLUCOSE 80 mg/dL (75-110); POTASSIUM 5.1 mmol/L (3.6-5.0)
[2019-10-12] MEDS: PANTOPRAZOLE SODIUM 20 MG TABLET.DR PO SCH (05:06)
[2019-10-12] MEDS: NORMAL SALINE 1000 ML 1,000 ML IV PRN (06:30)
[2019-10-12] MEDS: HYDRALAZINE HCL INJ/PF 20 MG/1 ML SDV IV PRN (08:05)
[2019-10-12] MEDS: INSULIN LISPRO 100 UNIT/ML 3 ML VIAL SUBCUT SCH ×4 (08:08→22:00)
[2019-10-12] MEDS: DOCUSATE SODIUM 100 MG CAPSULE PO SCH (10:03)
[2019-10-12] MEDS: LISINOPRIL 10 MG TABLET PO SCH (10:03)
[2019-10-12] MEDS: ENOXAPARIN SODIUM INJ 40 MG/0.4 ML DISP.SYRIN SUBCUT SCH (10:04)
[2019-10-12] MEDS: AMLODIPINE BESYLATE 10 MG TABLET PO SCH (10:04)
--- NOTE | 2019-10-12 11:39 | EKG REPORT ---
SEVERITY:- ABNORMAL ECG - SINUS RHYTHM FIRST DEGREE AV BLOCK LEFT VENTRICULAR HYPERTROPHY ANTERIOR INFARCT, OLD BORDERLINE PROLONGED QT INTERVAL : Confirmed by: Mayte Cuba 12-Oct-2019 11:38:54
--- NOTE | 2019-10-12 11:40 | EKG REPORT ---
SEVERITY:- ABNORMAL ECG - SINUS RHYTHM LEFT AXIS DEVIATION CONSIDER ANTEROSEPTAL INFARCT BORDERLINE T WAVE ABNORMALITIES BORDERLINE PROLONGED QT INTERVAL : Confirmed by: Mayte Cuba 12-Oct-2019 11:39:04
[2019-10-12] MEDS ORDERED: MAGNESIUM HYDROXIDE SUSP 30 ML UDCUP PO ONE (19:00)
--- NOTE | 2019-10-12 19:16 | PDOC PROGRESS REPORT ---
Subjective Progress Note for:: 10/12/19 Subjective:: Patient was seen on morning rounds. She is found resting in bed, comfortably, on supplemental oxygen via nasal cannula. She was sleeping but woke easily when I said her name. She was oriented to self and place. However, during our conversation it quickly became apparent that while the patient was able to participate effectively/socially in conversation, she was disoriented to recent events. She tells me that she has been at rehab for only a few days and is ramírez pposed to be discharging home soon, however, patient is actually a long-term care resident. She does deny fever, chest pain, dyspnea, cough, abdominal pain, nausea and vomiting. In fact, she denies all symptoms when prompted. Her only complaint at this time is fatigue. She does appear to be comfortable and has not noted to be in any acute distress. Otherwise, her ROS is limited secondary to baseline mental status. No concerns per nursing. Reason For Visit: VOMITING,ABDOMINAL PAIN,WEAKNESS,UTI,LESS OF Physical Exam Vital Signs: Temp Pulse Resp BP Pulse Ox 98.2 F 72 16 155/69 H 96 10/12/19 16:58 10/12/19 16:58 10/12/19 16:58 10/12/19 16:58 10/12/19 16:58 Intake & Output 10/11/19 10/12/19 10/13/19 06:59 06:59 06:59 Intake Total 1500 550 Output Total 150 Balance 1350 550 Weight 101.5 kg General appearance: PRESENT: no acute distress, cooperative, morbidly obese, well-developed, well-nourished Head exam: PRESENT: atraumatic, normocephalic Eye exam: PRESENT: conjunctiva pink, EOMI, PERRLA. ABSENT: scleral icterus Ear exam: PRESENT: normal external ear exam Mouth exam: PRESENT: moist, tongue midline Respiratory exam: PRESENT: clear to auscultation maribel, decreased breath sounds - Bibasilar; secondary to body habitus, poor inspiratory effort, and position, symmetrical, unlabored. ABSENT: rales, rhonchi, wheezes Cardiovascular exam: PRESENT: RRR, +S1, +S2. ABSENT: diastolic murmur, rubs, systolic murmur Pulses: PRESENT: normal dorsalis pedis pul Vascular exam: PRESENT: normal capillary refill Extremities exam: PRESENT: full ROM, pedal edema - Trace bilaterally. ABSENT: calf tenderness, clubbing Neurological exam: PRESENT: alert, awake, oriented to person, CN II-XII grossly intact, other - Socially appropriate, pleasantly confused. ABSENT: motor sensory deficit Psychiatric exam: PRESENT: appropriate affect, normal mood. ABSENT: homicidal ideation, suicidal ideation Skin exam: PRESENT: dry, intact, warm. ABSENT: cyanosis, rash Results Laboratory Results: 10/12/19 04:17 10/12/19 04:17 10/12/19 10/12/19 04:17 04:17 WBC 6.4 RBC 3.15 L Hgb 8.3 L Hct 25.5 L MCV 81 MCH 26.5 L MCHC 32.7 RDW 16.4 H Plt Count 262 Seg Neutrophils % 60.2 Sodium 139.9 Potassium 5.1 H Chloride 107 Carbon Dioxide 25 Anion Gap 8 BUN 23 H Creatinine 1.28 H Est GFR ( Amer) 48 L Glucose 80 Calcium 7.8 L Magnesium 2.7 H 10/11/19 10/11/19 10/11/19 13:00 16:46 23:35 Troponin I 0.023 0.029 0.025 NT-Pro-B Natriuret Pep 1230 H 10/12/19 04:17 Troponin I NT-Pro-B Natriuret Pep 1040 H Impressions: Acute Abdomen Series 10/11/19 13:19 IMPRESSION: 1. Enlarged cardiac silhouette with ill-defined bibasilar opa cities, possibly atelectasis or infection. 2. No evidence of intestinal obstruction or other acute intra-abdominal/pelvic process. Assessment and Plan - Diagnosis (1) Shortness of breath Is this a current diagnosis for this admission?: Yes Plan: Unclear etiology; patient does have a history of LVH with chronic diastolic CHF. She is not currently in CHF exacerbation. Chest x-ray showed bibasilar opacities;likely atelectasis. Although the previous provider was concerned about possible pneumonia; I have little suspicion the patient has pneumonia at this time as the patient remains afebrile with normal WBCs x48 hours with minimal respiratory symptoms. We will encourage pulmonary toilet with incentive spirometer, flutter valve, every 2 turns, and out of bed for meals. PT/OT have been consulted for ambulation/mobility. We will provide supplemental oxygen as indicated by pulse oximetry; keep SPO2 greater than 89%. As needed nebulizer treatments. (2) Type 2 diabetes mellitus Qualifiers: Diabetes mellitus jail insulin use: with terminal superintendent use Is this a current diagnosis for this admission?: Yes Plan: Holding oral medications while admitted. Patient is placed on a consistent carb diet. Accu-Cheks before meals and at bedtime with Humalog for sliding scale coverage. Hypoglycemia protocol in place. (3) Physical deconditioning Is this a current diagnosis for this admission?: Yes Plan: PT/OT consultations. Out of bed for meals. Every 2 turns. Fall precautions. (4) Weakness Is this a current diagnosis for this admission?: Yes Plan: As above. (5) Elevated troponin Is this a current diagnosis for this admission?: Yes Plan: Not significant. No longer following. No further work-up recommended. Patient's troponins are indeterminately elevated at 0.023; stable x3. Patient denies chest discomfort (although, patient is disoriented at baseline and so this must be considered). EKG shows sinus rhythm with a first-degree block; no significant ST segment elevation or depression or acute findings. We will continue daily aspirin therapy. Continue home antihypertensive regiment. (6) Pneumonia Is this a current diagnosis for this admission?: No Plan: Ruled out. Chest x-ray showed enlarged cardiac silhouette with ill-defined bibasilar opacities; atelectasis versus infection. Although the previous provider was concerned about possible pneumonia; I have little suspicion the patient has pneumonia at this time as the patient remains afebrile with normal WBCs x48 hours with minimal respiratory symptoms. Antibiotics are discontinued. Will monitor for clear indication for antibiotic therapy. Blood cultures negative at 24 hrs. - Time Time Spent with patient: 35 or more minutes Medications reviewed and adjusted accordingly: Yes Anticipated discharge: SNF Within: within 24 hours
[2019-10-12] MEDS: HYDRALAZINE HCL 25 MG TABLET PO SCH (21:28)
[2019-10-13] MEDS: PANTOPRAZOLE SODIUM 20 MG TABLET.DR PO SCH (05:26)
[2019-10-13 06:12] LABS: HEMATOCRIT 23.4 % (36.0-47.0); MEAN CORPUSCULAR HEMOGLOBIN 27.2 pg (27.0-33.4); MEAN CORPUSCULAR HGB CONC 33.6 g/dL (32.0-36.0); MEAN CORPUSCULAR VOLUME 81 fl (80-97); PLATELET COUNT 237 10^3/uL (150-450); RED BLOOD COUNT 2.88 10^6/uL (3.72-5.28); RED CELL DISTRIBUTION WIDTH 16.6 % (11.5-14.0); WHITE BLOOD COUNT 4.7 10^3/uL (4.0-10.5)
[2019-10-13 06:16] LABS: HEMOGLOBIN 7.8 g/dL (12.0-15.5)
[2019-10-13 06:22] LABS: ANION GAP 5 (5-19); BLOOD UREA NITROGEN 23 mg/dL (7-20); CALCIUM 8.1 mg/dL (8.4-10.2); CARBON DIOXIDE 27 mmol/L (22-30); CHLORIDE 109 mmol/L (98-107); GLUCOSE 82 mg/dL (75-110); POTASSIUM 5.4 mmol/L (3.6-5.0)
[2019-10-13] MEDS: INSULIN LISPRO 100 UNIT/ML 3 ML VIAL SUBCUT SCH ×4 (09:09→22:09)
[2019-10-13] MEDS ORDERED: (PENDING PHARMACY ID) (Lisinopril [Lisinopril] 20 MG) PO SCH (10:00)
[2019-10-13] MEDS ORDERED: LISINOPRIL 10 MG TABLET PO SCH (10:00)
[2019-10-13] MEDS ORDERED: SODIUM POLYSTYRENE SULFONATE 15 GM/60 ML PO ONE (10:00)
[2019-10-13] MEDS: DOCUSATE SODIUM 100 MG CAPSULE PO SCH (10:31)
[2019-10-13] MEDS: FERROUS SULFATE 325 MG TABLET PO SCH (10:31)
[2019-10-13] MEDS: ASPIRIN 81 MG TABLET, ENT COATED PO SCH (10:31)
[2019-10-13] MEDS: AMLODIPINE BESYLATE 10 MG TABLET PO SCH (10:31)
[2019-10-13] MEDS: HYDRALAZINE HCL 25 MG TABLET PO SCH ×4 (10:31→22:14)
[2019-10-13] MEDS: LISINOPRIL 10 MG TABLET PO SCH (10:32)
[2019-10-13] MEDS: CITALOPRAM HYDROBROMIDE 20 MG TABLET PO SCH (10:32)
[2019-10-13] MEDS: ENOXAPARIN SODIUM INJ 40 MG/0.4 ML DISP.SYRIN SUBCUT SCH (10:32)
[2019-10-13] MEDS: HYDRALAZINE HCL INJ/PF 20 MG/1 ML SDV IV PRN (11:40)
[2019-10-13 15:41] LABS: ANION GAP 5 (5-19); BLOOD UREA NITROGEN 24 mg/dL (7-20); CALCIUM 7.8 mg/dL (8.4-10.2); CARBON DIOXIDE 27 mmol/L (22-30); CHLORIDE 109 mmol/L (98-107); GLUCOSE 158 mg/dL (75-110)
--- NOTE | 2019-10-13 19:58 | PDOC PROGRESS REPORT ---
Subjective Progress Note for:: 10/13/19 Subjective:: Patient was seen on afternoon rounds. She is found resting in bed, comfortably, on supplemental oxygen via nasal cannula. She was sleeping but woke easily when I said her name. She was oriented to self and place. Confabulates well to hide confusion; tells me she has been at rehab for 2-3 days and should be going home once I clear her. Does confirm continued "shortness of breath and weakness", however, is unable to provider further descriptions and alternately denies symptoms when rephrased. She does deny fever, chest pain, cough, abdominal pain, nausea and vomiting. In fact, she denies all symptoms when prompted/reworded. She does appear to be comfortable and has not noted to be in any acute distress. Otherwise, her ROS is limited secondary to baseline mental status. No concerns per nursing. Reason For Visit: VOMITING,ABDOMINAL PAIN,WEAKNESS,UTI,LESS OF Physical Exam Vital Signs: Temp Pulse Resp BP Pulse Ox 97.8 F 72 16 150/57 H 99 10/13/19 16:12 10/13/19 16:12 10/13/19 16:12 10/13/19 16:12 10/13/19 16:12 Intake & Output 10/12/19 10/13/19 10/14/19 06:59 06:59 06:59 Intake Total 1500 1040 360 Output Total 150 900 275 Balance 1350 140 85 Weight 101.5 kg 101 kg General appearance: PRESENT: no acute distress, cooperative, morbidly obese, well-developed, well-nourished Head exam: PRESENT: atraumatic, normocephalic Eye exam: PRESENT: conjunctiva pink, EOMI, PERRLA. ABSENT: scleral icterus Mouth exam: PRESENT: moist, tongue midline Neck exam: ABSENT: carotid bruit, JVD, lymphadenopathy, thyromegaly Respiratory exam: PRESENT: clear to auscultation maribel, decreased breath sounds - Bibasilar; secondary to body habitus, poor inspiratory effort, and position, symmetrical, unlabored, other - room air. ABSENT: rales, rhonchi, wheezes Cardiovascular exam: PRESENT: RRR. ABSENT: diastolic murmur, rubs, systolic murmur Pulses: PRESENT: normal dorsalis pedis pul Vascular exam: PRESENT: normal capillary refill GI/Abdominal exam: PRESENT: normal bowel sounds, soft. ABSENT: distended, guarding, mass, organolmegaly, rebound, tenderness Rectal exam: PRESENT: deferred Extremities exam: PRESENT: full ROM. ABSENT: calf tenderness, clubbing, pedal edema Neurological exam: PRESENT: alert, awake, oriented to person, CN II-XII grossly intact, other - Socially appropriate, pleasantly confused. ABSENT: motor sensory deficit Psychiatric exam: PRESENT: appropriate affect, normal mood. ABSENT: homicidal ideation, suicidal ideation Skin exam: PRESENT: dry, intact, warm. ABSENT: cyanosis, rash Results Laboratory Results: 10/13/19 05:40 10/13/19 14:47 10/13/19 10/13/19 10/13/19 05:40 05:40 14:47 WBC 4.7 RBC 2.88 L Hgb 7.8 L Hct 23.4 L MCV 81 MCH 27.2 MCHC 33.6 RDW 16.6 H Plt Count 237 Sodium 140.7 140.6 Potassium 5.4 H 5.0 Chloride 109 H 109 H Carbon Dioxide 27 27 Anion Gap 5 5 BUN 23 H 24 H Creatinine 1.26 H 1.15 Est GFR ( Amer) 49 L 55 L Glucose 82 158 H Calcium 8.1 L 7.8 L 10/11/19 13:40 Clean Catch Midstream Urine Culture - Final NO GROWTH 2 DAYS 10/11/19 10/11/19 10/11/19 13:00 16:46 23:35 Troponin I 0.023 0.029 0.025 NT-Pro-B Natriuret Pep 1230 H 10/12/19 04:17 Troponin I NT-Pro-B Natriuret Pep 1040 H Impressions: Acute Abdomen Series 10/11/19 13:19 IMPRESSION: 1. Enlarged cardiac silhouette with ill-defined bibasilar opacities, possibly atelectasis or infection. 2. No evidence of intestinal obstruction or other acute intra-abdominal/pelvic process. Assessment and Plan - Diagnosis (1) Shortness of breath Is this a current diagnosis for this admission?: Yes Plan: Unclear etiology; patient does have a history of LVH with chronic diastolic CHF. She is not currently in CHF exacerbation. Chest x-ray showed bibasilar opacities; likely atelectasis. Although the previous provider was concerned about possible pneumonia; I have little suspicion the patient has pneumonia at this time as the patient remains afebrile with normal WBCs >48 hours with minimal respiratory symptoms. We will encourage pulmonary toilet with incentive spirometer, flutter valve, every 2 turns PT/OT have been consulted for ambulation/mobility; unfortunately unsafe for out-of-bed activities. We will provide supplemental oxygen as indicated by pulse oximetry; keep SPO2 greater than 89%. She is now maintaining oxygen saturations on room air. As needed nebulizer treatments. (2) Type 2 diabetes mellitus Qualifiers: Diabetes mellitus detention insulin use: with detention use Is this a current diagnosis for this admission?: Yes Plan: Holding oral medications while admitted. We will check A1c with a.m. lab work. Patient is placed on a consistent carb diet. Accu-Cheks before meals and at bedtime with Humalog for sliding scale coverage. Hypoglycemia protocol in place. (3) Physical deconditioning Is this a current diagnosis for this admission?: Yes Plan: PT/OT consultations. Every 2 turns. Fall precautions. (4) Weakness Is this a current diagnosis for this admission?: Yes Plan: As above. (5) Elevated troponin Is this a current diagnosis for this admission?: Yes Plan: Not significant. No longer following. No further work-up recommended. Patient's troponins are indeterminately elevated at 0.023; stable x3. Patient denies chest discomfort (although, patient is disoriented at baseline and so this must be considered). EKG shows sinus rhythm with a first-degree block; no significant ST segment elevation or depression or acute findings. We will continue daily aspirin therapy. Continue home antihypertensive regiment. (6) Pneumonia Is this a current diagnosis for this admission?: No Plan: Ruled out. Chest x-ray showed enlarged cardiac silhouette with ill-defined bibasilar opacities; atelectasis versus infection. Although the previous provider was concerned about possible pneumonia; I have little suspicion the patient has pneumonia at this time as the patient remains afebrile with normal WBCs x48 hours with minimal respiratory symptoms. Antibiotics are discontinued. Will monitor for clear indication for antibiotic therapy. Blood cultures negative at 24 hrs. (7) Hyperkalemia Is this a current diagnosis for this admission?: Yes Plan: Received Kayexalate x1 today. Repeat chemistry this afternoon is improved, although borderline high. We will follow-up chemistry in the morning. - Time Time Spent with patient: 25-34 minutes Medications reviewed and adjusted accordingly: Yes Anticipated discharge: SNF - LTC Within: within 24 hours - if potassium is acceptable
[2019-10-14] MEDS: HYDRALAZINE HCL INJ/PF 20 MG/1 ML SDV IV PRN (03:46)
[2019-10-14] MEDS: PANTOPRAZOLE SODIUM 20 MG TABLET.DR PO SCH (05:15)
[2019-10-14 06:48] LABS: BLOOD UREA NITROGEN 20 mg/dL (7-20); CALCIUM 7.9 mg/dL (8.4-10.2); CARBON DIOXIDE 27 mmol/L (22-30); CHLORIDE 110 mmol/L (98-107); GLUCOSE 119 mg/dL (75-110)
[2019-10-14 06:49] LABS: ANION GAP 5 (5-19)
[2019-10-14 07:03] LABS: POTASSIUM 3.9 mmol/L (3.6-5.0)
[2019-10-14] MEDS: INSULIN LISPRO 100 UNIT/ML 3 ML VIAL SUBCUT SCH (08:54)
[2019-10-14] MEDS: DOCUSATE SODIUM 100 MG CAPSULE PO SCH (10:45)
[2019-10-14] MEDS: LISINOPRIL 10 MG TABLET PO SCH (10:52)
[2019-10-14] MEDS: CITALOPRAM HYDROBROMIDE 20 MG TABLET PO SCH (10:52)
[2019-10-14] MEDS: FERROUS SULFATE 325 MG TABLET PO SCH (10:52)
[2019-10-14] MEDS: AMLODIPINE BESYLATE 10 MG TABLET PO SCH (10:52)
[2019-10-14] MEDS: HYDRALAZINE HCL 25 MG TABLET PO SCH ×3 (10:52→20:47)
[2019-10-14] MEDS: LEVALBUTEROL HCL NEB 1.25 MG/3 ML AMPUL NEB PRN (13:17)
[2019-10-14] MEDS ORDERED: NORMAL SALINE 250 ML IV PRN ×2 (13:31)
[2019-10-14] MEDS ORDERED: HYDRALAZINE HCL INJ/PF 20 MG/1 ML SDV IV PRN (14:00)
[2019-10-14 14:12] LABS: HEMATOCRIT 22.5 % (36.0-47.0); HEMOGLOBIN 7.5 g/dL (12.0-15.5); MEAN CORPUSCULAR HEMOGLOBIN 26.8 pg (27.0-33.4); MEAN CORPUSCULAR HGB CONC 33.3 g/dL (32.0-36.0); MEAN CORPUSCULAR VOLUME 81 fl (80-97); PLATELET COUNT 272 10^3/uL (150-450); RED BLOOD COUNT 2.79 10^6/uL (3.72-5.28); RED CELL DISTRIBUTION WIDTH 16.4 % (11.5-14.0)
--- NOTE | 2019-10-14 16:11 | PDOC PROGRESS REPORT ---
Subjective Progress Note for:: 10/14/19 Subjective:: Patient was seen on afternoon rounds. She is found resting in bed, comfortably, on supplemental oxygen via nasal cannula. She was oriented to self and place. Confabulates well to hide confusion; conversational and socially appropriate. Today she states she is feeling well and has no complaints at this time. She does deny fever, chest pain, cough, dyspnea, abdominal pain, nausea and vomiting. She does appear to be comfortable and has not noted to be in any acute distress. Otherwise, her ROS is limited secondary to baseline mental status. No concerns per nursing. Reason For Visit: VOMITING,ABDOMINAL PAIN,WEAKNESS,UTI,LESS OF Physical Exam Vital Signs: Temp Pulse Resp BP Pulse Ox 97.7 F 70 18 157/61 H 97 10/14/19 11:06 10/14/19 13:23 10/14/19 13:23 10/14/19 11:06 10/14/19 13:23 Intake & Output 10/13/19 10/14/19 10/15/19 06:59 06:59 06:59 Intake Total 1040 360 Output Total 900 375 Balance 140 -15 Weight 101 kg 104.9 kg General appearance: PRESENT: no acute distress, cooperative, morbidly obese, well-developed, well-nourished Head exam: PRESENT: atraumatic, normocephalic Eye exam: PRESENT: conjunctiva pink, EOMI, PERRLA. ABSENT: scleral icterus Mouth exam: PRESENT: moist, tongue midline Teeth exam: PRESENT: poor dentation Respiratory exam: PRESENT: clear to auscultation maribel, decreased breath sounds - Bibasilar; secondary to body habitus, poor inspiratory effort, and position, symmetrical, unlabored, other - Supplemental oxygen via NC. ABSENT: rales, rhonchi, wheezes Cardiovascular exam: PRESENT: RRR. ABSENT: diastolic murmur, rubs, systolic murmur Pulses: PRESENT: normal dorsalis pedis pul Vascular exam: PRESENT: normal capillary refill Rectal exam: PRESENT: deferred Extremities exam: PRESENT: full ROM. ABSENT: calf tenderness, clubbing, pedal edema Neurological exam: PRESENT: alert, awake, oriented to person, CN II-XII grossly intact, other - Socially appropriate, pleasantly confused. ABSENT: motor sensory deficit Psychiatric exam: PRESENT: appropriate affect, normal mood. ABSENT: homicidal ideation, suicidal ideation Skin exam: PRESENT: dry, intact, warm. ABSENT: cyanosis, rash Results Laboratory Results: 10/14/19 14:00 10/14/19 05:53 10/14/19 10/14/19 10/14/19 05:53 14:00 14:00 WBC 5.0 RBC 2.79 L Hgb 7.5 L Hct 22.5 L MCV 81 MCH 26.8 L MCHC 33.3 RDW 16.4 H Plt Count 272 Sodium 142.2 Potassium 3.9 D Chloride 110 H Carbon Dioxide 27 Anion Gap 5 BUN 20 Creatinine 1.07 Est GFR ( Amer) 59 L Glucose 119 H Calcium 7.9 L Blood Type AB POSITIVE Antibody Screen NEGATIVE 10/11/19 10/11/19 10/11/19 13:00 16:46 23:35 Troponin I 0.023 0.029 0.025 NT-Pro-B Natriuret Pep 1230 H 10/12/19 04:17 Troponin I NT-Pro-B Natriuret Pep 1040 H Impressions: Acute Abdomen Series 10/11/19 13:19 IMPRESSION: 1. Enlarged cardiac silhouette with ill-defined bibasilar opacities, possibly atelectasis or infection. 2. No evidence of intestinal obstruction or other acute intra-abdominal/pelvic process. Assessment and Plan - Diagnosis (1) Shortness of breath Is this a current diagnosis for this admission?: Yes Plan: Unclear etiology; patient does have a history of LVH with chronic diastolic CHF. She is not currently in CHF exacerbation. Possibly related to anemia; Hgb has trended down to 7.5 Chest x-ray showed bibasilar opacities; likely atelectasis. Although the previous provider was concerned about possible pneumonia; I have little suspicion the patient has pneumonia at this time as the patient remains afebrile with normal WBCs >48 hours with minimal respiratory symptoms. We will encourage pulmonary toilet with incentive spirometer, flutter valve, every 2 turns PT/OT have been consulted for ambulation/mobility; unfortunately unsafe for out-of-bed activities. We will provide supplemental oxygen as indicated by pulse oximetry; keep SPO2 greater than 89%. She is now maintaining oxygen saturations on room air. As needed nebulizer treatments. (2) Type 2 diabetes mellitus Qualifiers: Diabetes mellitus usp insulin use: with usp use Is this a current diagnosis for this admission?: Yes Plan: Holding oral medications while admitted. A1C 5.4% Patient is placed on a consistent carb diet. Accu-Cheks before meals and at bedtime with Humalog for sliding scale coverage. Hypoglycemia protocol in place. (3) Physical deconditioning Is this a current diagnosis for this admission?: Yes Plan: PT/OT consultations. Every 2 turns. Fall precautions. (4) Weakness Is this a current diagnosis for this admission?: Yes Plan: As above. (5) Elevated troponin Is this a current diagnosis for this admission?: Yes Plan: Not significant. No longer following. No further work-up recommended. Patient's troponins are indeterminately elevated at 0.023; stable x3. Patient denies chest discomfort (although, patient is disoriented at baseline and so this must be considered). EKG shows sinus rhythm with a first-degree block; no significant ST segment elevation or depression or acute findings. We will continue daily aspirin therapy. Continue home antihypertensive regiment. (6) Pneumonia Is this a current diagnosis for this admission?: No Plan: Ruled out. Chest x-ray showed enlarged cardiac silhouette with ill-defined bibasilar opacities; atelectasis versus infection. Although the previous provider was concerned about possible pneumonia; I have little suspicion the patient has pneumonia at this time as the patient remains afebrile with normal WBCs x48 hours with minimal respiratory symptoms. Antibiotics are discontinued. Will monitor for clear indication for antibiotic therapy. Blood cultures negative at 24 hrs. (7) Hyperkalemia Is this a current diagnosis for this admission?: Yes Plan: Resolved. Received Kayexalate x1 yesterday Follow up chemistry (8) Chronic anemia Is this a current diagnosis for this admission?: Yes Plan: Hgb 8.0 on admission; has drifted down to 7.5 Pt with Hx of same; previsou ED visit notes history of chronic hematuria. UA this visit negative for blood. Anemia panel pending. Will check occult stool. Will provide 1 unit PRBC Recommend outpatient urology and GI follow up. May benefit from Hematology referral if no clear cause of anemia is identified. - Time Time Spent with patient: 35 or more minutes Medications reviewed and adjusted accordingly: Yes Anticipated discharge: SNF Within: within 24 hours
[2019-10-14] MEDS: ASPIRIN 81 MG TABLET, ENT COATED PO SCH (18:40)
[2019-10-14] MEDS: ENOXAPARIN SODIUM INJ 40 MG/0.4 ML DISP.SYRIN SUBCUT SCH (18:40)
[2019-10-14 21:22] LABS: ABSOLUTE BASOPHILS # (AUTO) 0.1 10^3/uL (0.0-0.2); ABSOLUTE EOSINOPHILS # (AUTO) 0.3 10^3/uL (0.0-0.6); ABSOLUTE LYMPHOCYTES (AUTO) 1.4 10^3/uL (0.5-4.7); ABSOLUTE MONOCYTES (AUTO) 0.5 10^3/uL (0.1-1.4); ABSOLUTE NEUT (AUTO) 3.1 10^3/uL (1.7-8.2); BASOPHILS % (AUTO) 0.9 % (0-2); EOSINOPHILS % (AUTO) 5.4 % (0-6); HEMATOCRIT 27.1 % (36.0-47.0); LYMPHOCYTES % (AUTO) 26.8 % (13-45); MEAN CORPUSCULAR HEMOGLOBIN 27.1 pg (27.0-33.4); MEAN CORPUSCULAR HGB CONC 33.2 g/dL (32.0-36.0); MEAN CORPUSCULAR VOLUME 82 fl (80-97); MONOCYTES % (AUTO) 9.4 % (3-13); PLATELET COUNT 278 10^3/uL (150-450); RED BLOOD COUNT 3.31 10^6/uL (3.72-5.28); RED CELL DISTRIBUTION WIDTH 16.4 % (11.5-14.0); SEGMENTED NEUTROPHILS % (AUTO) 57.5 % (42-78); TOTAL CELLS COUNTED % (AUTO) 100 %; WHITE BLOOD COUNT 5.4 10^3/uL (4.0-10.5)
[2019-10-15] MEDS: LEVALBUTEROL HCL NEB 1.25 MG/3 ML AMPUL NEB PRN ×2 (00:26→09:19)
[2019-10-15] MEDS: PANTOPRAZOLE SODIUM 20 MG TABLET.DR PO SCH (05:16)
[2019-10-15 06:14] LABS: HEMOGLOBIN 8.7 g/dL (12.0-15.5); MEAN CORPUSCULAR HEMOGLOBIN 27.4 pg (27.0-33.4); MEAN CORPUSCULAR HGB CONC 33.2 g/dL (32.0-36.0); MEAN CORPUSCULAR VOLUME 82 fl (80-97); PLATELET COUNT 266 10^3/uL (150-450); RED BLOOD COUNT 3.16 10^6/uL (3.72-5.28); RED CELL DISTRIBUTION WIDTH 16.1 % (11.5-14.0); RETICULOCYTE COUNT (AUTO) 1.58 % (0.66-2.85); WHITE BLOOD COUNT 6.1 10^3/uL (4.0-10.5)
[2019-10-15 06:46] LABS: IRON(TIBC) 42.8 ug/dL (37-170)
[2019-10-15 07:45] LABS: FOLATE > 20.00 ng/mL (>2.76)
[2019-10-15] MEDS: ASPIRIN 81 MG TABLET, ENT COATED PO SCH (10:30)
[2019-10-15] MEDS: HYDRALAZINE HCL 25 MG TABLET PO SCH ×3 (10:30→18:06)
[2019-10-15] MEDS: FERROUS SULFATE 325 MG TABLET PO SCH (10:30)
[2019-10-15] MEDS: AMLODIPINE BESYLATE 10 MG TABLET PO SCH (10:30)
[2019-10-15] MEDS: CITALOPRAM HYDROBROMIDE 20 MG TABLET PO SCH (10:30)
[2019-10-15] MEDS: LISINOPRIL 10 MG TABLET PO SCH (10:30)
[2019-10-15 15:34] LABS: HEMATOCRIT 25.8 % (36.0-47.0); HEMOGLOBIN 8.6 g/dL (12.0-15.5); MEAN CORPUSCULAR HEMOGLOBIN 27.5 pg (27.0-33.4); MEAN CORPUSCULAR HGB CONC 33.5 g/dL (32.0-36.0); MEAN CORPUSCULAR VOLUME 82 fl (80-97); PLATELET COUNT 278 10^3/uL (150-450); RED BLOOD COUNT 3.14 10^6/uL (3.72-5.28); RED CELL DISTRIBUTION WIDTH 16.3 % (11.5-14.0); WHITE BLOOD COUNT 5.6 10^3/uL (4.0-10.5)
--- NOTE | 2019-10-15 16:15 | PDOC TRANSFER SUMMARY ---
Impression - Admit/DC Date/PCP Admission Date/Primary Care Provider: 10/13/19 15:51 KRYSTAL CALHOUN MD Discharge Date: 10/15/19 - Discharge Diagnosis (1) Shortness of breath Is this a current diagnosis for this admission?: Yes (2) Type 2 diabetes mellitus Is this a current diagnosis for this admission?: Yes (3) Physical deconditioning Is this a current diagnosis for this admission?: Yes (4) Weakness Is this a current diagnosis for this admission?: Yes (5) Elevated troponin Is this a current diagnosis for this admission?: Yes (6) Pneumonia Is this a current diagnosis for this admission?: No (7) Hyperkalemia Is this a current diagnosis for this admission?: Yes (8) Chronic anemia Is this a current diagnosis for this admission?: Yes - Additional Information Resuscitation Status: Full Code Discharge Diet: Diabetic Discharge Activity: Activity As Tolerated, Balance Activity w/Rest, Supervised Activity Referrals: KRYSTAL CALHOUN MD [Primary Care Provider] - Follow up as needed Home Medications: Amlodipine Besylate [Norvasc 10 mg Tablet] 10 mg PO DAILY 09/02/18 Citalopram Hydrobromide [Celexa 20 mg Tablet] 20 mg PO DAILY 08/06/19 Hydralazine HCl [Apresoline 25 mg Tablet] 25 mg PO QID 08/06/19 Acetaminophen [Tylenol 325 mg Tablet] 325 mg PO Q4HP PRN 10/11/19 Aspirin [Ecotrin 81 mg EC Tablet] 81 mg PO DAILY 10/11/19 Ferrous Sulfate [Feosol 325 mg Tablet] 325 mg PO DAILY 10/11/19 Insulin Detemir [Levemir] 25 units SUBCUT Q12 10/11/19 Liraglutide [Victoza 2-Edwin] 1.2 mg SQ DAILY 10/11/19 Lisinopril 20 mg PO DAILY 10/11/19 Acetaminophen [Tylenol 325 mg Tablet] 650 mg PO Q4HP PRN tablet 10/15/19 History of Present Illiness History of Present Illness: Per H&P by JALEN Gibbs: GLENIS CERVANTES is a 84 year old female [facility]-day history of decreased appetite, and" I just feel tired and weak". There is also a history of her vomiting. ER physician said that she had been complained of some shortness of breath the last 2 days but patient does not mention that very much. Patient actually is a very good historian tells me where she is from knows where she is answers all of her questions appropriately. I have looked at her chest x-ray I think she has a right lower lobe infiltrate actually even though the radiologist said bibasilar opacities. Go ahead and put her on some IV fluids and IV antibiotics. I do not think she is in failure. Hopefully in 2 to 3 days with gentle hydration and IV antibiotics we can convert her over to p.o. antibiotics and [facility]. She does not appear to be septic or toxic. Does have a slight elevation of her troponins but I do not get any history of coronary disease and I do not think these are significant, from a cardiac standpoint. Hospital Course Hospital Course: (1) Shortness of breath Likely related to anemia; Hgb 8.3-> 7.5-> 9.0-> 8.7-> 8.6 Chest x-ray showed bibasilar opacities; likely atelectasis. Continue to encourage pulmonary toilet with incentive spirometer, flutter valve, every 2 turns She was provided supplemental oxygen, as needed, to maintain saturations greater than 89%. She is now maintaining saturations on room air. She was provided as needed nebulizer treatments. (2) Type 2 diabetes mellitus A1C 5.4% Patient is placed on a consistent carb diet. She received sliding scale insulin for glucose control while admitted. At time of discharge, recommend that she resume her home medication regiment. (3) Physical deconditioning PT/OT consultations were obtained. Recommend every 2 turns and continued physical therapy services. (4) Weakness As above. (5) Elevated troponin Patient's troponins are indeterminately elevated at 0.023; stable x3. Patient denies chest discomfort EKG shows sinus rhythm with a first-degree block; no significant ST segment elevation or depression or acute findings. Continue daily aspirin therapy. Continue home antihypertensive regiment. (6) Pneumonia Ruled out. Chest x-ray showed enlarged cardiac silhouette with ill-defined bibasilar opacities; atelectasis versus infection. Although the previous provider was concerned about possible pneumonia; I have little suspicion the patient has pneumonia at this time as the patient remains afebrile with normal WBCs >72 hours with minimal respiratory symptoms. Blood cultures negative at 4 days. (7) Hyperkalemia Resolved. (8) Chronic anemia Hgb 8.0 on admission; Hgb 8.3-> 7.5-> 9.0-> 8.7-> 8.6 Pt with Hx of same; previous ED visit notes history of chronic hematuria. UA this visit negative for blood. Anemia panel nml Patient was provided 1 unit PRBC Recommend outpatient urology and GI follow up. May benefit from Hematology referral if no clear cause of anemia is identified. Recommend follow up CBC in 5-7 days. Physical Exam Vital Signs: Temp Pulse Resp BP Pulse Ox 97.9 F 70 14 140/58 H 98 10/15/19 09:31 10/15/19 09:31 10/15/19 09:31 10/15/19 09:31 10/15/19 09:31 Intake & Output 10/14/19 10/15/19 10/16/19 06:59 06:59 06:59 Intake Total 360 660 200 Output Total 375 2 Balance -15 660 198 Weight 104.9 kg 104.9 kg General appearance: PRESENT: no acute distress, cooperative, morbidly obese, well-developed, well-nourished Head exam: PRESENT: atraumatic, normocephalic Eye exam: PRESENT: conjunctiva pink, EOMI, PERRLA. ABSENT: scleral icterus Mouth exam: PRESENT: moist, tongue midline Teeth exam: PRESENT: edentulous Respiratory exam: PRESENT: clear to auscultation maribel, decreased breath sounds - Bibasilar; secondary to body habitus, poor inspiratory effort, and positio, symmetrical, unlabored, other - Room air. ABSENT: rales, rhonchi, wheezes Cardiovascular exam: PRESENT: RRR. ABSENT: diastolic murmur, rubs, systolic murmur Pulses: PRESENT: normal dorsalis pedis pul Vascular exam: PRESENT: normal capillary refill Extremities exam: PRESENT: full ROM. ABSENT: calf tenderness, clubbing, pedal edema Neurological exam: PRESENT: alert, awake, oriented to person, oriented to place, CN II-XII grossly intact, other - Socially appropriate, pleasantly confused.. ABSENT: motor sensory deficit Psychiatric exam: PRESENT: appropriate affect, normal mood. ABSENT: homicidal ideation, suicidal ideation Skin exam: PRESENT: dry, intact, warm. ABSENT: cyanosis, rash Results Laboratory Results: WBC 5.6 10^3/uL (4.0-10.5) 10/15/19 15:25 RBC 3.14 10^6/uL (3.72-5.28) L 10/15/19 15:25 Hgb 8.6 g/dL (12.0-15.5) L 10/15/19 15:25 Hct 25.8 % (36.0-47.0) L 10/15/19 15:25 MCV 82 fl (80-97) 10/15/19 15: MCH 27.5 pg (27.0-33.4) 10/15/19 15: MCHC 33.5 g/dL (32.0-36.0) 10/15/19 15: RDW 16.3 % (11.5-14.0) H 10/15/19 15:25 Plt Count 278 10^3/uL (150-450) 10/15/19 15:25 Lymph % (Auto) 26.8 % (13-45) 10/14/19 21:05 Schuyler % (Auto) 9.4 % (3-13) 10/14/19 21:05 Eos % (Auto) 5.4 % (0-6) 10/14/19 21:05 Baso % (Auto) 0.9 % (0-2) 10/14/19 21: Reticulocyte # 0.050 10^6/uL (0.028-0.122) 10/15/19 05:22 Absolute Neuts (auto) 3.1 10^3/uL (1.7-8.2) 10/14/19 21:05 Absolute Lymphs (auto) 1.4 10^3/uL (0.5-4.7) 10/14/19 21:05 Absolute Monos (auto) 0.5 10^3/uL (0.1-1.4) 10/14/19 21:05 Absolute Eos (auto) 0.3 10^3/uL (0.0-0.6) 10/14/19 21:05 Absolute Basos (auto) 0.1 10^3/uL (0.0-0.2) 10/14/19 21:05 Seg Neutrophils % 57.5 % (42-78) 10/14/19 21:05 Retic Count (auto) 1.58 % (0.66-2.85) 10/15/19 05:22 PT 14.2 SEC (11.4-15.4) 10/11/19 13:00 INR 1.10 10/11/19 13:00 APTT 40.0 SEC (23.5-35.8) H 10/11/19 13:00 Sodium 142.2 mmol/L (137-145) 10/14/19 05:53 Potassium 3.9 mmol/L (3.6-5.0) D 10/14/19 05:53 Chloride 110 mmol/L (98-107) H 10/14/19 05:53 Carbon Dioxide 27 mmol/L (22-30) 10/14/19 05:53 Anion Gap 5 (5-19) 10/14/19 05:53 BUN 20 mg/dL (7-20) 10/14/19 05:53 Creatinine 1.07 mg/dL (0.52-1.25) 10/14/19 05:53 Est GFR ( Amer) 59 (>60) L 10/14/19 05:53 Est GFR (MDRD) Non-Af 49 (>60) L 10/14/19 05:53 Glucose 119 mg/dL (75-110) H 10/14/19 05:53 POC Glucose 205 mg/dL (70-110) H 10/15/19 12:10 Hemoglobin A1c % 5.4 % (4.7-6.0) 10/14/19 05:53 Lactic Acid 0.7 mmol/L (0.7-2.1) 10/11/19 13:00 Calcium 7.9 mg/dL (8.4-10.2) L 10/14/19 05:53 Magnesium 2.7 mg/dL (1.6-2.3) H 10/12/19 04:17 Iron 42.8 ug/dL (37-170) 10/15/19 05:22 TIBC 219 ug/dL (250-450) L 10/15/19 05:22 % Saturation 20 % 10/15/19 05:22 Ferritin 130.00 ng/mL (11.1-264.0) 10/15/19 05:22 Total Bilirubin 0.3 mg/dL (0.2-1.3) 10/11/19 13:00 Direct Bilirubin 0.3 mg/dL (0.0-0.4) 10/11/19 13:00 Neonat Total Bilirubin Not Reportable 10/11/19 13:00 Neonat Direct Bilirubin Not Reportable 10/11/19 13:00 Neonat Indirect Bili Not Reportable 10/11/19 13:00 AST 22 U/L (14-36) 10/11/19 13:00 ALT 10 U/L (<35) 10/11/19 13:00 Alkaline Phosphatase 78 U/L (38-126) 10/11/19 13:00 Troponin I 0.025 ng/mL 10/11/19 23:35 NT-Pro-B Natriuret Pep 1040 pg/mL (<450) H 10/12/19 04:17 Total Protein 7.3 g/dL (6.3-8.2) 10/11/19 13:00 Albumin 3.0 g/dL (3.5-5.0) L 10/11/19 13:00 Amylase 58 U/L (30-110) 10/11/19 13:00 Lipase 114.2 U/L (23-300) 10/11/19 13:00 Vitamin B12 860.0 pg/mL (239-931) 10/15/19 05:22 Folate > 20.00 ng/mL (>2.76) 10/15/19 05:22 TSH 2.03 uIU/mL (0.47-4.68) 10/11/19 13:00 Urine Color YELLOW 10/11/19 13:40 Urine Appearance CLEAR 10/11/19 13:40 Urine pH 6.0 (5.0-9.0) 10/11/19 13:40 Ur Specific [place] 1.015 10/11/19 13:40 Urine Protein >=500 mg/dL (NEGATIVE) H 10/11/19 13:40 Urine Glucose (UA) NEGATIVE mg/dL (NEGATIVE) 10/11/19 13:40 Urine Ketones NEGATIVE mg/dL (NEGATIVE) 10/11/19 13:40 Urine Blood NEGATIVE (NEGATIVE) 10/11/19 13:40 Urine Nitrite NEGATIVE (NEGATIVE) 10/11/19 13:40 Urine Bilirubin NEGATIVE (NEGATIVE) 10/11/19 13:40 Urine Urobilinogen NEGATIVE mg/dL (<2.0) 10/11/19 13:40 Ur Leukocyte Esterase NEGATIVE (NEGATIVE) 10/11/19 13:40 Urine WBC (Auto) 7 /HPF 10/11/19 13:40 Urine RBC (Auto) 13 /HPF 10/11/19 13:40 U Hyaline Cast (Auto) 9 /LPF 10/11/19 13:40 Urine Bacteria (Auto) TRACE /HPF 10/11/19 13:40 Squamous Epi Cells Auto 1 /HPF 10/11/19 13:40 Urine Mucus (Auto) RARE /LPF 10/11/19 13:40 Urine Ascorbic Acid 20 (NEGATIVE) H 10/11/19 13:40 Blood Type AB POSITIVE 10/14/19 14:00 Antibody Screen NEGATIVE 10/14/19 14:00 Crossmatch See Detail 10/14/19 14:00 10/11/19 10/11/19 10/11/19 13:00 16:46 23:35 Troponin I 0.023 0.029 0.025 NT-Pro-B Natriuret Pep 1230 H 10/12/19 04:17 Troponin I NT-Pro-B Natriuret Pep 1040 H Impressions: Acute Abdomen Series 10/11/19 13:19 IMPRESSION: 1. Enlarged cardiac silhouette with ill-defined bibasilar opacities, possibly atelectasis or infection. 2. No evidence of intestinal obstruction or other acute intra-abdominal/pelvic process. Plan Plan of Treatment: Patient is recommended to follow-up with primary care provider within 1 week. Advise follow-up with urology due to history of cystitis with chronic hematuria if she has not done so (patient had a ER visit mid August for similar complaints and anemia with recommendations to follow-up with urology at that time). Recommend GI evaluation if the patient continues to have unexplained anemia. May wish to consider hematology consultation. Advise follow-up CBC in 5 to 7 days. Return to the emergency department as needed for concerning symptoms. Time Spent: Greater than 30 Minutes Stroke Is this a Stroke Patient?: No Acute Heart Failure - Is this a Heart Failure Patient?: No
[2019-10-15] MEDS: DOCUSATE SODIUM 100 MG CAPSULE PO SCH (16:42)
[2019-10-15] MEDS: ENOXAPARIN SODIUM INJ 40 MG/0.4 ML DISP.SYRIN SUBCUT SCH (16:42)
[2019-10-15 21:01] VITALS: BP 132/41
== END 2019-10-15 18:50 | DRG 812 ==
LOC: ER 12:45 → EH 17:09 → INTOOBSV 17:09 → 3S 19:00 → OBSVTOIN 10-13 15:51
PROVIDERS: ADMIT Family Medicine; ATTEND Registered Nurse
PROC: 30233N1 Transfusion of Nonautologous Red Blood Cells into Peripheral Vein, Percutaneous Approach (ICD-10-PCS; principal; 2019-10-14)
DX: D64.9 Anemia, unspecified (principal); I13.0 Hypertensive heart and chronic kidney disease with heart failure and stage 1 through stage 4 chronic kidney disease, or unspecified chronic kidney disease; I50.32 Chronic diastolic (congestive) heart failure; I11.0 Hypertensive heart disease with heart failure; E11.22 Type 2 diabetes mellitus with diabetic chronic kidney disease; N18.3 Chronic kidney disease, stage 3 (moderate); F03.90 Unspecified dementia, unspecified severity, without behavioral disturbance, psychotic disturbance, mood disturbance, and anxiety; R06.00 Dyspnea, unspecified; R06.02 Shortness of breath; R53.1 Weakness; R79.89 Other specified abnormal findings of blood chemistry; E87.5 Hyperkalemia; E66.01 Morbid (severe) obesity due to excess calories; E78.5 Hyperlipidemia, unspecified; M19.90 Unspecified osteoarthritis, unspecified site; F32.9 Major depressive disorder, single episode, unspecified; R05 Cough; I44.0 Atrioventricular block, first degree; Z79.82 Long term (current) use of aspirin; Z79.4 Long term (current) use of insulin; Z82.49 Family history of ischemic heart disease and other diseases of the circulatory system
CPT/HCPCS: 36415; 36430; 74022; 80048; 80053; 81001; 82150; 82607; 82728; 82746; 82962; 83036; 83540; 83550; 83605; 83690; 83735; 83880; 84443; 84484; 85025; 85027; 85045; 85610; 85730; 86850; 86900; 86901; 86920; 87040; 87086; 93005; 93010; 94667; 94799; 99285; C1758; G0378; J0360; J0456; J0696; J1650; J1815; J3490; J7030; J7060; P9016

== ENCOUNTER 2019-10-20 09:10 | Inpatient (IN) | payer MEDICARE, MEDICAID ==
--- NOTE | 2019-10-20 10:37 | ER Document Report ---
Entered by JAMAICA RETANA SCRIBE 10/20/19 1001 Acting as scribe for:JENNY FITZPATRICK MD ED Blood Sugar Problem - General Stated Complaint: BLOOD SUGAR PROBLEMS Time Seen by Provider: 10/20/19 09:58 Primary Care Provider: KRYSTAL CALHOUN MD [Primary Care Provider] - Follow up as needed Mode of Arrival: Medic Information source: Patient Notes: This 84 year old female patient with a history of CHF, HLD, HTN, type 2 diabetes, and stage III ESRD brought in by EMS presents to the ED today with complaints of hypoglycemia. EMS reports that the patient BGL was in the 40s and that the facility administered 2 mg Glucagon. EMS states that they administered 50 ml D10 IV en route and the patients BGL upon arrival increased to 139. Patient appears with blood and bite atwood to her lip, stating that she bites her lip and tongue a lot due to her overbite. TRAVEL OUTSIDE OF THE [place] IN LAST 30 DAYS: No - Related Data Allergies/Adverse Reactions: No Known Allergies Allergy (Verified 10/28/18 16:31) Past Medical History - General Information source: Patient, [facility] Records - Social History Smoking Status: Unknown if Ever Smoked Cigarette use (# per day): No Chew tobacco use (# tins/day): No Smoking Education Provided: No Family History: Reviewed & Not Pertinent, Hypertension Patient has suicidal ideation: No Patient has homicidal ideation: No - Past Medical History Cardiac Medical History: Reports: Hx Congestive Heart Failure, Hx Hypercholesterolemia, Hx Hypertension Endocrine Medical History: Reports: Hx Diabetes Mellitus Type 2 Renal/ Medical History: Reports: Hx End Stage Renal Disease - STAGE 3 GI Medical History: Reports: Hx Diverticulitis, Hx Colonoscopy, Hx Endoscopy Musculoskeletal Medical History: Reports Hx Arthritis, Reports Hx Musculoskeletal Deformity Psychiatric Medical History: Reports: Hx Dementia, Hx Depression Past Surgical History: Reports: Hx Cholecystectomy, Hx Hysterectomy Review of Systems - Review of Systems Constitutional: See HPI, Other - Hypoglycemia EENT: No symptoms reported Cardiovascular: No symptoms reported Respiratory: No symptoms reported Gastrointestinal: No symptoms reported Genitourinary: No symptoms reported Female Genitourinary: No symptoms reported Musculoskeletal: No symptoms reported Skin: See HPI, Other - Bite kev to lip Hematologic/Lymphatic: No symptoms reported Neurological/Psychological: No symptoms reported -: Yes All other systems reviewed and negative Physical Exam - Vital signs Vitals: Temp Pulse Resp BP Pulse Ox 97.7 F 70 17 121/96 H 97 10/20/19 09:51 10/20/19 09:51 10/20/19 09:51 10/20/19 09:51 10/20/19 09:51 - General General appearance: Alert - and oriented In distress: None - HEENT Head: Normocephalic, Atraumatic Eyes: Normal Pupils: PERRL Mouth/Lips: Other - Severe overbite with missing upper teeth that cause her to bite down on her lip. - Respiratory Respiratory status: No respiratory distress Chest status: Nontender Breath sounds: Normal Chest palpation: Normal - Cardiovascular Rhythm: Regular Heart sounds: Normal auscultation Murmur: No - Abdominal Inspection: Obese Distension: No distension Bowel sounds: Normal Tenderness: Nontender Organomegaly: No organomegaly - Back Back: Normal, Nontender - Extremities General upper extremity: Normal inspection General lower extremity: Edema - Not pitting - Neurological Neuro grossly intact: Yes - Psychological Associated symptoms: Normal affect, Normal mood - Skin Skin Temperature: Warm Skin Moisture: Dry Skin Color: Normal Course - Re-evaluation Re-evalutation: 10/20/19 13:40 [facility] She was given glucagon and then D10 by EMS. Her blood sugar came up to 139. When her blood was drawn at 11:33 AM, the blood sugar was 71. At 1223 she received 1 amp of D50 W, at 1312 her blood sugar was only 95. She does not take oral hypoglycemics, but is on several different insulins. Her urinalysis shows urinary tract infection. - Vital Signs Vital signs: Temp Pulse Resp BP Pulse Ox 97.7 F 70 17 121/96 H 97 10/20/19 09:51 10/20/19 09:51 10/20/19 09:51 10/20/19 09:51 10/20/19 09:51 - Laboratory Result Diagrams: 10/20/19 09:38 10/20/19 09:38 Laboratory results interpreted by me: 10/20/19 10/20/19 10/20/19 09:18 09:30 09:38 RBC 3.24 L Hgb 8.6 L Hct 26.5 L MCH 26.6 L RDW 17.5 H Chloride Carbon Dioxide Anion Gap Est GFR ( Amer) Est GFR (MDRD) Non-Af Glucose POC Glucose 139 H Calcium AST Albumin Urine Protein 100 H Urine Blood SMALL H Urine Nitrite POSITIVE H Ur Leukocyte Esterase LARGE H 10/20/19 09:38 RBC Hgb Hct MCH RDW Chloride 111 H Carbon Dioxide 31 H Anion Gap 2 L Est GFR ( Amer) 58 L Est GFR (MDRD) Non-Af 48 L Glucose 128 H POC Glucose Calcium 8.3 L AST 37 H Albumin 2.9 L Urine Protein Urine Blood Urine Nitrite Ur Leukocyte Esterase - EKG Interpretation by Me EKG shows normal: [place], Intervals, ST-T Waves. abnormal: QRS Complexes - Abnormal R wave progression Rate: Normal - 69 Rhythm: A.Fib [place]/QRS: IVCD - Consults JALEN Gibbs Time consulted: 13:36 Consulted provider: will come to ER Critical Care Note - Critical Care Note Total time excluding time spent on procedures (mins): 30 Discharge - Discharge Clinical Impression: Hypoglycemia associated with type 2 diabetes mellitus UTI (urinary tract infection) Qualifiers: Urinary tract infection type: site unspecified Hematuria presence: with hematuria Qualified Code(s): N39.0 - Urinary tract infection, site not specified; R31.9 - Hematuria, unspecified Condition: Good Disposition: ADMITTED INPATIENT Admitting Provider: Shreya (Hospitalist) Unit Admitted: Medical Floor Referrals: KRYSTAL CALHOUN MD [Primary Care Provider] - Follow up as needed I personally performed the services described in the documentation, reviewed and edited the documentation which was dictated to the scribe in my presence, and it accurately records my words and actions.
[2019-10-20 10:44] LABS: ABSOLUTE EOSINOPHILS # (AUTO) 0.2 10^3/uL (0.0-0.6); ABSOLUTE LYMPHOCYTES (AUTO) 1.2 10^3/uL (0.5-4.7); ABSOLUTE MONOCYTES (AUTO) 0.4 10^3/uL (0.1-1.4); ABSOLUTE NEUT (AUTO) 5.1 10^3/uL (1.7-8.2); BASOPHILS % (AUTO) 0.6 % (0-2); EOSINOPHILS % (AUTO) 2.7 % (0-6); HEMATOCRIT 26.5 % (36.0-47.0); HEMOGLOBIN 8.6 g/dL (12.0-15.5); MEAN CORPUSCULAR HEMOGLOBIN 26.6 pg (27.0-33.4); MEAN CORPUSCULAR HGB CONC 32.5 g/dL (32.0-36.0); MEAN CORPUSCULAR VOLUME 82 fl (80-97); MONOCYTES % (AUTO) 6.5 % (3-13); PLATELET COUNT 322 10^3/uL (150-450); RED BLOOD COUNT 3.24 10^6/uL (3.72-5.28); RED CELL DISTRIBUTION WIDTH 17.5 % (11.5-14.0); SEGMENTED NEUTROPHILS % (AUTO) 73.2 % (42-78); TOTAL CELLS COUNTED % (AUTO) 100 %; WHITE BLOOD COUNT 6.9 10^3/uL (4.0-10.5)
[2019-10-20 10:47] LABS: APPEARANCE,URINE TURBID; BILIRUBIN,URINE NEGATIVE (NEGATIVE); COLOR,URINE AMBER; GLUCOSE, URINE NEGATIVE (NEGATIVE); KETONES,URINE NEGATIVE (NEGATIVE); LEUKOCYTE ESTERASE,URINE LARGE (NEGATIVE); NITRITE,URINE POSITIVE (NEGATIVE); PROTEIN,URINE 100 mg/dL (NEGATIVE); URINE SPECIFIC GRAVITY 1.017; UROBILINOGEN,URINE NEGATIVE mg/dL (<2.0)
[2019-10-20 10:54] LABS: ALBUMIN 2.9 g/dL (3.5-5.0); ALKALINE PHOSPHATASE 66 U/L (38-126); ASPARTATE AMINO TRANSFERASE 37 U/L (14-36); BILIRUBIN,TOTAL 0.2 mg/dL (0.2-1.3); BLOOD UREA NITROGEN 19 mg/dL (7-20); CALCIUM 8.3 mg/dL (8.4-10.2); CARBON DIOXIDE 31 mmol/L (22-30); GLUCOSE 128 mg/dL (75-110); POTASSIUM 3.6 mmol/L (3.6-5.0); TOTAL PROTEIN 6.6 g/dL (6.3-8.2)
[2019-10-20 10:59] LABS: CHLORIDE 111 mmol/L (98-107)
[2019-10-20 11:02] LABS: ANION GAP 2 (5-19)
[2019-10-20] MEDS ORDERED: DEXTROSE 50%-WATER 25 GM/50 ML DISP.SYRIN IV ONE ×2 (11:38→13:33)
[2019-10-20] MEDS ORDERED: FLUCONAZOLE 100 MG TABLET PO ONE (11:38)
[2019-10-20] MEDS ORDERED: CEFTRIAXONE 1 GM/D5W RTU 1 GM/50 ML RTUPB IV ONE (11:38)
[2019-10-20] MEDS ORDERED: ONDANSETRON 4 MG TAB.RAPDIS PO PRN (14:18)
[2019-10-20] MEDS ORDERED: ONDANSETRON HCL INJ/PF 4 MG/2 ML SDV IV PRN (14:18)
[2019-10-20] MEDS ORDERED: DEXTROSE 40% GEL 15 GM TUBE PO PRN ×2 (14:26)
[2019-10-20] MEDS ORDERED: GLUCAGON,HUMAN RECOMB 1 MG INJ IM PRN (14:26)
[2019-10-20] MEDS ORDERED: DEXTROSE 50%-WATER 25 GM/50 ML DISP.SYRIN IV PRN (14:26)
--- NOTE | 2019-10-20 14:39 | PDOC H&P ---
History of Present Illness Admission Date/PCP: 10/20/19 13:50 KRYSTAL CALHOUN MD History of Present Illness: GLENIS CERVANTES is a 84 year old female sent over from [facility] for altered mental status, hypoglycemia. Evidently EMS arrived and the blood glucose was in the 40s patient received some glucagon as well as D10 blood sugar went up to 139 and now in the ER it staying around 95. Looking at her labs from 2 days ago when she was still at [facility] her blood glucose at that time was only 57. Suspect she either has a urinary tract infection and or her insulin dosage is too high. Put her in the hospital for some IV fluids hold on her regular medicines and treated with just a sliding scale and then reintroduce her medicines for diabetes. Patient does answer simple questions although she is sleepy in the ER. They are attempting to give her crackers and peanut butter. Patient was just in the hospital and discharged on 311 to the half-way. At that time she had a diagnosis of pneumonia, as well as generalized weakness. Urinalysis today shows small amount of blood positive nitrates and large amount of leukocytes. Urine culture is pending Past Medical History Cardiac Medical History: Reports: Congestive Heart Failure, Hyperlipidema, Hypertension Denies: Myocardial Infarction Endocrine Medical History: Reports: Diabetes Mellitus Type 2 Renal/ Medical History: Reports: End Stage Renal Disease - STAGE 3 GI Medical History: Reports: Diverticulitis Denies: Hepatitis Musculoskeltal Medical History: Reports: Arthritis Psychiatric Medical History: Reports: Dementia, Depression Hematology: Denies: Hemophilia, Sickle Cell Disease Past Surgical History Past Surgical History: Reports: Cholecystectomy, Hysterectomy Social History Smoking Status: Unknown if Ever Smoked Frequency of Alcohol Use: None Hx Recreational Drug Use: No Drugs: None Hx Prescription Drug Abuse: No - Advance Directive Resuscitation Status: Full Code Family History Family History: Reviewed & Not Pertinent, Hypertension Parental Family History Reviewed: No Children Family History Reviewed: No Sibling(s) Family History Reviewed.: No Medication/Allergy Home Medications: Amlodipine Besylate [Norvasc 10 mg Tablet] 10 mg PO DAILY 09/02/18 Citalopram Hydrobromide [Celexa 20 mg Tablet] 20 mg PO DAILY 08/06/19 Hydralazine HCl [Apresoline 25 mg Tablet] 25 mg PO QID 08/06/19 Acetaminophen [Tylenol 325 mg Tablet] 325 mg PO Q4HP PRN 10/11/19 Aspirin [Ecotrin 81 mg EC Tablet] 81 mg PO DAILY 10/11/19 Ferrous Sulfate [Feosol 325 mg Tablet] 325 mg PO DAILY 10/11/19 Insulin Detemir [Levemir] 25 units SUBCUT Q12 10/11/19 Liraglutide [Victoza 2-Edwin] 1.2 mg SQ DAILY 10/11/19 Lisinopril 20 mg PO DAILY 10/11/19 Acetaminophen [Tylenol 325 mg Tablet] 650 mg PO Q4HP PRN tablet 10/15/19 Allergies/Adverse Reactions: No Known Allergies Allergy (Verified 10/28/18 16:31) Review of Systems ROS unobtainable: Due to mental status Physical Exam Vital Signs: Temp Pulse Resp BP Pulse Ox 97.7 F 70 17 121/96 H 97 10/20/19 09:51 10/20/19 09:51 10/20/19 09:51 10/20/19 09:51 10/20/19 09:51 Intake & Output 10/19/19 10/20/19 10/21/19 06:59 06:59 06:59 Intake Total 50 Balance 50 Weight 104.1 kg General appearance: PRESENT: no acute distress Respiratory exam: PRESENT: clear to auscultation maribel. ABSENT: rales, rhonchi, wheezes Cardiovascular exam: PRESENT: RRR. ABSENT: diastolic murmur, rubs, systolic murmur Neurological exam: PRESENT: altered, oriented to person Psychiatric exam: PRESENT: depressed, flat affect Results Laboratory Results: 10/20/19 09:38 10/20/19 09:38 10/20/19 10/20/19 10/20/19 09:30 09:38 09:38 WBC 6.9 RBC 3.24 L Hgb 8.6 L Hct 26.5 L MCV 82 MCH 26.6 L MCHC 32.5 RDW 17.5 H Plt Count 322 Seg Neutrophils % 73.2 Sodium 143.8 Potassium 3.6 Chloride 111 H Carbon Dioxide 31 H Anion Gap 2 L BUN 19 Creatinine 1.09 Est GFR ( Amer) 58 L Glucose 128 H Calcium 8.3 L Total Bilirubin 0.2 AST 37 H Alkaline Phosphatase 66 Total Protein 6.6 Albumin 2.9 L Urine Color MARISELA Urine Appearance TURBID Urine pH 5.0 Ur Specific [place] 1.017 Urine Protein 100 H Urine Glucose (UA) NEGATIVE Urine Ketones NEGATIVE Urine Blood SMALL H Urine Nitrite POSITIVE H Ur Leukocyte Esterase LARGE H Urine WBC (Auto) >182 Urine RBC (Auto) 18 Assessment and Plan - Diagnosis (1) Hypoglycemia Is this a current diagnosis for this admission?: Yes (2) Altered mental status Is this a current diagnosis for this admission?: Yes (3) UTI (urinary tract infection) Qualifiers: Urinary tract infection type: site unspecified Hematuria presence: with hematuria Qualified Code(s): N39.0 - Urinary tract infection, site not specified; R31.9 - Hematuria, unspecified Is this a current diagnosis for this admission?: Yes (4) Anemia Is this a current diagnosis for this admission?: Yes (5) Diabetes Is this a current diagnosis for this admission?: Yes (6) Hematuria Is this a current diagnosis for this admission?: Yes (7) Obesity (BMI 30.0-34.9) Is this a current diagnosis for this admission?: Yes - Plan Summary Summary: Patient will be admitted for D5W fluids, be placed on a sliding scale, hold her insulin, and her Victoza. Her dose was Levemir 25 units subcu every 12 hours and Victoza 1.2 mg subcu daily It appears as though patient normally has been running a low blood sugar at the half-way probably from her medications being too high, try to adjust these prior to discharge and also rule out urinary tract infection - Time Time Spent with patient: 35 or more minutes
[2019-10-20 14:43] LABS: INTERNATIONAL RATION (INR) 1.02; PROTHROMBIN TIME 13.4 SEC (11.4-15.4)
[2019-10-20] MEDS: INSULIN LISPRO 100 UNIT/ML 3 ML VIAL SUBCUT SCH ×2 (17:11→22:00)
[2019-10-20] MEDS: DEXTROSE 50%-WATER 25 GM/50 ML DISP.SYRIN IV PRN ×2 (17:53→17:56)
[2019-10-20] MEDS: DEXTROSE 5%-WATER 1000 ML 1,000 ML IV PRN (18:34)
--- NOTE | 2019-10-20 22:16 | RADIOLOGY REPORT (SQ) ---
EXAM DESCRIPTION: XR CHEST 1 VIEW COMPLETED DATE/TME: 10/20/2019 00:00 CLINICAL HISTORY: 84 years, Female, follow up pneumonia COMPARISON: Prior study from 08/14/2019 NUMBER OF VIEWS: One TECHNIQUE: Single frontal view of the chest was obtained portably LIMITATIONS: None. FINDINGS: Cardiopericardial silhouette is enlarged, unchanged. Mediastinal contours are stable, with accentuation of the right paratracheal stripe likely due to patient rotation towards the right. Asymmetric right perihilar opacity is noted with vascular indistinctness along with a small right pleural effusion and fissural thickening. Additional more confluent retrocardiac left basilar opacity is noted. No pneumothorax. IMPRESSION: Asymmetric right perihilar opacity with small right pleural effusion and fissural thickening, suspicious for asymmetric pulmonary edema. Additional more confluent retrocardiac left basilar airspace disease could indicate additional edema, atelectasis, or pneumonia. Cardiomegaly. copyright 2010 [employer]- All Rights Reserved
[2019-10-21] MEDS: DEXTROSE 5%-WATER 1000 ML 1,000 ML IV PRN (03:54)
[2019-10-21] MEDS: PANTOPRAZOLE SODIUM 20 MG TABLET.DR PO SCH (05:09)
[2019-10-21 05:23] LABS: ABSOLUTE EOSINOPHILS # (AUTO) 0.3 10^3/uL (0.0-0.6); ABSOLUTE LYMPHOCYTES (AUTO) 1.4 10^3/uL (0.5-4.7); ABSOLUTE MONOCYTES (AUTO) 0.5 10^3/uL (0.1-1.4); ABSOLUTE NEUT (AUTO) 3.5 10^3/uL (1.7-8.2); BASOPHILS % (AUTO) 0.7 % (0-2); EOSINOPHILS % (AUTO) 5.2 % (0-6); HEMATOCRIT 24.9 % (36.0-47.0); HEMOGLOBIN 8.4 g/dL (12.0-15.5); LYMPHOCYTES % (AUTO) 24.4 % (13-45); MEAN CORPUSCULAR HGB CONC 33.6 g/dL (32.0-36.0); MEAN CORPUSCULAR VOLUME 83 fl (80-97); MONOCYTES % (AUTO) 8.9 % (3-13); PLATELET COUNT 286 10^3/uL (150-450); RED BLOOD COUNT 2.99 10^6/uL (3.72-5.28); RED CELL DISTRIBUTION WIDTH 17.7 % (11.5-14.0); SEGMENTED NEUTROPHILS % (AUTO) 60.8 % (42-78); TOTAL CELLS COUNTED % (AUTO) 100 %; WHITE BLOOD COUNT 5.7 10^3/uL (4.0-10.5)
[2019-10-21 05:36] LABS: BLOOD UREA NITROGEN 19 mg/dL (7-20); CALCIUM 8.3 mg/dL (8.4-10.2); GLUCOSE 118 mg/dL (75-110); POTASSIUM 3.8 mmol/L (3.6-5.0)
[2019-10-21 05:43] LABS: ANION GAP 5 (5-19); CARBON DIOXIDE 28 mmol/L (22-30); CHLORIDE 108 mmol/L (98-107)
[2019-10-21] MEDS ORDERED: VANCOMYCIN HCL 0 MG in DEXTROSE 5%-WATER 250 ML IV NR (07:30)
[2019-10-21] MEDS ORDERED: FUROSEMIDE INJ/PF 40 MG/4 ML SDV ONE (07:34)
[2019-10-21] MEDS ORDERED: FUROSEMIDE INJ/PF 40 MG/4 ML SDV IV ONE (07:45)
[2019-10-21] MEDS: INSULIN LISPRO 100 UNIT/ML 3 ML VIAL SUBCUT SCH ×4 (09:02→21:12)
[2019-10-21] MEDS: IPRATROPIUM/ALBUTEROL 0.5-2.5 MG/3 ML AMPUL NEB PRN (09:27)
[2019-10-21] MEDS: VANCOMYCIN HCL 1,500 MG in DEXTROSE 5%-WATER 250 ML IV SCH (09:33)
[2019-10-21] MEDS: DOCUSATE SODIUM 100 MG CAPSULE PO SCH (10:37)
[2019-10-21] MEDS: ENOXAPARIN SODIUM INJ 40 MG/0.4 ML DISP.SYRIN SUBCUT SCH (11:44)
[2019-10-21] MEDS: CEFTRIAXONE 1 GM/D5W RTU 1 GM/50 ML RTUPB IV SCH (11:44)
--- NOTE | 2019-10-21 14:35 | PDOC PROGRESS REPORT ---
Subjective Progress Note for:: 10/21/19 Reason For Visit: UTI(URINARY TRACT INFECTION)HYPOGLYCEMIA ASSIOCATE 10/21/2019 Patient was originally admitted for hypoglycemia however now she appears to have respiratory difficulty. We due to her cardiomegaly and probable low ejection fraction, CHF Physical Exam Vital Signs: Temp Pulse Resp BP Pulse Ox 97.4 F 63 18 164/69 H 100 10/21/19 11:22 10/21/19 11:22 10/21/19 11:22 10/21/19 11:22 10/21/19 11:22 Intake & Output 10/20/19 10/21/19 10/22/19 06:59 06:59 06:59 Intake Total 1050 Balance 1050 Weight 104.1 kg 104.1 kg General appearance: PRESENT: mild distress Respiratory exam: PRESENT: decreased breath sounds, wheezes Cardiovascular exam: PRESENT: RRR. ABSENT: diastolic murmur, rubs, systolic murmur Neurological exam: PRESENT: altered, other - Lethargic Psychiatric exam: PRESENT: flat affect Results Laboratory Results: 10/21/19 04:47 10/21/19 04:47 10/21/19 10/21/19 04:47 04:47 WBC 5.7 RBC 2.99 L Hgb 8.4 L Hct 24.9 L MCV 83 MCH 28.0 MCHC 33.6 RDW 17.7 H Plt Count 286 Seg Neutrophils % 60.8 Sodium 140.6 Potassium 3.8 Chloride 108 H Carbon Dioxide 28 Anion Gap 5 BUN 19 Creatinine 1.17 Est GFR ( Amer) 54 L Glucose 118 H Calcium 8.3 L 10/20/19 09:38 Blood Blood Culture (PCR) - Final Staphylococcus Species 10/21/19 04:47 NT-Pro-B Natriuret Pep 1020 H Impressions: Chest X-Ray 10/20/19 00:00 IMPRESSION: Asymmetric right perihilar opacity with small right pleural effusion and fissural thickening, suspicious for asymmetric pulmonary edema. Additional more confluent retrocardiac left basilar airspace disease could indicate additional edema, atelectasis, or pneumonia. Cardiomegaly. copyright 2010 [employer]- All Rights Reserved Assessment and Plan - Diagnosis (1) Hypoglycemia Is this a current diagnosis for this admission?: Yes (2) Altered mental status Is this a current diagnosis for this admission?: Yes (3) UTI (urinary tract infection) Qualifiers: Urinary tract infection type: site unspecified Hematuria presence: with hematuria Qualified Code(s): N39.0 - Urinary tract infection, site not specified; R31.9 - Hematuria, unspecified Is this a current diagnosis for this admission?: Yes (4) Anemia Is this a current diagnosis for this admission?: Yes (5) Diabetes Is this a current diagnosis for this admission?: Yes (6) Hematuria Is this a current diagnosis for this admission?: Yes (7) Obesity (BMI 30.0-34.9) Is this a current diagnosis for this admission?: Yes - Plan Summary Summary: Patient will be admitted for D5W fluids, be placed on a sliding scale, hold her insulin, and her Victoza. Her dose was Levemir 25 units subcu every 12 hours and Victoza 1.2 mg subcu daily It appears as though patient normally has been running a low blood sugar at the [facility] probably from her medications being too high, try to adjust these prior to discharge and also rule out urinary tract infection 10/21/2019 Patient was admitted originally for hypoglycemia. Patient's glucose levels are now running in the high 100s and low 200s on just a sliding scale. I am going to restart her scheduled insulin but at a much lower dose This morning her temperature was 97 4 pulse was 77 blood pressure 147/74 respiratory rate was 24 and O2 sat was 95% on nonrebreather flow of 10 . I am going to check a blood gas, then decrease her oxygen flow to 3 L, as she is currently on 6 L of flow Patient was given Lasix 40 mg IV this morning for respiratory distress. Chest x-ray shows no pneumonia. View of her chest x-ray shows an extremely large heart, and I think a lot of her respiratory problems are from a cardiac etiology with inefficient heart activity. BNP is 1000 I have gone ahead and added Rocephin and vancomycin however I do not think this is sepsis. Patient has been in the emergency room on multiple occasions recently as well as in the hospital. I have a call into her power of museum preparator and see if I can discuss making her a no code as I feel that is getting more difficult to correct her chronic abnormalities. - Time Time Spent with patient: 35 or more minutes
[2019-10-21 15:11] LABS: ARTERIAL BLOOD BASE EXCESS 3.1 mmol/L; ARTERIAL BLOOD FIO2 50%; ARTERIAL BLOOD H2CO3 1.57 mmol/L (1.05-1.35); ARTERIAL BLOOD O2 SATURATION 95.2 % (94-98); ARTERIAL BLOOD PCO2 52.2 mmHg (35-45); ARTERIAL BLOOD PH 7.36 (7.35-7.45); ARTERIAL BLOOD PO2 79.4 mmHg (80-100); ARTERIAL BLOOD TOTAL CO2 30.6 mmol/L (21-25)
[2019-10-21] MEDS: FUROSEMIDE INJ/PF 40 MG/4 ML SDV IV SCH (17:48)
[2019-10-21 19:17] LABS: ARTERIAL BLOOD BASE EXCESS 3.3 mmol/L; ARTERIAL BLOOD O2 SATURATION 93.1 % (94-98); ARTERIAL BLOOD PCO2 49.9 mmHg (35-45); ARTERIAL BLOOD PH 7.38 (7.35-7.45); ARTERIAL BLOOD PO2 68.2 mmHg (80-100); ARTERIAL BLOOD TOTAL CO2 30.5 mmol/L (21-25)
[2019-10-21 19:19] LABS: ARTERIAL BLOOD FIO2 2.5L
[2019-10-21] MEDS: INSULIN GLARGINE,HUM.REC.ANLOG 1,000 UNIT/10 ML VIAL SUBCUT SCH (21:12)
[2019-10-22] MEDS: PANTOPRAZOLE SODIUM 20 MG TABLET.DR PO SCH (05:08)
[2019-10-22] MEDS: FUROSEMIDE INJ/PF 40 MG/4 ML SDV IV SCH ×2 (05:08→18:01)
[2019-10-22 05:10] LABS: ABSOLUTE BASOPHILS # (AUTO) 0.1 10^3/uL (0.0-0.2); ABSOLUTE EOSINOPHILS # (AUTO) 0.1 10^3/uL (0.0-0.6); ABSOLUTE LYMPHOCYTES (AUTO) 1.1 10^3/uL (0.5-4.7); ABSOLUTE MONOCYTES (AUTO) 0.5 10^3/uL (0.1-1.4); ABSOLUTE NEUT (AUTO) 4.9 10^3/uL (1.7-8.2); BASOPHILS % (AUTO) 0.8 % (0-2); HEMOGLOBIN 8.5 g/dL (12.0-15.5); LYMPHOCYTES % (AUTO) 16.4 % (13-45); MEAN CORPUSCULAR HEMOGLOBIN 27.9 pg (27.0-33.4); MEAN CORPUSCULAR HGB CONC 33.9 g/dL (32.0-36.0); MEAN CORPUSCULAR VOLUME 82 fl (80-97); MONOCYTES % (AUTO) 6.8 % (3-13); PLATELET COUNT 239 10^3/uL (150-450); RED BLOOD COUNT 3.04 10^6/uL (3.72-5.28); RED CELL DISTRIBUTION WIDTH 17.8 % (11.5-14.0); TOTAL CELLS COUNTED % (AUTO) 100 %; WHITE BLOOD COUNT 6.7 10^3/uL (4.0-10.5)
[2019-10-22] MEDS: VANCOMYCIN HCL 1,500 MG in DEXTROSE 5%-WATER 250 ML IV SCH (08:56)
[2019-10-22] MEDS: INSULIN LISPRO 100 UNIT/ML 3 ML VIAL SUBCUT SCH ×4 (11:05→21:53)
[2019-10-22] MEDS: DOCUSATE SODIUM 100 MG CAPSULE PO SCH (11:05)
[2019-10-22] MEDS: ENOXAPARIN SODIUM INJ 40 MG/0.4 ML DISP.SYRIN SUBCUT SCH (11:09)
[2019-10-22] MEDS: CEFTRIAXONE 1 GM/D5W RTU 1 GM/50 ML RTUPB IV SCH (11:09)
[2019-10-22] MEDS: INSULIN GLARGINE,HUM.REC.ANLOG 1,000 UNIT/10 ML VIAL SUBCUT SCH ×2 (11:09→21:53)
--- NOTE | 2019-10-22 12:25 | PDOC PROGRESS REPORT ---
Subjective Progress Note for:: 10/22/19 Reason For Visit: UTI(URINARY TRACT INFECTION)HYPOGLYCEMIA ASSIOCATE 10/22/2019 Patient was admitted for hypoglycemia however her primary problem now is respiratory difficulty. This is probably a combination of problems but her primary problem would be cardiomegaly and low ejection fracture, CHF Physical Exam Vital Signs: Temp Pulse Resp BP Pulse Ox 97.2 F 73 18 126/62 H 95 10/21/19 23:47 10/22/19 09:52 10/22/19 09:52 10/22/19 05:02 10/22/19 09:52 Intake & Output 10/21/19 10/22/19 10/23/19 06:59 06:59 06:59 Intake Total 1050 1540 Output Total 1350 Balance 1050 190 Weight 104.1 kg 113.3 kg General appearance: PRESENT: mild distress Respiratory exam: PRESENT: decreased breath sounds, retraction, tachypnea, whe ezes Cardiovascular exam: PRESENT: RRR. ABSENT: diastolic murmur, rubs, systolic murmur Neurological exam: PRESENT: altered, other - Patient arouses to verbal stimuli and answers questions appropriately Psychiatric exam: PRESENT: depressed, flat affect Results Laboratory Results: 10/22/19 04:46 10/21/19 04:47 10/21/19 10/21/19 10/22/19 14:50 18:56 04:46 WBC 6.7 RBC 3.04 L Hgb 8.5 L Hct 25.0 L MCV 82 MCH 27.9 MCHC 33.9 RDW 17.8 H Plt Count 239 Seg Neutrophils % 74.0 Carbonic Acid 1.57 H 1.50 H HCO3/H2CO3 Ratio 18:1 19:1 ABG pH 7.36 7.38 ABG pCO2 52.2 H 49.9 H ABG pO2 79.4 L 68.2 L ABG HCO3 29.0 H 29.0 H ABG O2 Saturation 95.2 93.1 L ABG Base Excess 3.1 3.3 FiO2 50% 2.5L 10/20/19 09:38 Blood Blood Culture (PCR) - Final Staphylococcus Species 10/21/19 04:47 NT-Pro-B Natriuret Pep 1020 H Impressions: Chest X-Ray 10/20/19 00:00 IMPRESSION: Asymmetric right perihilar opacity with small right pleural effusion and fissural thickening, suspicious for asymmetric pulmonary edema. Additional more confluent retrocardiac left basilar airspace disease could indicate additional edema, atelectasis, or pneumonia. Cardiomegaly. copyright 2010 [employer] [facility] [place] [facility] [employer]- All Rights Reserved Assessment and Plan - Diagnosis (1) Hypoglycemia Is this a current diagnosis for this admission?: Yes (2) Altered mental status Is this a current diagnosis for this admission?: Yes (3) UTI (urinary tract infection) Qualifiers: Urinary tract infection type: site unspecified Hematuria presence: with hematuria Qualified Code(s): N39.0 - Urinary tract infection, site not specified; R31.9 - Hematuria, unspecified Is this a current diagnosis for this admission?: Yes (4) Anemia Is this a current diagnosis for this admission?: Yes (5) Diabetes Is this a current diagnosis for this admission?: Yes (6) Hematuria Is this a current diagnosis for this admission?: Yes (7) Obesity (BMI 30.0-34.9) Is this a current diagnosis for this admission?: Yes - Plan Summary Summary: Patient will be admitted for D5W fluids, be placed on a sliding scale, hold her insulin, and her Victoza. Her dose was Levemir 25 units subcu every 12 hours and Victoza 1.2 mg subcu daily It appears as though [facility] her [facility] being too high, try to adjust these prior to discharge and also rule out urinary tract infection 10/21/2019 Patient was admitted originally for hypoglycemia. Patient's glucose levels are now running in the high 100s and low 200s on just a sliding scale. I am going to restart her scheduled insulin but at a much lower dose This morning her temperature was 97 4 pulse was 77 blood pressure 147/74 respiratory rate was 24 and O2 sat was 95% on nonrebreather flow of 10 . I am going to check a blood gas, then decrease her oxygen flow to 3 L, as she is currently on 6 L of flow Patient was given Lasix 40 mg IV this morning for respiratory distress. Chest x-ray shows no pneumonia. View of her chest x-ray shows an extremely large heart, and I think a lot of her respiratory problems are from a cardiac etiology with inefficient heart activity. BNP is 1000 I have gone ahead and added Rocephin and vancomycin however I do not think this is sepsis. Patient has been in the emergency room on multiple occasions recently as well as in the hospital. I have a call into her power of court usher and see if I can discuss making her a no code as I feel that is getting more difficult to correct her chronic abnormalities. 10/22/2019 I did speak with patient's power of court usher yesterday. She stated that she cannot make the patient a DNR unless she had specific medical documentation about the patient's condition that she could share with the family. I asked that the family could come up and visit at the hospital and see the patient or visit with me and she did not think that would be possible. Patient seems to have stabilized yesterday and today but she still has a somewhat labored breathing pattern. She is currently on vancomycin and Rocephin. Blood cultures are reported out as growing a staph bhavik, that is sensitive to vancomycin and Bactrim, not to the cephalosporins. Preliminary urine cultures growing out gram-positive cocci I will DC Gualbertorina leave her on vancomycin. If she should survive this illness and be sent back to the nursing facility I will send her out on Bactrim. Patient remains afebrile temperature 97.2 pulse is 73 blood pressure 126/62 O2 sat 95% on 3 L nasal cannula White blood cell count remains normal 6700 Sugars are trending down now to the mid 100s - Time Time Spent with patient: 35 or more minutes
[2019-10-22] MEDS: IPRATROPIUM/ALBUTEROL 0.5-2.5 MG/3 ML AMPUL NEB PRN (14:52)
--- NOTE | 2019-10-22 15:50 | Progress Note ---
Provider Note Provider Note: 10/22/2019 I spoke to 4 family members today we discussed Mrs. Pillai's health, and the fact that she has repeated of frequent hospitalizations and ER visits now for multiple problems. Patient seems to be getting weaker with each visit and having more infections as well as difficulty with respiratory respirations. Family has decided that they would like to make her a DNR. I explained to them that we will continue to treat her infections treat her congestive heart failure, ammonia or any other medical problems. However if she had a cardiac or respiratory arrest we would not perform CPR or intubate. I have conveyed this information to Ms. Kourtney Barahona, legal guardian. She is going to clear this with her director and then will signed the necessary paperwork to make Ms Pillai a DNR
--- NOTE | 2019-10-22 16:17 | Progress Note ---
Provider Note Provider Note: I just spoke to control director of the DSS, Wes Ledesma, telephone number [phone]. She informed me that it was authorized to make the patient a DNR, since the family is in agreement. We will continue to treat the patient's medical problems. I will sign a DNR document to be placed in the chart
[2019-10-23] MEDS: HYDRALAZINE HCL INJ/PF 20 MG/1 ML SDV IV PRN ×2 (00:23→16:44)
[2019-10-23 05:30] LABS: ABSOLUTE EOSINOPHILS # (AUTO) 0.2 10^3/uL (0.0-0.6); ABSOLUTE LYMPHOCYTES (AUTO) 1.3 10^3/uL (0.5-4.7); ABSOLUTE MONOCYTES (AUTO) 0.8 10^3/uL (0.1-1.4); ABSOLUTE NEUT (AUTO) 3.7 10^3/uL (1.7-8.2); BASOPHILS % (AUTO) 0.3 % (0-2); EOSINOPHILS % (AUTO) 3.9 % (0-6); HEMOGLOBIN 8.6 g/dL (12.0-15.5); LYMPHOCYTES % (AUTO) 21.6 % (13-45); MEAN CORPUSCULAR HGB CONC 33.2 g/dL (32.0-36.0); MEAN CORPUSCULAR VOLUME 82 fl (80-97); MONOCYTES % (AUTO) 12.5 % (3-13); PLATELET COUNT 259 10^3/uL (150-450); RED BLOOD COUNT 3.19 10^6/uL (3.72-5.28); RED CELL DISTRIBUTION WIDTH 17.8 % (11.5-14.0); SEGMENTED NEUTROPHILS % (AUTO) 61.7 % (42-78); TOTAL CELLS COUNTED % (AUTO) 100 %
[2019-10-23] MEDS: PANTOPRAZOLE SODIUM 20 MG TABLET.DR PO SCH (05:30)
[2019-10-23] MEDS: FUROSEMIDE INJ/PF 40 MG/4 ML SDV IV SCH ×2 (05:30→17:42)
[2019-10-23] MEDS: INSULIN LISPRO 100 UNIT/ML 3 ML VIAL SUBCUT SCH ×4 (09:33→21:20)
[2019-10-23] MEDS: VANCOMYCIN HCL 1,500 MG in DEXTROSE 5%-WATER 250 ML IV SCH (09:34)
[2019-10-23] MEDS: INSULIN GLARGINE,HUM.REC.ANLOG 1,000 UNIT/10 ML VIAL SUBCUT SCH ×2 (09:48→21:16)
[2019-10-23] MEDS: FLUCONAZOLE 100 MG TABLET PO SCH (09:52)
[2019-10-23] MEDS: ENOXAPARIN SODIUM INJ 40 MG/0.4 ML DISP.SYRIN SUBCUT SCH (09:52)
[2019-10-23] MEDS: DOCUSATE SODIUM 100 MG CAPSULE PO SCH (09:52)
--- NOTE | 2019-10-23 10:27 | PDOC PROGRESS REPORT ---
Subjective Progress Note for:: 10/23/19 Reason For Visit: UTI(URINARY TRACT INFECTION)HYPOGLYCEMIA ASSIOCATE 10/23/2019 Patient's was sent [facility] from the [place] [facility] to the ER for hypoglycemia, however patient appeared to be septic and possible UTI and was subsequently admitted Physical Exam Vital Signs: Temp Pulse Resp BP Pulse Ox 97.7 F 72 18 156/68 H 99 10/23/19 07:52 10/23/19 07:52 10/23/19 07:52 10/23/19 07:52 10/23/19 07:52 Intake & Output 10/22/19 10/23/19 10/24/19 06:59 06:59 06:59 Intake Total 1540 300 Output Total 1350 1825 Balance 190 -1525 Weight 113.3 kg 113.5 kg General appearance: PRESENT: no acute distress - Patient sleeping comfortably Respiratory exam: PRESENT: decreased breath sounds, wheezes Cardiovascular exam: PRESENT: systolic murmur Neurological exam: PRESENT: alert, awake, oriented to person, oriented to place, oriented to time, oriented to situation, CN II-XII grossly intact. ABSENT: motor sensory deficit Psychiatric exam: PRESENT: depressed, flat affect, other - This is apparently patient's baseline Results Laboratory Results: 10/23/19 04:45 10/21/19 04:47 10/23/19 04:45 WBC 6.0 RBC 3.19 L Hgb 8.6 L Hct 26.0 L MCV 82 MCH 27.0 MCHC 33.2 RDW 17.8 H Plt Count 259 Seg Neutrophils % 61.7 10/20/19 09:30 Clean Catch Midstream Urine Culture - Final Mrsa (Meth Resis Staph Aureus) 10/20/19 09:38 Blood Blood Culture (PCR) - Final Staphylococcus Species 10/20/19 09:38 Blood Blood Culture - Final Staphylococcus Cohnii 10/21/19 04:47 NT-Pro-B Natriuret Pep 1020 H Impressions: Chest X-Ray 10/20/19 00:00 IMPRESSION: Asymmetric right perihilar opacity with small right pleural effusion and fissural thickening, suspicious for asymmetric pulmonary edema. Additional more confluent retrocardiac left basilar airspace disease could indicate additional edema, atelectasis, or pneumonia. Cardiomegaly. copyright 2010 [employer]- All Rights Reserved Assessment and Plan - Diagnosis (1) Hypoglycemia Is this a current diagnosis for this admission?: Yes (2) Altered mental status Is this a current diagnosis for this admission?: Yes (3) UTI (urinary tract infection) Qualifiers: Urinary tract infection type: site unspecified Hematuria presence: with hematuria Qualified Code(s): N39.0 - Urinary tract infection, site not specified; R31.9 - Hematuria, unspecified Is this a current diagnosis for this admission?: Yes (4) Anemia Is this a current diagnosis for this admission?: Yes (5) Diabetes Is this a current diagnosis for this admission?: Yes (6) Hematuria Is this a current diagnosis for this admission?: Yes (7) Obesity (BMI 30.0-34.9) Is this a current diagnosis for this admission?: Yes - Plan Summary Summary: Patient will be admitted for D5W fluids, be placed on a sliding scale, hold her insulin, and her Victoza. Her dose was Levemir 25 units subcu every 12 hours and Victoza 1.2 mg subcu daily It appears as though patient normally has been running a low blood sugar at the [place] [facility] probably from her medications being too high, try to adjust these prior to discharge and also rule out urinary tract infection 10/21/2019 Patient was admitted originally for hypoglycemia. Patient's glucose levels are now running in the high 100s and low 200s on just a sliding scale. I am going to restart her scheduled insulin but at a much lower dose This morning her temperature was 97 4 pulse was 77 blood pressure 147/74 respiratory rate was 24 and O2 sat was 95% on nonrebreather flow of 10 . I am going to check a blood gas, then decrease her oxygen flow to 3 L, as she is currently on 6 L of flow Patient was given Lasix 40 mg IV this morning for respiratory distress. Chest x-ray shows no pneumonia. View of her chest x-ray shows an extremely large heart, and I think a lot of her respiratory problems are from a cardiac etiology with inefficient heart activity. BNP is 1000 I have gone ahead and added Rocephin and vancomycin however I do not think this is sepsis. Patient has been in the emergency room on multiple occasions recently as well as in the hospital. I have a call into her power of business attorney and see if I can discuss making her a no code as I feel that is getting more difficult to correct her chronic abnormalities. 10/22/2019 I did speak with patient's power of business attorney yesterday. She stated that she cannot make the patient a DNR unless she had specific medical documentation about the patient's condition that she could share with the family. I asked that the family could come up and visit at the hospital and see the patient or visit with me and she did not think that would be possible. Patient seems to have stabilized yesterday and today but she still has a somewhat labored breathing pattern. She is currently on vancomycin and Rocephin. Blood cultures are reported out as growing a staph bhavik, that is sensitive to vancomycin and Bactrim, not to the cephalosporins. Preliminary urine cultures growing out gram-positive cocci I will DC Rocephin leave her on vancomycin. If she should survive this illness and be sent back to the nursing facility I will send her out on Bactrim. 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 Will decrease her insulin slightly as I would like her to maintain blood sugars the low 100s. Blood pressures running slightly high mostly systolic, will try to correct this Patient otherwise stable - Time Time Spent with patient: 25-34 minutes
[2019-10-23] MEDS: AMLODIPINE BESYLATE 10 MG TABLET PO SCH (12:39)
[2019-10-23] MEDS: HYDRALAZINE HCL 25 MG TABLET PO SCH ×2 (12:39→17:41)
[2019-10-23] MEDS: DEXTROSE 5%-WATER 1000 ML 1,000 ML IV PRN (16:46)
[2019-10-23] MEDS: ACETAMINOPHEN 325 MG TABLET PO PRN (16:58)
[2019-10-24] MEDS: DEXTROSE 5%-WATER 1000 ML 1,000 ML IV PRN ×2 (00:22→08:10)
[2019-10-24] MEDS: HYDRALAZINE HCL 25 MG TABLET PO SCH ×5 (00:22→23:53)
[2019-10-24] MEDS: FUROSEMIDE INJ/PF 40 MG/4 ML SDV IV SCH ×2 (05:11→17:32)
[2019-10-24] MEDS: PANTOPRAZOLE SODIUM 20 MG TABLET.DR PO SCH (05:11)
[2019-10-24] MEDS: ACETAMINOPHEN 325 MG TABLET PO PRN (06:08)
[2019-10-24] MEDS: VANCOMYCIN HCL 1,500 MG in DEXTROSE 5%-WATER 250 ML IV SCH (08:10)
[2019-10-24 08:35] LABS: VANCOMYCIN,TROUGH 23.7 ug/mL (5.0-20.0)
[2019-10-24] MEDS: INSULIN LISPRO 100 UNIT/ML 3 ML VIAL SUBCUT SCH ×4 (09:41→21:15)
[2019-10-24] MEDS: AMLODIPINE BESYLATE 10 MG TABLET PO SCH (09:46)
[2019-10-24] MEDS: TRAMADOL HCL 50 MG TABLET PO PRN ×2 (09:47→17:35)
[2019-10-24] MEDS: DOCUSATE SODIUM 100 MG CAPSULE PO SCH (09:48)
[2019-10-24] MEDS: LISINOPRIL 10 MG TABLET PO SCH (09:48)
[2019-10-24] MEDS: FERROUS SULFATE 325 MG TABLET PO SCH (09:48)
[2019-10-24] MEDS: ENOXAPARIN SODIUM INJ 40 MG/0.4 ML DISP.SYRIN SUBCUT SCH (09:48)
[2019-10-24] MEDS: CITALOPRAM HYDROBROMIDE 20 MG TABLET PO SCH (09:48)
[2019-10-24] MEDS: FLUCONAZOLE 100 MG TABLET PO SCH (09:49)
[2019-10-24] MEDS: INSULIN GLARGINE,HUM.REC.ANLOG 1,000 UNIT/10 ML VIAL SUBCUT SCH ×2 (09:51→21:18)
[2019-10-24] MEDS ORDERED: (PENDING PHARMACY ID) (Lisinopril [Lisinopril] 20 MG) PO SCH (10:00)
--- NOTE | 2019-10-24 10:49 | PDOC PROGRESS REPORT ---
Subjective Progress Note for:: 10/24/19 Reason For Visit: UTI(URINARY TRACT INFECTION)HYPOGLYCEMIA ASSIOCATE 10/24/2019 Patient was admitted for hypoglycemia and probable UTI, sepsis Physical Exam Vital Signs: Temp Pulse Resp BP Pulse Ox 97.7 F 71 17 140/55 H 100 10/24/19 05:10 10/24/19 05:10 10/24/19 05:10 10/24/19 09:50 10/24/19 05:10 Intake & Output 10/23/19 10/24/19 10/25/19 06:59 06:59 06:59 Intake Total 300 1320 250 Output Total 1825 3000 Balance -1525 -1680 250 Weight 113.5 kg General appearance: PRESENT: no acute distress Respiratory exam: PRESENT: clear to auscultation maribel. ABSENT: rales, rhonchi, wheezes Cardiovascular exam: PRESENT: RRR. ABSENT: diastolic murmur, rubs, systolic murmur Neurological exam: PRESENT: alert, awake, oriented to person, oriented to place, oriented to time, oriented to situation, CN II-XII grossly intact. ABSENT: motor sensory deficit Psychiatric exam: PRESENT: flat affect Results Laboratory Results: 10/23/19 04:45 10/21/19 04:47 10/20/19 09:30 Clean Catch Midstream Urine Culture - Final Mrsa (Meth Resis Staph Aureus) 10/21/19 04:47 NT-Pro-B Natriuret Pep 1020 H Impressions: Chest X-Ray 10/20/19 00:00 IMPRESSION: Asymmetric right perihilar opacity with small right pleural effusion and fissural thickening, suspicious for asymmetric pulmonary edema. Additional more confluent retrocardiac left basilar airspace disease could indicate additional edema, atelectasis, or pneumonia. Cardiomegaly. copyright 2010 [employer]- All Rights Reserved Assessment and Plan - Diagnosis (1) Hypoglycemia Is this a current diagnosis for this admission?: Yes (2) Altered mental status Is this a current diagnosis for this admission?: Yes (3) UTI (urinary tract infection) Qualifiers: Urinary tract infection type: site unspecified Hematuria presence: with hematuria Qualified Code(s): N39.0 - Urinary tract infection, site not specified; R31.9 - Hematuria, unspecified Is this a current diagnosis for this admission?: Yes (4) Anemia Is this a current diagnosis for this admission?: Yes (5) Diabetes Is this a current diagnosis for this admission?: Yes (6) Hematuria Is this a current diagnosis for this admission?: Yes (7) Obesity (BMI 30.0-34.9) Is this a current diagnosis for this admission?: Yes - Plan Summary Summary: Patient will be admitted for D5W fluids, be placed on a sliding scale, hold her insulin, and her Victoza. Her dose was Levemir 25 units subcu every 12 hours and Victoza 1.2 mg subcu daily It appears as though patient normally has been running a low blood sugar [facility] the [facility] probably from her medications being too high, try to adjust these prior to discharge and also rule out urinary tract infection 10/21/2019 Patient was admitted originally for hypoglycemia. Patient's glucose levels are now running in the high 100s and low 200s on just a sliding scale. I am going to restart her scheduled insulin but at a much lower dose This morning her temperature was 97 4 pulse was 77 blood pressure 147/74 respira tory rate was 24 and O2 sat was 95% on nonrebreather flow of 10 . I am going to check a blood gas, then decrease her oxygen flow to 3 L, as she is currently on 6 L of flow Patient was given Lasix 40 mg IV this morning for respiratory distress. Chest x-ray shows no pneumonia. View of her chest x-ray shows an extremely large heart, and I think a lot of her respiratory problems are from a cardiac e tiology with inefficient heart activity. BNP is 1000 I have gone ahead and added Rocephin and vancomycin however I do not think this is sepsis. Patient has been in the emergency room on multiple occasions recently as well as in the hospital. I have a call into her power of data processing clerk and see if I can discuss making her a no code as I feel that is getting more difficult to correct her chronic abnormalities. 10/22/2019 I did speak with patient's power of data processing clerk yesterday. She stated that she ca nnot make the patient a DNR unless she had specific medical documentation about the patient's condition that she could share with the family. I asked that the family could come up and visit at the hospital and see the patient or visit with me and she did not think that would be possible. Patient seems to have stabilized yesterday and today but she still has a somewhat labored breathing pattern. She is currently on vancomycin and Rocephin. Blood cultures are reported out as growing a staph bhavik, that is sensitive to vancomycin and Bactrim, not to the cephalosporins. Preliminary urine cultures growing out gram-positive cocci I will DC Rocepellie leave her on vancomycin. If she should survive this illness and be sent back to the nursing facility I will send her out on Bactrim. 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 Will decrease her insulin slightly as I would like her to maintain blood sugars the low 100s. Blood pressures running slightly high mostly systolic, will try to correct this Patient otherwise stable 10/24/2019 Patient's vital signs are extremely stable she remains afebrile 97.7, in fact she has not had a fever since she has been admitted Blood pressures appears to be better controlled. I have decreased her IV fluids to 60 mL's per hour Continue the vancomycin but will switch her to p.o. Bactrim. I am repeating blood cultures today. White blood cells remain normal. Glucose levels are between 76 and 218. Currently Lantus is 6 units subcu every 12 hours. When patient was admitted her medications at [facility] were Victoza 1.2 mg subcu daily as well as Levemir 25 units subcu every 12 hours. This could explain why patient was so hypoglycemic for several days prior to admission as well as on admission. Course contributing could have also been her UTI. I will have discharge planning check with the staff at [facility] to see if she can go back on p.o. Bactrim. Patient did arouse easily and was complaining of a headache for which Ultram was ordered and for her yeast I have ordered nystatin cream. He is also on p.o. Diflucan's x3 days - Time Time Spent with patient: 25-34 minutes
[2019-10-24] MEDS: NYSTATIN CREAM 15 GM TP SCH ×2 (15:50→21:21)
[2019-10-25] MEDS: DEXTROSE 5%-WATER 1000 ML 1,000 ML IV PRN (03:33)
[2019-10-25] MEDS: FUROSEMIDE INJ/PF 40 MG/4 ML SDV IV SCH (05:20)
[2019-10-25] MEDS: HYDRALAZINE HCL 25 MG TABLET PO SCH ×2 (05:21→12:16)
[2019-10-25] MEDS: PANTOPRAZOLE SODIUM 20 MG TABLET.DR PO SCH (05:21)
[2019-10-25] MEDS: NYSTATIN CREAM 15 GM TP SCH (05:21)
[2019-10-25] MEDS: TRAMADOL HCL 50 MG TABLET PO PRN (05:27)
[2019-10-25] MEDS: INSULIN LISPRO 100 UNIT/ML 3 ML VIAL SUBCUT SCH ×2 (07:21→12:38)
[2019-10-25] MEDS ORDERED: VANCOMYCIN HCL 1,000 MG in DEXTROSE 5%-WATER 250 ML IV SCH (08:00)
[2019-10-25] MEDS: INSULIN GLARGINE,HUM.REC.ANLOG 1,000 UNIT/10 ML VIAL SUBCUT SCH (10:01)
[2019-10-25] MEDS: CITALOPRAM HYDROBROMIDE 20 MG TABLET PO SCH (10:05)
[2019-10-25] MEDS: LISINOPRIL 10 MG TABLET PO SCH (10:05)
[2019-10-25] MEDS: FERROUS SULFATE 325 MG TABLET PO SCH (10:05)
[2019-10-25] MEDS: AMLODIPINE BESYLATE 10 MG TABLET PO SCH (10:05)
[2019-10-25] MEDS: DOCUSATE SODIUM 100 MG CAPSULE PO SCH (10:05)
[2019-10-25] MEDS: FLUCONAZOLE 100 MG TABLET PO SCH (10:05)
[2019-10-25] MEDS: ENOXAPARIN SODIUM INJ 40 MG/0.4 ML DISP.SYRIN SUBCUT SCH (10:06)
[2019-10-25 10:40] VITALS: BP 146/64
--- NOTE | 2019-10-25 11:58 | PDOC TRANSFER SUMMARY ---
Impression - Admit/DC Date/PCP Admission Date/Primary Care Provider: 10/20/19 13:50 KRYSTAL CALHOUN MD Discharge Date: 10/25/19 - Discharge Diagnosis (1) Hypoglycemia Is this a current diagnosis for this admission?: Yes (2) Altered mental status Is this a current diagnosis for this admission?: Yes (3) UTI (urinary tract infection) Is this a current diagnosis for this admission?: Yes (4) Anemia Is this a current diagnosis for this admission?: Yes (5) Diabetes Is this a current diagnosis for this admission?: Yes (6) Hematuria Is this a current diagnosis for this admission?: Yes (7) Obesity (BMI 30.0-34.9) Is this a current diagnosis for this admission?: Yes - Assessment Summary: Patient will be admitted for D5W fluids, be placed on a sliding scale, hold her insulin, and her Victoza. Her dose was Levemir 25 units subcu every 12 hours and Victoza 1.2 mg subcu daily It appears as though patient normally has been running a low blood sugar at the senior living probably from her medications being too high, try to adjust these prior to discharge and also rule out urinary tract infection 10/21/2019 Patient was admitted originally for hypoglycemia. Patient's glucose levels are now running in the high 100s and low 200s on just a sliding scale. I am going to restart her scheduled insulin but at a much lower dose This morning her temperature was 97 4 pulse was 77 blood pressure 147/74 respiratory rate was 24 and O2 sat was 95% on nonrebreather flow of 10 . I am going to check a blood gas, then decrease her oxygen flow to 3 L, as she is currently on 6 L of flow Patient was given Lasix 40 mg IV this morning for respiratory distress. Chest x-ray shows no pneumonia. View of her chest x-ray shows an extremely large heart, and I think a lot of her respiratory problems are from a cardiac etiology with inefficient heart activity. BNP is 1000 I have gone ahead and added Rocephin and vancomycin however I do not think this is sepsis. Patient has been in the emergency room on multiple occasions recently as well as in the hospital. I have a call into her power of sports attorney and see if I can discuss making her a no code as I feel that is getting more difficult to correct her chronic abnormalities. 10/22/2019 I did speak with patient's power of sports attorney yesterday. She stated that she cannot make the patient a DNR unless she had specific medical documentation about the patient's condition that she could share with the family. I asked that the family could come up and visit at the hospital and see the patient or visit with me and she did not think that would be possible. Patient seems to have stabilized yesterday and today but she still has a somewhat labored breathing pattern. She is currently on vancomycin and Rocephin. Blood cultures are reported out as growing a staph bhavik, that is sensitive to vancomycin and Bactrim, not to the cephalosporins. Preliminary urine cultures growing out gram-positive cocci I will DC Rocepjaidan leave her on vancomycin. If she should survive this illness and be sent back to the nursing facility I will send her out on Bactrim. 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 Will decrease her insulin slightly as I would like her to maintain blood sugars the low 100s. Blood pressures running slightly high mostly systolic, will try to correct this Patient otherwise stable 10/24/2019 Patient's vital signs are extremely stable she remains afebrile 97.7, in fact she has not had a fever since she has been admitted Blood pressures appears to be better controlled. I have decreased her IV fluids to 60 mL's per hour Continue the vancomycin but will switch her to p.o. Bactrim. I am repeating blood cultures today. White blood cells remain normal. Glucose levels are between 76 and 218. Currently Lantus is 6 units subcu every 12 hours. When patient was admitted her medications at [place] [facility] were Victoza 1.2 mg subcu daily as well as Levemir 25 units subcu every 12 hours. This could explain why patient was so hypoglycemic for several days prior to admission as well as on admission. Course contributing could have also been her UTI. I will have discharge planning check with the staff at [facility] [place] to see if she can go back on p.o. Bactrim. Patient did arouse easily and was complaining of a headache for which Ultram was ordered and for her yeast I have ordered nystatin cream. He is also on p.o. Diflucan's x3 days 10/25/2019 Patient is being discharged back to [facility] today. Wrote multiple prescriptions including Bactrim double strength was 5 days, insulin Lantus 6 units subcu every 12 hours Lasix 40 mg twice daily nystatin cream every 8 hours as needed and Protonix 20 mg daily. Lowered her medicines for diabetes as she was always hypoglycemic, probably has to do with limited intake and continuing high doses of medications. Family and power of sports attorney made the patient a DNR with no expiration date - Additional Information Resuscitation Status: Do Not Resuscitate Discharge Diet: As Tolerated Discharge Activity: Balance Activity w/Rest Referrals: [facility] [Outside] Prescriptions: Sulfamethoxazole/Trimethoprim [Bactrim Ds Tablet] 1 each PO BID 5 Days #10 tablet Insulin Glargine,Hum.rec.anlog [Lantus Insulin 100 Unit/1 ml 10 ml] 6 unit SUBCUT Q12 10 Days #120 unit Furosemide [Lasix 40 mg Tablet] 40 mg PO BID 30 Days #60 MDD X3 DAYS Nystatin [Mycostatin Cream 15 gm] 1 applic TP Q8 7 Days #120 tube Pantoprazole Sodium [Protonix [address] Tablet] 20 mg PO Q6AM 30 Days #30 tablet.dr Home Medications: Amlodipine Besylate [Norvasc 10 mg Tablet] 10 mg PO DAILY 09/02/18 Citalopram Hydrobromide [Celexa 20 mg Tablet] 20 mg PO DAILY 08/06/19 Hydralazine HCl [Apresoline 25 mg Tablet] 25 mg PO QID 08/06/19 Aspirin [Ecotrin 81 mg EC Tablet] 81 mg PO DAILY 10/11/19 Ferrous Sulfate [Feosol 325 mg Tablet] 325 mg PO DAILY 10/11/19 Lisinopril 20 mg PO DAILY 10/11/19 Acetaminophen [Tylenol 325 mg Tablet] 650 mg PO Q4HP PRN 10/20/19 Ipratropium/Albuterol Sulfate [Duoneb 3 ml Ampul] 1 vial IH Q6HP PRN 10/20/19 Potassium Chloride [Klor-Con M20] 20 meq PO DAILY MDD X3 DAYS 10/20/19 Acetaminophen [Tylenol 325 mg Tablet] 650 mg PO Q4HP PRN tablet 10/25/19 Docusate Sodium [Colace 100 mg Capsule] 100 mg PO DAILY capsule 10/25/19 Furosemide [Lasix 40 mg Tablet] 40 mg PO BID 30 Days #60 MDD X3 DAYS 10/25/19 Insulin Glargine,Hum.rec.anlog [Lantus Insulin 100 Unit/1 ml 10 ml] 6 unit SUBCUT Q12 10 Days #120 unit 10/25/19 Nystatin [Mycostatin Cream 15 gm] 1 applic TP Q8 7 Days #120 tube 10/25/19 Pantoprazole Sodium [Protonix [address] Tablet] 20 mg PO Q6AM 30 Days #30 tablet.dr 10/25/19 Sulfamethoxazole/Trimethoprim [Bactrim Ds Tablet] 1 each PO BID 5 Days #10 tablet 10/25/19 Tramadol HCl [Ultram 50 mg Tablet] 50 mg PO Q6HP PRN tablet 10/25/19 History of Present Illiness History of Present Illness: GLENIS CERVANTES is a 84 year old female sent over from [facility] for altered mental status, hypoglycemia. Evidently EMS arrived and the blood glucose was in the 40s patient received some glucagon as well as D10 blood sugar went up to 139 and now in the ER it staying around 95. Looking at her labs from 2 days ago when she was still at [facility] her blood glucose at that time was only 57. Suspect she either has a urinary tract infection and or her insulin dosage is too high. Put her in the hospital for some IV fluids hold on her regular medicines and treated with just a sliding scale and then reintroduce her medicines for diabetes. Patient does answer simple questions although she is sleepy in the ER. They are attempting to give her crackers and peanut butter. Patient was just in the hospital and discharged on 311 to the senior living. At that time she had a diagnosis of pneumonia, as well as generalized weakness. Urinalysis today shows small amount of blood positive nitrates and large amount of leukocytes. Urine culture is pending Physical Exam Vital Signs: Temp Pulse Resp BP Pulse Ox 97.6 F 67 18 146/64 H 98 10/25/19 07:57 10/25/19 07:57 10/25/19 07:57 10/25/19 07:57 10/25/19 07:57 Intake & Output 10/24/19 10/25/19 10/26/19 06:59 06:59 06:59 Intake Total 1320 1836 250 Output Total 3000 1150 Balance -1680 686 250 Weight 113.6 kg Results Laboratory Results: WBC 6.0 10^3/uL (4.0-10.5) 10/23/19 04:45 RBC 3.19 10^6/uL (3.72-5.28) L 10/23/19 04:45 Hgb 8.6 g/dL (12.0-15.5) L 10/23/19 04:45 Hct 26.0 % (36.0-47.0) L 10/23/19 04:45 MCV 82 fl (80-97) 10/23/19 04:45 MCH 27.0 pg (27.0-33.4) 10/23/19 04:45 MCHC 33.2 g/dL (32.0-36.0) 10/23/19 04:45 RDW 17.8 % (11.5-14.0) H 10/23/19 04:45 Plt Count 259 10^3/uL (150-450) 10/23/19 04:45 Lymph % (Auto) 21.6 % (13-45) 10/23/19 04:45 [place] % (Auto) 12.5 % (3-13) 10/23/19 04:45 Eos % (Auto) 3.9 % (0-6) 10/23/19 04:45 Baso % (Auto) 0.3 % (0-2) 10/23/19 04:45 Absolute Neuts (auto) 3.7 10^3/uL (1.7-8.2) 10/23/19 04:45 Absolute Lymphs (auto) 1.3 10^3/uL (0.5-4.7) 10/23/19 04:45 Absolute Monos (auto) 0.8 10^3/uL (0.1-1.4) 10/23/19 04:45 Absolute Eos (auto) 0.2 10^3/uL (0.0-0.6) 10/23/19 04:45 Absolute Basos (auto) 0.0 10^3/uL (0.0-0.2) 10/23/19 04:45 Seg Neutrophils % 61.7 % (42-78) 10/23/19 04:45 PT 13.4 SEC (11.4-15.4) 10/20/19 09:38 INR 1.02 10/20/19 09:38 APTT 36.1 SEC (23.5-35.8) H 10/21/19 04:47 Carbonic Acid 1.50 mmol/L (1.05-1.35) H 10/21/19 18:56 HCO3/H2CO3 Ratio 19:1 10/21/19 18:56 ABG pH 7.38 (7.35-7.45) 10/21/19 18:56 ABG pCO2 49.9 mmHg (35-45) H 10/21/19 18:56 ABG pO2 68.2 mmHg (80-100) L 10/21/19 18:56 ABG HCO3 29.0 mmol/L (20-24) H 10/21/19 18:56 ABG Total CO2 30.5 mmol/L (21-25) H 10/21/19 18:56 ABG O2 Saturation 93.1 % (94-98) L 10/21/19 18:56 ABG Base Excess 3.3 mmol/L 10/21/19 18:56 FiO2 2.5L 10/21/19 18:56 Sodium 140.6 mmol/L (137-145) 10/21/19 04:47 Potassium 3.8 mmol/L (3.6-5.0) 10/21/19 04:47 Chloride 108 mmol/L (98-107) H 10/21/19 04:47 Carbon Dioxide 28 mmol/L (22-30) 10/21/19 04:47 Anion Gap 5 (5-19) 10/21/19 04:47 BUN 19 mg/dL (7-20) 10/21/19 04:47 Creatinine 1.17 mg/dL (0.52-1.25) 10/21/19 04:47 Est GFR ( Amer) 54 (>60) L 10/21/19 04:47 Est GFR (MDRD) Non-Af 44 (>60) L 10/21/19 04:47 Glucose 118 mg/dL (75-110) H 10/21/19 04:47 POC Glucose 93 mg/dL (70-110) 10/25/19 06:10 Hemoglobin A1c % 5.2 % (4.7-6.0) 10/21/19 04:47 Calcium 8.3 mg/dL (8.4-10.2) L 10/21/19 04:47 Total Bilirubin 0.2 mg/dL (0.2-1.3) 10/20/19 09:38 Direct Bilirubin 0.0 mg/dL (0.0-0.4) 10/20/19 09:38 Neonat Total Bilirubin Not Reportable 10/20/19 09:38 Neonat Direct Bilirubin Not Reportable 10/20/19 09:38 Neonat Indirect Bili Not Reportable 10/20/19 09:38 AST 37 U/L (14-36) H 10/20/19 09:38 ALT 21 U/L (<35) 10/20/19 09:38 Alkaline Phosphatase 66 U/L (38-126) 10/20/19 09:38 NT-Pro-B Natriuret Pep 1020 pg/mL (<450) H 10/21/19 04:47 Total Protein 6.6 g/dL (6.3-8.2) 10/20/19 09:38 Albumin 2.9 g/dL (3.5-5.0) L 10/20/19 09:38 Urine Color MARISELA 10/20/19 09:30 Urine Appearance TURBID 10/20/19 09:30 Urine pH 5.0 (5.0-9.0) 10/20/19 09:30 Ur Specific [place] 1.017 10/20/19 09:30 Urine Protein 100 mg/dL (NEGATIVE) H 10/20/19 09:30 Urine Glucose (UA) NEGATIVE mg/dL (NEGATIVE) 10/20/19 09:30 Urine Ketones NEGATIVE mg/dL (NEGATIVE) 10/20/19 09:30 Urine Blood SMALL (NEGATIVE) H 10/20/19 09:30 Urine Nitrite POSITIVE (NEGATIVE) H 10/20/19 09:30 Urine Bilirubin NEGATIVE (NEGATIVE) 10/20/19 09:30 Urine Urobilinogen NEGATIVE mg/dL (<2.0) 10/20/19 09:30 Ur Leukocyte Esterase LARGE (NEGATIVE) H 10/20/19 09:30 Urine WBC (Auto) >182 /HPF 10/20/19 09:30 Urine RBC (Auto) 18 /HPF 10/20/19 09:30 U Hyaline Cast (Auto) 12 /LPF 10/20/19 09:30 Urine WBC Clumps MANY /HPF 10/20/19 09:30 Squamous Epi Cells Auto 26 /HPF 10/20/19 09:30 U Non-Squamous Epis Auto 1 /HPF 10/20/19 09:30 Urine Mucus (Auto) FEW /LPF 10/20/19 09:30 Urine Yeast (Budding) PRESENT /HPF 10/20/19 09:30 Urine Ascorbic Acid NEGATIVE (NEGATIVE) 10/20/19 09:30 Time Trough Drawn 0752 10/24/19 07:52 Vancomycin Trough 23.7 ug/mL (5.0-20.0) H 10/24/19 07:52 10/21/19 04:47 NT-Pro-B Natriuret Pep 1020 H Impressions: Chest X-Ray 10/20/19 00:00 IMPRESSION: Asymmetric right perihilar opacity with small right pleural effusion and fissural thickening, suspicious for asymmetric pulmonary edema. Additional more confluent retrocardiac left basilar airspace disease could indicate additional edema, atelectasis, or pneumonia. Cardiomegaly. copyright 2010 [employer]- All Rights Reserved Stroke Is this a Stroke Patient?: No Acute Heart Failure - Is this a Heart Failure Patient?: No
== END 2019-10-25 13:49 | DRG 638 ==
LOC: ER 09:10 → EH 13:50 → 4W 15:45
PROVIDERS: ADMIT Hospitalist; ATTEND Physician Assistant
DX: E11.649 Type 2 diabetes mellitus with hypoglycemia without coma (principal); I13.0 Hypertensive heart and chronic kidney disease with heart failure and stage 1 through stage 4 chronic kidney disease, or unspecified chronic kidney disease; N39.0 Urinary tract infection, site not specified; Z68.41 Body mass index [BMI] 40.0-44.9, adult; Z16.19 Resistance to other specified beta lactam antibiotics; E11.22 Type 2 diabetes mellitus with diabetic chronic kidney disease; I50.9 Heart failure, unspecified; N18.3 Chronic kidney disease, stage 3 (moderate); D63.1 Anemia in chronic kidney disease; E78.5 Hyperlipidemia, unspecified; M19.90 Unspecified osteoarthritis, unspecified site; F32.9 Major depressive disorder, single episode, unspecified; F41.9 Anxiety disorder, unspecified; E66.9 Obesity, unspecified; R31.9 Hematuria, unspecified; Z66 Do not resuscitate; B37.3 Candidiasis of vulva and vagina; B95.62 Methicillin resistant Staphylococcus aureus infection as the cause of diseases classified elsewhere; B95.7 Other staphylococcus as the cause of diseases classified elsewhere; Z79.4 Long term (current) use of insulin; Z90.49 Acquired absence of other specified parts of digestive tract; Z90.710 Acquired absence of both cervix and uterus; Z82.49 Family history of ischemic heart disease and other diseases of the circulatory system; Z79.82 Long term (current) use of aspirin
CPT/HCPCS: 36415; 36600; 71045; 80053; 80202; 81001; 82803; 82962; 83036; 83880; 85025; 85610; 85730; 87040; 87077; 87086; 87088; 87150; 87186; 94640; 96365; 96375; 99291; J0360; J0696; J1650; J1815; J1940; J3370; J3490; J7060; J7620